=== PATIENT | female | born 1930 | race Caucasian/White ===

== ENCOUNTER 2017-08-01 14:30 | Inpatient (IN) | payer MEDICARE, BC ==
[2017-08-01] MEDS ORDERED: methylPREDNISolone SOD SUCCI 125 MG/2 ML VIAL IV STA (14:51)
[2017-08-01] MEDS ORDERED: IPRATROPIUM-ALBUTEROL 3 ML NEB INHALATION STA (14:51)
--- NOTE | 2017-08-01 14:54 | ED ---
SOB HPI - General Chief Complaint: Shortness of Breath Stated Complaint: SOB Time Seen by Provider: 08/01/17 14:51 Source: patient, RN notes reviewed Mode of arrival: ambulatory Limitations: no limitations - History of Present Illness Initial Comments: This is a 87-year-old female history of COPD who does still smoke occasionally who states she had the onset yesterday shortness of breath exertional dyspnea and a cough with yellow phlegm. She states it got worse today. No relief with her home medication. He denies any overt chest pain she denies any fevers chills or sweats. No other complaints at this time. MD Complaint: shortness of breath, cough - Related Data Home Medications Medication Instructions Recorded Confirmed Isosorbide Mononitrate ER [Imdur] 30 mg PO DAILY 10/29/14 08/01/17 Metoprolol Tartrate 25 mg PO BID 10/29/14 08/01/17 Ranitidine HCl 150 mg PO BID 10/29/14 08/01/17 Simvastatin [Zocor] 40 mg PO DAILY 10/29/14 08/01/17 amLODIPine BESYLATE [Norvasc] 2.5 mg PO DAILY 10/29/14 08/01/17 Budesonide-Formot 160-4.5 Mcg 2 puff INHALATION RT-BID PRN 08/01/17 08/01/17 [Symbicort 160-4.5 Mcg Inhaler] Ibuprofen [Motrin] 600 mg PO BID PRN 08/01/17 08/01/17 Allergies Allergy/AdvReac Type Severity Reaction Status Date / Time ciprofloxacin [From Cipro] Allergy Unknown Verified 08/01/17 16:44 Review of Systems ROS Statement: Those systems with pertinent positive or pertinent negative responses have been documented in the HPI. ROS Other: All systems not noted in ROS Statement are negative. Past Medical History Past Medical History: Hyperlipidemia, Hypertension History of Any Multi-Drug Resistant Organisms: None Reported Past Surgical History: Appendectomy, Cholecystectomy, Tubal Ligation Past Anesthesia/Blood Transfusion Reactions: No Reported Reaction Past Psychological History: No Psychological Hx Reported Smoking Status: Current some day smoker Past Alcohol Use History: None Reported Past Drug Use History: None Reported - Past Family History Mother Family Medical History: Asthma, Congestive Heart Failure (CHF) Father Family Medical History: Diabetes Mellitus General Exam - General Exam Comments Initial Comments: This is a well-developed well-nourished awake alert oriented 3 female Limitations: no limitations General appearance: alert, anxious Head exam: Present: atraumatic, normocephalic, normal inspection Eye exam: Present: normal appearance, PERRL, EOMI. Absent: scleral icterus, conjunctival injection, periorbital swelling ENT exam: Present: mucous membranes dry Neck exam: Present: normal inspection. Absent: tenderness, meningismus, lymphadenopathy Respiratory exam: Present: accessory muscle use, decreased breath sounds. Absent: respiratory distress, wheezes, rales, rhonchi, stridor Cardiovascular Exam: Present: regular rate, normal rhythm, normal heart sounds. Absent: systolic murmur, diastolic murmur, rubs, gallop, clicks GI/Abdominal exam: Present: soft, normal bowel sounds. Absent: distended, tenderness, guarding, rebound, rigid Extremities exam: Present: normal inspection, full ROM, normal capillary refill. Absent: tenderness, pedal edema, joint swelling, calf tenderness Back exam: Present: normal inspection Neurological exam: Present: alert, oriented X3, CN II-XII intact Psychiatric exam: Present: normal affect, normal mood Skin exam: Present: warm, dry, intact, normal color. Absent: rash Course Vital Signs 08/01/17 08/01/17 08/01/17 14:42 16:24 16:43 Temperature 98.9 F Pulse Rate 80 80 80 Respiratory 18 Rate Blood Pressure 141/63 O2 Sat by Pulse 99 Oximetry - Reevaluation(s) Reevaluation #1: 08/01/17 17:01 Reevaluation patient reveals minimally increased aeration however there are no crackles audible in the right lower lobe. Medical Decision Making - Medical Decision Making I did a long discussion with patient and her son regarding the findings. Patient does demonstrate evidence of COPD exacerbation with tracheobronchitis. She will be admitted with consultation by Dr. Collins. - Lab Data Result diagrams: 08/01/17 15:10 08/01/17 15:10 Lab Results 08/01/17 08/01/17 08/01/17 Range/Units 15:10 15:10 15:10 WBC 10.8 H (3.8-10.6) k/uL RBC 4.04 (3.80-5.40) m/uL Hgb 13.1 (11.4-16.0) gm/dL Hct 39.2 (34.0-46.0) % MCV 97.1 (80.0-100.0) fL MCH 32.5 (25.0-35.0) pg MCHC 33.4 (31.0-37.0) g/dL RDW 13.0 (11.5-15.5) % Plt Count 163 (150-450) k/uL Neutrophils % 79 % Lymphocytes % 12 % Monocytes % 7 % Eosinophils % 1 % Basophils % 0 % Neutrophils # 8.5 H (1.3-7.7) k/uL Lymphocytes # 1.2 (1.0-4.8) k/uL Monocytes # 0.8 (0-1.0) k/uL Eosinophils # 0.1 (0-0.7) k/uL Basophils # 0.0 (0-0.2) k/uL PT (9.0-12.0) sec INR (<1.2) APTT (22.0-30.0) sec Sodium 142 (137-145) mmol/L Potassium 3.2 L (3.5-5.1) mmol/L Chloride 103 (98-107) mmol/L Carbon Dioxide 29 (22-30) mmol/L Anion Gap 10 mmol/L BUN 21 H (7-17) mg/dL Creatinine 0.79 (0.52-1.04) mg/dL Est GFR (MDRD) Af Amer >60 (>60 ml/min/1.73 sqM) Est GFR (MDRD) Non-Af >60 (>60 ml/min/1.73 sqM) Glucose 127 H (74-99) mg/dL Calcium 9.3 (8.4-10.2) mg/dL Magnesium 1.6 (1.6-2.3) mg/dL Total Bilirubin 0.7 (0.2-1.3) mg/dL AST 25 (14-36) U/L ALT 24 (9-52) U/L Alkaline Phosphatase 79 (38-126) U/L Total Creatine Kinase 41 (30-135) U/L CK-MB (CK-2) 2.1 (0.0-2.4) ng/mL CK-MB (CK-2) Rel Index 5.1 Troponin I <0.012 (0.000-0.034) ng/mL NT-Pro-B Natriuret Pep pg/mL Total Protein 6.7 (6.3-8.2) g/dL Albumin 3.8 (3.5-5.0) g/dL 08/01/17 08/01/17 Range/Units 15:10 15:10 WBC (3.8-10.6) k/uL RBC (3.80-5.40) m/uL Hgb (11.4-16.0) gm/dL Hct (34.0-46.0) % MCV (80.0-100.0) fL MCH (25.0-35.0) pg MCHC (31.0-37.0) g/dL RDW (11.5-15.5) % Plt Count (150-450) k/uL Neutrophils % % Lymphocytes % % Monocytes % % Eosinophils % % Basophils % % Neutrophils # (1.3-7.7) k/uL Lymphocytes # (1.0-4.8) k/uL Monocytes # (0-1.0) k/uL Eosinophils # (0-0.7) k/uL Basophils # (0-0.2) k/uL PT 11.3 (9.0-12.0) sec INR 1.1 (<1.2) APTT 24.9 (22.0-30.0) sec Sodium (137-145) mmol/L Potassium (3.5-5.1) mmol/L Chloride (98-107) mmol/L Carbon Dioxide (22-30) mmol/L Anion Gap mmol/L BUN (7-17) mg/dL Creatinine (0.52-1.04) mg/dL Est GFR (MDRD) Af Amer (>60 ml/min/1.73 sqM) Est GFR (MDRD) Non-Af (>60 ml/min/1.73 sqM) Glucose (74-99) mg/dL Calcium (8.4-10.2) mg/dL Magnesium (1.6-2.3) mg/dL Total Bilirubin (0.2-1.3) mg/dL AST (14-36) U/L ALT (9-52) U/L Alkaline Phosphatase (38-126) U/L Total Creatine Kinase (30-135) U/L CK-MB (CK-2) (0.0-2.4) ng/mL CK-MB (CK-2) Rel Index Troponin I (0.000-0.034) ng/mL NT-Pro-B Natriuret Pep 2710 pg/mL Total Protein (6.3-8.2) g/dL Albumin (3.5-5.0) g/dL - EKG Data -: EKG Interpreted by Me EKG shows normal: sinus rhythm (Sinus rhythm rate is 78. Interval 150 QRS duration 90 QT since QTC of 398/453 pattern with anterior fascicular block nonspecific ST configuration. This is compared to an EKG dated 09/12/16 showing no change in the morphology.) - Radiology Data Radiology results: report reviewed (I did review the imaging and reports is evidence of COPD but no definite infiltrates.), image reviewed Critical Care Time Critical Care Time: Yes Critical Care Time: 31 minutes of critical care time which includes initial presentation with history physical labs x-rays reevaluation patient responsive therapy. Discussed with patient and her family regarding the findings review of old charting discussed with the patient family discussion with the admitting physician and admission orders and documentation of the above Disposition Clinical Impression: Acute exacerbation of chronic obstructive airways disease, Adult respiratory distress syndrome, Tracheobronchitis Disposition: ADMITTED IP TO THIS [facility] Condition: Stable Referrals: Luz Marina Collins MD [STAFF PHYSICIAN] - 1-2 days
[2017-08-01 15:52] LABS: Basophils % (A) 0 %; CH 31.5; CHCM 32.6; Eosinophils # (A) 0.1 k/uL (0-0.7); Eosinophils % (A) 1 %; HCT 39.2 % (34.0-46.0); HDW 2.51; HGB 13.1 gm/dL (11.4-16.0); Luc % (Auto) 2; Lymphocytes # (A) 1.2 k/uL (1.0-4.8); Lymphocytes % (A) 12 %; MCH 32.5 pg (25.0-35.0); MCHC 33.4 g/dL (31.0-37.0); MCV 97.1 fL (80.0-100.0); Mean Platelet Volume 7.8; Monocytes # (A) 0.8 k/uL (0-1.0); Monocytes % (A) 7 %; Neutrophils # (A) 8.5 k/uL (1.3-7.7); Neutrophils % (A) 79 %; RBC 4.04 m/uL (3.80-5.40); WBC 10.8 k/uL (3.8-10.6); WBC (Perox) 10.99
--- NOTE | 2017-08-01 15:57 | XR ---
EXAMINATION TYPE: XR chest 2V DATE OF EXAM: 08/01/2017 COMPARISON: September 12, 2016. HISTORY: Shortness of breath TECHNIQUE: Frontal and lateral views of the chest are obtained. FINDINGS: Hyperinflation is noted with flattening of the diaphragms. The cardiac silhouette is withi n normal limits. There is diffuse linear opacities which are unchanged. There is no pneumothorax or p leural effusion. Dense calcifications are identified in the aortic arch. Pectus excavatum deformity i s again noted. Findings consistent with COPD and interstitial lung disease are again noted. IMPRESSION: No change in appearance the chest, no acute intrathoracic abnormality identified.
[2017-08-01 15:58] LABS: ALT 24 U/L (9-52); AST 25 U/L (14-36); Alkaline Phosphatase 79 U/L (38-126); Anion Gap 10 mmol/L; Blood Urea Nitrogen 21 mg/dL (7-17); Calcium 9.3 mg/dL (8.4-10.2); Carbon Dioxide 29 mmol/L (22-30); Chloride 103 mmol/L (98-107); Glucose 127 mg/dL (74-99); Magnesium 1.6 mg/dL (1.6-2.3); Non-African American GFR(MDRD) >60 (>60 ml/min/1.73 sqM); Potassium 3.2 mmol/L (3.5-5.1); Sodium 142 mmol/L (137-145); Total Bilirubin 0.7 mg/dL (0.2-1.3); Total Protein 6.7 g/dL (6.3-8.2)
[2017-08-01 16:00] LABS: Creatine Kinase 41 U/L (30-135); INR 1.1 (<1.2); Partial Thromboplastin Time 24.9 sec (22.0-30.0); Prothrombin Time 11.3 sec (9.0-12.0)
[2017-08-01 16:13] LABS: Creatine Kinase MB 2.1 ng/mL (0.0-2.4); Troponin I <0.012 ng/mL (0.000-0.034)
[2017-08-01] MEDS ORDERED: IBUPROFEN 600 MG TAB PO PRN (17:06)
[2017-08-01] MEDS ORDERED: Potassium Replacement Protocol 1 EACH MISC MISCELLANE PRN (18:34)
[2017-08-01] MEDS: SODIUM CHLORIDE 0.9% 1,000 ML IV SCH (18:37)
[2017-08-01] MEDS: IPRATROPIUM-ALBUTEROL 3 ML NEB INHALATION SCH (19:53)
[2017-08-01] MEDS: POTASSIUM CHLORIDE 10 MEQ in WATER FOR INJECTION 1 100ML.BAG IVPB SCH ×2 (20:01→21:14)
[2017-08-01] MEDS: METOPROLOL TARTRATE 25 MG TAB PO SCH (20:02)
[2017-08-01] MEDS: AMOXIC-POT CLAV 875-125MG 1 EACH TAB PO SCH (20:02)
[2017-08-01 20:58] LABS: Glucose,Whole Blood 248 mg/dL (75-99)
[2017-08-01] MEDS ORDERED: FAMOTIDINE 20 MG TAB PO SCH (21:00)
[2017-08-01] MEDS: INSULIN LISPRO (humaLOG) 300 UNIT/3 ML VIAL SQ SCH (22:27)
[2017-08-01] MEDS: methylPREDNISolone SOD SUCCI 125 MG/2 ML VIAL IV SCH (23:32)
[2017-08-02] MEDS: IPRATROPIUM-ALBUTEROL 3 ML NEB INHALATION SCH ×6 (00:09→20:43)
[2017-08-02] MEDS: POTASSIUM CHLORIDE 10 MEQ, LIDOCAINE 2% INJ 10 MG in SODIUM CHLORIDE 0.9% 100 ML IVPB SCH ×2 (01:42→02:52)
[2017-08-02] MEDS: methylPREDNISolone SOD SUCCI 125 MG/2 ML VIAL IV SCH ×2 (06:29→11:04)
[2017-08-02] MEDS ORDERED: POTASSIUM CHLORIDE ER 20 MEQ TAB.ER PO STA (06:39)
[2017-08-02 07:11] LABS: Glucose,Whole Blood 202 mg/dL (75-99)
[2017-08-02] MEDS: INSULIN LISPRO (humaLOG) 300 UNIT/3 ML VIAL SQ SCH ×5 (07:45→20:47)
[2017-08-02] MEDS: ATORVASTATIN 20 MG TAB PO SCH (07:47)
[2017-08-02] MEDS: amLODIPine 2.5 MG TAB PO SCH (07:47)
[2017-08-02] MEDS: AMOXIC-POT CLAV 875-125MG 1 EACH TAB PO SCH ×2 (07:47→20:41)
[2017-08-02] MEDS: METOPROLOL TARTRATE 25 MG TAB PO SCH ×2 (07:48→20:41)
[2017-08-02] MEDS: FAMOTIDINE 20 MG TAB PO SCH (07:48)
[2017-08-02] MEDS: ISOSORBIDE MONONITRATE ER 30 MG TAB.ER.24H PO SCH (07:48)
[2017-08-02] MEDS: ENOXAPARIN 40 MG/0.4 ML SYRINGE SQ SCH (11:04)
[2017-08-02 12:26] LABS: Glucose,Whole Blood 219 mg/dL (75-99)
--- NOTE | 2017-08-02 15:42 | P.CNPUL ---
History of Present Illness Consult date: 08/02/17 Reason for consult: COPD History of present illness: 86-year-old female patient, known having advanced COPD with chronic hypoxic history failure, presented to hospital because of worsening shortness of breath , chest tightness, wheezing and coughing. The patient is still smoking a few cigarettes a daily basis. She was unable to keep up with her maintenance inhaler because of the cost and insurance coverage which has been mainly relying on oxygen and albuterol neb last 2 minutes on the clock. She also has a Ventolin rescue inhaler. Recently she's been overutilizing to have rescue inhaler knowing that she was getting progressively more short of breath. No chest pain. No cough or sputum production. No hemoptysis. No pleurisy. No swelling lower extremities pain no nausea or vomiting. No aspiration. No shallow. Her last COPD exacerbation and hospitalization was in August 2016. She is quite cachectic and malnourished. Her chest x-ray shows hyperinflation. There is small effusion the lung bases bilaterally. No clear asbestos disease or pneumonias seen. No change in mental status. She is already feeling better compared to yesterday. Review of Systems Constitutional: Reports fatigue, Reports weakness, Reports weight loss Eyes: bilateral blurred vision, bilateral bulging eye, bilateral decreased vision Ears: deny: decreased hearing, ear discharge, earache Ears, nose, mouth and throat: Denies headache, Denies sore throat Cardiovascular: Reports decreased exercise tolerance, Reports dyspnea on exertion, Reports shortness of breath Respiratory: Reports cough, Reports dyspnea, Reports wheezing Gastrointestinal: Denies abdominal pain, Denies diarrhea, Denies nausea, Denies vomiting Genitourinary: Denies dysuria, Denies hematuria Musculoskeletal: absent: ankle pain, ankle stiffness, ankle swelling Integumentary: Denies pruritus, Denies rash Neurological: Reports gait dysfunction, Reports weakness Psychiatric: Denies anxiety, Denies depression Endocrine: Denies fatigue, Denies weight change Past Medical History Past Medical History: COPD, Hyperlipidemia, Hypertension History of Any Multi-Drug Resistant Organisms: None Reported Past Surgical History: Appendectomy, Cholecystectomy, Tubal Ligation Past Anesthesia/Blood Transfusion Reactions: No Reported Reaction Past Psychological History: No Psychological Hx Reported Smoking Status: Current some day smoker Past Alcohol Use History: None Reported Past Drug Use History: None Reported - Past Family History Mother Family Medical History: Asthma, Congestive Heart Failure (CHF) Father Family Medical History: Diabetes Mellitus Medications and Allergies Home Medications Medication Instructions Recorded Confirmed Type Isosorbide Mononitrate ER [Imdur] 30 mg PO DAILY 10/29/14 08/01/17 History Metoprolol Tartrate 25 mg PO BID 10/29/14 08/01/17 History Ranitidine HCl 150 mg PO BID 10/29/14 08/01/17 History Simvastatin [Zocor] 40 mg PO DAILY 10/29/14 08/01/17 History amLODIPine BESYLATE [Norvasc] 2.5 mg PO DAILY 10/29/14 08/01/17 History Budesonide-Formot 160-4.5 Mcg 2 puff INHALATION RT-BID PRN 08/01/17 08/01/17 History [Symbicort 160-4.5 Mcg Inhaler] Ibuprofen [Motrin] 600 mg PO BID PRN 08/01/17 08/01/17 History Allergies Allergy/AdvReac Type Severity Reaction Status Date / Time ciprofloxacin [From Cipro] Allergy Unknown Verified 08/01/17 16:44 Physical Exam Vitals: Vital Signs Temp Pulse Pulse Resp BP BP Pulse Ox 08/02/17 15:00 97.6 F 81 17 110/65 96 08/02/17 11:34 88 08/02/17 11:20 88 08/02/17 08:05 88 08/02/17 07:49 98 08/02/17 07:00 97.4 F L 87 17 107/57 96 08/02/17 03:38 76 08/02/17 03:30 76 08/02/17 00:22 80 08/02/17 00:09 76 08/01/17 23:00 99.0 F 73 14 127/60 96 08/01/17 20:04 82 08/01/17 19:53 80 98 08/01/17 17:11 92 17 122/59 97 08/01/17 16:43 80 08/01/17 16:24 80 Intake and Output 08/02/17 08/02/17 08/02/17 06:59 14:59 22:59 Other: # Voids 2 2 # Bowel Movements 0 This patient is frail thin elderly nonacute distress. Not using excessive muscle breathing. She looks significantly cachectic and malnourished and significant loss in total body protein mass.Head exam was generally normal. There was no scleral icterus or corneal arcus. Mucous membranes were moist.Neck was supple and without jugular venous distension, thyromegaly, or carotid bruits. Carotids were easily palpable bilaterally. There was no adenopathy. Lung sounds are diminished bilaterally. The patient has very limited atelectatic lung bases. No significant wheezes unless the patient performs forced expiratory maneuvers.Cardiac exam revealed the PMI to be normally situated and sized. The rhythm was regular and no extrasystoles were noted during several minutes of auscultation. The first and second heart sounds were normal and physiologic splitting of the second heart sound was noted. There were no murmurs, rubs, clicks, or gallops.Abdominal exam revealed normal bowel sounds. The abdomen was soft, non-tender, and without masses, organomegaly, or appreciable enlargement of the abdominal aorta. Organs are not enlarged.Examination of the extremities revealed easily palpable radial, femoral and pedal pulses. There was no cyanosis, clubbing or edema. The patient has significant muscle atrophy and loss in bulk/protein bulk in lower extremities bilaterally. Neurologically the patient is awake and alert and there is no focal neurological deficits. Currently exam was within normal limits and there is no fractures or any limitation in range of motion. Skin is negative for any rashes or any ulceration. Psychiatric exam is within normal limits. No agitation. No change in mental status. No confusion. Results - Laboratory Findings CBC and BMP: 08/01/17 15:10 08/02/17 04:48 PT/INR, D-dimer PT 11.3 sec (9.0-12.0) 08/01/17 15:10 INR 1.1 (<1.2) 08/01/17 15:10 Abnormal lab findings: Abnormal Labs 08/01/17 08/01/17 08/01/17 15:10 15:10 20:48 WBC 10.8 H Neutrophils # 8.5 H Potassium 3.2 L BUN 21 H Glucose 127 H POC Glucose (mg/dL) 248 H 08/01/17 08/02/17 08/02/17 23:43 07:05 12:24 WBC Neutrophils # Potassium 3.4 L BUN Glucose POC Glucose (mg/dL) 202 H 219 H - Diagnostic Findings Chest x-ray: image reviewed Assessment and Plan Plan: Assessment 1 acute COPD exacerbation/bronchitis 2 worsening shortness of breath secondary to above 3 chronic hypoxic respiratory failure secondary to advanced COPD 4 significant protein calorie malnourishment and muscle atrophy in both upper and lower extremities 5 hypertension 6 hyperlipidemia 7 smoker Plan Continue DuoNeb neb last treatments around the clock. Completed the course of Augmentin 875 mg 1 tablet by mouth twice a day for hepatic antibiotic coverage regarding the possibility of an underlying bronchitis. The chest systemic steroids with 40 mg of IV Solu-Medrol every 8 hours. Lovenox for DVT prophylaxis. Outpatient medication we will resume. Smoking cessation counseling was done. We'll continue to follow.
[2017-08-02] MEDS: methylPREDNISolone SOD SUCCI 40 MG/ML 1 ML VIAL IV SCH ×2 (16:50→23:18)
[2017-08-02] MEDS: SODIUM CHLORIDE 0.9% 1,000 ML IV SCH (16:50)
[2017-08-02 17:03] LABS: Glucose,Whole Blood 191 mg/dL (75-99)
--- NOTE | 2017-08-02 17:35 | P.HPIM ---
History of Present Illness H&P Date: 08/02/17 Chief Complaint: Short of breath History of presenting complaint: This is a very pleasant 87-year-old patient of Dr. Spivey. 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 Montiel. Chronic stable medical conditions include hyperlipidemia, hypertension, osteoarthritis, urinary stress incontinence. Patient continues to smoke a few cigarettes day. Has 3 L of oxygen at home Patient presents with worsening short of breath, cough with yellow-green sputum , no obvious fever. Appetite is down weak and tired. No obvious pneumonia reported on the checks x-ray the ER. GEN.: Tired EYES: None HEENT: None NECK: None RESPIRATORY: As above CARDIOVASCULAR: None GASTROINTESTINAL: None GENITOURINARY: Stress incontinence MUSCULOSKELETAL: Some pain in multiple joints LYMPHATICS: None HEMATOLOGICAL: None PSYCHIATRY: None NEUROLOGICAL: None Past medical history: COPD, hypertension, hyperlipidemia, osteoarthritis, urinary stress incontinence , chronic hypoxic respiratory failure 3 L oxygen at home Past surgical history: Appendectomy, cholecystectomy, tubal ligation Home medications: Reviewed in electronic health records ALLERGIES: Ciprofloxacin Family history: Asthma and congestive heart failure Social history: Lives alone. Has smoked for close to 17 years average about a pack a day now down to 3-5 cigarettes a day. Alcohol none VITAL SIGNS: 98.9, 18, 18, 141/63, 99% on 3 L on presentation GENERAL: BMI 14.5, 10 built, sitting up, short of breath. EYES: Pupils equal. Conjunctiva normal. HEENT: External appearance of nose and ears normal, oral cavity grossly normal. NECK: JVD not raised; masses not palpable. HEART: First and second heart sounds are normal; no edema. LUNGS: Respiratory rate increased, unable to speak in full sentences, some accessory muscles or working; diminished breath sounds, some audible crackles on patient coughing. ABDOMEN: Soft, nontender, liver spleen not palpable, no masses palpable. LYMPHATICS: No lymph nodes palpable in the axilla and neck. PSYCH: Alert and oriented x3; mood and affect normal. NEUROLOGICAL: Cranial nerves grossly intact; no facial asymmetry, power and sensation grossly intact Musculoskeletal: Diffuse wasting of muscles. Evidence of osteoarthritis in multiple joints including the hands and knees Investigations: White count 10.8, hemoglobin 13.1, platelets 163 potassium 3.2 ProBNP 2710 Chest [id number]-hyper inflated, flattened diaphragm no obvious infiltrate Assessment: -Acute COPD exacerbation in a smoker secondary to acute bronchitis -Chronic nicotine dependence patient cigarette smoker -Possibly severe protein calorie malnutrition from chronically decreased oral intake -Hyperlipidemia -Essential hypertension -Primary osteoarthritis in multiple joints bilateral -Chronic urinary stress incontinence -Chronic hypoxic respiratory failure on 3 L of oxygen at home Past Medical History Past Medical History: COPD, Hyperlipidemia, Hypertension History of Any Multi-Drug Resistant Organisms: None Reported Past Surgical History: Appendectomy, Cholecystectomy, Tubal Ligation Past Anesthesia/Blood Transfusion Reactions: No Reported Reaction Past Psychological History: No Psychological Hx Reported Smoking Status: Current some day smoker Past Alcohol Use History: None Reported Past Drug Use History: None Reported - Past Family History Mother Family Medical History: Asthma, Congestive Heart Failure (CHF) Father Family Medical History: Diabetes Mellitus Medications and Allergies Home Medications Medication Instructions Recorded Confirmed Type Isosorbide Mononitrate ER [Imdur] 30 mg PO DAILY 10/29/14 08/01/17 History Metoprolol Tartrate 25 mg PO BID 10/29/14 08/01/17 History Ranitidine HCl 150 mg PO BID 10/29/14 08/01/17 History Simvastatin [Zocor] 40 mg PO DAILY 10/29/14 08/01/17 History amLODIPine BESYLATE [Norvasc] 2.5 mg PO DAILY 10/29/14 08/01/17 History Budesonide-Formot 160-4.5 Mcg 2 puff INHALATION RT-BID PRN 08/01/17 08/01/17 History [Symbicort 160-4.5 Mcg Inhaler] Ibuprofen [Motrin] 600 mg PO BID PRN 08/01/17 08/01/17 History Allergies Allergy/AdvReac Type Severity Reaction Status Date / Time ciprofloxacin [From Cipro] Allergy Unknown Verified 08/01/17 16:44 Results CBC & Chem 7: 08/01/17 15:10 08/02/17 04:48
[2017-08-02] MEDS: guaiFENesin 600 MG TABLET.ER PO SCH (20:41)
[2017-08-02 20:51] LABS: Glucose,Whole Blood 214 mg/dL (75-99)
[2017-08-02] MEDS ORDERED: INSULIN LISPRO (humaLOG) 300 UNIT/3 ML VIAL SQ SCH (21:26)
[2017-08-03] MEDS: IPRATROPIUM-ALBUTEROL 3 ML NEB INHALATION SCH ×7 (00:18→20:12)
[2017-08-03] MEDS: INSULIN LISPRO (humaLOG) 300 UNIT/3 ML VIAL SQ SCH ×4 (07:52→21:16)
[2017-08-03] MEDS: methylPREDNISolone SOD SUCCI 40 MG/ML 1 ML VIAL IV SCH ×2 (07:53→17:26)
[2017-08-03] MEDS: amLODIPine 2.5 MG TAB PO SCH (07:54)
[2017-08-03] MEDS: FAMOTIDINE 20 MG TAB PO SCH (07:54)
[2017-08-03] MEDS: ATORVASTATIN 20 MG TAB PO SCH (07:54)
[2017-08-03] MEDS: ENOXAPARIN 40 MG/0.4 ML SYRINGE SQ SCH (07:54)
[2017-08-03] MEDS: AMOXIC-POT CLAV 875-125MG 1 EACH TAB PO SCH ×2 (07:54→21:06)
[2017-08-03] MEDS: guaiFENesin 600 MG TABLET.ER PO SCH ×2 (07:54→21:07)
[2017-08-03] MEDS: ISOSORBIDE MONONITRATE ER 30 MG TAB.ER.24H PO SCH (07:55)
[2017-08-03] MEDS: METOPROLOL TARTRATE 25 MG TAB PO SCH ×2 (07:55→21:07)
[2017-08-03 07:57] LABS: Glucose,Whole Blood 188 mg/dL (75-99)
[2017-08-03 12:49] LABS: Glucose,Whole Blood 122 mg/dL (75-99)
--- NOTE | 2017-08-03 16:46 | P.PN ---
<Frances Lizarraga M - Last Filed: 08/03/17 16:37> Subjective Principal diagnosis: 86 showed female patients with advanced COPD and chronic hypoxic failure history , being seen in follow-up today on 08/03/2017. She she is resting in bed comfortably with a sitter at the bedside. She is alert awake and responding appropriately. In no significant amount of distress. Per nursing staff last night patient was confused for which a industrial safety and health specialist was placed at the bedside. She denies cough, shortness of breath or wheezing. Afebrile, currently on 3 L oxygen per nasal cannula a oxygen saturations in the 93-95% range. She continues on IV steroids, Augmentin, and DuoNeb nebulizer treatments. Remains hemodynamically stable. Blood cultures are pending. Objective - Vital Signs Vital signs: Vital Signs Temp 97.1 F L 08/03/17 15:00 Pulse 88 08/03/17 15:49 Resp 20 08/03/17 15:00 BP 114/59 08/03/17 15:00 Pulse Ox 95 08/03/17 15:00 Intake & Output 08/02/17 08/03/17 08/03/17 18:59 06:59 18:59 Intake Total 240 Balance 240 Intake: Oral 240 Other: # Voids 2 1 2 # Bowel Movements 0 - Constitutional General appearance: Present: thin - EENT Eyes: Present: PERRLA, poor dentition ENT: Present: NA/AT Ears: bilateral: normal - Neck Neck: Present: normal ROM Thyroid: bilateral: normal size - Respiratory Respiratory: bilateral: diminished - Cardiovascular Rhythm: regular Heart sounds: normal: S1, S2 - Peripheral pulses dorsalis pedis Peripheral Pulses: bilateral: Normal radial pulse Peripheral Pulses: bilateral: Normal - Gastrointestinal General gastrointestinal: Present: normal bowel sounds - Neurologic Neurologic: Present: CNII-XII intact - Musculoskeletal Musculoskeletal: Present: generalized weakness, strength equal bilaterally - Psychiatric Psychiatric Comment(s): Episode of confusion last night Psychiatric: Present: A&O x's 3 - Labs CBC & Chem 7: 08/01/17 15:10 08/02/17 04:48 Labs: Abnormal Lab Results - Last 24 Hours (Table) 08/02/17 08/02/17 08/03/17 Range/Units 17:01 20:45 07:16 POC Glucose (mg/dL) 191 H 214 H 188 H (75-99) mg/dL 08/03/17 Range/Units 12:15 POC Glucose (mg/dL) 122 H (75-99) mg/dL Microbiology - Last 24 Hours (Table) 08/01/17 15:10 Blood Culture - Preliminary Blood No Growth after 24 hours - Imaging and Cardiology Chest x-ray: report reviewed Assessment and Plan Plan: Assessment 1 acute COPD exacerbation/bronchitis 2 worsening shortness of breath secondary to above 3 chronic hypoxic respiratory failure secondary to advanced COPD 4 significant protein calorie malnourishment and muscle atrophy in both upper and lower extremities 5 hypertension 6 hyperlipidemia 7 smoker Plan Continue DuoNeb neb last treatments around the clock. Continue Augmentin 875 mg 1 tablet by mouth twice a day for hepatic antibiotic coverage regarding the possibility of an underlying bronchitis. The chest systemic steroids with 40 mg of IV Solu-Medrol every 8 hours. Lovenox for DVT prophylaxis. Outpatient medication we will resume. Smoking cessation counseling was done. We'll continue to follow. I performed a history & physical examination of the patient and discussed their management with my nurse practitioner, Frances Lizarraga. I reviewed the nurse practitioner's note and agree with the documented findings and plan of care. <Vilma Pandey - Last Filed: 08/03/17 17:10> Objective - Vital Signs Vital signs: Vital Signs Temp 97.1 F L 08/03/17 15:00 Pulse 88 08/03/17 15:49 Resp 20 08/03/17 15:00 BP 114/59 08/03/17 15:00 Pulse Ox 95 08/03/17 15:00 Intake & Output 08/02/17 08/03/17 08/03/17 18:59 06:59 18:59 Intake Total 240 Balance 240 Intake: Oral 240 Other: # Voids 2 1 2 # Bowel Movements 0 - Labs CBC & Chem 7: 08/01/17 15:10 08/02/17 04:48 Labs: Abnormal Lab Results - Last 24 Hours (Table) 08/02/17 08/03/17 08/03/17 Range/Units 20:45 07:16 12:15 POC Glucose (mg/dL) 214 H 188 H 122 H (75-99) mg/dL Microbiology - Last 24 Hours (Table) 08/01/17 15:10 Blood Culture - Preliminary Blood No Growth after 24 hours Assessment and Plan Plan: I generated this joint evaluation with the nurse practitioner. I saw the patient. I interviewed her. I examined her. She has acute COPD exacerbation she is gradually getting better. I taper the steroids. We'll continue to follow and will hopefully changes to a prednisone burst taper within next 24 hours. Otherwise the rest of the plan as indicated above
--- NOTE | 2017-08-03 17:24 | P.PN ---
<Lauren Hampton - Last Filed: 08/03/17 17:24> Progress Note - Text DATE OF SERVICE: 08/03/2017 PRESENTING COMPLAINT: Shortness of breath HISTORY OF PRESENT ILLNESS: 87-year-old female with a current history of smoking in 3 L of oxygen use at home presented with worsening shortness of breath cough with yellow-green sputum no obvious fever. Appetite low complained of weakness and feeling tired. Diagnostics negative for pneumonia. INTERVAL HISTORY: 08/03/2017: Patient lying in bed appears pale but comfortable. Breathing easily, no wheezing noted, overnight patient had quite a bit of confusion was undirectable and required a chief safety officer at the bedside. Patient is more alert this morning following commands and appropriately answering questions. Anxious to go home, would benefit from an additional day of antibiotics. REVIEW OF SYSTEMS: Done for constitutional ,cardiovascular, GI, pulmonary with relevant findings as above. CURRENT MEDICATIONS DuoNeb, on [place] 875/125 one tablet by mouth twice a day, Lipitor 20 mg by mouth daily, Mucinex, Solu-Medrol 40 mg IV every 8 hours, Lopressor 25 mg by mouth twice a day PHYSICAL EXAM VITAL SIGNS: Temp temperature 97.3, pulse 79, respiratory rate 16, blood pressure 118/85, oxygen saturation 96% on 3 L. GENERAL APPEARANCE: Thin build Lying in bed, appears comfortable EYES: Pupils equal. Conjunctiva normal. NECK: JVD not raised. Mass not palpable. RESPIRATORY: Respiratory effort increased Some accessory muscles use, breath sounds diminished bilaterally crackles with coughing. CARDIOVASCULAR: First and second sounds normal. No edema. ABDOMEN: Soft. Liver and spleen not palpable. No tenderness. No mass palpable. PSYCHIATRY: Alert and oriented x3. Mood and affect normal. 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 Plan of care discussed with the patient at the bedside questions were answered. We will follow closely. MACHINE OPERATOR ASSISTANT statement: Patient was seen and examined by nurse practitioner Lauren Hampton and all elements of the case discussed with attending Dr. Urias <Khadar Urias - Last Filed: 08/03/17 20:52> Progress Note - Text Attending note. Date of service-08/03/2017 This patient was seen and examined by me . Discussed the patient with my nurse practitioner Ms. Hampton. Admitted with COPD exacerbation. Breathing is slightly better. Coughing up some phlegm. Still feels feeling weak and tired. Appetite only slowly improved Acute confusion overnight On examination: Lungs-decreased breath sounds prolonged expiration and some wheezing, psych AO 3 Investigations: Accu-Cheks noted Assessment and plan: Acute severe COPD exacerbation in a smoker secondary to acute bronchitis. Acute delirium overnight, resolved Continue current medication treatment plan. Discussed with the patient. Did cut back on those Solu-Medrol
[2017-08-03] MEDS: SODIUM CHLORIDE 0.9% 1,000 ML IV SCH (17:27)
[2017-08-03 17:49] LABS: Glucose,Whole Blood 190 mg/dL (75-99)
[2017-08-03] MEDS ORDERED: IPRATROPIUM-ALBUTEROL 3 ML NEB INHALATION PRN (19:14)
[2017-08-03 20:35] LABS: Glucose,Whole Blood 174 mg/dL (75-99)
[2017-08-04] MEDS: methylPREDNISolone SOD SUCCI 40 MG/ML 1 ML VIAL IV SCH ×2 (00:26→07:59)
[2017-08-04 07:08] VITALS: BP 105/63; RESP 18; TEMP 97.7
[2017-08-04 07:19] LABS: Glucose,Whole Blood 161 mg/dL (75-99)
[2017-08-04] MEDS: FAMOTIDINE 20 MG TAB PO SCH (07:53)
[2017-08-04] MEDS: ATORVASTATIN 20 MG TAB PO SCH (07:53)
[2017-08-04] MEDS: ISOSORBIDE MONONITRATE ER 30 MG TAB.ER.24H PO SCH (07:54)
[2017-08-04] MEDS: amLODIPine 2.5 MG TAB PO SCH (07:54)
[2017-08-04] MEDS: METOPROLOL TARTRATE 25 MG TAB PO SCH (07:54)
[2017-08-04] MEDS: AMOXIC-POT CLAV 875-125MG 1 EACH TAB PO SCH (07:56)
[2017-08-04] MEDS: guaiFENesin 600 MG TABLET.ER PO SCH (07:58)
[2017-08-04] MEDS: ENOXAPARIN 40 MG/0.4 ML SYRINGE SQ SCH (07:59)
[2017-08-04] MEDS: IPRATROPIUM-ALBUTEROL 3 ML NEB INHALATION SCH ×2 (08:44→11:46)
[2017-08-04] MEDS: INSULIN LISPRO (humaLOG) 300 UNIT/3 ML VIAL SQ SCH ×2 (08:59→12:39)
[2017-08-04 09:01] LABS: Glucose,Whole Blood 261 mg/dL (75-99)
[2017-08-04 11:58] VITALS: PULSE 88
[2017-08-04 12:05] LABS: Glucose,Whole Blood 110 mg/dL (75-99)
--- NOTE | 2017-08-05 08:36 | DS ---
DISCHARGE SUMMARY DATE OF ADMISSION: 08/01/2017. DATE OF DISCHARGE: 08/05/2017 FINAL DIAGNOSIS: 1. Acute chronic obstructive pulmonary disease exacerbation in a smoker secondary to acute bronchitis. 2. Acute delirium multifactorial, resolved. 3. Chronic nicotine dependence. Patient is a cigarette smoker. 4. Severe protein calorie malnutrition from chronic decreased oral intake. 5. Hyperlipidemia. 6. Essential hypertension. 7. Primary osteoarthritis of multiple joints, bilateral. 8. Chronic urinary stress incontinence. 9. Chronic hypoxic respiratory failure on 3 L oxygen at home. CONSULTATION: Dr. Pandey from Pulmonary. HOSPITAL COURSE: This patient continued to smoke. Very pleasant patient with COPD exacerbation and bronchitis. Responded well to steroids, nebulized bronchodilators. The patient is counseled against smoking. Patient is able to get around the house. PHYSICAL EXAM: LUNGS: decreased breath sounds. CARDIOVASCULAR: First and seconds sounds are normal. PSYCH: Alert and oriented x3. DISCHARGE MEDICATIONS: 1. Imdur ER 30 mg p.o. daily. 2. Metoprolol 25 mg p.o. b.i.d. 3. Zantac 150 mg p.o. b.i.d. 4. Zocor 40 mg p.o. daily. 5. Norvasc 2.5 p.o. daily. 6. Symbicort 160/4.5 two puffs b.i.d. p.r.n. 7. Motrin 600 mg p.o. b.i.d. p.r.n. 8. Augmentin 875 one tablet p.o. b.i.d. 6 tablets. 9. DuoNeb q.i.d. 10.Mucinex 200 mg p.o. q.12. 11.Prednisone taper. Follow up with Dr. Collins on 08/05/2017; Dr. Spivey in 3 days. Home oxygen to continue. Discharge planning more than 35 minutes. MMODL / IJN: [id number] /
== END 2017-08-04 12:39 | disposition home or self-care (01) | DRG 190 ==
LOC: EC 14:30 → 4MS4W 17:06
PROVIDERS: ADMIT Hospitalist; ATTEND Hospitalist
DX: J44.0 Chronic obstructive pulmonary disease with (acute) lower respiratory infection (principal); E43 Unspecified severe protein-calorie malnutrition; J96.11 Chronic respiratory failure with hypoxia; F05 Delirium due to known physiological condition; Z99.81 Dependence on supplemental oxygen; I44.4 Left anterior fascicular block; R64 Cachexia; Z68.1 Body mass index [BMI] 19.9 or less, adult; J44.1 Chronic obstructive pulmonary disease with (acute) exacerbation; I10 Essential (primary) hypertension; J20.9 Acute bronchitis, unspecified; T48.6X6A Underdosing of antiasthmatics, initial encounter; M62.50 Muscle wasting and atrophy, not elsewhere classified, unspecified site; M17.0 Bilateral primary osteoarthritis of knee; E78.5 Hyperlipidemia, unspecified; M19.041 Primary osteoarthritis, right hand; M19.042 Primary osteoarthritis, left hand; R53.1 Weakness; N39.3 Stress incontinence (female) (male); F17.210 Nicotine dependence, cigarettes, uncomplicated; Z79.899 Other long term (current) drug therapy; Z79.51 Long term (current) use of inhaled steroids; Z83.3 Family history of diabetes mellitus; Z82.5 Family history of asthma and other chronic lower respiratory diseases; Z82.49 Family history of ischemic heart disease and other diseases of the circulatory system; Z88.1 Allergy status to other antibiotic agents; Z79.1 Long term (current) use of non-steroidal anti-inflammatories (NSAID); Z71.6 Tobacco abuse counseling; Z90.49 Acquired absence of other specified parts of digestive tract; Z98.51 Tubal ligation status; Z91.14 Patient's other noncompliance with medication regimen
CPT/HCPCS: 36415; 71020; 80053; 82550; 82553; 83735; 83880; 84132; 84484; 85025; 85610; 85730; 87040; 93005; 94640; 94760; 96374; 99291

== ENCOUNTER 2017-08-14 20:33 | Inpatient (IN) | payer MEDICARE, BC ==
[2017-08-14] MEDS ORDERED: methylPREDNISolone SOD SUCCI 125 MG/2 ML VIAL IV STA (20:41)
[2017-08-14] MEDS ORDERED: SODIUM CHLORIDE 0.9% 1,000 ML IV STA (20:41)
[2017-08-14] MEDS ORDERED: IPRATROPIUM-ALBUTEROL 3 ML NEB INHALATION STA (20:41)
[2017-08-14] MEDS ORDERED: MAGNESIUM SULFATE-D5W PMX 1 GM in DEXTROSE/WATER 1 100ML.BAG IVPB STA (20:41)
[2017-08-14] MEDS ORDERED: SODIUM CHLORIDE 0.9% 500 ML IV STA (20:41)
--- NOTE | 2017-08-14 20:49 | ED ---
SOB HPI - General Stated Complaint: ALYCIA Time Seen by Provider: 08/14/17 20:36 Source: patient, family, RN notes reviewed, old records reviewed - History of Present Illness Initial Comments: This is a 87-year-old female with a history of COPD who does still smoke cigarettes who states she had the onset earlier today of shortness of breath with a near syncopal episode or shakes she did go down the floor he has some chest tightness which currently is about 1/10 severity. She had no fevers chills sweats no cough or other symptoms to report. She was brought in by family members. MD Complaint: shortness of breath, chest pain - Related Data Home Medications Medication Instructions Recorded Confirmed Isosorbide Mononitrate ER [Imdur] 30 mg PO DAILY 10/29/14 08/01/17 Metoprolol Tartrate 25 mg PO BID 10/29/14 08/01/17 Ranitidine HCl 150 mg PO BID 10/29/14 08/01/17 Simvastatin [Zocor] 40 mg PO DAILY 10/29/14 08/01/17 amLODIPine BESYLATE [Norvasc] 2.5 mg PO DAILY 10/29/14 08/01/17 Budesonide-Formot 160-4.5 Mcg 2 puff INHALATION RT-BID PRN 08/01/17 08/01/17 [Symbicort 160-4.5 Mcg Inhaler] Ibuprofen [Motrin] 600 mg PO BID PRN 08/01/17 08/01/17 Previous Rx's Medication Instructions Recorded Amoxic-Pot Clav 875-125Mg 1 each PO BID #6 tab 08/04/17 [Augmentin 875-125] Ipratropium-Albuterol Nebulize 3 ml INHALATION RT-QID #120 neb 08/04/17 [Duoneb 0.5 mg-3 mg/3 ml Soln] guaiFENesin [Mucinex] 1,200 mg PO Q12HR #60 tab 08/04/17 predniSONE 10 mg PO DAILY #30 tab 08/04/17 Allergies Allergy/AdvReac Type Severity Reaction Status Date / Time ciprofloxacin [From Cipro] Allergy Unknown Verified 08/14/17 20:46 Review of Systems ROS Statement: Those systems with pertinent positive or pertinent negative responses have been documented in the HPI. ROS Other: All systems not noted in ROS Statement are negative. Past Medical History Past Medical History: COPD, Hyperlipidemia, Hypertension History of Any Multi-Drug Resistant Organisms: None Reported Past Surgical History: Appendectomy, Cholecystectomy, Tubal Ligation Past Anesthesia/Blood Transfusion Reactions: No Reported Reaction Past Psychological History: No Psychological Hx Reported Smoking Status: Current some day smoker Past Alcohol Use History: None Reported Past Drug Use History: None Reported - Past Family History Mother Family Medical History: Asthma, Congestive Heart Failure (CHF) Father Family Medical History: Diabetes Mellitus General Exam - General Exam Comments Initial Comments: This is a well-developed asthenic appearing female General appearance: alert, in no apparent distress Head exam: Present: atraumatic, normocephalic, normal inspection Eye exam: Present: normal appearance, PERRL, EOMI. Absent: scleral icterus, conjunctival injection, periorbital swelling ENT exam: Present: mucous membranes dry Neck exam: Present: normal inspection. Absent: tenderness, meningismus, lymphadenopathy Respiratory exam: Present: decreased breath sounds, other (Patient does demonstrate slight kyphosis). Absent: respiratory distress, wheezes, rales, rhonchi, stridor Cardiovascular Exam: Present: normal rhythm, tachycardia, normal heart sounds. Absent: systolic murmur, diastolic murmur, rubs, gallop, clicks GI/Abdominal exam: Present: soft, normal bowel sounds. Absent: distended, tenderness, guarding, rebound, rigid Extremities exam: Present: normal inspection, full ROM, normal capillary refill. Absent: tenderness, pedal edema, joint swelling, calf tenderness Back exam: Present: normal inspection Neurological exam: Present: alert, oriented X3, CN II-XII intact Psychiatric exam: Present: normal affect, normal mood Skin exam: Present: warm, dry, intact, normal color. Absent: rash Course Vital Signs 08/14/17 08/14/17 08/14/17 20:43 20:57 21:06 Temperature 98.1 F Pulse Rate 106 H 110 H 114 H Respiratory 20 16 16 Rate Blood Pressure 162/76 O2 Sat by Pulse 97 Oximetry 08/14/17 08/14/17 21:13 21:38 Temperature Pulse Rate 101 H Respiratory 20 20 Rate Blood Pressure 144/63 O2 Sat by Pulse 96 Oximetry - Reevaluation(s) Reevaluation #1: 08/14/17 21:55 Patient is feeling somewhat better. She still coughing. Medical Decision Making - Medical Decision Making Patient states she is feeling somewhat better I did discuss the findings with her she will be admitted I did discuss the case with Dr. Duong's service. - Lab Data Result diagrams: 08/14/17 20:51 08/14/17 20:51 Lab Results 08/14/17 08/14/17 08/14/17 Range/Units 20:51 20:51 20:51 WBC 21.2 H (3.8-10.6) k/uL RBC 4.68 (3.80-5.40) m/uL Hgb 14.8 (11.4-16.0) gm/dL Hct 47.5 H (34.0-46.0) % MCV 101.5 H (80.0-100.0) fL MCH 31.6 (25.0-35.0) pg MCHC 31.1 (31.0-37.0) g/dL RDW 13.4 (11.5-15.5) % Plt Count 193 (150-450) k/uL Neutrophils % 92 % Lymphocytes % 3 % Monocytes % 4 % Eosinophils % 0 % Basophils % 0 % Neutrophils # 19.5 H (1.3-7.7) k/uL Lymphocytes # 0.6 L (1.0-4.8) k/uL Monocytes # 0.9 (0-1.0) k/uL Eosinophils # 0.0 (0-0.7) k/uL Basophils # 0.0 (0-0.2) k/uL Macrocytosis Slight PT (9.0-12.0) sec INR (<1.2) APTT (22.0-30.0) sec Sodium 139 (137-145) mmol/L Potassium 3.1 L (3.5-5.1) mmol/L Chloride 101 (98-107) mmol/L Carbon Dioxide 25 (22-30) mmol/L Anion Gap 13 mmol/L BUN 24 H (7-17) mg/dL Creatinine 0.90 (0.52-1.04) mg/dL Est GFR (MDRD) Af Amer >60 (>60 ml/min/1.73 sqM) Est GFR (MDRD) Non-Af 59 (>60 ml/min/1.73 sqM) Glucose 220 H (74-99) mg/dL Calcium 9.5 (8.4-10.2) mg/dL Magnesium 1.5 L (1.6-2.3) mg/dL Total Bilirubin 1.1 (0.2-1.3) mg/dL AST 25 (14-36) U/L ALT 37 (9-52) U/L Alkaline Phosphatase 78 (38-126) U/L Total Creatine Kinase 37 (30-135) U/L CK-MB (CK-2) 3.3 H* (0.0-2.4) ng/mL CK-MB (CK-2) Rel Index 8.9 Troponin I 0.033 (0.000-0.034) ng/mL NT-Pro-B Natriuret Pep pg/mL Total Protein 6.5 (6.3-8.2) g/dL Albumin 3.8 (3.5-5.0) g/dL 08/14/17 08/14/17 Range/Units 20:51 20:51 WBC (3.8-10.6) k/uL RBC (3.80-5.40) m/uL Hgb (11.4-16.0) gm/dL Hct (34.0-46.0) % MCV (80.0-100.0) fL MCH (25.0-35.0) pg MCHC (31.0-37.0) g/dL RDW (11.5-15.5) % Plt Count (150-450) k/uL Neutrophils % % Lymphocytes % % Monocytes % % Eosinophils % % Basophils % % Neutrophils # (1.3-7.7) k/uL Lymphocytes # (1.0-4.8) k/uL Monocytes # (0-1.0) k/uL Eosinophils # (0-0.7) k/uL Basophils # (0-0.2) k/uL Macrocytosis PT 12.1 H (9.0-12.0) sec INR 1.2 H (<1.2) APTT 22.9 (22.0-30.0) sec Sodium (137-145) mmol/L Potassium (3.5-5.1) mmol/L Chloride (98-107) mmol/L Carbon Dioxide (22-30) mmol/L Anion Gap mmol/L BUN (7-17) mg/dL Creatinine (0.52-1.04) mg/dL Est GFR (MDRD) Af Amer (>60 ml/min/1.73 sqM) Est GFR (MDRD) Non-Af (>60 ml/min/1.73 sqM) Glucose (74-99) mg/dL Calcium (8.4-10.2) mg/dL Magnesium (1.6-2.3) mg/dL Total Bilirubin (0.2-1.3) mg/dL AST (14-36) U/L ALT (9-52) U/L Alkaline Phosphatase (38-126) U/L Total Creatine Kinase (30-135) U/L CK-MB (CK-2) (0.0-2.4) ng/mL CK-MB (CK-2) Rel Index Troponin I (0.000-0.034) ng/mL NT-Pro-B Natriuret Pep 4870 pg/mL Total Protein (6.3-8.2) g/dL Albumin (3.5-5.0) g/dL - EKG Data -: EKG Interpreted by Or EKG shows normal: sinus rhythm (EKG shows a sinus tachycardia with a rate of 117 FL interval 1:30 QRS duration 86 QT since QTC of 322/449 evidence of premature atrial contraction left anterior fascicular block nonspecific ST configuration this is compared with EKG dated 08/01/17 which does show I) - Radiology Data Radiology results: report reviewed (I did review the imaging and reports there is evidence of COPD no definite infiltrates.), image reviewed Critical Care Time Critical Care Time: Yes Critical Care Time: 32 minutes of critical care time which includes initial history physical labs x- rays reevaluation patient response to therapy discussed with patient regarding findings discussed with the patient's son initially. Documentation of the above and admission orders review of old charting that was available. Disposition Clinical Impression: Acute exacerbation of chronic obstructive airways disease, Adult respiratory distress syndrome, Near syncope, Hypomagnesemia syndrome, Elevated brain natriuretic peptide (BNP) level, Leukocytosis, Tachycardia Disposition: ADMITTED IP TO THIS [facility] Condition: Stable Referrals: Estuardo Spivey DO [Primary Care Provider] - 1-2 days
[2017-08-14 21:11] LABS: Basophils % (A) 0 %; CH 31.8; CHCM 31.5; Eosinophils % (A) 0 %; HCT 47.5 % (34.0-46.0); HDW 2.31; HGB 14.8 gm/dL (11.4-16.0); Luc # (Auto) 0.13; Luc % (Auto) 1; Lymphocytes # (A) 0.6 k/uL (1.0-4.8); Lymphocytes % (A) 3 %; MCH 31.6 pg (25.0-35.0); MCHC 31.1 g/dL (31.0-37.0); MCV 101.5 fL (80.0-100.0); Macrocytosis Slight; Mean Platelet Volume 7.3; Monocytes # (A) 0.9 k/uL (0-1.0); Monocytes % (A) 4 %; Neutrophils # (A) 19.5 k/uL (1.3-7.7); Neutrophils % (A) 92 %; RBC 4.68 m/uL (3.80-5.40); RDW 13.4 % (11.5-15.5); WBC 21.2 k/uL (3.8-10.6); WBC (Perox) 21.99
[2017-08-14 21:16] LABS: ALT 37 U/L (9-52); AST 25 U/L (14-36); Alkaline Phosphatase 78 U/L (38-126); Anion Gap 13 mmol/L; Blood Urea Nitrogen 24 mg/dL (7-17); Calcium 9.5 mg/dL (8.4-10.2); Carbon Dioxide 25 mmol/L (22-30); Chloride 101 mmol/L (98-107); Glucose 220 mg/dL (74-99); INR 1.2 (<1.2); Magnesium 1.5 mg/dL (1.6-2.3); Non-African American GFR(MDRD) 59 (>60 ml/min/1.73 sqM); Partial Thromboplastin Time 22.9 sec (22.0-30.0); Potassium 3.1 mmol/L (3.5-5.1); Prothrombin Time 12.1 sec (9.0-12.0); Sodium 139 mmol/L (137-145); Total Bilirubin 1.1 mg/dL (0.2-1.3); Total Protein 6.5 g/dL (6.3-8.2)
--- NOTE | 2017-08-14 21:25 | XR ---
EXAMINATION TYPE: XR chest 2V DATE OF EXAM: 08/14/2017 COMPARISON: 08/01/2017 INDICATION: Difficulty breathing short of breath TECHNIQUE: Frontal and lateral views of the chest are obtained. FINDINGS: The heart size is normal. The pulmonary vasculature is normal. The lungs are clear. There is hyperinflation flattening the diaphragms compatible COPD. Some chronic lung markings may be present. No pneumothorax is evident. No displaced rib fractures are identified on the chest study. Pectus excavatum is stable IMPRESSION: 1. No acute pulmonary process. 2. COPD
[2017-08-14 21:38] LABS: Troponin I 0.033 ng/mL (0.000-0.034)
[2017-08-14 21:48] LABS: Creatine Kinase MB 3.3 ng/mL (0.0-2.4)
[2017-08-14] MEDS ORDERED: FUROSEMIDE 10 MG/ML 4 ML VIAL IV STA (22:05)
[2017-08-14] MEDS ORDERED: IBUPROFEN 600 MG TAB PO PRN (22:06)
[2017-08-14] MEDS ORDERED: IPRATROPIUM-ALBUTEROL 3 ML NEB INHALATION PRN (22:26)
[2017-08-14] MEDS: SODIUM CHLORIDE 0.9% 1,000 ML IV SCH (22:27)
[2017-08-14] MEDS ORDERED: POTASSIUM CHLORIDE 20 MEQ, LIDOCAINE 2% INJ 20 MG in SODIUM CHLORIDE 0.9% 100 ML IVPB SCH (23:00)
[2017-08-14] MEDS ORDERED: Potassium Replacement Protocol 1 EACH MISC MISCELLANE PRN (23:22)
[2017-08-14] MEDS ORDERED: Magnesium Replacement Protocol 1 EACH MISC MISCELLANE PRN (23:22)
[2017-08-15] MEDS ORDERED: IPRATROPIUM-ALBUTEROL 3 ML NEB INHALATION SCH
[2017-08-15 00:25] LABS: Appearance,Urine Clear (Clear); Bilirubin,Urine Negative (Negative); Glucose,Urine (UA) Negative (Negative); Ketones,Urine Negative (Negative); Leukocyte Esterase,Urine Negative (Negative); Nitrite,Urine Negative (Negative); Protein,Urine Negative (Negative); Specific Gravity,Urine 1.006 (1.001-1.035); UA Billing (MACRO vs. MICRO) CHEM; Urobilinogen,Urine <2.0 mg/dL (<2.0)
[2017-08-15] MEDS: POTASSIUM CHLORIDE ER 20 MEQ TAB.ER PO SCH ×4 (00:26→18:10)
[2017-08-15 02:52] LABS: Basophils % (A) 0 %; CH 31.7; CHCM 31.5; Eosinophils % (A) 0 %; HCT 42.8 % (34.0-46.0); HDW 2.29; HGB 13.6 gm/dL (11.4-16.0); Luc # (Auto) 0.02; Luc % (Auto) 0; Lymphocytes # (A) 0.3 k/uL (1.0-4.8); Lymphocytes % (A) 1 %; MCH 32.2 pg (25.0-35.0); MCHC 31.8 g/dL (31.0-37.0); MCV 101.2 fL (80.0-100.0); Macrocytosis Slight; Mean Platelet Volume 7.7; Monocytes # (A) 0.4 k/uL (0-1.0); Monocytes % (A) 2 %; Neutrophils # (A) 19.8 k/uL (1.3-7.7); Neutrophils % (A) 97 %; RBC 4.24 m/uL (3.80-5.40); RDW 13.5 % (11.5-15.5); WBC 20.5 k/uL (3.8-10.6); WBC (Perox) 21.93
[2017-08-15 02:56] LABS: Anion Gap 11 mmol/L; Blood Urea Nitrogen 22 mg/dL (7-17); Calcium 8.5 mg/dL (8.4-10.2); Carbon Dioxide 26 mmol/L (22-30); Chloride 101 mmol/L (98-107); Glucose 234 mg/dL (74-99); Magnesium 1.7 mg/dL (1.6-2.3); Non-African American GFR(MDRD) >60 (>60 ml/min/1.73 sqM); Potassium 3.2 mmol/L (3.5-5.1); Sodium 138 mmol/L (137-145)
[2017-08-15 03:43] VITALS: BMI 14.5
[2017-08-15 05:43] LABS: Glucose,Whole Blood 236 mg/dL (75-99)
[2017-08-15] MEDS ORDERED: methylPREDNISolone SOD SUCCI 125 MG/2 ML VIAL IV SCH (06:00)
[2017-08-15] MEDS: INSULIN LISPRO (humaLOG) 300 UNIT/3 ML VIAL SQ SCH ×4 (06:15→20:45)
[2017-08-15] MEDS: SODIUM CHLORIDE 0.9% 1,000 ML IV SCH (08:22)
[2017-08-15] MEDS: IPRATROPIUM-ALBUTEROL 3 ML NEB INHALATION SCH ×4 (08:42→21:53)
[2017-08-15] MEDS: ATORVASTATIN 20 MG TAB PO SCH (08:50)
[2017-08-15] MEDS: guaiFENesin 600 MG TABLET.ER PO SCH ×2 (08:50→20:44)
[2017-08-15] MEDS: ISOSORBIDE MONONITRATE ER 30 MG TAB.ER.24H PO SCH (08:50)
[2017-08-15] MEDS: METOPROLOL TARTRATE 25 MG TAB PO SCH ×2 (08:50→21:51)
[2017-08-15] MEDS: NICOTINE 7MG/24HR PATCH TRANSDERM SCH (08:51)
[2017-08-15] MEDS ORDERED: FAMOTIDINE 20 MG TAB PO SCH (09:00)
[2017-08-15] MEDS ORDERED: amLODIPine 2.5 MG TAB PO SCH (09:00)
--- NOTE | 2017-08-15 11:19 | P.HPIM ---
History of Present Illness Patient is a pleasant 87-year-old female came in with complaints of shortness of breath cough with a low to greenish sputum production denied any fever, chills, nausea, vomiting patient uses 2 L of onset at home patient still smokes occasionally on and off and trying to quit smoking. Upon examination patient does have minimal tenderness in the right upper quadrant area and epigastric area doesn't have a gallbladder anymore. Chest x-ray is consistent with COPD without any acute process patient will be started on doxycycline steroids will be switched to oral area inhalational treatment possibly of discharge tomorrow. Review of Systems REVIEW OF SYSTEMS: CONSTITUTIONAL: No fever, no malaise, no fatigue. HEENT: No recent visual problems or hearing problems. Denied any sore throat. CARDIOVASCULAR: No chest pain, orthopnea, PND, no palpitations, no syncope. PULMONARY:, no hemoptysis. GASTROINTESTINAL: No diarrhea, no nausea, no vomiting, no abdominal pain. Normoactive bowel sounds. NEUROLOGICAL: No headaches, no weakness, no numbness. HEMATOLOGICAL: Denies any bleeding or petechiae. GENITOURINARY: Denies any burning micturition, frequency, or urgency. MUSCULOSKELETAL/RHEUMATOLOGICAL: Denies any joint pain, swelling, or any muscle pain. ENDOCRINE: Denies any polyuria or polydipsia. The rest of the 14-point review of systems is negative. Past Medical History Past Medical History: COPD, Hyperlipidemia, Hypertension History of Any Multi-Drug Resistant Organisms: None Reported Past Surgical History: Appendectomy, Cholecystectomy, Tubal Ligation Past Anesthesia/Blood Transfusion Reactions: No Reported Reaction Past Psychological History: No Psychological Hx Reported Smoking Status: Current some day smoker Past Alcohol Use History: None Reported Past Drug Use History: None Reported - Past Family History Mother Family Medical History: Asthma, Congestive Heart Failure (CHF) Father Family Medical History: Diabetes Mellitus Medications and Allergies Home Medications Medication Instructions Recorded Confirmed Type Isosorbide Mononitrate ER [Imdur] 30 mg PO DAILY 10/29/14 08/15/17 History Metoprolol Tartrate 25 mg PO BID 10/29/14 08/15/17 History Ranitidine HCl 150 mg PO BID 10/29/14 08/15/17 History Simvastatin [Zocor] 40 mg PO DAILY 10/29/14 08/15/17 History amLODIPine BESYLATE [Norvasc] 2.5 mg PO DAILY 10/29/14 08/15/17 History Budesonide-Formot 160-4.5 Mcg 2 puff INHALATION RT-BID PRN 08/01/17 08/15/17 History [Symbicort 160-4.5 Mcg Inhaler] Ipratropium-Albuterol Nebulize 3 ml INHALATION RT-QID #120 neb 08/04/17 Rx [Duoneb 0.5 mg-3 mg/3 ml Soln] Allergies Allergy/AdvReac Type Severity Reaction Status Date / Time ciprofloxacin [From Cipro] Allergy Unknown Verified 08/14/17 20:46 Physical Exam Vitals: Vital Signs Temp Pulse Pulse Resp BP BP Pulse Ox 08/15/17 08:53 100 08/15/17 08:45 100 08/15/17 04:00 96.4 F L 94 18 117/74 96 08/15/17 03:29 97.5 F L 100 18 124/59 95 08/15/17 00:00 100 08/14/17 22:22 98.2 F 115 H 18 107/57 96 08/14/17 21:38 101 H 20 144/63 96 08/14/17 21:13 20 08/14/17 21:06 114 H 16 08/14/17 20:57 110 H 16 08/14/17 20:43 98.1 F 106 H 20 162/76 97 Intake and Output 08/14/17 08/15/17 08/15/17 22:59 06:59 14:59 Intake Total 200 Output Total 250 Balance -50 Intake: IV 200 Sodium Chloride 0.9% 1, 200 000 ml @ 100 mls/hr IV . Q10H STA Rx#:[id number] Output: Urine 250 Other: Voiding Method Bedside Commode # Voids 1 1 Weight 40.823 kg 40 kg PHYSICAL EXAMINATION: GENERAL: The patient is alert and oriented x3, not in any acute distress. Thin built female HEENT: Pupils are round and equally reacting to light. EOMI. No scleral icterus. No conjunctival pallor. Normocephalic, atraumatic. No pharyngeal erythema. No thyromegaly. CARDIOVASCULAR: S1 and S2 present. No murmurs, rubs, or gallops. PULMONARY: Decreased air entry into bilateral lung giron and minimal expiratory wheezing was appreciated. ABDOMEN: Soft, minimal epigastric abdominal tenderness, nondistended, normoactive bowel sounds. No palpable organomegaly. MUSCULOSKELETAL: No joint swelling or deformity. EXTREMITIES: No cyanosis, clubbing, or pedal edema. NEUROLOGICAL: Gross neurological examination did not reveal any focal deficits. SKIN: No rashes. Results CBC & Chem 7: 08/15/17 02:12 08/15/17 02:12 Labs: Abnormal Lab Results - Last 24 Hours (Table) 08/14/17 08/14/17 08/14/17 Range/Units 20:51 20:51 20:51 WBC 21.2 H (3.8-10.6) k/uL Hct 47.5 H (34.0-46.0) % MCV 101.5 H (80.0-100.0) fL Neutrophils # 19.5 H (1.3-7.7) k/uL Lymphocytes # 0.6 L (1.0-4.8) k/uL PT (9.0-12.0) sec INR (<1.2) Potassium 3.1 L (3.5-5.1) mmol/L BUN 24 H (7-17) mg/dL Glucose 220 H (74-99) mg/dL POC Glucose (mg/dL) (75-99) mg/dL Plasma Lactic Acid Jayant (0.7-2.0) mmol/L Magnesium 1.5 L (1.6-2.3) mg/dL CK-MB (CK-2) 3.3 H* (0.0-2.4) ng/mL 08/14/17 08/14/17 08/15/17 Range/Units 20:51 20:51 02:12 WBC 20.5 H (3.8-10.6) k/uL Hct (34.0-46.0) % MCV 101.2 H (80.0-100.0) fL Neutrophils # 19.8 H (1.3-7.7) k/uL Lymphocytes # 0.3 L (1.0-4.8) k/uL PT 12.1 H (9.0-12.0) sec INR 1.2 H (<1.2) Potassium (3.5-5.1) mmol/L BUN (7-17) mg/dL Glucose (74-99) mg/dL POC Glucose (mg/dL) (75-99) mg/dL Plasma Lactic Acid Jayant 3.2 H* (0.7-2.0) mmol/L Magnesium (1.6-2.3) mg/dL CK-MB (CK-2) (0.0-2.4) ng/mL 08/15/17 08/15/17 Range/Units 02:12 05:40 WBC (3.8-10.6) k/uL Hct (34.0-46.0) % MCV (80.0-100.0) fL Neutrophils # (1.3-7.7) k/uL Lymphocytes # (1.0-4.8) k/uL PT (9.0-12.0) sec INR (<1.2) Potassium 3.2 L (3.5-5.1) mmol/L BUN 22 H (7-17) mg/dL Glucose 234 H (74-99) mg/dL POC Glucose (mg/dL) 236 H (75-99) mg/dL Plasma Lactic Acid Jayant (0.7-2.0) mmol/L Magnesium (1.6-2.3) mg/dL CK-MB (CK-2) (0.0-2.4) ng/mL Thrombosis Risk Factor Assmnt - Choose All That Apply Each Factor Represents 1 point: Abnormal pulmonary function (COPD) Each Risk Factor Represents 3 Points: Age 75 years or older Thrombosis Risk Factor Assessment Total Risk Factor Score: 4 Thrombosis Risk Factor Assessment Level: Moderate Risk Assessment and Plan Plan: #1 acute acute on chronic hypercapnic respiratory failure: Patient was started on systemic strides inhalational treatments and patient will be on 9 and medics for bronchitis. #2 leukocytosis: Reactive are may be related to systemic strides no pneumonia at this point of time can be related to bronchitis as well. #3 COPD with acute exacerbation #4 mild epigastric abdominal pain probably due to gastritis patient will be started on Protonix. #5 hypokalemia: Potassium will be supplemented #6 the lactic acidosis: Secondary to intravascular volume depletion improved with IV fluids #7 hyperlipidemia #8 hypertension: Patient is bit hypotensive because of which amlodipine will be discontinued patient will continue her metoprolol
[2017-08-15 12:00] LABS: Hemoglobin A1C 7.2 % (4.2-6.1)
[2017-08-15 12:17] LABS: Glucose,Whole Blood 144 mg/dL (75-99)
[2017-08-15] MEDS ORDERED: Potassium Replacement Protocol 1 EACH MISC MISCELLANE PRN (12:47)
[2017-08-15] MEDS: PANTOPRAZOLE 40 MG/10 ML VIAL IVP SCH (13:40)
[2017-08-15] MEDS: DOXYCYCLINE 50 MG CAP PO SCH ×2 (13:41→20:45)
[2017-08-15] MEDS: predniSONE 20 MG TAB PO SCH (13:41)
[2017-08-15 16:55] LABS: Glucose,Whole Blood 220 mg/dL (75-99)
[2017-08-15 20:38] LABS: Glucose,Whole Blood 155 mg/dL (75-99)
[2017-08-16 07:16] LABS: Glucose,Whole Blood 148 mg/dL (75-99)
[2017-08-16 07:17] VITALS: BP 113/60; RESP 18; TEMP 97.3
[2017-08-16] MEDS: ISOSORBIDE MONONITRATE ER 30 MG TAB.ER.24H PO SCH (07:56)
[2017-08-16] MEDS: NICOTINE 7MG/24HR PATCH TRANSDERM SCH (07:56)
[2017-08-16] MEDS: ATORVASTATIN 20 MG TAB PO SCH (07:56)
[2017-08-16] MEDS: PANTOPRAZOLE 40 MG/10 ML VIAL IVP SCH (07:56)
[2017-08-16] MEDS: DOXYCYCLINE 50 MG CAP PO SCH (07:56)
[2017-08-16] MEDS: INSULIN LISPRO (humaLOG) 300 UNIT/3 ML VIAL SQ SCH ×2 (07:57→12:58)
[2017-08-16] MEDS: METOPROLOL TARTRATE 25 MG TAB PO SCH (07:57)
[2017-08-16] MEDS: guaiFENesin 600 MG TABLET.ER PO SCH (07:57)
[2017-08-16] MEDS: predniSONE 20 MG TAB PO SCH (07:58)
[2017-08-16 08:06] LABS: Anion Gap 7 mmol/L; Blood Urea Nitrogen 23 mg/dL (7-17); Calcium 8.8 mg/dL (8.4-10.2); Carbon Dioxide 29 mmol/L (22-30); Chloride 105 mmol/L (98-107); Glucose 133 mg/dL (74-99); Non-African American GFR(MDRD) >60 (>60 ml/min/1.73 sqM); Potassium 4.8 mmol/L (3.5-5.1); Sodium 141 mmol/L (137-145)
[2017-08-16 08:10] LABS: CHCM 30.2; HCT 42.8 % (34.0-46.0); HGB 13.1 gm/dL (11.4-16.0); Hypochromasia Moderate; MCH 31.5 pg (25.0-35.0); MCHC 30.5 g/dL (31.0-37.0); MCV 103.2 fL (80.0-100.0); Macrocytosis Slight; Mean Platelet Volume 7.3; RBC 4.15 m/uL (3.80-5.40); RDW 13.5 % (11.5-15.5); WBC 24.8 k/uL (3.8-10.6)
[2017-08-16] MEDS: IPRATROPIUM-ALBUTEROL 3 ML NEB INHALATION SCH ×2 (08:10→11:19)
[2017-08-16 08:12] VITALS: PULSE 74
[2017-08-16] MEDS ORDERED: IBUPROFEN 200 MG TAB PO PRN (10:10)
[2017-08-16 12:44] LABS: Glucose,Whole Blood 141 mg/dL (75-99)
--- NOTE | 2017-08-16 19:16 | P.DS ---
Providers Date of admission: 08/14/17 22:02 Expected date of discharge: 08/16/17 Attending physician: Khadar Urias Primary care physician: Estuardo [facility] Course: FINAL DIAGNOSES: -Acute on chronic obstructive pulmonary disease exacerbation in a smoker secondary to acute bronchitis. -Leukocytosis, reactive likely due to systemic steroids no pneumonia -Hypokalemia -Chronic nicotine dependence, patient is a cigarette smoker. -Severe protein calorie malnutrition from chronic decreased oral intake. -Hyperlipidemia. -Essential hypertension. -Primary osteoporosis multiple joints, bilateral. -Chronic stress incontinence. -Chronic hypoxic respiratory failure on 3 L of oxygen at home. HOSPTIAL COURSE: 87-year-old female who presented with shortness of breath cough yellow to green sputum and a current smoker, diagnostic imaging is consistent with COPD. Patient admitted for the same home medications reordered, started on doxycycline , steroids and breathing treatments. Breathing improved, cough continues to be productive with white sputum, ambulatory to and from the bathroom with 3 L of oxygen which is patient's baseline, uses home O2. Patient counseled on the assess again importance of smoking cessation verbalized understanding. Appetite improved, tolerating her diet, ambulatory to and from the bathroom on her current level of oxygen. Last BM 08/15/2017 overall condition stabilized and is appropriate for discharge. PHYSICAL EXAM: CARDIOVASCULAR: First and second sounds noted no edema. RESPIRATORY: Respiratory effort normal, lung sounds diminished bilaterally inspiration longer than expiration GI: Abdomen soft nontender, liver and spleen not palpable. PSYCHIATRY: Alert and oriented 3 mood and affect normal. Patient was seen and examined by nurse practitioner Lauren Hampton in all elements of the case discussed with attending Dr. Urias DISPOSITION: Home with home care and current level of home oxygen. Plan - Discharge Summary New Discharge Prescriptions: New Nicotine 7Mg/24Hr Patch [Habitrol] 1 patch TRANSDERM DAILY #14 patch predniSONE 10 mg PO DAILY #30 tab Continue amLODIPine BESYLATE [Norvasc] 2.5 mg PO DAILY Simvastatin [Zocor] 40 mg PO DAILY Ranitidine HCl 150 mg PO BID Metoprolol Tartrate 25 mg PO BID Isosorbide Mononitrate ER [Imdur] 30 mg PO DAILY Budesonide-Formot 160-4.5 Mcg [Symbicort 160-4.5 Mcg Inhaler] 2 puff INHALATION RT-BID PRN PRN Reason: Shortness Of Breath Ipratropium-Albuterol Nebulize [Duoneb 0.5 mg-3 mg/3 ml Soln] 3 ml INHALATION RT-QID #120 neb Discharge Medication List Isosorbide Mononitrate ER [Imdur] 30 mg PO DAILY 10/29/14 [History] Metoprolol Tartrate 25 mg PO BID 10/29/14 [History] Ranitidine HCl 150 mg PO BID 10/29/14 [History] Simvastatin [Zocor] 40 mg PO DAILY 10/29/14 [History] amLODIPine BESYLATE [Norvasc] 2.5 mg PO DAILY 10/29/14 [History] Budesonide-Formot 160-4.5 Mcg [Symbicort 160-4.5 Mcg Inhaler] 2 puff INHALATION RT-BID PRN 08/01/17 [History] Ipratropium-Albuterol Nebulize [Duoneb 0.5 mg-3 mg/3 ml Soln] 3 ml INHALATION RT -QID #120 neb 08/04/17 [Rx] Nicotine 7Mg/24Hr Patch [Habitrol] 1 patch TRANSDERM DAILY #14 patch 08/16/17 [ Rx] predniSONE 10 mg PO DAILY #30 tab 08/16/17 [Rx] Follow up Appointment(s)/Referral(s): Estuardo Spivey DO [Primary Care Provider] - 3 Days (Doctor's office to phone you with appointment. ) [facility], [NON-STAFF] - Patient Instructions/Handouts: Syncope (DC), COPD (Chronic Obstructive Pulmonary Disease) (DC) Activity/Diet/Wound Care/Special Instructions: home o2 to continue Discharge Disposition: HOME WITH HOME HEALTH SERVICES
[2017-08-17] MEDS ORDERED: PANTOPRAZOLE 40 MG TABLET PO SCH (07:30)
--- NOTE | 2017-08-17 08:24 | DS ---
DISCHARGE SUMMARY DATE OF SERVICE: 08/16/17. ATTENDING NOTE: This patient seen and examined by me. I discussed with my nurse practitioner, Ms. Hampton. Patient admitted with COPD exacerbation. Responded well to on nebulized bronchodilators and steroids. Feeling much better. The patient notes no sputum or cough production. Antibiotics have been discontinued. Care was discussed with the patient. Advised to stop smoking completely. EXAMINATION: LUNGS: Diminished breath sounds. CARDIOVASCULAR: First and second are normal. PSYCH: AO x3. The patient feels back to baseline. Discharged home. Care was discussed with the patient. MMSCOTTL / NORMAN: [id number] /
== END 2017-08-16 13:28 | disposition home health service (06) | DRG 190 ==
LOC: EC 20:33 → 6SEL 22:02 → 4MS4W 08-15 18:12
PROVIDERS: ADMIT Hospitalist; ATTEND Hospitalist
DX: J44.0 Chronic obstructive pulmonary disease with (acute) lower respiratory infection (principal); E43 Unspecified severe protein-calorie malnutrition; J96.21 Acute and chronic respiratory failure with hypoxia; E87.2 Acidosis; E86.9 Volume depletion, unspecified; Z99.81 Dependence on supplemental oxygen; J96.22 Acute and chronic respiratory failure with hypercapnia; J44.1 Chronic obstructive pulmonary disease with (acute) exacerbation; E78.5 Hyperlipidemia, unspecified; E83.42 Hypomagnesemia; E87.6 Hypokalemia; F17.210 Nicotine dependence, cigarettes, uncomplicated; I10 Essential (primary) hypertension; J20.9 Acute bronchitis, unspecified; K29.70 Gastritis, unspecified, without bleeding; M81.0 Age-related osteoporosis without current pathological fracture; N39.3 Stress incontinence (female) (male); T38.0X5A Adverse effect of glucocorticoids and synthetic analogues, initial encounter; Z79.51 Long term (current) use of inhaled steroids; Z79.899 Other long term (current) drug therapy; Z82.49 Family history of ischemic heart disease and other diseases of the circulatory system; Z82.5 Family history of asthma and other chronic lower respiratory diseases; Z88.1 Allergy status to other antibiotic agents
CPT/HCPCS: 36415; 71020; 80048; 80053; 81003; 82550; 82553; 83036; 83605; 83735; 83880; 84484; 85025; 85027; 85610; 85730; 87040; 93005; 94640; 94760; 96365; 96367; 96374; 96375; 99291

== ENCOUNTER 2017-08-21 00:18 | Inpatient (IN) | payer MEDICARE, BC ==
[2017-08-21 01:21] LABS: Basophils % (A) 0 %; CH 32.5; CHCM 32.3; Eosinophils # (A) 0.1 k/uL (0-0.7); Eosinophils % (A) 1 %; HCT 42.9 % (34.0-46.0); HDW 2.38; HGB 13.5 gm/dL (11.4-16.0); Luc # (Auto) 0.08; Luc % (Auto) 1; Lymphocytes # (A) 0.8 k/uL (1.0-4.8); Lymphocytes % (A) 9 %; MCH 31.9 pg (25.0-35.0); MCHC 31.5 g/dL (31.0-37.0); MCV 101.1 fL (80.0-100.0); Macrocytosis Slight; Monocytes # (A) 0.3 k/uL (0-1.0); Monocytes % (A) 3 %; Neutrophils # (A) 7.4 k/uL (1.3-7.7); Neutrophils % (A) 85 %; RBC 4.25 m/uL (3.80-5.40); RDW 14.2 % (11.5-15.5); WBC 8.7 k/uL (3.8-10.6); WBC (Perox) 8.99
[2017-08-21 01:26] LABS: VBG PH 7.28 (7.31-7.41)
[2017-08-21 01:31] LABS: ALT 32 U/L (9-52); AST 22 U/L (14-36); Alkaline Phosphatase 70 U/L (38-126); Anion Gap 8 mmol/L; Blood Urea Nitrogen 20 mg/dL (7-17); Calcium 9.2 mg/dL (8.4-10.2); Carbon Dioxide 32 mmol/L (22-30); Chloride 101 mmol/L (98-107); Glucose 175 mg/dL (74-99); Non-African American GFR(MDRD) >60 (>60 ml/min/1.73 sqM); Potassium 3.8 mmol/L (3.5-5.1); Sodium 141 mmol/L (137-145); Total Bilirubin 0.5 mg/dL (0.2-1.3)
[2017-08-21 01:34] LABS: INR 1.1 (<1.2); Partial Thromboplastin Time 22.2 sec (22.0-30.0); Prothrombin Time 11.4 sec (9.0-12.0)
--- NOTE | 2017-08-21 01:53 | XR ---
EXAM: XR Chest, 2 Views CLINICAL HISTORY: Reason: difficulty breathing TECHNIQUE: Frontal and lateral views of the chest. COMPARISON: 08/14/17. FINDINGS: Once again, there is severe pulmonary hyperexpansion/emphysema. Stable presumed scarring in the right upper lobe. No consolidation. No overt edema. Heavily calcified thoracic aorta. No pneumothorax or pleural effusion. Stable sternal deformity. IMPRESSION: Stable examination redemonstrating severe emphysema. No acute infiltrate.
[2017-08-21] MEDS ORDERED: RX INFO: IV CONTRAST WAS GIVEN 1 EACH MISC MISCELLANE PRN (02:15)
--- NOTE | 2017-08-21 03:22 | CT ---
EXAM: CT Angiography Chest With Intravenous Contrast CLINICAL HISTORY: Pain TECHNIQUE: Axial computed tomographic angiography images of the chest with intravenous contrast using pulmonary embolism protocol. CTDI is 3.0, 38. 20, 2.40 mGy and DLP is 98.30 mGy-cm. This CT exam was performed using one or more of the following dose reduction techniques: automated exposure control, adjustment of the mA and/or kV according to patient size, and/or use of iterative reconstruction technique. MIP reconstructed images were created and reviewed. COMPARISON: No relevant prior studies available. FINDINGS: Pulmonary arteries: No evidence of pulmonary embolus. Aorta: Calcific atherosclerotic disease of the thoracic aorta. No aneurysm or dissection. Lungs: Patchy ground glass opacities seen within the right upper lobe with mild bronchial wall thickening seen within the right middle lobe and bilateral lower lobes. Findings likely an inflammatory or infectious process. Breathing motion artifact. Centrilobular emphysema. Biapical pleural protocol scarring. Few Scattered pulmonary nodules, the largest in the right lower lobe measuring 6 mm (4-98). In the absence of prior imaging demonstrating stability, follow-up according to Fleischner Society criteria is advised. Pleural space: Unremarkable. No significant effusion. No pneumothorax. Heart: Coronary artery calcifications. Moderate enlargement of the right atrium. No significant pericardial effusion. Bones/joints: Remote fracture of the midsternum. Remote healed anterior rib fractures. No acute osseous abnormality. No dislocation. Soft tissues: Unremarkable. Lymph nodes: Unremarkable. No enlarged lymph nodes. IMPRESSION: 1. No evidence of pulmonary embolus. 2. Patchy ground glass opacities seen within the right upper lobe with mild bronchial wall thickening seen within the right middle lobe and bilateral lower lobes. Findings likely an inflammatory or infectious process. No focal consolidation.
[2017-08-21] MEDS ORDERED: DOXYCYCLINE 50 MG CAP PO STA (03:26)
[2017-08-21] MEDS ORDERED: predniSONE 20 MG TAB PO STA (03:27)
[2017-08-21] MEDS ORDERED: ALBUTEROL NEBULIZED 2.5 MG/3 ML INHALATION PRN (03:31)
[2017-08-21] MEDS ORDERED: SYMBICORT 160-4.5 MCG INHALER INHALATION PRN (03:37)
--- NOTE | 2017-08-21 03:38 | ED ---
SOB HPI - General Chief Complaint: Shortness of Breath Stated Complaint: ALYCIA Time Seen by Provider: 08/21/17 00:25 Source: patient Mode of arrival: wheelchair Limitations: no limitations - History of Present Illness Initial Comments: This patient is an 87-year-old woman with history of COPD who presents because her respiratory status seemed to be worse tonight. The patient states that when she was trying to go to bed she noted that she was feeling very short of breath. She tried using her inhaled medication at home and when it didn't improve she called her son. He came and saw her and the respiratory status had not improved so they came to the hospital. The patient does have history of COPD and is on oxygen at home at 2 L. Patient states that she has had a little bit of chest pain mainly when she coughs in the right side of her chest. She denies any pain when she is not coughing. Patient has not noted fevers or chills. She states that her cough seems at its baseline, there is no sputum production. Patient denies change in bowel movements or urination. She does complain of a trace of swelling at the ankles bilaterally. Denies calf pain. MD Complaint: shortness of breath, cough -: hour(s) Severity: moderate Quality: aching Consistency: intermittent Improves With: nothing Worsens With: coughing Known History Of: COPD Associated Symptoms: chest pain, cough Treatments Prior to Arrival: oxygen, bronchodilator - Related Data Home Oxygen Therapy: Yes Home Oxygen Amount: 2 Liters Home Medications Medication Instructions Recorded Confirmed Isosorbide Mononitrate ER [Imdur] 30 mg PO DAILY 10/29/14 08/21/17 Metoprolol Tartrate 25 mg PO BID 10/29/14 08/21/17 Ranitidine HCl 150 mg PO BID 10/29/14 08/21/17 Simvastatin [Zocor] 40 mg PO DAILY 10/29/14 08/21/17 amLODIPine BESYLATE [Norvasc] 2.5 mg PO DAILY 10/29/14 08/21/17 Budesonide-Formot 160-4.5 Mcg 2 puff INHALATION RT-BID PRN 08/01/17 08/21/17 [Symbicort 160-4.5 Mcg Inhaler] Previous Rx's Medication Instructions Recorded Ipratropium-Albuterol Nebulize 3 ml INHALATION RT-QID #120 neb 08/04/17 [Duoneb 0.5 mg-3 mg/3 ml Soln] Allergies Allergy/AdvReac Type Severity Reaction Status Date / Time ciprofloxacin [From Cipro] Allergy Unknown Verified 08/21/17 00:23 Review of Systems ROS Statement: Those systems with pertinent positive or pertinent negative responses have been documented in the HPI. ROS Other: All systems not noted in ROS Statement are negative. Constitutional: Denies: fever, chills Respiratory: Reports: as per HPI, cough, dyspnea, wheezes. Denies: hemoptysis Cardiovascular: Reports: as per HPI, chest pain Gastrointestinal: Denies: abdominal pain, vomiting, diarrhea, melena, hematochezia Genitourinary: Denies: dysuria Musculoskeletal: Denies: back pain Skin: Denies: rash Neurological: Denies: headache, weakness, numbness Past Medical History Past Medical History: COPD, Hyperlipidemia, Hypertension History of Any Multi-Drug Resistant Organisms: None Reported Past Surgical History: Appendectomy, Cholecystectomy, Tubal Ligation Past Anesthesia/Blood Transfusion Reactions: No Reported Reaction Past Psychological History: No Psychological Hx Reported Smoking Status: Current some day smoker Past Alcohol Use History: None Reported Past Drug Use History: None Reported - Past Family History Mother Family Medical History: Asthma, Congestive Heart Failure (CHF) Father Family Medical History: Diabetes Mellitus General Exam Limitations: no limitations General appearance: alert, in no apparent distress, cachectic Head exam: Present: atraumatic, normocephalic Eye exam: Present: normal appearance. Absent: scleral icterus, conjunctival injection ENT exam: Present: normal oropharynx Neck exam: Present: normal inspection Respiratory exam: Present: wheezes, rales (I lateral bases). Absent: respiratory distress, rhonchi, stridor, chest wall tenderness, accessory muscle use, decreased breath sounds, prolonged expiratory Cardiovascular Exam: Present: regular rate, normal rhythm, systolic murmur ( Grade 1/6 systolic murmur). Absent: diastolic murmur, rubs, gallop GI/Abdominal exam: Present: soft. Absent: distended, tenderness, guarding Extremities exam: Present: normal inspection, normal capillary refill, pedal edema (Trace ankle edema bilaterally). Absent: calf tenderness Neurological exam: Present: alert Skin exam: Present: warm, dry, intact, normal color. Absent: rash, cyanosis, diaphoretic, erythema, petechiae, pallor, mottled Course Vital Signs 08/21/17 08/21/17 08/21/17 00:21 01:27 01:31 Temperature 98.2 F 97.5 F L Pulse Rate 86 95 80 Respiratory 20 25 H 16 Rate Blood Pressure 126/66 177/77 153/68 O2 Sat by Pulse 95 94 L 98 Oximetry 08/21/17 08/21/17 03:05 03:47 Temperature Pulse Rate 81 94 Respiratory 24 24 Rate Blood Pressure 131/91 108/73 O2 Sat by Pulse 98 97 Oximetry Medical Decision Making - Lab Data Result diagrams: 08/21/17 00:41 08/21/17 00:41 Lab Results 08/21/17 08/21/17 08/21/17 Range/Units 00:41 00:41 00:41 WBC 8.7 (3.8-10.6) k/uL RBC 4.25 (3.80-5.40) m/uL Hgb 13.5 (11.4-16.0) gm/dL Hct 42.9 (34.0-46.0) % MCV 101.1 H (80.0-100.0) fL MCH 31.9 (25.0-35.0) pg MCHC 31.5 (31.0-37.0) g/dL RDW 14.2 (11.5-15.5) % Plt Count 128 L (150-450) k/uL Neutrophils % 85 % Lymphocytes % 9 % Monocytes % 3 % Eosinophils % 1 % Basophils % 0 % Neutrophils # 7.4 (1.3-7.7) k/uL Lymphocytes # 0.8 L (1.0-4.8) k/uL Monocytes # 0.3 (0-1.0) k/uL Eosinophils # 0.1 (0-0.7) k/uL Basophils # 0.0 (0-0.2) k/uL Macrocytosis Slight PT (9.0-12.0) sec INR (<1.2) APTT (22.0-30.0) sec D-Dimer (<0.60) mg/L FEU VBG pH 7.28 L (7.31-7.41) VBG pCO2 72 H* (37-51) mmHg VBG HCO3 33 H (24-28) mmol/L Sodium 141 (137-145) mmol/L Potassium 3.8 (3.5-5.1) mmol/L Chloride 101 (98-107) mmol/L Carbon Dioxide 32 H (22-30) mmol/L Anion Gap 8 mmol/L BUN 20 H (7-17) mg/dL Creatinine 0.70 (0.52-1.04) mg/dL Est GFR (MDRD) Af Amer >60 (>60 ml/min/1.73 sqM) Est GFR (MDRD) Non-Af >60 (>60 ml/min/1.73 sqM) Glucose 175 H (74-99) mg/dL Calcium 9.2 (8.4-10.2) mg/dL Total Bilirubin 0.5 (0.2-1.3) mg/dL AST 22 (14-36) U/L ALT 32 (9-52) U/L Alkaline Phosphatase 70 (38-126) U/L Troponin I (0.000-0.034) ng/mL NT-Pro-B Natriuret Pep pg/mL Total Protein 6.0 L (6.3-8.2) g/dL Albumin 3.4 L (3.5-5.0) g/dL 08/21/17 08/21/17 08/21/17 Range/Units 00:41 00:41 00:41 WBC (3.8-10.6) k/uL RBC (3.80-5.40) m/uL Hgb (11.4-16.0) gm/dL Hct (34.0-46.0) % MCV (80.0-100.0) fL MCH (25.0-35.0) pg MCHC (31.0-37.0) g/dL RDW (11.5-15.5) % Plt Count (150-450) k/uL Neutrophils % % Lymphocytes % % Monocytes % % Eosinophils % % Basophils % % Neutrophils # (1.3-7.7) k/uL Lymphocytes # (1.0-4.8) k/uL Monocytes # (0-1.0) k/uL Eosinophils # (0-0.7) k/uL Basophils # (0-0.2) k/uL Macrocytosis PT 11.4 (9.0-12.0) sec INR 1.1 (<1.2) APTT 22.2 (22.0-30.0) sec D-Dimer 3.06 H (<0.60) mg/L FEU VBG pH (7.31-7.41) VBG pCO2 (37-51) mmHg VBG HCO3 (24-28) mmol/L Sodium (137-145) mmol/L Potassium (3.5-5.1) mmol/L Chloride (98-107) mmol/L Carbon Dioxide (22-30) mmol/L Anion Gap mmol/L BUN (7-17) mg/dL Creatinine (0.52-1.04) mg/dL Est GFR (MDRD) Af Amer (>60 ml/min/1.73 sqM) Est GFR (MDRD) Non-Af (>60 ml/min/1.73 sqM) Glucose (74-99) mg/dL Calcium (8.4-10.2) mg/dL Total Bilirubin (0.2-1.3) mg/dL AST (14-36) U/L ALT (9-52) U/L Alkaline Phosphatase (38-126) U/L Troponin I 0.028 (0.000-0.034) ng/mL NT-Pro-B Natriuret Pep 2800 pg/mL Total Protein (6.3-8.2) g/dL Albumin (3.5-5.0) g/dL - EKG Data -: EKG Interpreted by Co EKG shows normal: sinus rhythm (Rate approximately 85 bpm), intervals (Normal), QRS complexes (Left anterior fascicular block.) Interpretation: other (Old septal infarct.. Left atrial enlargement.) Disposition Clinical Impression: Acute exacerbation of chronic obstructive airways disease, Acute respiratory acidosis Disposition: [facility] Condition: Poor
[2017-08-21] MEDS ORDERED: DOXYCYCLINE 50 MG CAP PO SCH (03:45)
[2017-08-21] MEDS: IPRATROPIUM-ALBUTEROL 3 ML NEB INHALATION SCH ×4 (08:25→20:05)
[2017-08-21] MEDS: BUDESONIDE 0.5 MG/2 ML NEBU INHALATION SCH ×2 (08:25→20:05)
[2017-08-21] MEDS: ATORVASTATIN 20 MG TAB PO SCH (08:46)
[2017-08-21] MEDS: HEPARIN SODIUM,PORCINE 5,000 UNIT/ML 1 ML VIAL SQ SCH ×2 (08:46→20:03)
[2017-08-21] MEDS: METOPROLOL TARTRATE 25 MG TAB PO SCH ×2 (08:46→20:03)
[2017-08-21] MEDS: amLODIPine 2.5 MG TAB PO SCH (08:46)
[2017-08-21] MEDS: ISOSORBIDE MONONITRATE ER 30 MG TAB.ER.24H PO SCH (08:46)
[2017-08-21] MEDS: FAMOTIDINE 20 MG TAB PO SCH ×2 (08:47→20:52)
--- NOTE | 2017-08-21 09:54 | US ---
EXAMINATION TYPE: US venous doppler duplex LE BI DATE OF EXAM: 08/21/2017 9:24 AM COMPARISON: NONE CLINICAL HISTORY: R/O DVT. Pain SIDE PERFORMED: Bilateral TECHNIQUE: The lower extremity deep venous system is examined utilizing real time linear array sonog priscila with graded compression, doppler sonography and color-flow sonography. VESSELS IMAGED: External Iliac Vein (EIV) Common Femoral Vein Deep Femoral Vein Greater Saphenous Vein * Femoral Vein Popliteal Vein Small Saphenous Vein * Proximal Calf Veins (* superficial vessels) Right Leg: Negative for DVT Left Leg: Negative for DVT No popliteal fossa lesion is seen. IMPRESSION: THIS EXAMINATION IS NEGATIVE FOR DVT IN BOTH LEGS.
--- NOTE | 2017-08-21 11:24 | P.CNPUL ---
History of Present Illness Consult date: 08/21/17 Reason for consult: dyspnea, COPD Chief complaint: Shortness of breath History of present illness: Consult dated 08/21/2017 This is an 87-year-old female with a known history of COPD. She sees my partner in the office and sees a family doctor here in town. She apparently presented to the emergency department with increasing shortness of breath. A chest x-ray showed just changes of COPD. She was CT angiogram that was negative for PE. She had venous Dopplers of both lower extremities both of which were negative. The patient admits of primarily shortness of breath. No cough. No phlegm. No chest pain. No fever or chills. No nausea vomiting or diarrhea. In my opinion, she's pretty much at her baseline. She herself wonders whether or not she could be discharged home. I think that probably is a good idea. Review of Systems A 12 point review of system is positive for a couple days worth of increasing shortness of breath prior to admission. No other complaints for that matter. Past Medical History Past Medical History: COPD, Hyperlipidemia, Hypertension History of Any Multi-Drug Resistant Organisms: None Reported Past Surgical History: Appendectomy, Cholecystectomy, Tubal Ligation Past Anesthesia/Blood Transfusion Reactions: No Reported Reaction Past Psychological History: No Psychological Hx Reported Smoking Status: Current every day smoker Past Alcohol Use History: None Reported Past Drug Use History: None Reported - Past Family History Mother Family Medical History: Asthma, Congestive Heart Failure (CHF) Father Family Medical History: Diabetes Mellitus Medications and Allergies Home Medications Medication Instructions Recorded Confirmed Type Isosorbide Mononitrate ER [Imdur] 30 mg PO DAILY 10/29/14 08/21/17 History Metoprolol Tartrate 25 mg PO BID 10/29/14 08/21/17 History Ranitidine HCl 150 mg PO BID 10/29/14 08/21/17 History Simvastatin [Zocor] 40 mg PO DAILY 10/29/14 08/21/17 History amLODIPine BESYLATE [Norvasc] 2.5 mg PO DAILY 10/29/14 08/21/17 History Budesonide-Formot 160-4.5 Mcg 2 puff INHALATION RT-BID 08/01/17 08/21/17 History [Symbicort 160-4.5 Mcg Inhaler] Ipratropium-Albuterol Nebulize 3 ml INHALATION RT-QID #120 neb 08/04/17 Rx [Duoneb 0.5 mg-3 mg/3 ml Soln] predniSONE See Taper PO DAILY 08/21/17 08/21/17 History Allergies Allergy/AdvReac Type Severity Reaction Status Date / Time ciprofloxacin [From Cipro] Allergy Unknown Verified 08/21/17 11:02 Childhood Physical Exam Osteopathic Statement: *. No significant issues noted on an osteopathic structural exam other than those noted in the History and Physical/Consult. Vitals: Vital Signs Temp Pulse Pulse Resp BP BP Pulse Ox 08/21/17 08:42 82 08/21/17 08:26 84 08/21/17 07:35 83 113/56 08/21/17 07:00 98 F 95 18 99/64 92 L 08/21/17 04:35 98.8 F 90 16 143/65 97 08/21/17 03:47 94 24 108/73 97 08/21/17 03:05 81 24 131/91 98 08/21/17 01:31 97.5 F L 80 16 153/68 98 08/21/17 01:27 95 25 H 177/77 94 L 08/21/17 00:21 98.2 F 86 20 126/66 95 Intake and Output 08/20/17 08/21/17 08/21/17 22:59 06:59 14:59 Other: # Voids 1 Weight 58.967 kg No acute distress, oriented 3. Nasal O2 in place. HEENT examination reveals to be normal. Mucous membranes are moist. No oral lesions. Neck supple. Full range of motion. No adenopathy or thyroid or megaly. Neck veins are flat. There is hypertrophy of the sternocleidomastoid muscles. Cardiovascular examination reveals regular rhythm rate. S1-S2 normal. No S3- S4 or murmur. Pulmonary examination reveals severely diminished breath sounds. A few scattered mild wheezes. No rhonchi or crackles. Breath sounds equal bilaterally but severely diminished throughout. Abdomen soft bowel sounds are heard. No masses or tenderness. Extremities are intact. Mild edema. No cyanosis or clubbing. Skin is without rash. Neurologic examination is nonfocal. Results - Laboratory Findings CBC and BMP: 08/21/17 00:41 08/21/17 00:41 PT/INR, D-dimer PT 11.4 sec (9.0-12.0) 08/21/17 00:41 INR 1.1 (<1.2) 08/21/17 00:41 D-Dimer 3.06 mg/L FEU (<0.60) H 08/21/17 00:41 Abnormal lab findings: Abnormal Labs 08/21/17 08/21/17 10 00:41 00:41 00:41 MCV 101.1 H Plt Count 128 L Lymphocytes # 0.8 L D-Dimer VBG pH 7.28 L VBG pCO2 72 H* VBG HCO3 33 H Carbon Dioxide 32 H BUN 20 H Glucose 175 H Total Protein 6.0 L Albumin 3.4 L 08/21/17 00:41 MCV Plt Count Lymphocytes # D-Dimer 3.06 H VBG pH VBG pCO2 VBG HCO3 Carbon Dioxide BUN Glucose Total Protein Albumin - Diagnostic Findings Chest x-ray: image reviewed CT scan - chest: image reviewed (X-rays and CAT scans ultrasounds labs and medications are all reviewed.) Assessment and Plan (1) Hypertension Status: Acute (2) Hyperlipidemia Status: Acute (3) Tracheobronchitis Status: Acute (4) Acute exacerbation of chronic obstructive airways disease Status: Acute Plan: Plan dated 08/21/2017 The patient is pretty much at her baseline. Wonders whether or not she could go home. She could be discharged home on a short course of oral antibiotics her usual medications and a prednisone burst and taper. She should follow with her primary doctor and also see my partner in the office this week. No additional recommendations are made. Her only ALLERGY is ciprofloxacin. An antibiotic will do including a Z-Joaquin Augmentin Ceftin Omnicef Bactrim, etc. Time with Patient: Greater than 30
[2017-08-21] MEDS: NICOTINE 7MG/24HR PATCH TRANSDERM SCH (15:54)
[2017-08-21] MEDS: methylPREDNISolone SOD SUCCI 40 MG/ML 1 ML VIAL IV SCH (15:54)
[2017-08-21] MEDS: BUDESONIDE 1 MG/2 ML NEBU INHALATION SCH ×2 (15:54→20:05)
--- NOTE | 2017-08-21 16:40 | HP ---
HISTORY AND PHYSICAL DATE OF ADMISSION: 08/21/2017 PRESENTING COMPLAINT: Panting. HISTORY OF PRESENTING COMPLAINT: This is a pleasant 87-year-old patient of Dr. Spivey. Chronic stable medical conditions include osteoarthritis, hypertension, hyperlipidemia, on home oxygen 3L. Just discharged from the hospital. The patient continues to smoke anywhere from 5 to 10 cigarettes a day. The patient presented with worsening short of breath, wheezing, slight cough. No sputum. No fever. Decreased appetite. Tired, run down, found to have COPD exacerbation. REVIEW OF SYSTEMS: CONSTITUTIONAL: Tired. HEENT: Decreased hearing. RESPIRATORY: As above. CARDIOVASCULAR: None. GASTROINTESTINAL: None. GENITOURINARY: None. MUSCULOSKELETAL: Pain in different joints. DERMATOLOGICAL: None. HEMATOLOGICAL: None. LYMPHATIC: None. PSYCHIATRY: None. NEUROLOGICAL: None. PAST HISTORY: COPD, hypertension, hyperlipidemia, osteoarthritis, protein-calorie malnutrition, primary osteoarthritis, urinary stress incontinence. PAST SURGICAL HISTORY: Appendectomy, cholecystectomy, tubal ligation. SOCIAL HISTORY: Smokes anywhere from 5 to 10 cigarettes a day. Lives by herself. No alcohol. FAMILY HISTORY: Congestive heart failure and asthma. HOME MEDICATIONS: 1. Prednisone taper. 2. Norvasc 2.5 mg a day. 3. Zocor 40 mg a day. 4. Zantac 150 mg b.i.d. 5. Metoprolol 25 p.o. b.i.d. 6. Imdur ER 30 mg daily,. 7. DuoNeb q.i.d. 8. Symbicort 160/4.5, 2 puffs b.i.d. ALLERGIES: TO CIPRO. PHYSICAL EXAMINATION: VITAL SIGNS: Temperature 98, pulse 95, respirations 18, blood pressure 99/64, pulse ox 92% on 3L. GENERAL APPEARANCE: Thin-built, sitting up, slightly short of breath. EYES: Pupils equal. Conjunctivae normal. HEENT: Oral cavity normal. NECK: JVD not raised. Mass not palpable. RESPIRATORY: Effort increased. LUNGS: Diminished breath sounds. Prolonged expiration. CARDIOVASCULAR: First and second sounds normal. No edema. ABDOMEN: Soft, nontender. Liver and spleen not palpable. LYMPHATIC: No lymph nodes palpable in neck or axillae. PSYCHIATRY: Alert and oriented x3. Mood and affect slightly anxious-appearing. INVESTIGATIONS: White count 8.7, hemoglobin 13.5. Potassium 3.8, BUN 20, creatinine 0.70. ProBNP 2800. Chest x-ray showing significant emphysema. Chest CTA: No evidence of pulmonary embolism. ASSESSMENT: 1. Acute severe chronic obstructive pulmonary disease exacerbation in a current cigarette smoker. 2. Chronic nicotine dependence. Patient is a cigarette smoker. 3. Essential hypertension. 4. Hyperlipidemia. 5. Primary osteoarthritis in multiple joints. 6. Chronic hypoxic respiratory failure, underlying chronic obstructive pulmonary disease. 7. Mild to moderate protein-calorie malnutrition from decreased oral intake with decreased albumin, decreased muscle mass. PLAN: Patient started on nebulized bronchodilators. Will give a burst of steroids. Home medications are resumed. Patient advised against smoking, given a nicotine patch. Care was discussed with the patient and son at the bedside. MMSCOTTL / NORMAN: [id number] /
[2017-08-21] MEDS ORDERED: ACETAMINOPHEN TAB 325 MG TAB PO PRN (19:06)
[2017-08-21] MEDS: DOXYCYCLINE 50 MG CAP PO SCH (20:02)
[2017-08-22] MEDS: methylPREDNISolone SOD SUCCI 40 MG/ML 1 ML VIAL IV SCH (03:21)
[2017-08-22 07:43] VITALS: BP 128/64; RESP 14; TEMP 97.7
[2017-08-22] MEDS: BUDESONIDE 1 MG/2 ML NEBU INHALATION SCH (08:17)
[2017-08-22] MEDS: IPRATROPIUM-ALBUTEROL 3 ML NEB INHALATION SCH ×2 (08:17→12:28)
[2017-08-22] MEDS: METOPROLOL TARTRATE 25 MG TAB PO SCH (08:43)
[2017-08-22] MEDS: amLODIPine 2.5 MG TAB PO SCH (08:43)
[2017-08-22] MEDS: DOXYCYCLINE 50 MG CAP PO SCH (08:43)
[2017-08-22] MEDS: HEPARIN SODIUM,PORCINE 5,000 UNIT/ML 1 ML VIAL SQ SCH (08:43)
[2017-08-22] MEDS: NICOTINE 7MG/24HR PATCH TRANSDERM SCH (08:43)
[2017-08-22] MEDS: ISOSORBIDE MONONITRATE ER 30 MG TAB.ER.24H PO SCH (08:43)
[2017-08-22] MEDS: FAMOTIDINE 20 MG TAB PO SCH (08:43)
[2017-08-22] MEDS: BUDESONIDE 0.5 MG/2 ML NEBU INHALATION SCH (08:52)
[2017-08-22] MEDS ORDERED: predniSONE 20 MG TAB PO SCH (09:00)
[2017-08-22] MEDS: ATORVASTATIN 20 MG TAB PO SCH (09:03)
--- NOTE | 2017-08-22 10:44 | P.PN ---
Subjective Progress Note Date: 08/22/17 Principal diagnosis: Shortness of breath, COPD exacerbation Progress note dated 08/22/2017 This is an 87-year-old female with a history of severe COPD. The patient presented to the emergency department with increasing shortness of breath. A chest x-ray showed changes only of emphysema. A CT angiogram was negative for PE but was positive for patchy infiltrates in the right upper lobe and right middle lobe. This could be consistent with a pneumonitis or alveolitis. The Dopplers of the lower extremities were negative. The patient's feeling better. Pretty much back to baseline. Could be discharged home. We'll allow the primary to make a final decision. She denies any cough or wheezing. Shortness of breath is improved. Not producing any phlegm. No fever no chills. No nausea vomiting or diarrhea. Objective - Vital Signs Vital signs: Vital Signs Temp 97.7 F 08/22/17 07:00 Pulse 76 08/22/17 08:31 Resp 14 08/22/17 08:00 BP 128/64 08/22/17 07:00 Pulse Ox 95 08/22/17 07:00 Intake & Output 08/21/17 08/22/17 08/22/17 18:59 06:59 18:59 Other: # Voids 1 2 - Exam No acute distress, oriented 3 HEENT examination is unremarkable. Mucous membranes are moist. No oral lesions. Neck supple. Full range of motion. No adenopathy or thyromegaly. Neck veins are flat. Cardiovascular examination reveals regular rhythm rate. S1-S2 normal. No S3 or S4. No discernible murmur. Lungs reveal relatively clear breath sounds. A few scattered rhonchi. No wheezes or crackles. Breath sounds are equal but diminished throughout.. Abdomen soft bowel sounds are heard. No masses or tenderness. Extremities are intact. No cyanosis clubbing or edema. Skin is without rash or lesion. Neurologic examination is brief but nonfocal. - Labs CBC & Chem 7: 08/21/17 00:41 08/21/17 00:41 Assessment and Plan (1) Hypertension Status: Acute (2) Hyperlipidemia Status: Acute (3) Tracheobronchitis Status: Acute (4) Acute exacerbation of chronic obstructive airways disease Status: Acute (5) Pneumonitis Status: Acute Plan: Plan dated 08/21/2017 The patient is pretty much at her baseline. Wonders whether or not she could go home. She could be discharged home on a short course of oral antibiotics her usual medications and a prednisone burst and taper. She should follow with her primary doctor and also see my partner in the office this week. No additional recommendations are made. Her only ALLERGY is ciprofloxacin. An antibiotic will do including a Z-Joaquin Augmentin Ceftin Omnicef Bactrim, etc. Plan dated 08/22/2017 The patient's doing better. Even yesterday when I saw saw her, she wanted to go home. All lab the primary service to make a decision. She can go home on a short prednisone burst and taper and some pleural oral antibiotic for a short course. She otherwise is doing well. She'll follow-up in our office. No additional recommendations are made. Prognosis is guarded. Time with Patient: Less than 30
[2017-08-22 12:30] VITALS: PULSE 80
--- NOTE | 2017-08-22 15:58 | P.DS ---
Providers Date of admission: 08/22/17 08:59 Expected date of discharge: 08/22/17 Attending physician: Khadar Urias Consults: 08/21/17 03:31 Consult Physician Routine Consulting Provider: Luz Marina Collins Consult Reason/Comments: COPD exacerbation Do you want consulting provider notified?: Yes Primary care physician: [facility] Course: FINAL DIAGNOSES: -acute severe chronic obstructive pulmonary disease exacerbation in a current cigarette smoker. -Chronic nicotine dependence. He is a cigarette smoker. -Essential hypertension. -Hyperlipidemia. -Primary osteoarthritis of multiple joints. Bilateral -Chronic hypoxic respiratory failure, underlying chronic obstructive pulmonate disease. -Mild to moderate protein calorie malnutrition from decreased oral intake with decreased albumin, decreased muscle mass. HOSPTIAL COURSE: 87-year-old female who had recently been discharged from the hospital, utilizes home oxygen at 3 L, continues to smoke anywhere from 5-10 cigarettes a day. Present with worsening shortness of breath wheezing slight cough, no sputum production no fever. Decreased appetite feeling run down, came to the emergency department for further evaluation. Found to have a an exacerbation of COPD. Admitted for the same.home medications reordered, steroids initiated along with nebulized bronchodilators, nicotine patch. Patient was counseled against smoking. Verbalized understanding. Breathing improved no further shortness of breath ambulatory in the room and tolliver ways tolerating her diet, condition stable patient appropriate for discharge. PHYSICAL EXAM: CARDIOVASCULAR: first and second sound noted no edema RESPIRATORY: respiratory effort normal, bilateral breath sounds diminished with prolonged expiration. PSYCHIATRY: Alert and oriented 3, mood and affect is slightly anxious. Patient was seen and examined by nurse practitioner Lauren Hampton in all elements of the case discussed with attending Dr. Urias DISPOSITION:home to the care of her family. Patient Condition at Discharge: Stable Plan - Discharge Summary New Discharge Prescriptions: New Nicotine 7Mg/24Hr Patch [Habitrol] 1 patch TRANSDERM DAILY patch Doxycycline [Vibramycin] 100 mg PO Q12HR #10 cap predniSONE 10 mg PO DAILY #30 tab Continue amLODIPine BESYLATE [Norvasc] 2.5 mg PO DAILY Simvastatin [Zocor] 40 mg PO DAILY Ranitidine HCl 150 mg PO BID Metoprolol Tartrate 25 mg PO BID Isosorbide Mononitrate ER [Imdur] 30 mg PO DAILY Budesonide-Formot 160-4.5 Mcg [Symbicort 160-4.5 Mcg Inhaler] 2 puff INHALATION RT-BID Ipratropium-Albuterol Nebulize [Duoneb 0.5 mg-3 mg/3 ml Soln] 3 ml INHALATION RT-QID #120 neb Discontinued predniSONE See Taper PO DAILY Discharge Medication List Isosorbide Mononitrate ER [Imdur] 30 mg PO DAILY 10/29/14 [History] Metoprolol Tartrate 25 mg PO BID 10/29/14 [History] Ranitidine HCl 150 mg PO BID 10/29/14 [History] Simvastatin [Zocor] 40 mg PO DAILY 10/29/14 [History] amLODIPine BESYLATE [Norvasc] 2.5 mg PO DAILY 10/29/14 [History] Budesonide-Formot 160-4.5 Mcg [Symbicort 160-4.5 Mcg Inhaler] 2 puff INHALATION RT-BID 08/01/17 [History] Ipratropium-Albuterol Nebulize [Duoneb 0.5 mg-3 mg/3 ml Soln] 3 ml INHALATION RT -QID #120 neb 08/04/17 [Rx] Doxycycline [Vibramycin] 100 mg PO Q12HR #10 cap 08/22/17 [Rx] Nicotine 7Mg/24Hr Patch [Habitrol] 1 patch TRANSDERM DAILY patch 08/22/17 [Rx] predniSONE 10 mg PO DAILY #30 tab 08/22/17 [Rx] Follow up Appointment(s)/Referral(s): Luz Marina Collins MD [STAFF PHYSICIAN] - 1 Week (please call for appt, office currently closed.) Estuardo Spivey DO [Primary Care Provider] - 1-2 days (please call for appointment, office currently closed.) Patient Instructions/Handouts: How to Stop Smoking (DC), COPD (Chronic Obstructive Pulmonary Disease) (DC) Activity/Diet/Wound Care/Special Instructions: home oxygen-3 L Regular- diet Activity- as tolerated Discharge Disposition: HOME SELF-CARE
--- NOTE | 2017-08-23 07:18 | DS ---
DISCHARGE SUMMARY DATE OF SERVICE: 08/22/2017 ATTENDING NOTE: This patient was seen and examined by me. I discussed with my nurse practitioner, Ms. Hampton. The patient's breathing is much better. Very keen to go home. ON EXAMINATION: LUNGS: Decreased breath sounds. PSYCH: A and O x3. FINAL DIAGNOSIS: Acute severe chronic obstructive pulmonary disease exacerbation in a smoker. The patient yet again counseled against smoking. Discharge to home. MMODL / IJN: [id number] /
== END 2017-08-22 13:42 | disposition home or self-care (01) | DRG 191 ==
LOC: EC 00:18 → 4MS4W 03:31 → OBSVTOIN 08-22 08:59
PROVIDERS: ADMIT Hospitalist; ATTEND Hospitalist
DX: J44.0 Chronic obstructive pulmonary disease with (acute) lower respiratory infection (principal); J96.11 Chronic respiratory failure with hypoxia; E44.0 Moderate protein-calorie malnutrition; E87.2 Acidosis; J44.1 Chronic obstructive pulmonary disease with (acute) exacerbation; J20.9 Acute bronchitis, unspecified; M19.91 Primary osteoarthritis, unspecified site; E78.5 Hyperlipidemia, unspecified; F17.210 Nicotine dependence, cigarettes, uncomplicated; I10 Essential (primary) hypertension; N39.3 Stress incontinence (female) (male); Z99.81 Dependence on supplemental oxygen; Z79.51 Long term (current) use of inhaled steroids; Z79.899 Other long term (current) drug therapy; Z90.49 Acquired absence of other specified parts of digestive tract; Z88.1 Allergy status to other antibiotic agents
CPT/HCPCS: 36415; 71020; 71275; 80053; 82803; 83880; 84484; 85025; 85379; 85610; 85730; 93005; 93970; 94640; 94760; 99285

== ENCOUNTER 2017-08-25 11:55 | Inpatient (IN) | payer MEDICARE, BC ==
[2017-08-25 12:51] LABS: VBG PH 7.34 (7.31-7.41)
[2017-08-25 12:56] LABS: Basophils % (A) 0 %; CH 31.8; Eosinophils % (A) 0 %; HCT 41.3 % (34.0-46.0); HDW 2.42; HGB 13.2 gm/dL (11.4-16.0); Luc # (Auto) 0.07; Luc % (Auto) 1; Lymphocytes # (A) 0.4 k/uL (1.0-4.8); Lymphocytes % (A) 3 %; MCH 31.9 pg (25.0-35.0); MCV 99.7 fL (80.0-100.0); Mean Platelet Volume 7.8; Monocytes # (A) 0.5 k/uL (0-1.0); Monocytes % (A) 4 %; Neutrophils # (A) 11.4 k/uL (1.3-7.7); Neutrophils % (A) 92 %; RBC 4.15 m/uL (3.80-5.40); RDW 13.5 % (11.5-15.5); WBC 12.4 k/uL (3.8-10.6); WBC (Perox) 12.72
--- NOTE | 2017-08-25 13:11 | ED ---
General Adult HPI - General Chief complaint: Abdominal Pain Stated complaint: Weakness Time Seen by Provider: 08/25/17 12:04 Source: patient, family Mode of arrival: EMS Limitations: physical limitation - History of Present Illness Initial comments: This is an 87-year-old female history of COPD who presents emergency department for generalized weakness and abdominal pain. Per the family they went to her house earlier today and she was having difficulty standing up because she felt so weak. She also was complaining of a lot of pain in her abdomen. He also noted that this morning her breathing seemed to be labored. They helped her up this morning and then went back later on today and noted that she was again week and needed help off of the toilet which she typically does not. They said to bring her in for further evaluation. She is supposed to be moving into a nursing facility in approximately 5 days. They're concerned about her ability to care for herself at home because of her weakness. The patient admits to upper abdominal pain. She also has some nausea. No chest pain. Does not currently feel short of breath on her oxygen. No fevers but does admit to some chills. No diarrhea. No other complaints. - Related Data Home Medications Medication Instructions Recorded Confirmed Isosorbide Mononitrate ER [Imdur] 30 mg PO DAILY 10/29/14 08/25/17 Metoprolol Tartrate 25 mg PO BID 10/29/14 08/25/17 Ranitidine HCl 150 mg PO BID 10/29/14 08/25/17 Simvastatin [Zocor] 40 mg PO DAILY 10/29/14 08/25/17 amLODIPine BESYLATE [Norvasc] 2.5 mg PO DAILY 10/29/14 08/25/17 Budesonide-Formot 160-4.5 Mcg 2 puff INHALATION RT-BID 08/01/17 08/25/17 [Symbicort 160-4.5 Mcg Inhaler] Previous Rx's Medication Instructions Recorded Ipratropium-Albuterol Nebulize 3 ml INHALATION RT-QID #120 neb 08/04/17 [Duoneb 0.5 mg-3 mg/3 ml Soln] Doxycycline [Vibramycin] 100 mg PO Q12HR #10 cap 08/22/17 Nicotine 7Mg/24Hr Patch [Habitrol] 1 patch TRANSDERM DAILY patch 08/22/17 predniSONE 10 mg PO DAILY #30 tab 08/22/17 Allergies Allergy/AdvReac Type Severity Reaction Status Date / Time ciprofloxacin [From Cipro] Allergy Unknown Verified 08/25/17 12:21 Childhood Review of Systems ROS Statement: Those systems with pertinent positive or pertinent negative responses have been documented in the HPI. ROS Other: All systems not noted in ROS Statement are negative. Past Medical History Past Medical History: COPD, Hyperlipidemia, Hypertension History of Any Multi-Drug Resistant Organisms: None Reported Past Surgical History: Appendectomy, Cholecystectomy, Tubal Ligation Past Anesthesia/Blood Transfusion Reactions: No Reported Reaction Past Psychological History: No Psychological Hx Reported Smoking Status: Current every day smoker Past Alcohol Use History: None Reported Past Drug Use History: None Reported - Past Family History Mother Family Medical History: Asthma, Congestive Heart Failure (CHF) Father Family Medical History: Diabetes Mellitus General Exam - General Exam Comments Initial Comments: Constitutional: Awake alert Appears comfortable Head: Normocephalic atraumatic Eyes: no conjunctival injection No scleral icterus EOMI Neck: No JVD Supple Heart: Regular rate rhythm normal S1-S2 no murmurs Lungs: Clear to auscultation bilaterally No wheezing No rales Abdomen: Soft nondistended to palpation in the right upper quadrant and epigastric region without rebound or guarding Extremities: Non edematous DP pulses intact Radial pulses intact Neuro: A&Ox3 No focal neurologic deficits Psych: Appropriate mood and affect Limitations: physical limitation Course Vital Signs 08/25/17 08/25/17 12:09 13:48 Temperature 97.3 F L 99.0 F Pulse Rate 71 65 Respiratory 18 18 Rate Blood Pressure 111/72 93/54 O2 Sat by Pulse 98 98 Oximetry EKG Findings - EKG Comments: EKG Findings:: EKG showing no sinus rhythm with a rate of 71. There are no abnormal ST segment changes or T-wave inversions. QTC is 452. Other intervals are normal. No ectopy. Medical Decision Making - Medical Decision Making This is an 87-year-old female presents emergency department for generalized weakness and persistent cough and shortness of breath with abdominal pain. Computed tomography scan revealed what appears to be a new right lower lobe infiltrate. The patient was recently admitted and thus this could represent healthcare acquired pneumonia. The patient is going to be started on IV antibiotics. She doesn't leukocytosis as well. Lactic is mildly elevated and she was given fluids for this. I spoke with Dr. damian accepts the admission. Family and patient were updated and agree with plan. - Lab Data Result diagrams: 08/25/17 12:30 08/25/17 13:19 Lab Results 08/25/17 08/25/17 08/25/17 Range/Units 12:30 12:30 12:30 WBC 12.4 H (3.8-10.6) k/uL RBC 4.15 (3.80-5.40) m/uL Hgb 13.2 (11.4-16.0) gm/dL Hct 41.3 (34.0-46.0) % MCV 99.7 (80.0-100.0) fL MCH 31.9 (25.0-35.0) pg MCHC 32.0 (31.0-37.0) g/dL RDW 13.5 (11.5-15.5) % Plt Count 103 L (150-450) k/uL Neutrophils % 92 % Lymphocytes % 3 % Monocytes % 4 % Eosinophils % 0 % Basophils % 0 % Neutrophils # 11.4 H (1.3-7.7) k/uL Lymphocytes # 0.4 L (1.0-4.8) k/uL Monocytes # 0.5 (0-1.0) k/uL Eosinophils # 0.0 (0-0.7) k/uL Basophils # 0.0 (0-0.2) k/uL VBG pH 7.34 (7.31-7.41) VBG pCO2 58 H (37-51) mmHg VBG HCO3 30 H (24-28) mmol/L Sodium (137-145) mmol/L Potassium (3.5-5.1) mmol/L Chloride (98-107) mmol/L Carbon Dioxide (22-30) mmol/L Anion Gap mmol/L BUN (7-17) mg/dL Creatinine (0.52-1.04) mg/dL Est GFR (MDRD) Af Amer (>60 ml/min/1.73 sqM) Est GFR (MDRD) Non-Af (>60 ml/min/1.73 sqM) Glucose (74-99) mg/dL Plasma Lactic Acid Jayant 2.4 H* (0.7-2.0) mmol/L Calcium (8.4-10.2) mg/dL Total Bilirubin (0.2-1.3) mg/dL AST (14-36) U/L ALT (9-52) U/L Alkaline Phosphatase (38-126) U/L Troponin I (0.000-0.034) ng/mL Total Protein (6.3-8.2) g/dL Albumin (3.5-5.0) g/dL Lipase (23-300) U/L 08/25/17 08/25/17 Range/Units 12:30 13:19 WBC (3.8-10.6) k/uL RBC (3.80-5.40) m/uL Hgb (11.4-16.0) gm/dL Hct (34.0-46.0) % MCV (80.0-100.0) fL MCH (25.0-35.0) pg MCHC (31.0-37.0) g/dL RDW (11.5-15.5) % Plt Count (150-450) k/uL Neutrophils % % Lymphocytes % % Monocytes % % Eosinophils % % Basophils % % Neutrophils # (1.3-7.7) k/uL Lymphocytes # (1.0-4.8) k/uL Monocytes # (0-1.0) k/uL Eosinophils # (0-0.7) k/uL Basophils # (0-0.2) k/uL VBG pH (7.31-7.41) VBG pCO2 (37-51) mmHg VBG HCO3 (24-28) mmol/L Sodium 134 L (137-145) mmol/L Potassium 3.3 L (3.5-5.1) mmol/L Chloride 98 (98-107) mmol/L Carbon Dioxide 30 (22-30) mmol/L Anion Gap 6 mmol/L BUN 31 H (7-17) mg/dL Creatinine 0.77 (0.52-1.04) mg/dL Est GFR (MDRD) Af Amer >60 (>60 ml/min/1.73 sqM) Est GFR (MDRD) Non-Af >60 (>60 ml/min/1.73 sqM) Glucose 183 H (74-99) mg/dL Plasma Lactic Acid Jayant (0.7-2.0) mmol/L Calcium 8.5 (8.4-10.2) mg/dL Total Bilirubin 0.9 (0.2-1.3) mg/dL AST 31 (14-36) U/L ALT 31 (9-52) U/L Alkaline Phosphatase 56 (38-126) U/L Troponin I 0.052 H* (0.000-0.034) ng/mL Total Protein 5.6 L (6.3-8.2) g/dL Albumin 2.9 L (3.5-5.0) g/dL Lipase 40 (23-300) U/L Disposition Clinical Impression: HCAP (healthcare-associated pneumonia) Disposition: ADMITTED IP TO THIS [facility] Condition: Stable
[2017-08-25] MEDS ORDERED: SODIUM CHLORIDE 0.9% 1,000 ML IV ONE (13:12)
[2017-08-25 13:40] LABS: ALT 31 U/L (9-52); AST 31 U/L (14-36); Alkaline Phosphatase 56 U/L (38-126); Anion Gap 6 mmol/L; Blood Urea Nitrogen 31 mg/dL (7-17); Calcium 8.5 mg/dL (8.4-10.2); Carbon Dioxide 30 mmol/L (22-30); Chloride 98 mmol/L (98-107); Glucose 183 mg/dL (74-99); Non-African American GFR(MDRD) >60 (>60 ml/min/1.73 sqM); Potassium 3.3 mmol/L (3.5-5.1); Sodium 134 mmol/L (137-145); Total Bilirubin 0.9 mg/dL (0.2-1.3); Total Protein 5.6 g/dL (6.3-8.2)
--- NOTE | 2017-08-25 14:05 | CT ---
EXAMINATION TYPE: CT abdomen pelvis wo con DATE OF EXAM: 08/25/2017 HISTORY: Mid abd pain with weakness CT DLP: 269 mGycm. Automated Exposure Control for Dose Reduction was Utilized. TECHNIQUE: CT scan of the abdomen and pelvis is performed without oral or IV contrast. COMPARISON: CT chest abdomen and pelvis September 07, 2011 FINDINGS: Within the limitations of a non-contrast study, the following observations are made. Patie nt has very little intra-abdominal fat making evaluation suboptimal. LUNG BASES: Emphysematous change in lung bases is redemonstrated. There are scattered small nodules s een bilaterally. There is some new ill-defined infiltrate posterior medially in the right lung base. LIVER/GB: No significant abnormality is appreciated. PANCREAS: No significant abnormality is seen. SPLEEN: No significant abnormality is seen. ADRENALS: No significant abnormality is seen. KIDNEYS: Bilateral renal calculi are seen, there are 2 calculi in left kidney identified. Lower pole calculus measures 8 mm on long axis on coronal image 37. There are 3-4 calculi in the right kidney me asuring up to 6 mm in size. Phleboliths along course of right ureter are redemonstrated. BOWEL: There is prominent fecalith in the rectum. There is no suspicious small or large bowel dilatat ion. GENITAL ORGANS: Faint calcifications in anteverted uterus could reflect calcified fibroids. LYMPH NODES: No greater than 1cm abdominal or pelvic lymph nodes are appreciated. OSSEOUS STRUCTURES: No significant abnormality is seen. OTHER: There is moderate to severe atherosclerotic change of aorta. Aorta is mildly aneurysmal measur ing up to 3.1 cm transversely on axial image 29. IMPRESSION: 1. New ill-defined infiltrate posterior medial right lung base correlate for acute infectious process , consider aspiration pneumonia. 2. No bowel obstruction is seen. Moderate rectal fecal stasis noted. Bilateral nephrolithiasis. No hy dronephrosis or obstructing renal calculi.
--- NOTE | 2017-08-25 14:26 | XR ---
EXAMINATION TYPE: XR chest 2V DATE OF EXAM: 08/25/2017 COMPARISON: Prior chest x-ray and chest CT 08/21/2017 HISTORY: Shortness of breath, difficulty breathing, COPD TECHNIQUE: Frontal and lateral views of the chest are obtained. FINDINGS: Ill-defined increased attenuation again noted in the right upper lobe. There is no pleural effusion or pneumothorax seen. The cardiac silhouette size is stable, heart is borderline enlarged. There is a pectus deformity. Prominent lung volumes compatible with patient's history of COPD. The os seous structures are intact. IMPRESSION: Similar findings to previous exams. Emphysema, there may be some minimal pneumonia or pn eumonitis right upper lobe, follow-up recommended. Borderline cardiac size.
[2017-08-25] MEDS ORDERED: VANCOMYCIN IV PER PHARMACY 1 EACH MISC MISCELLANE PRN (14:39)
[2017-08-25] MEDS ORDERED: NALOXONE 0.4 MG/ML 1 ML VIAL IV PRN (14:40)
[2017-08-25] MEDS ORDERED: ACETAMINOPHEN TAB 325 MG TAB PO PRN (14:40)
[2017-08-25] MEDS ORDERED: CEFEPIME 1 GM in SODIUM CHLORIDE 0.9% 50 ML IVPB STA (14:48)
[2017-08-25] MEDS ORDERED: VANCOMYCIN 1,000 MG in SODIUM CHLORIDE 0.9% 250 ML IVPB ONE (15:00)
[2017-08-25] MEDS: SODIUM CHLORIDE 0.9% 1,000 ML IV SCH ×2 (15:47→23:24)
[2017-08-25] MEDS: IPRATROPIUM-ALBUTEROL 3 ML NEB INHALATION SCH ×2 (17:04→19:55)
[2017-08-25] MEDS: SYMBICORT 160-4.5 MCG INHALER INHALATION SCH (19:55)
[2017-08-25] MEDS ORDERED: Potassium Replacement Protocol 1 EACH MISC MISCELLANE PRN (20:01)
[2017-08-25] MEDS: METOPROLOL TARTRATE 25 MG TAB PO SCH (20:10)
[2017-08-25] MEDS: FAMOTIDINE 20 MG TAB PO SCH (20:11)
--- NOTE | 2017-08-25 20:59 | HP ---
HISTORY AND PHYSICAL DATE OF ADMISSION: 08/25/2017 PRESENTING COMPLAINT: Short of breath and cough. HISTORY OF PRESENTING COMPLAINT: This is a patient who has had a few visits to the hospital now. Follows with Dr. Spivey. Chronic stable medical conditions include osteoarthritis, hypertension, hyperlipidemia, chronic hypoxic respiratory failure on 3 L oxygen at home. The patient has continued to smoke up to the last admission. The patient yet again presents with short of breath, cough and wheezing. Some abdominal discomfort. Appetite has been fair. Otherwise having bowel movements. Just tired and run down. Family had been talking about putting the patient in a more supervised setting. Patient admitted for the same. REVIEW OF SYSTEMS: Constitutional: Weak and tired. HEENT: Decreased hearing. Respiratory as above. Cardiovascular: None. Gastrointestinal has some abdominal pain earlier which is completely settled down. Genitourinary none. Musculoskeletal pain in the joints. Dermatological and hematologic, lymphatics: None. Psychiatry some anxiety. Neurological none. PAST MEDICAL HISTORY: COPD, hypertension, hyperlipidemia, osteoarthritis, protein calorie malnutrition and urinary stress incontinence. PAST SURGICAL HISTORY: Appendectomy, cholecystectomy, tubal ligation. SOCIAL HISTORY: The patient has been smoking 5-7 cigarettes a day. Has smoked for several years. Has been living alone. No alcohol. FAMILY HISTORY: Congestive heart failure. HOME MEDICATIONS: 1. Prednisone taper. 2. Norvasc 2.5 mg a day. 3. Zocor 40 mg p.o. daily. 4. Zantac 150 mg p.o. b.i.d. 5. Nicotine patch. 6. Lopressor 25 p.o. b.i.d. 7. Imdur ER 30 mg a day. 8. DuoNeb q.i.d. 9. Doxycycline 100 mg q.12. 10.Symbicort 160/4.5, 2 puffs b.i.d. ALLERGY: CIPRO. PHYSICAL EXAMINATION: Temperature 97, pulse 68, respiratory 18, blood pressure 130/75, pulse ox 98% on 3 L. GENERAL APPEARANCE: Thin build. Increased short of breath. Eyes pupils equal, conjunctivae normal. HEENT: Oral cavity normal. NECK: JVD not raised. Mass not palpable. RESPIRATORY: Effort increased. Lungs decreased breath sounds. Prolonged expiration. CARDIOVASCULAR: First and second sounds normal. No edema. ABDOMEN: Soft, nontender. Liver and spleen not palpable. Lymphatics: No lymph nodes palpable in the neck and axillae. Psychiatry alert and oriented times three. Mood and affect slightly tired appearing. INVESTIGATIONS: White count 12.4, hemoglobin 38.2, potassium 3.3, BUN 31, creatinine 0.77, albumin 2.9. Chest x-ray unchanged from previous x-ray predominantly. CT scan of the abdomen and pelvis shows moderate rectal fecal stasis, bilateral nephrolithiasis, obstruction. ASSESSMENT: 1. Acute severe chronic obstructive pulmonary disease exacerbation in a current smoker. 2. Possible right lobe pneumonia, suspect gram-negative organism. 3. Chronic nicotine dependence. Patient smokes 5-10 cigarettes a day. 4. Essential hypertension. 5. Hyperlipidemia. 6. Primary osteoarthritis of multiple joints bilateral. 7. Chronic hypoxic respiratory failure from underlying chronic obstructive pulmonary disease. 8. Moderate protein calorie malnutrition from decreased oral intake along with decreased albumin and decreased muscle mass. 9. Bilateral nephrolithiasis asymptomatic. PLAN: The patient is started on IV antibiotics. Home medications are resumed. Given nebulized bronchodilators and IV steroids. rodent control worker will be involved. The patient will definitely need assisted living given her age and comorbidities. Overall prognosis is guarded. Copy to Dr. Spivey. MMSCOTTL / IJN: [id number] /
[2017-08-25] MEDS: POTASSIUM CHLORIDE 10 MEQ, LIDOCAINE 2% INJ 10 MG in SODIUM CHLORIDE 0.9% 100 ML IV SCH ×2 (21:11→22:07)
[2017-08-26 06:39] LABS: Basophils % (A) 0 %; CH 31.2; CHCM 31.4; Eosinophils % (A) 1 %; HCT 38.6 % (34.0-46.0); HDW 2.47; HGB 12.3 gm/dL (11.4-16.0); Luc # (Auto) 0.14; Luc % (Auto) 2; Lymphocytes # (A) 1.2 k/uL (1.0-4.8); Lymphocytes % (A) 15 %; MCH 31.8 pg (25.0-35.0); MCHC 31.9 g/dL (31.0-37.0); MCV 99.8 fL (80.0-100.0); Mean Platelet Volume 7.7; Monocytes # (A) 0.3 k/uL (0-1.0); Monocytes % (A) 4 %; Neutrophils # (A) 6.5 k/uL (1.3-7.7); Neutrophils % (A) 79 %; RBC 3.87 m/uL (3.80-5.40); RDW 13.5 % (11.5-15.5); WBC 8.2 k/uL (3.8-10.6); WBC (Perox) 8.62
[2017-08-26 06:41] LABS: Anion Gap 8 mmol/L; Blood Urea Nitrogen 25 mg/dL (7-17); Carbon Dioxide 22 mmol/L (22-30); Chloride 109 mmol/L (98-107); Glucose 108 mg/dL (74-99); Non-African American GFR(MDRD) >60 (>60 ml/min/1.73 sqM); Potassium 3.4 mmol/L (3.5-5.1); Sodium 139 mmol/L (137-145)
[2017-08-26] MEDS ORDERED: Potassium Replacement Protocol 1 EACH MISC MISCELLANE PRN (07:00)
[2017-08-26] MEDS: SYMBICORT 160-4.5 MCG INHALER INHALATION SCH ×2 (07:59→19:27)
[2017-08-26] MEDS: IPRATROPIUM-ALBUTEROL 3 ML NEB INHALATION SCH ×4 (07:59→19:27)
[2017-08-26] MEDS ORDERED: VANCOMYCIN 750 MG in SODIUM CHLORIDE 0.9% 250 ML IVPB SCH (09:00)
[2017-08-26] MEDS: POTASSIUM CHLORIDE ER 20 MEQ TAB.ER PO SCH ×2 (09:12→09:20)
[2017-08-26] MEDS: ENOXAPARIN 40 MG/0.4 ML SYRINGE SQ SCH (09:12)
[2017-08-26] MEDS: ATORVASTATIN 20 MG TAB PO SCH (09:12)
[2017-08-26] MEDS: amLODIPine 2.5 MG TAB PO SCH (09:12)
[2017-08-26] MEDS: ISOSORBIDE MONONITRATE ER 30 MG TAB.ER.24H PO SCH (09:13)
[2017-08-26] MEDS: NICOTINE 7MG/24HR PATCH TRANSDERM SCH (09:13)
[2017-08-26] MEDS: FAMOTIDINE 20 MG TAB PO SCH (09:13)
[2017-08-26] MEDS: METOPROLOL TARTRATE 25 MG TAB PO SCH ×2 (09:13→21:37)
[2017-08-26 11:22] VITALS: BMI 14.6
--- NOTE | 2017-08-26 11:24 | P.CNPUL ---
History of Present Illness Consult date: 08/26/17 Reason for consult: dyspnea History of present illness: 87-year-old female patient with advanced oxygen-dependent COPD who is coming into the emergency department yesterday because of worsening shortness of breath , cough congestion and chest that so wheezing typical of an acute COPD exacerbation. The patient also reported generalized weakness and some vague abdominal pain. She has noted her breathing to be also labored. She is living at home and she was supposed to move to a nursing facility because of her age and various other comorbidities. She has had multiple has position the past for COPD exacerbation. No fever. No chills. No diarrhea. No nausea. No vomiting. No abdominal pain. No pleurisy. No hemoptysis. Asked x-ray is consistent with advanced COPD.The patient is still smoking a few cigarettes a daily basis. She was unable to keep up with her maintenance inhaler because of the cost and insurance coverage which has been mainly relying on oxygen and albuterol neb last on the clock.She is quite cachectic and malnourished. Her chest x-ray shows hyperinflation. There is small effusion the lung bases bilaterally. No clear asbestos disease or pneumonias seen. No change in mental status. Review of Systems Constitutional: Reports fatigue, Reports weakness, Reports weight loss, and the patient is cachectic, And has diminished oral intake. Eyes: bilateral blurred vision, bilateral bulging eye, bilateral decreased vision Ears: deny: decreased hearing, ear discharge, earache Ears, nose, mouth and throat: Denies headache, Denies sore throat Cardiovascular: Reports decreased exercise tolerance, Reports dyspnea on exertion, Reports shortness of breath Respiratory: Reports cough, Reports dyspnea, Reports wheezing Gastrointestinal: Denies abdominal pain, Denies diarrhea, Denies nausea, Denies vomiting Genitourinary: Denies dysuria, Denies hematuria Musculoskeletal: absent: ankle pain, ankle stiffness, ankle swelling Integumentary: Denies pruritus, Denies rash Neurological: Reports gait dysfunction, Reports weakness Psychiatric: Denies anxiety, Denies depression Endocrine: Denies fatigue, Denies weight change Past Medical History Past Medical History: COPD, Hyperlipidemia, Hypertension Additional Past Medical History / Comment(s): COPD, hyperlipidemia, hypertension , cachexia and ongoing weight loss, chronic smoker History of Any Multi-Drug Resistant Organisms: None Reported Past Surgical History: Appendectomy, Cholecystectomy, Tubal Ligation Past Anesthesia/Blood Transfusion Reactions: No Reported Reaction Past Psychological History: No Psychological Hx Reported Smoking Status: Current every day smoker Past Alcohol Use History: None Reported Past Drug Use History: None Reported - Past Family History Mother Family Medical History: Asthma, Congestive Heart Failure (CHF) Father Family Medical History: Diabetes Mellitus Medications and Allergies Home Medications Medication Instructions Recorded Confirmed Type Isosorbide Mononitrate ER [Imdur] 30 mg PO DAILY 10/29/14 08/25/17 History Metoprolol Tartrate 25 mg PO BID 10/29/14 08/25/17 History Ranitidine HCl 150 mg PO BID 10/29/14 08/25/17 History Simvastatin [Zocor] 40 mg PO DAILY 10/29/14 08/25/17 History amLODIPine BESYLATE [Norvasc] 2.5 mg PO DAILY 10/29/14 08/25/17 History Budesonide-Formot 160-4.5 Mcg 2 puff INHALATION RT-BID 08/01/17 08/25/17 History [Symbicort 160-4.5 Mcg Inhaler] Ipratropium-Albuterol Nebulize 3 ml INHALATION RT-QID #120 neb 08/04/17 Rx [Duoneb 0.5 mg-3 mg/3 ml Soln] Doxycycline [Vibramycin] 100 mg PO Q12HR #10 cap 08/22/17 08/25/17 Rx Nicotine 7Mg/24Hr Patch [Habitrol] 1 patch TRANSDERM DAILY patch 08/22/1708/25 Rx predniSONE 10 mg PO DAILY #30 tab 08/22/17 08/25/17 Rx Allergies Allergy/AdvReac Type Severity Reaction Status Date / Time ciprofloxacin [From Cipro] Allergy Unknown Verified 08/25/17 12:21 Childhood Physical Exam Vitals: Vital Signs Temp Pulse Pulse Resp BP BP Pulse Ox 08/26/17 11:12 16 08/26/17 08:18 76 08/26/17 08:01 78 08/26/17 08:00 98.7 F 81 16 113/67 91 L 08/26/17 03:52 97.3 F L 62 18 122/63 93 L 08/26/17 00:00 65 17 106/59 92 L 08/25/17 20:09 75 08/25/17 20:00 97.6 F 82 18 105/76 97 08/25/17 19:59 75 08/25/17 17:21 74 08/25/17 17:07 74 18 08/25/17 16:45 97.0 F L 68 18 130/75 98 08/25/17 14:54 98.0 F 74 18 115/56 97 08/25/17 13:48 99.0 F 65 18 93/54 98 08/25/17 12:09 97.3 F L 71 18 111/72 98 Intake and Output 08/25/17 08/26/17 08/26/17 22:59 06:59 14:59 Intake Total 300 730 60 Balance 300 730 60 Intake: Intake, IV Titration 300 250 Amount Cefepime 1 gm In Sodium 50 Chloride 0.9% 50 ml @ 100 mls/hr IVPB ONCE STA Rx# :[id number] Potassium Chloride 10 meq 200 Lidocaine 2% Inj 10 mg In Sodium Chloride 0.9% 100 ml @ 100 mls/hr IV Q1HR [facility] Rx#:[id number] Vancomycin 1,000 mg In 250 Sodium Chloride 0.9% 250 ml @ 125 mls/hr IVPB ONCE ONE Rx#:[id number] cefTAZidime 1 gm In 50 Sodium Chloride 0.9% 50 ml @ 100 mls/hr IVPB Q12HR [facility] Rx#:[id number] Oral 480 60 Other: Voiding Method Toilet Toilet Toilet # Voids 1 3 # Bowel Movements 1 Weight 40.823 kg 38.5 kg This patient is frail thin elderly nonacute distress. Not using excessive muscle breathing. She looks significantly cachectic and malnourished and significant loss in total body protein mass.Head exam was generally normal. There was no scleral icterus or corneal arcus. Mucous membranes were moist.Neck was supple and without jugular venous distension, thyromegaly, or carotid bruits. Carotids were easily palpable bilaterally. There was no adenopathy. Lung sounds are diminished bilaterally. The patient has very limited atelectatic lung bases. No significant wheezes unless the patient performs forced expiratory maneuvers.Cardiac exam revealed the PMI to be normally situated and sized. The rhythm was regular and no extrasystoles were noted during several minutes of auscultation. The first and second heart sounds were normal and physiologic splitting of the second heart sound was noted. There were no murmurs, rubs, clicks, or gallops.Abdominal exam revealed normal bowel sounds. The abdomen was soft, non-tender, and without masses, organomegaly, or appreciable enlargement of the abdominal aorta. Organs are not enlarged.Examination of the extremities revealed easily palpable radial, femoral and pedal pulses. There was no cyanosis, clubbing or edema. The patient has significant muscle atrophy and loss in bulk/protein bulk in lower extremities bilaterally. Neurologically the patient is awake and alert and there is no focal neurological deficits. Currently exam was within normal limits and there is no fractures or any limitation in range of motion. Skin is negative for any rashes or any ulceration. Psychiatric exam is within normal limits. No agitation. No change in mental status. No confusion. Results - Laboratory Findings CBC and BMP: 08/26/17 05:43 08/26/17 05:43 Abnormal lab findings: Abnormal Labs 08/25/17 08/25/17 08/25/17 12:30 12:30 12:30 WBC 12.4 H Plt Count 103 L Neutrophils # 11.4 H Lymphocytes # 0.4 L VBG pCO2 58 H VBG HCO3 30 H Sodium Potassium Chloride BUN Glucose Plasma Lactic Acid Jayant 2.4 H* Calcium Troponin I Total Protein Albumin 08/25/17 08/25/17 08/26/17 12:30 13:19 05:43 WBC Plt Count 100 L Neutrophils # Lymphocytes # VBG pCO2 VBG HCO3 Sodium 134 L Potassium 3.3 L Chloride BUN 31 H Glucose 183 H Plasma Lactic Acid Jayant Calcium Troponin I 0.052 H* Total Protein 5.6 L Albumin 2.9 L 08/26/17 05:43 WBC Plt Count Neutrophils # Lymphocytes # VBG pCO2 VBG HCO3 Sodium Potassium 3.4 L Chloride 109 H BUN 25 H Glucose 108 H Plasma Lactic Acid Jayant Calcium 8.0 L Troponin I Total Protein Albumin - Diagnostic Findings Chest x-ray: image reviewed Assessment and Plan Plan: Assessment 1 acute COPD exacerbation/bronchitis. A questionable ill-defined infiltrates seen in the posterior right lung base which could be related to an acute early pneumonia. No evidence of any aspiration on at least on clinical grounds. 2 worsening shortness of breath secondary to above 3 chronic hypoxic respiratory failure secondary to advanced COPD 4 significant protein calorie malnourishment and muscle atrophy in both upper and lower extremities 5 hypertension 6 hyperlipidemia 7 smoker 8 vague abdominal pain with a CAT scan of the abdomen that was done on 2016 shows no acute intra-abdominal process. There is moderate rectal fecal stasis and bilateral nephrolithiasis. No hydronephrosis. No obstructive renal stones. Plan Continue bronchodilators and the patient is on DuoNeb neb last treatment around- the-clock. Continue Symbicort. Continue IV Fortaz. Nicotine patch. We'll add IV Solu-Medrol 40 mg every 6 hours. We'll continue to follow and make further recommendations based on her progress.
[2017-08-26] MEDS: methylPREDNISolone SOD SUCCI 40 MG/ML 1 ML VIAL IV SCH ×2 (12:18→16:12)
[2017-08-26 16:50] LABS: Glucose,Whole Blood 325 mg/dL (75-99)
[2017-08-26] MEDS: INSULIN LISPRO (humaLOG) 300 UNIT/3 ML VIAL SQ SCH ×2 (17:00→22:01)
--- NOTE | 2017-08-26 17:04 | PN ---
PROGRESS NOTE DATE OF SERVICE: 08/26/2017 INTERVAL HISTORY: This 87-year-old woman with a past history of multiple medical problems was admitted with COPD exacerbation, acute purulent tracheobronchitis as well as possible suspicion of right lower lobe pneumonia. The patient started on IV antibiotics. Patient being closely monitored. Patient also complains of tiredness and weakness also. PT/ OT is also evaluating the patient. Social work will be consulted to evaluate the home situation. Apparently patient lives by herself. PAST MEDICAL HISTORY: Reviewed. REVIEW OF SYSTEMS: Cardiovascular: No angina or palpitations. Respiration as mentioned. GI: As mentioned earlier. : As mentioned earlier. CENTRAL NERVOUS SYSTEM: No numbness, weakness. CURRENT MEDICATIONS: Reviewed and include: 1. Tylenol 650 q.6h p.r.n. 2. DuoNeb q.i.d. and p.r.n. 3. Lipitor 10 mg. 4. Symbicort b.i.d. 5. Ceftazidime. 6. Lovenox. 7. KCL. 8. Narcan. 9. Habitrol. PHYSICAL EXAM: Patient is alert, oriented x3. Pulse 88, blood pressure 119/62, respirations 16 , temperature is normal. Pulse ox 98% on 2 L. HEENT: Conjunctivae normal. Oral mucosa moist. Neck is no jugular venous distention. No carotid bruit. No lymph node enlargement. Cardiovascular system: S1, S2 muffled. Respirations: Diminished in the bases. A few scattered rhonchi and crackles. ABDOMEN: Soft, nontender. Legs are no edema. No swelling. Central nervous system: No focal deficits. LABORATORY DATA: CBC within normal limits. Sodium 139, potassium 3.4. ASSESSMENT: 1. Chronic obstructive pulmonary disease acute exacerbation with acute purulent tracheobronchitis, right lower lobe pneumonia possibly gram-negative. 2. History of nicotine dependence. 3. Hypertension. 4. Hyperlipidemia. 5. Chronic hypoxic respiratory failure. 6. Degenerative joint disease. 7. Moderate protein calorie malnutrition. Possibly secondary to diminished p.o. intake. 8. Bilateral nephrolithiasis, symptomatic. RECOMMENDATIONS AND DISCUSSION: Recommend to continue current medications. Continue symptomatic treatment. Otherwise at this time, I recommend continue broad-spectrum IV antibiotics, bronchodilators, DVT prophylaxis. The patient is at this time. Otherwise continue to monitor. Guarded prognosis. Further recommendations to follow. See orders for details. Optimize bronchodilator treatment. Dr. Pandey's input appreciated. AI / NORMAN: [id number] / TORI
[2017-08-26] MEDS: SODIUM CHLORIDE 0.9% 1,000 ML IV SCH (19:39)
[2017-08-26 20:06] LABS: Hemoglobin A1C 8.3 % (4.2-6.1)
[2017-08-26 20:36] LABS: Glucose,Whole Blood 320 mg/dL (75-99)
[2017-08-26] MEDS ORDERED: INSULIN LISPRO (humaLOG) 300 UNIT/3 ML VIAL SQ ONE (21:53)
[2017-08-27] MEDS: methylPREDNISolone SOD SUCCI 40 MG/ML 1 ML VIAL IV SCH ×4 (00:01→16:59)
[2017-08-27 02:06] LABS: Glucose,Whole Blood 81 mg/dL (75-99)
[2017-08-27 05:21] LABS: Glucose,Whole Blood 156 mg/dL (75-99)
[2017-08-27] MEDS: INSULIN LISPRO (humaLOG) 300 UNIT/3 ML VIAL SQ SCH ×4 (06:37→20:54)
[2017-08-27 07:15] LABS: Anion Gap 7 mmol/L; Blood Urea Nitrogen 21 mg/dL (7-17); Calcium 8.2 mg/dL (8.4-10.2); Carbon Dioxide 27 mmol/L (22-30); Chloride 104 mmol/L (98-107); Glucose 131 mg/dL (74-99); Non-African American GFR(MDRD) >60 (>60 ml/min/1.73 sqM); Potassium 3.6 mmol/L (3.5-5.1); Sodium 138 mmol/L (137-145)
[2017-08-27] MEDS: NICOTINE 7MG/24HR PATCH TRANSDERM SCH (09:10)
[2017-08-27] MEDS: amLODIPine 2.5 MG TAB PO SCH (09:10)
[2017-08-27] MEDS: ISOSORBIDE MONONITRATE ER 30 MG TAB.ER.24H PO SCH (09:11)
[2017-08-27] MEDS: ATORVASTATIN 20 MG TAB PO SCH (09:11)
[2017-08-27] MEDS: FAMOTIDINE 20 MG TAB PO SCH (09:11)
[2017-08-27] MEDS: ENOXAPARIN 40 MG/0.4 ML SYRINGE SQ SCH (09:11)
[2017-08-27] MEDS: METOPROLOL TARTRATE 25 MG TAB PO SCH ×2 (09:12→20:53)
[2017-08-27] MEDS: IPRATROPIUM-ALBUTEROL 3 ML NEB INHALATION SCH ×4 (10:00→20:42)
[2017-08-27] MEDS: SYMBICORT 160-4.5 MCG INHALER INHALATION SCH ×2 (10:00→20:44)
[2017-08-27 11:46] LABS: Glucose,Whole Blood 252 mg/dL (75-99)
--- NOTE | 2017-08-27 13:06 | P.PN ---
Subjective Progress Note Date: 08/27/17 87-year-old female patient with advanced oxygen-dependent COPD who is coming into the emergency department yesterday because of worsening shortness of breath , cough congestion and chest that so wheezing typical of an acute COPD exacerbation. The patient also reported generalized weakness and some vague abdominal pain. She has noted her breathing to be also labored. She is living at home and she was supposed to move to a nursing facility because of her age and various other comorbidities. She has had multiple has position the past for COPD exacerbation. No fever. No chills. No diarrhea. No nausea. No vomiting. No abdominal pain. No pleurisy. No hemoptysis. Asked x-ray is consistent with advanced COPD.The patient is still smoking a few cigarettes a daily basis. She was unable to keep up with her maintenance inhaler because of the cost and insurance coverage which has been mainly relying on oxygen and albuterol neb last on the clock.She is quite cachectic and malnourished. Her chest x-ray shows hyperinflation. There is small effusion the lung bases bilaterally. No clear asbestos disease or pneumonias seen. No change in mental status. On 08/27/2017 the patient is feeling well. She has no specific complaints. She is eating small portions without any gastrointestinal symptoms of nausea vomiting or diarrhea. Her breathing is nonlabored. She is able to speak full sentences. No chest pain. No cough or sputum production. No other significant events over the past 24 hours pH is recovering in terms of her COPD exacerbation. Objective - Vital Signs Vital signs: Vital Signs Temp 97.6 F 08/27/17 08:00 Pulse 68 08/27/17 12:00 Resp 16 08/27/17 12:00 BP 107/55 08/27/17 12:00 Pulse Ox 97 08/27/17 08:00 Intake & Output 08/26/17 08/27/17 08/27/17 18:59 06:59 18:59 Intake Total 534 540 480 Output Total 300 125 Balance 234 415 480 Weight 38.5 kg 38.7 kg 38.7 kg Intake: IV 60 Flush 10 cefTAZidime 1 gm In 50 Sodium Chloride 0.9% 50 ml @ 100 mls/hr IVPB Q12HR [facility] Rx#:[id number] Oral 534 480 480 Output: Urine 300 125 Other: Voiding Method Toilet Toilet Toilet # Voids 1 1 - Exam This patient is frail thin elderly nonacute distress. Not using excessive muscle breathing. She looks significantly cachectic and malnourished and significant loss in total body protein mass.Head exam was generally normal. There was no scleral icterus or corneal arcus. Mucous membranes were moist.Neck was supple and without jugular venous distension, thyromegaly, or carotid bruits. Carotids were easily palpable bilaterally. There was no adenopathy. Lung sounds are diminished bilaterally. The patient has very limited atelectatic lung bases. No significant wheezes unless the patient performs forced expiratory maneuvers.Cardiac exam revealed the PMI to be normally situated and sized. The rhythm was regular and no extrasystoles were noted during several minutes of auscultation. The first and second heart sounds were normal and physiologic splitting of the second heart sound was noted. There were no murmurs, rubs, clicks, or gallops.Abdominal exam revealed normal bowel sounds. The abdomen was soft, non-tender, and without masses, organomegaly, or appreciable enlargement of the abdominal aorta. Organs are not enlarged.Examination of the extremities revealed easily palpable radial, femoral and pedal pulses. There was no cyanosis, clubbing or edema. The patient has significant muscle atrophy and loss in bulk/protein bulk in lower extremities bilaterally. Neurologically the patient is awake and alert and there is no focal neurological deficits. Currently exam was within normal limits and there is no fractures or any limitation in range of motion. Skin is negative for any rashes or any ulceration. Psychiatric exam is within normal limits. No agitation. No change in mental status. No confusion. - Labs CBC & Chem 7: 08/26/17 05:43 08/27/17 05:31 Labs: Abnormal Lab Results - Last 24 Hours (Table) 08/26/17 08/26/17 08/26/17 Range/Units 05:43 16:48 20:35 BUN (7-17) mg/dL Glucose (74-99) mg/dL POC Glucose (mg/dL) 325 H 320 H (75-99) mg/dL Hemoglobin A1c 8.3 H (4.2-6.1) % Calcium (8.4-10.2) mg/dL 08/27/17 08/27/17 08/27/17 Range/Units 05:20 05:31 11:45 BUN 21 H (7-17) mg/dL Glucose 131 H (74-99) mg/dL POC Glucose (mg/dL) 156 H 252 H (75-99) mg/dL Hemoglobin A1c (4.2-6.1) % Calcium 8.2 L (8.4-10.2) mg/dL Microbiology - Last 24 Hours (Table) 08/26/17 09:49 Urine Culture - Preliminary Urine,Voided Assessment and Plan Plan: Assessment 1 acute COPD exacerbation/bronchitis. A questionable ill-defined infiltrates seen in the posterior right lung base which could be related to an acute early pneumonia. No evidence of any aspiration on at least on clinical grounds. 2 worsening shortness of breath secondary to above 3 chronic hypoxic respiratory failure secondary to advanced COPD 4 significant protein calorie malnourishment and muscle atrophy in both upper and lower extremities 5 hypertension 6 hyperlipidemia 7 smoker 8 vague abdominal pain with a CAT scan of the abdomen that was done on 2016 shows no acute intra-abdominal process. There is moderate rectal fecal stasis and bilateral nephrolithiasis. No hydronephrosis. No obstructive renal stones. Plan The patient is clinically improving. Continue same treatment. Discharge planning is in progress. Possible discharge in the next 24 hours.
--- NOTE | 2017-08-27 16:26 | P.PN ---
Subjective Progress Note Date: 08/27/17 Progress note being dictated for Dr. Prieto. Interval history: This is an 87-year-old female admitted with acute COPD exacerbation, possible right lower lobe pneumonia, chronic hypoxic respiratory failure. Maintained on ceftazidime, nebulized bronchodilators, steroids with breathing improving. Staff reports mild confusion. Denies chest pain, palpitations or increasing shortness of breath. Good diet intake, consuming 75- 100%. No nausea, vomiting, currently denies abdominal discomfort. Objective - Vital Signs Vital signs: Vital Signs Temp 97.6 F 08/27/17 08:00 Pulse 79 08/27/17 08:00 Resp 16 08/27/17 08:00 BP 132/51 08/27/17 08:00 Pulse Ox 97 08/27/17 08:00 Intake & Output 08/26/17 08/27/17 08/27/17 18:59 06:59 18:59 Intake Total 534 540 480 Output Total 300 125 Balance 234 415 480 Weight 38.5 kg 38.7 kg 38.7 kg Intake: IV 60 Flush 10 cefTAZidime 1 gm In 50 Sodium Chloride 0.9% 50 ml @ 100 mls/hr IVPB Q12HR [facility] Rx#:[id number] Oral 534 480 480 Output: Urine 300 125 Other: Voiding Method Toilet Toilet Toilet # Voids 1 1 - Exam PHYSICAL EXAM: VITAL SIGNS: As above GENERAL: Sitting up in bed, no acute distress, cachectic, BMI 14.6 HEENT: Conjunctivae normal. eyes normal. Oral mucosa moist. NECK: No JVD. No thyroid enlargement. No LNs CARDIOVASCULAR: S1, S2 muffled. No murmur RESPIRATION: Breath sounds diminished in the bases. Scattered rhonchi, fine right basilar crackles. No bronchial breathing. ABDOMEN: Soft, nontender . No guarding. no masses palpable.Bowel sounds heard. LEGS: No edema. no swelling. PSYCHIATRY: Alert and oriented -3, mood and affect normal. NERVOUS SYSTEM: Cranial N 2-12 grossly normal. Moves all 4 limbs. Diffuse weakness No focal deficits. No sensory deficit. Skin: no ulcer no rash Joints: No active swelling. No inflammation. Lymphatic system. No LN neck axilla or groin. - Labs CBC & Chem 7: 08/26/17 05:43 08/27/17 05:31 Labs: Abnormal Lab Results - Last 24 Hours (Table) 08/26/17 08/26/17 08/26/17 Range/Units 05:43 16:48 20:35 BUN (7-17) mg/dL Glucose (74-99) mg/dL POC Glucose (mg/dL) 325 H 320 H (75-99) mg/dL Hemoglobin A1c 8.3 H (4.2-6.1) % Calcium (8.4-10.2) mg/dL 08/27/17 08/27/17 08/27/17 Range/Units 05:20 05:31 11:45 BUN 21 H (7-17) mg/dL Glucose 131 H (74-99) mg/dL POC Glucose (mg/dL) 156 H 252 H (75-99) mg/dL Hemoglobin A1c (4.2-6.1) % Calcium 8.2 L (8.4-10.2) mg/dL Microbiology - Last 24 Hours (Table) 08/26/17 09:49 Urine Culture - Preliminary Urine,Voided Assessment and Plan Plan: 1. [ Acute COPD exacerbation with acute purulent tracheobronchitis, right lower lobe pneumonia, possibly gram-negative]. 2. [ Nicotine dependence]. 3. [ Chronic hypoxic respiratory failure]. 4. [ Moderate protein calorie malnutrition, BMI 14.6]. 5. [ Bilateral nephrolithiasis, symptomatic]. Plan: Continue on current medication regime, ceftazidime, nebulized bronchodilators, steroids, monitoring and symptomatic treatment. Aggressive pulmonary toileting. Smoking cessation readdressed. Patient is cleared for transfer off of telemetry unit to [facility].Patient is moving to [facility] on Wednesday. Discharge planning in progress. Follow closely with pulmonary. Further recommendations to follow. The impression and plan of care has been dictated as directed. : I performed a history and examination of this patient, discussed the same with the dictator. I agree with the dictator's note ,documented as a scribe. Any additional findings or plans will be noted.
[2017-08-27 16:36] LABS: Glucose,Whole Blood 134 mg/dL (75-99)
[2017-08-27 20:34] LABS: Glucose,Whole Blood 393 mg/dL (75-99)
[2017-08-27] MEDS ORDERED: INSULIN LISPRO (humaLOG) 300 UNIT/3 ML VIAL SQ ONE (20:43)
[2017-08-28] MEDS: methylPREDNISolone SOD SUCCI 40 MG/ML 1 ML VIAL IV SCH ×3 (00:05→13:31)
[2017-08-28 06:00] LABS: Glucose,Whole Blood 208 mg/dL (75-99)
[2017-08-28] MEDS: INSULIN LISPRO (humaLOG) 300 UNIT/3 ML VIAL SQ SCH ×4 (06:32→21:02)
[2017-08-28 06:47] LABS: Anion Gap 8 mmol/L; Blood Urea Nitrogen 29 mg/dL (7-17); Calcium 8.6 mg/dL (8.4-10.2); Carbon Dioxide 28 mmol/L (22-30); Chloride 100 mmol/L (98-107); Glucose 204 mg/dL (74-99); Non-African American GFR(MDRD) >60 (>60 ml/min/1.73 sqM); Potassium 3.3 mmol/L (3.5-5.1); Sodium 136 mmol/L (137-145)
[2017-08-28] MEDS: ENOXAPARIN 40 MG/0.4 ML SYRINGE SQ SCH (07:54)
[2017-08-28] MEDS: NICOTINE 7MG/24HR PATCH TRANSDERM SCH (07:55)
[2017-08-28] MEDS: METOPROLOL TARTRATE 25 MG TAB PO SCH ×2 (07:55→21:01)
[2017-08-28] MEDS: amLODIPine 2.5 MG TAB PO SCH (07:55)
[2017-08-28] MEDS: ATORVASTATIN 20 MG TAB PO SCH (07:56)
[2017-08-28] MEDS: ISOSORBIDE MONONITRATE ER 30 MG TAB.ER.24H PO SCH (07:56)
[2017-08-28] MEDS: FAMOTIDINE 20 MG TAB PO SCH (07:56)
[2017-08-28] MEDS: SYMBICORT 160-4.5 MCG INHALER INHALATION SCH ×2 (08:13→21:31)
[2017-08-28] MEDS: IPRATROPIUM-ALBUTEROL 3 ML NEB INHALATION SCH ×4 (08:13→21:32)
--- NOTE | 2017-08-28 10:57 | P.PN ---
Subjective Progress Note Date: 08/28/17 87-year-old female patient with advanced oxygen-dependent COPD who is coming into the emergency department yesterday because of worsening shortness of breath , cough congestion and chest that so wheezing typical of an acute COPD exacerbation. The patient also reported generalized weakness and some vague abdominal pain. She has noted her breathing to be also labored. She is living at home and she was supposed to move to a nursing facility because of her age and various other comorbidities. She has had multiple has position the past for COPD exacerbation. No fever. No chills. No diarrhea. No nausea. No vomiting. No abdominal pain. No pleurisy. No hemoptysis. Asked x-ray is consistent with advanced COPD.The patient is still smoking a few cigarettes a daily basis. She was unable to keep up with her maintenance inhaler because of the cost and insurance coverage which has been mainly relying on oxygen and albuterol neb last on the clock.She is quite cachectic and malnourished. Her chest x-ray shows hyperinflation. There is small effusion the lung bases bilaterally. No clear asbestos disease or pneumonias seen. No change in mental status. On 08/27/2017 the patient is feeling well. She has no specific complaints. She is eating small portions without any gastrointestinal symptoms of nausea vomiting or diarrhea. Her breathing is nonlabored. She is able to speak full sentences. No chest pain. No cough or sputum production. No other significant events over the past 24 hours pH is recovering in terms of her COPD exacerbation. On 08/28/2017 the patient has no new complaints. She is still recovering from acute COPD exacerbation. No other significant events overnight. The patient has been gradually improving. No chest pain. No pleurisy. No hemoptysis. No swelling lower extremities. She remains on DuoNeb neb last 2 minutes around-the -clock, Symbicort, IV Solu Medrol 40 mg to 6 hours and a nicotine patch. Objective - Vital Signs Vital signs: Vital Signs Temp 97.0 F L 08/28/17 09:52 Pulse 89 08/28/17 09:52 Resp 16 08/28/17 09:52 BP 116/64 08/28/17 09:52 Pulse Ox 94 L 08/28/17 09:52 Intake & Output 08/27/17 08/28/17 08/28/17 18:59 06:59 18:59 Intake Total 1560 70 180 Output Total 175 Balance 1560 -105 180 Weight 38.7 kg 38.9 kg Intake: IV 70 Flush 20 cefTAZidime 1 gm In 50 Sodium Chloride 0.9% 50 ml @ 100 mls/hr IVPB Q12HR [facility] Rx#:[id number] Oral 1560 180 Output: Urine 175 Other: Voiding Method Toilet Toilet Toilet # Voids 2 2 # Bowel Movements 0 - Exam This patient is frail thin elderly nonacute distress. Not using excessive muscle breathing. She looks significantly cachectic and malnourished and significant loss in total body protein mass.Head exam was generally normal. There was no scleral icterus or corneal arcus. Mucous membranes were moist.Neck was supple and without jugular venous distension, thyromegaly, or carotid bruits. Carotids were easily palpable bilaterally. There was no adenopathy. Lung sounds are diminished bilaterally. The patient has very limited atelectatic lung bases. No significant wheezes unless the patient performs forced expiratory maneuvers.Cardiac exam revealed the PMI to be normally situated and sized. The rhythm was regular and no extrasystoles were noted during several minutes of auscultation. The first and second heart sounds were normal and physiologic splitting of the second heart sound was noted. There were no murmurs, rubs, clicks, or gallops.Abdominal exam revealed normal bowel sounds. The abdomen was soft, non-tender, and without masses, organomegaly, or appreciable enlargement of the abdominal aorta. Organs are not enlarged.Examination of the extremities revealed easily palpable radial, femoral and pedal pulses. There was no cyanosis, clubbing or edema. The patient has significant muscle atrophy and loss in bulk/protein bulk in lower extremities bilaterally. Neurologically the patient is awake and alert and there is no focal neurological deficits. Currently exam was within normal limits and there is no fractures or any limitation in range of motion. Skin is negative for any rashes or any ulceration. Psychiatric exam is within normal limits. No agitation. No change in mental status. No confusion. - Labs CBC & Chem 7: 08/26/17 05:43 08/28/17 05:21 Labs: Abnormal Lab Results - Last 24 Hours (Table) 08/27/17 08/27/17 08/27/17 Range/Units 11:45 16:35 20:31 Sodium (137-145) mmol/L Potassium (3.5-5.1) mmol/L BUN (7-17) mg/dL Glucose (74-99) mg/dL POC Glucose (mg/dL) 252 H 134 H 393 H (75-99) mg/dL 08/28/17 08/28/17 Range/Units 05:21 05:59 Sodium 136 L (137-145) mmol/L Potassium 3.3 L (3.5-5.1) mmol/L BUN 29 H (7-17) mg/dL Glucose 204 H (74-99) mg/dL POC Glucose (mg/dL) 208 H (75-99) mg/dL Microbiology - Last 24 Hours (Table) 08/26/17 09:49 Urine Culture - Final Urine,Voided Assessment and Plan Plan: Assessment 1 acute COPD exacerbation/bronchitis. A questionable ill-defined infiltrates seen in the posterior right lung base which could be related to an acute early pneumonia. No evidence of any aspiration on at least on clinical grounds. 2 worsening shortness of breath secondary to above 3 chronic hypoxic respiratory failure secondary to advanced COPD 4 significant protein calorie malnourishment and muscle atrophy in both upper and lower extremities 5 hypertension 6 hyperlipidemia 7 smoker 8 vague abdominal pain with a CAT scan of the abdomen that was done on 2016 shows no acute intra-abdominal process. There is moderate rectal fecal stasis and bilateral nephrolithiasis. No hydronephrosis. No obstructive renal stones. Plan The patient is clinically improving. Consider discharge the next 24 hours. She will need a prednisone burst taper upon discharge. She will need DuoNeb nebulized treatments in addition to Symbicort and a nicotine patch. Smoking cessation counseling was done. She has home O2.
[2017-08-28 12:25] LABS: Glucose,Whole Blood 476 mg/dL (75-99)
[2017-08-28 12:25] LABS: Glucose,Whole Blood 485 mg/dL (75-99)
[2017-08-28] MEDS: INSULIN GLARGINE 100 UNIT/ML 10 ML VIAL SQ SCH (13:21)
[2017-08-28] MEDS: POTASSIUM CHLORIDE ER 20 MEQ TAB.ER PO SCH ×2 (13:23→13:32)
[2017-08-28 17:05] LABS: Glucose,Whole Blood 371 mg/dL (75-99)
--- NOTE | 2017-08-28 17:09 | PN ---
PROGRESS NOTE DATE OF SERVICE: 08/28/2017 INTERVAL HISTORY: This 87-year-old woman who was admitted with COPD exacerbation as well as right lower lobe pneumonia being closely monitored at this time. The family is planning the patient to be transferred to an adult foster care center on this coming Wednesday. No chest pain. No palpitations. No fever. Dr. Pandey is following the patient closely. EXAM: Alert, oriented x3. Pulse 89. Blood pressure 116/64, respiratory rate 16, temperature 97 degrees, pulse ox 94% room air. HEENT is conjunctivae normal. Neck: No jugular venous distention. Cardiovascular: S1, S2 muffled. Respirations: Breath sounds diminished in the bases. A few scattered rhonchi. Abdomen is soft, nontender. Legs are no edema. No swelling. Central nervous system: No focal deficits. LABORATORY DATA: Glucose 485, sodium 136, potassium 3.3. ASSESSMENT: 1. Chronic obstructive pulmonary disease acute exacerbation with possible right lower lobe pneumonia possibly gram-negative. 2. History of nicotine dependence. 3. Diabetes mellitus type 2. 4. Chronic hypoxic respiratory failure. 5. Moderate protein calorie malnutrition. BMI 14.2. 6. Bilateral nephrolithiasis, symptomatic. RECOMMENDATIONS AND DISCUSSION: Recommend to continue current management, continue current medications and symptomatic treatment. Otherwise at this time, we will monitor the patient closely. Otherwise I would also recommend initiate Lantus and continue to monitor. Prognosis guarded. Further recommendations to follow. MMODL / IJN: [id number] /
[2017-08-28 21:01] LABS: Glucose,Whole Blood 242 mg/dL (75-99)
[2017-08-29 01:38] LABS: Glucose,Whole Blood 44 mg/dL (75-99)
[2017-08-29 01:38] LABS: Glucose,Whole Blood 45 mg/dL (75-99)
[2017-08-29 01:44] LABS: Glucose,Whole Blood 55 mg/dL (75-99)
[2017-08-29 02:14] LABS: Glucose,Whole Blood 169 mg/dL (75-99)
[2017-08-29 06:59] LABS: Glucose,Whole Blood 95 mg/dL (75-99)
[2017-08-29] MEDS: INSULIN LISPRO (humaLOG) 300 UNIT/3 ML VIAL SQ SCH ×4 (09:21→22:21)
[2017-08-29] MEDS: ATORVASTATIN 20 MG TAB PO SCH (09:41)
[2017-08-29] MEDS: ISOSORBIDE MONONITRATE ER 30 MG TAB.ER.24H PO SCH (09:41)
[2017-08-29] MEDS: METOPROLOL TARTRATE 25 MG TAB PO SCH ×2 (09:41→20:31)
[2017-08-29] MEDS: FAMOTIDINE 20 MG TAB PO SCH (09:41)
[2017-08-29] MEDS: amLODIPine 2.5 MG TAB PO SCH (09:41)
[2017-08-29] MEDS: ENOXAPARIN 40 MG/0.4 ML SYRINGE SQ SCH (09:42)
[2017-08-29] MEDS: predniSONE 10 MG TAB PO SCH (09:42)
[2017-08-29] MEDS: NICOTINE 7MG/24HR PATCH TRANSDERM SCH ×2 (09:42→09:43)
[2017-08-29] MEDS: SYMBICORT 160-4.5 MCG INHALER INHALATION SCH ×2 (09:46→21:14)
[2017-08-29] MEDS: IPRATROPIUM-ALBUTEROL 3 ML NEB INHALATION SCH ×4 (09:46→21:14)
[2017-08-29 12:11] LABS: Glucose,Whole Blood 146 mg/dL (75-99)
[2017-08-29] MEDS: INSULIN GLARGINE 100 UNIT/ML 10 ML VIAL SQ SCH (15:37)
--- NOTE | 2017-08-29 16:12 | P.PN ---
Subjective Progress Note Date: 08/29/17 87-year-old female patient with advanced oxygen-dependent COPD who is coming into the emergency department yesterday because of worsening shortness of breath , cough congestion and chest that so wheezing typical of an acute COPD exacerbation. The patient also reported generalized weakness and some vague abdominal pain. She has noted her breathing to be also labored. She is living at home and she was supposed to move to a nursing facility because of her age and various other comorbidities. She has had multiple has position the past for COPD exacerbation. No fever. No chills. No diarrhea. No nausea. No vomiting. No abdominal pain. No pleurisy. No hemoptysis. Asked x-ray is consistent with advanced COPD.The patient is still smoking a few cigarettes a daily basis. She was unable to keep up with her maintenance inhaler because of the cost and insurance coverage which has been mainly relying on oxygen and albuterol neb last on the clock.She is quite cachectic and malnourished. Her chest x-ray shows hyperinflation. There is small effusion the lung bases bilaterally. No clear asbestos disease or pneumonias seen. No change in mental status. On 08/27/2017 the patient is feeling well. She has no specific complaints. She is eating small portions without any gastrointestinal symptoms of nausea vomiting or diarrhea. Her breathing is nonlabored. She is able to speak full sentences. No chest pain. No cough or sputum production. No other significant events over the past 24 hours Kory is recovering in terms of her COPD exacerbation. On 08/28/2017 the patient has no new complaints. She is still recovering from acute COPD exacerbation. No other significant events overnight. The patient has been gradually improving. No chest pain. No pleurisy. No hemoptysis. No swelling lower extremities. She remains on DuoNeb neb last 2 minutes around-the -clock, Symbicort, IV Solu Medrol 40 mg to 6 hours and a nicotine patch. On 08/29/2017 the patient got moved to a fourth floor where she is further recuperating from an acute COPD exacerbation. She is resting comfortably in bed. She has no specific complaints. She is on DuoNeb nebulized treatments around the clock. She is also on prednisone burst taper starting with 30 mg pH is on Symbicort as maintenance. No other significant events over the past 24 hours Kory is tolerating her diet. She is improving and she is being considered for discharge for tomorrow. Objective - Vital Signs Vital signs: Vital Signs Temp 97.6 F 08/29/17 14:23 Pulse 72 08/29/17 13:11 Resp 18 08/29/17 14:23 BP 106/54 08/29/17 14:23 Pulse Ox 97 08/29/17 14:23 Intake & Output 08/28/17 08/29/17 08/29/17 18:59 06:59 18:59 Intake Total 510 50 700 Output Total 3 Balance 510 47 700 Weight 38.9 kg Intake: IV 50 cefTAZidime 1 gm In 50 Sodium Chloride 0.9% 50 ml @ 100 mls/hr IVPB Q12HR [facility] Rx#:[id number] Oral 510 700 Output: Urine 3 Other: Voiding Method Toilet Toilet # Voids 1 3 2 - Exam This patient is frail thin elderly nonacute distress. Not using excessive muscle breathing. She looks significantly cachectic and malnourished and significant loss in total body protein mass.Head exam was generally normal. There was no scleral icterus or corneal arcus. Mucous membranes were moist.Neck was supple and without jugular venous distension, thyromegaly, or carotid bruits. Carotids were easily palpable bilaterally. There was no adenopathy. Lung sounds are diminished bilaterally. The patient has very limited atelectatic lung bases. No significant wheezes unless the patient performs forced expiratory maneuvers.Cardiac exam revealed the PMI to be normally situated and sized. The rhythm was regular and no extrasystoles were noted during several minutes of auscultation. The first and second heart sounds were normal and physiologic splitting of the second heart sound was noted. There were no murmurs, rubs, clicks, or gallops.Abdominal exam revealed normal bowel sounds. The abdomen was soft, non-tender, and without masses, organomegaly, or appreciable enlargement of the abdominal aorta. Organs are not enlarged.Examination of the extremities revealed easily palpable radial, femoral and pedal pulses. There was no cyanosis, clubbing or edema. The patient has significant muscle atrophy and loss in bulk/protein bulk in lower extremities bilaterally. Neurologically the patient is awake and alert and there is no focal neurological deficits. Currently exam was within normal limits and there is no fractures or any limitation in range of motion. Skin is negative for any rashes or any ulceration. Psychiatric exam is within normal limits. No agitation. No change in mental status. No confusion. - Labs CBC & Chem 7: 08/26/17 05:43 08/28/17 05:21 Labs: Abnormal Lab Results - Last 24 Hours (Table) 08/28/17 08/28/17 08/29/17 Range/Units 16:58 20:59 01:33 POC Glucose (mg/dL) 371 H 242 H 44 L (75-99) mg/dL 08/29/17 08/29/17 08/29/17 Range/Units 01:35 01:43 02:13 POC Glucose (mg/dL) 45 L 55 L 169 H (75-99) mg/dL 08/29/17 Range/Units 12:07 POC Glucose (mg/dL) 146 H (75-99) mg/dL Assessment and Plan Plan: Assessment 1 acute COPD exacerbation/bronchitis. A questionable ill-defined infiltrates seen in the posterior right lung base which could be related to an acute early pneumonia. No evidence of any aspiration on at least on clinical grounds. 2 worsening shortness of breath secondary to above 3 chronic hypoxic respiratory failure secondary to advanced COPD 4 significant protein calorie malnourishment and muscle atrophy in both upper and lower extremities 5 hypertension 6 hyperlipidemia 7 smoker 8 vague abdominal pain with a CAT scan of the abdomen that was done on 2016 shows no acute intra-abdominal process. There is moderate rectal fecal stasis and bilateral nephrolithiasis. No hydronephrosis. No obstructive renal stones. Plan The patient is clinically improving. Prednisone burst taper. Bronchodilators. Increase activity as tolerated. No other complaints otherwise. Discharge home by Wednesday.
[2017-08-29 17:00] LABS: Glucose,Whole Blood 318 mg/dL (75-99)
[2017-08-29 17:00] LABS: Glucose,Whole Blood 327 mg/dL (75-99)
--- NOTE | 2017-08-29 17:37 | PN ---
PROGRESS NOTE DATE OF SERVICE: 08/29/17 INTERVAL HISTORY: This 87-year-old woman was admitted with COPD exacerbation also had pneumonia also. Patient had some respiratory difficulty today. This morning Dr. Pandey is following the patient. No chest pain. No palpitations. No fever. EXAM: Alert and oriented times two. Pulse 72. Blood pressure 106/54. Respiration 18, temperature 97.2, pulse ox 97% on 2 L. HEENT: Conjunctivae normal. NECK: No jugular venous distention. CARDIOVASCULAR: S1, S2 muffled. RESPIRATORY: Breath sounds diminished in the bases. A few scattered rhonchi and crackles. Abdomen is soft. Nontender. Legs are edema, no swelling. Central nervous system: No focal deficits. LABS: At this time. Accu-Cheks 95 and 146. ASSESSMENT: 1. Chronic obstructive pulmonary disease acute exacerbation with possible right lower lobe pneumonia possibly gram-negative. 2. History of nicotine dependence. 3. Diabetes type 2. 4. Chronic hypoxic respiratory failure. 5. Moderate protein calorie malnutrition. BMI 14.2. 6. Bilateral nephrolithiasis symptomatic. RECOMMENDATIONS AND DISCUSSION: Recommend to continue current mediations, management. Symptomatic treatment. Continue the bronchodilators and Dr. Urias will follow. PT/OT evaluation. Otherwise continue the rest of the medications. The family is planning [facility] home transfer. P.o. steroids. Further recommendations to follow. MMODL / IJN: [id number] /
[2017-08-29 20:50] LABS: Glucose,Whole Blood 358 mg/dL (75-99)
[2017-08-30 02:16] LABS: Glucose,Whole Blood 38 mg/dL (75-99)
[2017-08-30 02:17] LABS: Glucose,Whole Blood 44 mg/dL (75-99)
[2017-08-30 02:48] LABS: Glucose,Whole Blood 76 mg/dL (75-99)
[2017-08-30 07:45] LABS: Glucose,Whole Blood 102 mg/dL (75-99)
[2017-08-30 08:09] VITALS: BP 118/64; TEMP 97.4
[2017-08-30] MEDS: IPRATROPIUM-ALBUTEROL 3 ML NEB INHALATION SCH ×2 (08:09→11:33)
[2017-08-30] MEDS: SYMBICORT 160-4.5 MCG INHALER INHALATION SCH (08:11)
[2017-08-30] MEDS: INSULIN LISPRO (humaLOG) 300 UNIT/3 ML VIAL SQ SCH ×2 (08:58→13:04)
[2017-08-30] MEDS: FAMOTIDINE 20 MG TAB PO SCH (09:55)
[2017-08-30] MEDS: ISOSORBIDE MONONITRATE ER 30 MG TAB.ER.24H PO SCH (09:55)
[2017-08-30] MEDS: amLODIPine 2.5 MG TAB PO SCH (09:55)
[2017-08-30] MEDS: predniSONE 10 MG TAB PO SCH (09:55)
[2017-08-30] MEDS: INSULIN GLARGINE 100 UNIT/ML 10 ML VIAL SQ SCH (09:55)
[2017-08-30] MEDS: METOPROLOL TARTRATE 25 MG TAB PO SCH (09:55)
[2017-08-30] MEDS: ATORVASTATIN 20 MG TAB PO SCH (09:55)
[2017-08-30] MEDS: ENOXAPARIN 40 MG/0.4 ML SYRINGE SQ SCH (09:56)
[2017-08-30 11:47] VITALS: RESP 18
[2017-08-30 11:49] VITALS: PULSE 72
--- NOTE | 2017-08-30 12:01 | P.PN ---
Subjective Progress Note Date: 08/30/17 Principal diagnosis: 87-year-old female patient with advanced oxygen-dependent COPD who is coming into the emergency department yesterday because of worsening shortness of breath , cough congestion and chest that so wheezing typical of an acute COPD exacerbation. The patient also reported generalized weakness and some vague abdominal pain. She has noted her breathing to be also labored. She is living at home and she was supposed to move to a nursing facility because of her age and various other comorbidities. She has had multiple has position the past for COPD exacerbation. No fever. No chills. No diarrhea. No nausea. No vomiting. No abdominal pain. No pleurisy. No hemoptysis. Asked x-ray is consistent with advanced COPD.The patient is still smoking a few cigarettes a daily basis. She was unable to keep up with her maintenance inhaler because of the cost and insurance coverage which has been mainly relying on oxygen and albuterol neb last on the clock.She is quite cachectic and malnourished. Her chest x-ray shows hyperinflation. There is small effusion the lung bases bilaterally. No clear asbestos disease or pneumonias seen. No change in mental status. On 08/27/2017 the patient is feeling well. She has no specific complaints. She is eating small portions without any gastrointestinal symptoms of nausea vomiting or diarrhea. Her breathing is nonlabored. She is able to speak full sentences. No chest pain. No cough or sputum production. No other significant events over the past 24 hours Kory is recovering in terms of her COPD exacerbation. On 08/28/2017 the patient has no new complaints. She is still recovering from acute COPD exacerbation. No other significant events overnight. The patient has been gradually improving. No chest pain. No pleurisy. No hemoptysis. No swelling lower extremities. She remains on DuoNeb neb last 2 minutes around-the -clock, Symbicort, IV Solu Medrol 40 mg to 6 hours and a nicotine patch. On 08/29/2017 the patient got moved to a fourth floor where she is further recuperating from an acute COPD exacerbation. She is resting comfortably in bed. She has no specific complaints. She is on DuoNeb nebulized treatments around the clock. She is also on prednisone burst taper starting with 30 mg pH is on Symbicort as maintenance. No other significant events over the past 24 hours Kory is tolerating her diet. She is improving and she is being considered for discharge for tomorrow. The patient was seen again today 08/30/2017 in follow-up on the regular medical floor. She is awake and alert in no acute distress. She states she is breathing better today as compared to yesterday. She is feeling back to her baseline. She denies any worsening shortness of breath, cough or congestion. No chills or night sweats. she is maintaining good O2 saturations in the mid 90s on 2 L/m per nasal cannula. She is afebrile. Hemodynamically stable. She is anxious to be discharged to her new apartment with assisted living. Objective - Vital Signs Vital signs: Vital Signs Temp 97.4 F L 08/30/17 07:00 Pulse 72 08/30/17 11:48 Resp 18 08/30/17 11:33 BP 118/64 08/30/17 07:00 Pulse Ox 94 L 08/30/17 07:00 Intake & Output 08/29/17 08/30/17 08/30/17 18:59 06:59 18:59 Intake Total 1400 Balance 1400 Weight 46.5 kg Intake: Oral 1400 Other: Voiding Method Toilet Bedside Commode # Voids 2 2 - Exam This patient is frail thin elderly nonacute distress. Not using excessive muscle breathing. She looks significantly cachectic and malnourished and significant loss in total body protein mass.Head exam was generally normal. There was no scleral icterus or corneal arcus. Mucous membranes were moist.Neck was supple and without jugular venous distension, thyromegaly, or carotid bruits. Carotids were easily palpable bilaterally. There was no adenopathy. Lung sounds are diminished bilaterally. The patient has very limited atelectatic lung bases. No significant wheezes unless the patient performs forced expiratory maneuvers.Cardiac exam revealed the PMI to be normally situated and sized. The rhythm was regular and no extrasystoles were noted during several minutes of auscultation. The first and second heart sounds were normal and physiologic splitting of the second heart sound was noted. There were no murmurs, rubs, clicks, or gallops.Abdominal exam revealed normal bowel sounds. The abdomen was soft, non-tender, and without masses, organomegaly, or appreciable enlargement of the abdominal aorta. Organs are not enlarged.Examination of the extremities revealed easily palpable radial, femoral and pedal pulses. There was no cyanosis, clubbing or edema. The patient has significant muscle atrophy and loss in bulk/protein bulk in lower extremities bilaterally. Neurologically the patient is awake and alert and there is no focal neurological deficits. Currently exam was within normal limits and there is no fractures or any limitation in range of motion. Skin is negative for any rashes or any ulceration. Psychiatric exam is within normal limits. No agitation. No change in mental status. No confusion. - Labs CBC & Chem 7: 08/26/17 05:43 08/28/17 05:21 Labs: Abnormal Lab Results - Last 24 Hours (Table) 08/29/17 08/29/17 08/29/17 Range/Units 12:07 16:52 16:53 POC Glucose (mg/dL) 146 H 327 H 318 H (75-99) mg/dL 08/29/17 08/30/17 08/30/17 Range/Units 20:47 02:14 02:15 POC Glucose (mg/dL) 358 H 38 L 44 L (75-99) mg/dL 08/30/17 Range/Units 07:16 POC Glucose (mg/dL) 102 H (75-99) mg/dL Assessment and Plan Plan: Assessment 1 acute COPD exacerbation/bronchitis. A questionable ill-defined infiltrates seen in the posterior right lung base which could be related to an acute early pneumonia. No evidence of any aspiration at least on clinical grounds. 2 worsening shortness of breath secondary to above 3 chronic hypoxic respiratory failure secondary to advanced COPD 4 significant protein calorie malnourishment and muscle atrophy in both upper and lower extremities 5 hypertension 6 hyperlipidemia 7 smoker 8 vague abdominal pain with a CAT scan of the abdomen that was done on 2016 shows no acute intra-abdominal process. There is moderate rectal fecal stasis and bilateral nephrolithiasis. No hydronephrosis. No obstructive renal stones. Plan The patient was seen and evaluated by Dr. Collins. She is stable from the pulmonary standpoint and could be discharged home. She'll complete her prednisone taper. Complete her course of empiric antibiotics. Continue her pulmonary medications. She is again educated regarding the importance of complete smoking cessation. Continue Habitrol patch. She will follow-up in our office in 1-2 weeks' time. She is however encouraged to call sooner with any recurrence of symptoms or other questions or concerns. I, the cosigning physician, performed a history & physical examination of the patient. Lungs sounds with faint crackles in the right posterior base.. Diminished. I discussed the assessment and plan with my nurse practitioner, Janine Kothari. I reviewed her note and agree with the documented findings and plan of care.
[2017-08-30 12:05] LABS: Glucose,Whole Blood 222 mg/dL (75-99)
--- NOTE | 2017-08-30 14:22 | P.DS ---
Providers Date of admission: 08/25/17 14:40 Expected date of discharge: 08/30/17 Attending physician: Khadar Urias Consults: 08/25/17 20:15 Consult Physician Routine Consulting Provider: Vilma Pandey Consult Reason/Comments: pneumonia Do you want consulting provider notified?: Yes Primary care physician: [facility] Course: FINAL DIAGNOSES: -acute severe COPD exacerbation in a current smoker -right lower lobe pneumonia, possibly gram-negative -chronic nicotine dependence she smokes 5-10 cigarettes a day -Moderate protein calorie malnutrition, BMI 14.6. -Bilateral nephrolithiasis, symptomatic. -essential hypertension. -Hyperlipidemia. -Primary osteoporosis multiple joints. Bilateral. -Chronic hypoxic respiratory failure underlying chronic obstructive pulmonary disease HOSPTIAL COURSE: 87-year-old femalepresented to the emergency department with increasing shortness of breath cough and wheezing. Had some abdominal discomfort, poor appetite, patient admitted for the same. home medications reordered, .pulmonology consulted. Imaging revealed a questionable ill-defined infiltrate in the posterior right lung base could be related to an acute early pneumonia. ordered bronchodilators, Symbicort, nicotine patch and steroids. complaint of abdominal pain computed tomography scan revealed no acute intra-abdominal process, there was moderate rectal fecal stasis and bilateral nephrolithiasis, with no hydronephrosis. Physical therapy consulted and saw the patient for evaluation for placement and gait training and strengthening, patient's physical abilities were deemed appropriate for assisted living and as such she will be placed at [facility]. Breathing improved, icontinued on 3 L of oxygen,tolerated her diet, ambulatory with a walker and assistance. Condition overall stabilized and is appropriate for discharge to assisted living facility. PHYSICAL EXAM: CARDIOVASCULAR: first and second sounds noted no edema RESPIRATORY: respiratory effort normal, maintained on 3 L of oxygen, lung sounds diminished bilaterally PSYCHIATRY: Alert and oriented 3 mood and affect normal Patient was seen and examined by nurse practitioner Lauren Hampton in all elements of the case discussed with attending Dr. Urias DISPOSITION:stable for discharge to [facility]. Patient Condition at Discharge: Stable Plan - Discharge Summary New Discharge Prescriptions: Continue amLODIPine BESYLATE [Norvasc] 2.5 mg PO DAILY Simvastatin [Zocor] 40 mg PO DAILY Ranitidine HCl 150 mg PO BID Metoprolol Tartrate 25 mg PO BID Isosorbide Mononitrate ER [Imdur] 30 mg PO DAILY Budesonide-Formot 160-4.5 Mcg [Symbicort 160-4.5 Mcg Inhaler] 2 puff INHALATION RT-BID Ipratropium-Albuterol Nebulize [Duoneb 0.5 mg-3 mg/3 ml Soln] 3 ml INHALATION RT-QID #120 neb Nicotine 7Mg/24Hr Patch [Habitrol] 1 patch TRANSDERM DAILY patch Doxycycline [Vibramycin] 100 mg PO Q12HR #10 cap predniSONE 10 mg PO DAILY #30 tab Discharge Medication List Isosorbide Mononitrate ER [Imdur] 30 mg PO DAILY 10/29/14 [History] Metoprolol Tartrate 25 mg PO BID 10/29/14 [History] Ranitidine HCl 150 mg PO BID 10/29/14 [History] Simvastatin [Zocor] 40 mg PO DAILY 10/29/14 [History] amLODIPine BESYLATE [Norvasc] 2.5 mg PO DAILY 10/29/14 [History] Budesonide-Formot 160-4.5 Mcg [Symbicort 160-4.5 Mcg Inhaler] 2 puff INHALATION RT-BID 08/01/17 [History] Ipratropium-Albuterol Nebulize [Duoneb 0.5 mg-3 mg/3 ml Soln] 3 ml INHALATION RT -QID #120 neb 08/04/17 [Rx] Doxycycline [Vibramycin] 100 mg PO Q12HR #10 cap 08/22/17 [Rx] Nicotine 7Mg/24Hr Patch [Habitrol] 1 patch TRANSDERM DAILY patch 08/22/17 [Rx] predniSONE 10 mg PO DAILY #30 tab 08/22/17 [Rx] Follow up Appointment(s)/Referral(s): Luz Marina Collins MD [STAFF PHYSICIAN] - 10/01/17 2:15 pm Estuardo Spivey DO [Primary Care Provider] - 09/03/17 1:00 pm Nathaly [facility], [NON-STAFF] - Patient Instructions/Handouts: How to Stop Smoking (DC), COPD (Chronic Obstructive Pulmonary Disease) (DC) Activity/Diet/Wound Care/Special Instructions: Activity: limited until follow-up Discharge Disposition: HOME WITH HOME HEALTH SERVICES
--- NOTE | 2017-08-30 16:26 | DS ---
DISCHARGE SUMMARY ATTENDING NOTE: This patient was seen and examined by me. I discussed the case with my nurse practitioner, Ms. Hampton. Patient was admitted with COPD exacerbation and pneumonia; doing better. Overall prognosis is guarded. Patient is being transferred to assisted living. Eating her meals. PHYSICAL EXAMINATION: LUNGS: Decreased breath sounds. Answering simple questions. FINAL DIAGNOSIS: 1. Acute severe chronic obstructive pulmonary disease exacerbation in a current smoker. 2. Acute right lower lobe pneumonia; suspect Gram-negative organism, present on admission. 3. Chronic nicotine dependence. Cigarette smoker. 4. Chronic hypoxic respiratory failure from underlying chronic obstructive pulmonary disease. 5. Moderate protein-calorie malnutrition from decreased oral intake. 6. Bilateral nephrolithiasis, asymptomatic. 7. Essential hypertension. 8. Hyperlipidemia. 9. Primary osteoarthritis of multiple joints, bilateral. The patient will be discharged to a supervised setting. MMSCOTTL / NORMAN: [id number] /
== END 2017-08-30 13:34 | disposition home health service (06) | DRG 178 ==
LOC: EC 11:55 → 6SEL 14:40 → 4MS4W 08-28 09:28
PROVIDERS: ADMIT Hospitalist; ATTEND Hospitalist
DX: J15.6 Pneumonia due to other Gram-negative bacteria (principal); J44.0 Chronic obstructive pulmonary disease with (acute) lower respiratory infection; J96.11 Chronic respiratory failure with hypoxia; E44.0 Moderate protein-calorie malnutrition; R64 Cachexia; J44.1 Chronic obstructive pulmonary disease with (acute) exacerbation; Z68.1 Body mass index [BMI] 19.9 or less, adult; E11.9 Type 2 diabetes mellitus without complications; F17.210 Nicotine dependence, cigarettes, uncomplicated; N20.0 Calculus of kidney; I10 Essential (primary) hypertension; E78.5 Hyperlipidemia, unspecified; K59.8 Other specified functional intestinal disorders; M19.91 Primary osteoarthritis, unspecified site; M81.0 Age-related osteoporosis without current pathological fracture; N39.3 Stress incontinence (female) (male); Z79.51 Long term (current) use of inhaled steroids; Z79.52 Long term (current) use of systemic steroids; Z79.899 Other long term (current) drug therapy; Z99.81 Dependence on supplemental oxygen; Z90.49 Acquired absence of other specified parts of digestive tract; Z88.1 Allergy status to other antibiotic agents; Z82.5 Family history of asthma and other chronic lower respiratory diseases
CPT/HCPCS: 36415; 71020; 74176; 80048; 80053; 82803; 83036; 83605; 83690; 84484; 85025; 87086; 93005; 94640; 94760; 96361; 96365; 99285

== ENCOUNTER 2017-09-19 10:34 | Inpatient (IN) | payer MEDICARE, BC ==
[2017-09-19] MEDS ORDERED: methylPREDNISolone SOD SUCCI 125 MG/2 ML VIAL IV STA (10:45)
[2017-09-19] MEDS ORDERED: IPRATROPIUM-ALBUTEROL 3 ML NEB INHALATION STA (10:45)
--- NOTE | 2017-09-19 10:47 | ED ---
General Adult HPI - General Chief complaint: Shortness of Breath Stated complaint: SOB Time Seen by Provider: 09/19/17 10:37 Source: patient, EMS, RN notes reviewed Mode of arrival: EMS Limitations: no limitations - History of Present Illness Initial comments: Patient is a pleasant 87-year-old female presenting to the emergency department with difficulty breathing. Patient has chronic dyspnea secondary to COPD. Symptoms are similar but somewhat worse today. No cough. No chest pain. No leg pain or leg swelling. No fevers. - Related Data Home Medications Medication Instructions Recorded Confirmed Isosorbide Mononitrate ER [Imdur] 30 mg PO DAILY 10/29/14 09/19/17 Metoprolol Tartrate 25 mg PO BID 10/29/14 09/19/17 Ranitidine HCl 150 mg PO BID 10/29/14 09/19/17 Simvastatin [Zocor] 40 mg PO HS 10/29/14 09/19/17 amLODIPine BESYLATE [Norvasc] 2.5 mg PO DAILY 10/29/14 09/19/17 Budesonide-Formot 160-4.5 Mcg 2 puff INHALATION RT-BID 08/01/17 09/19/17 [Symbicort 160-4.5 Mcg Inhaler] guaiFENesin [Mucinex] 600 mg PO BID 09/19/17 09/19/17 Previous Rx's Medication Instructions Recorded Ipratropium-Albuterol Nebulize 3 ml INHALATION RT-QID #120 neb 08/04/17 [Duoneb 0.5 mg-3 mg/3 ml Soln] Nicotine 7Mg/24Hr Patch [Habitrol] 1 patch TRANSDERM DAILY patch 08/22/17 Allergies Allergy/AdvReac Type Severity Reaction Status Date / Time ciprofloxacin [From Cipro] Allergy Unknown Verified 09/19/17 12:46 Childhood Review of Systems ROS Statement: Those systems with pertinent positive or pertinent negative responses have been documented in the HPI. ROS Other: All systems not noted in ROS Statement are negative. Constitutional: Denies: fever Eyes: Denies: eye pain ENT: Denies: ear pain Respiratory: Reports: dyspnea. Denies: cough Cardiovascular: Denies: chest pain Endocrine: Reports: fatigue Gastrointestinal: Denies: abdominal pain Genitourinary: Denies: urgency Musculoskeletal: Denies: back pain Skin: Denies: rash Past Medical History Past Medical History: COPD, GERD/Reflux, Hyperlipidemia, Hypertension Additional Past Medical History / Comment(s): COPD, hyperlipidemia, hypertension , cachexia and ongoing weight loss, chronic smoker History of Any Multi-Drug Resistant Organisms: None Reported Past Surgical History: Appendectomy, Cholecystectomy, Tubal Ligation Past Anesthesia/Blood Transfusion Reactions: No Reported Reaction Past Psychological History: No Psychological Hx Reported Smoking Status: Former smoker Past Alcohol Use History: None Reported Past Drug Use History: None Reported - Past Family History Mother Family Medical History: Asthma, Congestive Heart Failure (CHF) Father Family Medical History: Diabetes Mellitus General Exam Limitations: no limitations General appearance: alert, in no apparent distress Head exam: Present: atraumatic Eye exam: Present: normal appearance, PERRL ENT exam: Present: normal oropharynx Neck exam: Present: normal inspection Respiratory exam: Present: decreased breath sounds Cardiovascular Exam: Present: regular rate, normal rhythm GI/Abdominal exam: Present: soft. Absent: tenderness Extremities exam: Present: normal inspection. Absent: pedal edema, calf tenderness Neurological exam: Present: alert Psychiatric exam: Present: normal affect, normal mood Skin exam: Present: normal color Course Vital Signs 09/19/17 09/19/17 09/19/17 10:37 11:13 11:21 Temperature 98.2 F Pulse Rate 78 76 75 Respiratory 20 Rate Blood Pressure 145/70 O2 Sat by Pulse 97 Oximetry 09/19/17 09/19/17 09/19/17 12:40 13:09 14:00 Temperature 98.2 F Pulse Rate 83 88 90 Respiratory 18 20 20 Rate Blood Pressure 105/57 114/62 O2 Sat by Pulse 98 99 97 Oximetry EKG Findings - EKG Comments: EKG Findings:: Sinus rhythm at 75. PVC present. ID 144. QRS 88. QT 398. QTC 444. Left axis. Left anterior fascicular block. Q waves in leads V1 through V4. No acute ST change. Medical Decision Making - Medical Decision Making Patient reevaluated and resting comfortably in bed. Patient originally thought she may try to go home. Patient got up and attempted ambulation and became fatigued and more short of breath. Patient is now agreeable with admission. Case was discussed in detail with Dr. Bearden, who will admit for Dr. lennon, covering for Dr. Spivey. - Lab Data Result diagrams: 09/19/17 10:51 11/05/17 10:51 Lab Results 09/19/17 09/19/17 09/19/17 Range/Units 10:51 10:51 10:51 WBC 6.4 (3.8-10.6) k/uL RBC 4.02 (3.80-5.40) m/uL Hgb 12.4 (11.4-16.0) gm/dL Hct 39.1 (34.0-46.0) % MCV 97.1 (80.0-100.0) fL MCH 30.9 (25.0-35.0) pg MCHC 31.9 (31.0-37.0) g/dL RDW 15.3 (11.5-15.5) % Plt Count 154 D (150-450) k/uL Neutrophils % 66 % Lymphocytes % 26 % Monocytes % 5 % Eosinophils % 1 % Basophils % 1 % Neutrophils # 4.2 (1.3-7.7) k/uL Lymphocytes # 1.6 (1.0-4.8) k/uL Monocytes # 0.3 (0-1.0) k/uL Eosinophils # 0.1 (0-0.7) k/uL Basophils # 0.0 (0-0.2) k/uL PT (9.0-12.0) sec INR (<1.2) APTT (22.0-30.0) sec Sodium 141 (137-145) mmol/L Potassium 3.2 L (3.5-5.1) mmol/L Chloride 107 (98-107) mmol/L Carbon Dioxide 27 (22-30) mmol/L Anion Gap 7 mmol/L BUN 12 (7-17) mg/dL Creatinine 0.70 (0.52-1.04) mg/dL Est GFR (MDRD) Af Amer >60 (>60 ml/min/1.73 sqM) Est GFR (MDRD) Non-Af >60 (>60 ml/min/1.73 sqM) Glucose 120 H (74-99) mg/dL Calcium 8.7 (8.4-10.2) mg/dL Total Bilirubin 0.6 (0.2-1.3) mg/dL AST 24 (14-36) U/L ALT 27 (9-52) U/L Alkaline Phosphatase 64 (38-126) U/L Total Creatine Kinase 22 L (30-135) U/L CK-MB (CK-2) 1.7 (0.0-2.4) ng/mL CK-MB (CK-2) Rel Index 7.7 Troponin I <0.012 (0.000-0.034) ng/mL NT-Pro-B Natriuret Pep pg/mL Total Protein 6.0 L (6.3-8.2) g/dL Albumin 3.3 L (3.5-5.0) g/dL 09/19/17 09/19/17 Range/Units 10:51 10:51 WBC (3.8-10.6) k/uL RBC (3.80-5.40) m/uL Hgb (11.4-16.0) gm/dL Hct (34.0-46.0) % MCV (80.0-100.0) fL MCH (25.0-35.0) pg MCHC (31.0-37.0) g/dL RDW (11.5-15.5) % Plt Count (150-450) k/uL Neutrophils % % Lymphocytes % % Monocytes % % Eosinophils % % Basophils % % Neutrophils # (1.3-7.7) k/uL Lymphocytes # (1.0-4.8) k/uL Monocytes # (0-1.0) k/uL Eosinophils # (0-0.7) k/uL Basophils # (0-0.2) k/uL PT 11.7 (9.0-12.0) sec INR 1.2 H (<1.2) APTT 21.4 L (22.0-30.0) sec Sodium (137-145) mmol/L Potassium (3.5-5.1) mmol/L Chloride (98-107) mmol/L Carbon Dioxide (22-30) mmol/L Anion Gap mmol/L BUN (7-17) mg/dL Creatinine (0.52-1.04) mg/dL Est GFR (MDRD) Af Amer (>60 ml/min/1.73 sqM) Est GFR (MDRD) Non-Af (>60 ml/min/1.73 sqM) Glucose (74-99) mg/dL Calcium (8.4-10.2) mg/dL Total Bilirubin (0.2-1.3) mg/dL AST (14-36) U/L ALT (9-52) U/L Alkaline Phosphatase (38-126) U/L Total Creatine Kinase (30-135) U/L CK-MB (CK-2) (0.0-2.4) ng/mL CK-MB (CK-2) Rel Index Troponin I (0.000-0.034) ng/mL NT-Pro-B Natriuret Pep 2760 pg/mL Total Protein (6.3-8.2) g/dL Albumin (3.5-5.0) g/dL - Radiology Data Radiology results: image reviewed (Chest x-ray shows COPD.) Disposition Clinical Impression: Acute exacerbation of chronic obstructive airways disease Disposition: ADMITTED IP TO THIS HOSP Referrals: Estuardo Spivey DO [Primary Care Provider] - 1-2 days
[2017-09-19 11:00] LABS: Basophils % (A) 1 %; CH 30.7; CHCM 31.8; Eosinophils # (A) 0.1 k/uL (0-0.7); Eosinophils % (A) 1 %; HCT 39.1 % (34.0-46.0); HDW 2.71; HGB 12.4 gm/dL (11.4-16.0); Luc # (Auto) 0.12; Luc % (Auto) 2; Lymphocytes # (A) 1.6 k/uL (1.0-4.8); Lymphocytes % (A) 26 %; MCH 30.9 pg (25.0-35.0); MCHC 31.9 g/dL (31.0-37.0); MCV 97.1 fL (80.0-100.0); Mean Platelet Volume 7.5; Monocytes # (A) 0.3 k/uL (0-1.0); Monocytes % (A) 5 %; Neutrophils # (A) 4.2 k/uL (1.3-7.7); Neutrophils % (A) 66 %; RBC 4.02 m/uL (3.80-5.40); RDW 15.3 % (11.5-15.5); WBC 6.4 k/uL (3.8-10.6)
[2017-09-19 11:10] LABS: ALT 27 U/L (9-52); AST 24 U/L (14-36); Alkaline Phosphatase 64 U/L (38-126); Anion Gap 7 mmol/L; Blood Urea Nitrogen 12 mg/dL (7-17); Calcium 8.7 mg/dL (8.4-10.2); Carbon Dioxide 27 mmol/L (22-30); Chloride 107 mmol/L (98-107); Glucose 120 mg/dL (74-99); Non-African American GFR(MDRD) >60 (>60 ml/min/1.73 sqM); Potassium 3.2 mmol/L (3.5-5.1); Sodium 141 mmol/L (137-145); Total Bilirubin 0.6 mg/dL (0.2-1.3)
[2017-09-19 11:26] LABS: Creatine Kinase 22 U/L (30-135)
[2017-09-19 11:39] LABS: Creatine Kinase MB 1.7 ng/mL (0.0-2.4); Troponin I <0.012 ng/mL (0.000-0.034)
--- NOTE | 2017-09-19 11:47 | XR ---
EXAMINATION TYPE: XR chest 2V DATE OF EXAM: 09/19/2017 HISTORY: difficulty breathing. REFERENCE: Previous study dated 08/25/2017. FINDINGS: The lungs are overinflated. The heart is upper limits of normal in size. I do not see evide nce of pneumonia or edema. IMPRESSION: 1. COPD. 2. BORDERLINE CARDIOMEGALY.
[2017-09-19 11:56] LABS: INR 1.2 (<1.2); Partial Thromboplastin Time 21.4 sec (22.0-30.0); Prothrombin Time 11.7 sec (9.0-12.0)
[2017-09-19] MEDS ORDERED: IPRATROPIUM-ALBUTEROL 3 ML NEB INHALATION PRN (14:18)
[2017-09-19] MEDS: IPRATROPIUM-ALBUTEROL 3 ML NEB INHALATION SCH ×2 (15:31→20:19)
[2017-09-19 16:03] VITALS: BMI 15.6
[2017-09-19 16:34] LABS: Glucose,Whole Blood 239 mg/dL (75-99)
[2017-09-19] MEDS ORDERED: POTASSIUM CHLORIDE ER 20 MEQ TAB.ER PO STA (16:35)
--- NOTE | 2017-09-19 17:47 | P.HPIM ---
History of Present Illness patient is 1-year-old female with known history of COPD does use 2-3 L of onset at home came in with complaints of nausea vomiting epigastric abdominal burning sensation patient was found to be hypoxic was subsequently admitted for COPD exacerbation patient has limited air movement and in bilateral lung giron patient denied any fever chills, little bit of cough patient's shortness of breath is at her baseline she says and patient denied any orthopnea PND patient will be started on oral steroids inhalational treatments patient wanted to stay 1 more night to make. Patient probably can be discharged tomorrow if her saturations are better on 2 L of oxygen. test x-ray did not show any pneumoniadear patient apparently still smokes trying to quit didn't smoke for last couple days Review of Systems REVIEW OF SYSTEMS: CONSTITUTIONAL: No fever, no malaise, no fatigue. HEENT: No recent visual problems or hearing problems. Denied any sore throat. CARDIOVASCULAR: No chest pain, orthopnea, PND, no palpitations, no syncope. PULMONARY: No shortness of breath, , no hemoptysis. GASTROINTESTINAL:as mentioned in HPI NEUROLOGICAL: No headaches, no weakness, no numbness. HEMATOLOGICAL: Denies any bleeding or petechiae. GENITOURINARY: Denies any burning micturition, frequency, or urgency. MUSCULOSKELETAL/RHEUMATOLOGICAL: Denies any joint pain, swelling, or any muscle pain. ENDOCRINE: Denies any polyuria or polydipsia. The rest of the 14-point review of systems is negative. Past Medical History Past Medical History: COPD, GERD/Reflux, Hyperlipidemia, Hypertension Additional Past Medical History / Comment(s): COPD, hyperlipidemia, hypertension , cachexia and ongoing weight loss, chronic smoker History of Any Multi-Drug Resistant Organisms: None Reported Past Surgical History: Appendectomy, Cholecystectomy, Tubal Ligation Past Anesthesia/Blood Transfusion Reactions: No Reported Reaction Past Psychological History: No Psychological Hx Reported Smoking Status: Former smoker Past Alcohol Use History: None Reported Past Drug Use History: None Reported - Past Family History Mother Family Medical History: Asthma, Congestive Heart Failure (CHF) Father Family Medical History: Diabetes Mellitus Medications and Allergies Home Medications Medication Instructions Recorded Confirmed Type Isosorbide Mononitrate ER [Imdur] 30 mg PO DAILY 10/29/14 09/19/17 History Metoprolol Tartrate 25 mg PO BID 10/29/14 09/19/17 History Ranitidine HCl 150 mg PO BID 10/29/14 09/19/17 History Simvastatin [Zocor] 40 mg PO HS 10/29/14 09/19/17 History amLODIPine BESYLATE [Norvasc] 2.5 mg PO DAILY 10/29/14 09/19/17 History Budesonide-Formot 160-4.5 Mcg 2 puff INHALATION RT-BID 08/01/17 09/19/17 History [Symbicort 160-4.5 Mcg Inhaler] Ipratropium-Albuterol Nebulize 3 ml INHALATION RT-QID #120 neb 08/04/17 Rx [Duoneb 0.5 mg-3 mg/3 ml Soln] Nicotine 7Mg/24Hr Patch [Habitrol] 1 patch TRANSDERM DAILY patch 08/22/1709/19 Rx guaiFENesin [Mucinex] 600 mg PO BID 09/19/17 09/19/17 History Allergies Allergy/AdvReac Type Severity Reaction Status Date / Time ciprofloxacin [From Cipro] Allergy Unknown Verified 09/19/17 12:46 Childhood Physical Exam Vitals: Vital Signs Temp Pulse Pulse Resp BP BP Pulse Ox 09/19/17 15:25 97.5 F L 95 18 105/62 96 09/19/17 15:00 98.5 F 90 20 122/60 97 09/19/17 14:00 98.2 F 90 20 114/62 97 09/19/17 13:09 88 20 99 09/19/17 12:40 83 18 105/57 98 09/19/17 11:21 75 09/19/17 11:13 76 09/19/17 10:37 98.2 F 78 20 145/70 97 Intake and Output 09/19/17 09/19/17 09/19/17 06:59 14:59 22:59 Other: Weight 42.638 kg 42.638 kg Patient Weight 09/20/17 06:59 Weight 42.638 kg PHYSICAL EXAMINATION: GENERAL: The patient is alert and oriented x3, not in any acute distress. N built cachectic female HEENT: Pupils are round and equally reacting to light. EOMI. No scleral icterus. No conjunctival pallor. Normocephalic, atraumatic. No pharyngeal erythema. No thyromegaly. CARDIOVASCULAR: S1 and S2 present. No murmurs, rubs, or gallops. PULMONARY: reason into bilateral lung giron no crackles or wheezing was appreciated ABDOMEN: Soft, nontender, nondistended, normoactive bowel sounds. No palpable organomegaly. MUSCULOSKELETAL: No joint swelling or deformity. EXTREMITIES: No cyanosis, clubbing, or pedal edema. NEUROLOGICAL: Gross neurological examination did not reveal any focal deficits. SKIN: No rashes. Results CBC & Chem 7: 09/19/17 10:51 09/19/17 10:51 Labs: Abnormal Lab Results - Last 24 Hours (Table) 09/19/17 09/19/17 09/19/17 Range/Units 10:51 10:51 10:51 INR 1.2 H (<1.2) APTT 21.4 L (22.0-30.0) sec Potassium 3.2 L (3.5-5.1) mmol/L Glucose 120 H (74-99) mg/dL POC Glucose (mg/dL) (75-99) mg/dL Total Creatine Kinase 22 L (30-135) U/L Total Protein 6.0 L (6.3-8.2) g/dL Albumin 3.3 L (3.5-5.0) g/dL 09/19/17 Range/Units 16:32 INR (<1.2) APTT (22.0-30.0) sec Potassium (3.5-5.1) mmol/L Glucose (74-99) mg/dL POC Glucose (mg/dL) 239 H (75-99) mg/dL Total Creatine Kinase (30-135) U/L Total Protein (6.3-8.2) g/dL Albumin (3.5-5.0) g/dL Thrombosis Risk Factor Assmnt - Choose All That Apply Any of the Below Risk Factors Present?: No Other Risk Factors: Yes Each Risk Factor Represents 3 Points: Age 75 years or older Thrombosis Risk Factor Assessment Total Risk Factor Score: 3 Thrombosis Risk Factor Assessment Level: Moderate Risk Assessment and Plan Plan: #1 possible COPD exacerbation: Patient has acute on chronic hypercapnic respiratory failure systemic steroids inhalational treatments will be continued on do not believe patient will need antibiotics for bronchitis. #2 epigastric abdominal burning sensation nausea vomiting: Secondary to gastritis for which patient was started on Protonix patient may benefit from Prilosec for 14 days. #3 hypertension #4 hyperlipidemia #5gastroesophageal reflux disease for above-mentioned chronic medical problems patient will be continued on appropriate home medications
[2017-09-19] MEDS: INSULIN LISPRO (humaLOG) 300 UNIT/3 ML VIAL SQ SCH ×2 (17:53→21:00)
[2017-09-19] MEDS: PANTOPRAZOLE 40 MG/10 ML VIAL IVP SCH (17:54)
[2017-09-19] MEDS ORDERED: methylPREDNISolone SOD SUCCI 125 MG/2 ML VIAL IV SCH (18:00)
[2017-09-19] MEDS: SYMBICORT 160-4.5 MCG INHALER INHALATION SCH (20:19)
[2017-09-19 20:59] LABS: Glucose,Whole Blood 308 mg/dL (75-99)
[2017-09-19 20:59] LABS: Glucose,Whole Blood 312 mg/dL (75-99)
[2017-09-19] MEDS: ATORVASTATIN 20 MG TAB PO SCH (20:59)
[2017-09-19] MEDS: METOPROLOL TARTRATE 25 MG TAB PO SCH (20:59)
[2017-09-19] MEDS: guaiFENesin 600 MG TABLET.ER PO SCH (21:00)
--- NOTE | 2017-09-20 01:57 | CT ---
EXAMINATION TYPE: CT brain wai velazquez DATE OF EXAM: 09/20/2017 COMPARISON: NONE HISTORY: fall CT DLP: 1372.40 mGycm Automated exposure control for dose reduction was used. TECHNIQUE: CT scan of the head and cervical spine are performed without contrast. FINDINGS: There is diffuse cerebral cortical atrophy. There is no mass effect nor midline shift. Th ere is no sign of intracranial hemorrhage. The calvarium is intact. The cervical vertebra have fairly normal spacing and alignment for the patient's age. There is multil evel hypertrophic facet arthropathy. Posterior elements are intact. The skull base appears intact. IMPRESSION: Cerebral atrophy. No acute intracranial abnormality. Mild spondylotic changes. No fracture in the cervical spine.
--- NOTE | 2017-09-20 02:00 | XR ---
EXAMINATION TYPE: XR Hip RT and AP Pelvis DATE OF EXAM: 09/20/2017 COMPARISON: NONE HISTORY: Fall and hip pain TECHNIQUE: A single AP view of the pelvis is obtained. Two views of the right hip are obtained. FINDINGS: The pelvic ring appears intact. Proximal right femur and hip joint appear intact. There is no sign of hip dysplasia. There is mild acetabular spurring. There is vascular calcification. Sacroi liac joints appear intact. CONCLUSION: No acute abnormality of the pelvis and right hip.
[2017-09-20] MEDS ORDERED: IBUPROFEN 400 MG TAB PO STA (06:04)
[2017-09-20 07:05] LABS: Glucose,Whole Blood 170 mg/dL (75-99)
[2017-09-20 08:00] LABS: Anion Gap 4 mmol/L; Blood Urea Nitrogen 21 mg/dL (7-17); Calcium 8.6 mg/dL (8.4-10.2); Carbon Dioxide 28 mmol/L (22-30); Chloride 106 mmol/L (98-107); Glucose 158 mg/dL (74-99); Non-African American GFR(MDRD) >60 (>60 ml/min/1.73 sqM); Potassium 4.2 mmol/L (3.5-5.1); Sodium 138 mmol/L (137-145)
[2017-09-20] MEDS: INSULIN LISPRO (humaLOG) 300 UNIT/3 ML VIAL SQ SCH ×4 (08:10→20:24)
[2017-09-20] MEDS: NICOTINE 7MG/24HR PATCH TRANSDERM SCH (08:11)
[2017-09-20] MEDS: METOPROLOL TARTRATE 25 MG TAB PO SCH ×2 (08:11→22:56)
[2017-09-20] MEDS: ISOSORBIDE MONONITRATE ER 30 MG TAB.ER.24H PO SCH (08:11)
[2017-09-20] MEDS: guaiFENesin 600 MG TABLET.ER PO SCH ×2 (08:11→20:25)
[2017-09-20] MEDS: predniSONE 20 MG TAB PO SCH (08:12)
[2017-09-20] MEDS: PANTOPRAZOLE 40 MG/10 ML VIAL IVP SCH (08:12)
[2017-09-20] MEDS: IPRATROPIUM-ALBUTEROL 3 ML NEB INHALATION SCH ×4 (08:34→20:42)
[2017-09-20] MEDS: SYMBICORT 160-4.5 MCG INHALER INHALATION SCH ×2 (08:34→20:42)
--- NOTE | 2017-09-20 09:09 | P.CNPUL ---
History of Present Illness Consult date: 09/20/17 Requesting physician: Khadar Urias Reason for consult: dyspnea, cough, COPD Chief complaint: Increasing dyspnea, nonproductive cough History of present illness: Mechelle is a 87-year-old female patient does see Dr. Collins in our office for her history of advanced oxygen dependent COPD, presented to the emergency department on 09/19/2017 with complaints of increasing dyspnea, nonproductive cough and weakness for about a week. She denied any chest congestion, wheezing , phlegm production or being around sick contacts. She continues to smoke, although she is down to half a pack a day compared to a pack a day. He has moved into [facility] 2 weeks ago, he caused her children were concerned about [place] living [place] Home O2 at 2-3 L/m per nasal cannula. Denies any pleurisy, hemoptysis, swelling in her legs or significant weight change. Denies chest pain. She is on Symbicort maintenance inhaler, thinks she has a nebulizer machine at home but she has not used it. She is quite cachectic and malnourished. She was recently hospitalized for COPD exacerbation and discharged home on 08/30/2017. Chest x-ray on 09/19/2017 showed overinflation of lungs consistent with COPD and borderline cardiomegaly. Patient had a fall last night ambulating to the door, denies any significant injury other than sacral tenderness from falling on it. CT brain and cervical spine on 09/20/2017 is negative for any intracranial abnormality or fracture in the cervical spine. X-ray of the right hip and pelvis showed no acute abnormality. On examination patient reports improvement in her level of dyspnea , she remains on continuous oxygen at 2 L per nasal cannula with O2 sat at 97%. She has had no febrile episodes since admission. Lung sounds diminished air entry bilaterally, but no wheezes, no rhonchi, no rales. Review of Systems All systems: negative Constitutional: Denies chills, Denies fever Eyes: denies blurred vision, denies pain Ears, nose, mouth and throat: Denies headache, Denies sore throat Cardiovascular: Denies chest pain, Denies shortness of breath Respiratory: Denies cough Gastrointestinal: Denies abdominal pain, Denies diarrhea, Denies nausea, Denies vomiting Genitourinary: Denies dysuria, Denies hematuria Musculoskeletal: Denies myalgias Integumentary: Denies pruritus, Denies rash Neurological: Denies numbness, Denies weakness Psychiatric: Denies anxiety, Denies depression Endocrine: Denies fatigue, Denies weight change Past Medical History Past Medical History: COPD, GERD/Reflux, Hyperlipidemia, Hypertension Additional Past Medical History / Comment(s): COPD, hyperlipidemia, hypertension , cachexia and ongoing weight loss, chronic smoker History of Any Multi-Drug Resistant Organisms: None Reported Past Surgical History: Appendectomy, Cholecystectomy, Tubal Ligation Past Anesthesia/Blood Transfusion Reactions: No Reported Reaction Past Psychological History: No Psychological Hx Reported Smoking Status: Current every day smoker Past Alcohol Use History: None Reported Past Drug Use History: None Reported - Past Family History Mother Family Medical History: Asthma, Congestive Heart Failure (CHF) Father Family Medical History: Diabetes Mellitus Medications and Allergies Home Medications Medication Instructions Recorded Confirmed Type Isosorbide Mononitrate ER [Imdur] 30 mg PO DAILY 10/29/14 09/19/17 History Metoprolol Tartrate 25 mg PO BID 10/29/14 09/19/17 History Ranitidine HCl 150 mg PO BID 10/29/14 09/19/17 History Simvastatin [Zocor] 40 mg PO HS 10/29/14 09/19/17 History amLODIPine BESYLATE [Norvasc] 2.5 mg PO DAILY 10/29/14 09/19/17 History Budesonide-Formot 160-4.5 Mcg 2 puff INHALATION RT-BID 08/01/17 09/19/17 History [Symbicort 160-4.5 Mcg Inhaler] Ipratropium-Albuterol Nebulize 3 ml INHALATION RT-QID #120 neb 08/04/17 Rx [Duoneb 0.5 mg-3 mg/3 ml Soln] Nicotine 7Mg/24Hr Patch [Habitrol] 1 patch TRANSDERM DAILY patch 08/22/1709/19 Rx guaiFENesin [Mucinex] 600 mg PO BID 09/19/17 09/19/17 History Allergies Allergy/AdvReac Type Severity Reaction Status Date / Time ciprofloxacin [From Cipro] Allergy Unknown Verified 09/19/17 12:46 Childhood Physical Exam Vitals: Vital Signs Temp Pulse Pulse Resp BP BP Pulse Ox 09/20/17 08:34 76 09/20/17 02:10 98 F 72 12 131/76 98 09/20/17 00:35 90 18 127/72 97 09/19/17 20:19 88 09/19/17 19:29 12 09/19/17 19:11 97.4 F L 90 12 115/58 97 09/19/17 15:25 97.5 F L 95 18 105/62 96 09/19/17 15:00 98.5 F 90 20 122/60 97 09/19/17 14:00 98.2 F 90 20 114/62 97 09/19/17 13:09 88 20 99 09/19/17 12:40 83 18 105/57 98 09/19/17 11:21 75 09/19/17 11:13 76 09/19/17 10:37 98.2 F 78 20 145/70 97 Intake and Output 09/19/17 09/20/17 09/20/17 22:59 06:59 14:59 Other: # Voids 1 Weight 42.638 kg - Constitutional Frail, cachectic-looking white female General appearance: thin - EENT Eyes: PERRLA Ears: bilateral: normal - Neck Neck: normal ROM Carotids: bilateral: upstroke normal Thyroid: bilateral: normal size - Respiratory Respiratory: bilateral: diminished, prolonged expiration - Cardiovascular Rhythm: regular Heart sounds: normal: S1, S2 ankle Peripheral Edema: bilateral: None foot Peripheral Edema: bilateral: None dorsalis pedis Peripheral Pulses: bilateral: Normal radial pulse Peripheral Pulses: bilateral: Normal - Gastrointestinal General gastrointestinal: no organomegaly, soft, no tenderness - Integumentary Area of blanchable redness without skin break noted on sacral and coccygeal area - Neurologic Neurologic: CNII-XII intact - Musculoskeletal Musculoskeletal: generalized weakness - Psychiatric Psychiatric: A&O x's 3, appropriate affect, intact judgment & insight Results - Laboratory Findings CBC and BMP: 09/19/17 10:51 09/20/17 07:05 PT/INR, D-dimer PT 11.7 sec (9.0-12.0) 09/19/17 10:51 INR 1.2 (<1.2) H 09/19/17 10:51 Abnormal lab findings: Abnormal Labs 09/19/17 09/19/17 09/19/17 10:51 10:51 10:51 INR 1.2 H APTT 21.4 L Potassium 3.2 L BUN Glucose 120 H POC Glucose (mg/dL) Total Creatine Kinase 22 L Total Protein 6.0 L Albumin 3.3 L 09/19/17 09/19/17 09/19/17 16:32 20:54 20:58 INR APTT Potassium BUN Glucose POC Glucose (mg/dL) 239 H 308 H 312 H Total Creatine Kinase Total Protein Albumin 09/20/17 09/20/17 07:01 07:05 INR APTT Potassium BUN 21 H Glucose 158 H POC Glucose (mg/dL) 170 H Total Creatine Kinase Total Protein Albumin - Diagnostic Findings Chest x-ray: report reviewed Assessment and Plan Plan: Assessment: #1. Acute on chronic hypercapnic respiratory failure secondary to COPD exacerbation #2. Chronic and ongoing nicotine dependence, counseled extensively on nicotine cessation, currently on nicotine patch #3. Worsening shortness of breath secondary to the above #4. Chronic hypoxic respiratory failure secondary to advanced COPD #5. Significant protein calorie malnutrition and muscle atrophy in both upper and lower extremities #6. Gait dysfunction due to weakness, sustained a fall on 09/19/2017 ambulating to the door #7. Hypertension #8. Hyperlipidemia Plan: Continue bronchodilators, Symbicort, IV steroids. She is not bringing up much sputum, no signs of significant chest congestion, or wheezing. No febrile episodes, she reports slight improvement in her level of dyspnea. May have had from physical therapy for gait training, once her breathing status improves. Continue nicotine patch. We'll continue to follow and make further recommendations based on her progress. I performed a history & physical examination of the patient and discussed their management with my nurse practitioner, Frances Lizarraga. I reviewed the nurse practitioner's note and agree with the documented findings and plan of care. Lung sounds are extremely diminished air entry bilaterally, no wheezes, no rales , no rhonchi. No significant sputum production. Patient is afebrile. I attest the documentation by the nurse practitioner Time with Patient: Greater than 30
[2017-09-20 11:43] LABS: Glucose,Whole Blood 128 mg/dL (75-99)
[2017-09-20] MEDS: PANTOPRAZOLE 40 MG TABLET PO SCH (13:15)
[2017-09-20 16:55] LABS: Glucose,Whole Blood 285 mg/dL (75-99)
[2017-09-20 20:15] LABS: Glucose,Whole Blood 240 mg/dL (75-99)
[2017-09-20] MEDS: ATORVASTATIN 20 MG TAB PO SCH (20:25)
--- NOTE | 2017-09-20 21:23 | PN ---
PROGRESS NOTE DATE OF SERVICE: 09/20/17. PRESENT COMPLAINT: Short of breath. INTERVAL HISTORY: This is a patient who presented with acute COPD exacerbation. Continues to smoke a few cigarettes a day. Oral intake had gone down. Has been feeling rather weak and tired. Eating a shade better. REVIEW OF SYSTEMS: Done for constitutional, cardiovascular, GI, pulmonary, relevant findings as above. CURRENT MEDICATIONS: Reviewed that includes nebulized bronchodilators. EXAMINATION: Temperature 98.2 pulse 94, respiration 16, blood pressure 131/76, pulse ox 98% on 3 L. GENERAL APPEARANCE: Lying in bed, tired appearing. Eyes: Pupils equal. Conjunctivae pale. Neck JVD not raised. Respiratory effort increased. Lungs decreased breath sounds. Cardiovascular 1st and 2nd sounds normal. No edema. ABDOMEN: Soft, nontender. Liver and spleen not palpable. Psychiatry: Awake, answering simple questions. INVESTIGATIONS: Potassium 4.2, Accu-Cheks are noted. ASSESSMENT: 1. Acute severe chronic obstructive pulmonary disease exacerbation in a current smoker. 2. Chronic nicotine dependence. Patient is still smoking a few cigarettes a day. 3. Moderate protein calorie malnutrition BMI less than 50 from decreased oral intake. 4. Bilateral nephrolithiasis asymptomatic. 5. Essential hypertension. 6. Hyperlipidemia. 7. Primary osteoarthritis of multiple joints bilateral. 8. Acute on chronic hypoxic respiratory failure from underlying chronic obstructive pulmonary disease. 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 PLAN: Continue current medication and treatment plan. Physical therapy to see the patient. I saw the patient. The patient lives in assisted living [facility] and did use a rolling walker with physical therapy. Care was discussed with the patient. MMODL / IJN: [id number] /
[2017-09-21 07:12] LABS: Glucose,Whole Blood 154 mg/dL (75-99)
[2017-09-21] MEDS: SYMBICORT 160-4.5 MCG INHALER INHALATION SCH (07:27)
[2017-09-21] MEDS: IPRATROPIUM-ALBUTEROL 3 ML NEB INHALATION SCH ×4 (07:27→20:33)
[2017-09-21] MEDS: INSULIN LISPRO (humaLOG) 300 UNIT/3 ML VIAL SQ SCH ×4 (07:42→21:41)
[2017-09-21] MEDS: guaiFENesin 600 MG TABLET.ER PO SCH ×2 (07:44→21:41)
[2017-09-21] MEDS: PANTOPRAZOLE 40 MG TABLET PO SCH ×2 (07:44→08:48)
[2017-09-21] MEDS: ISOSORBIDE MONONITRATE ER 30 MG TAB.ER.24H PO SCH (07:44)
[2017-09-21] MEDS: NICOTINE 7MG/24HR PATCH TRANSDERM SCH (07:44)
[2017-09-21] MEDS: METOPROLOL TARTRATE 25 MG TAB PO SCH ×2 (07:44→21:42)
[2017-09-21] MEDS: predniSONE 20 MG TAB PO SCH ×2 (07:45→08:48)
[2017-09-21] MEDS ORDERED: IBUPROFEN 400 MG TAB PO SCH (09:00)
--- NOTE | 2017-09-21 09:05 | P.PN ---
Subjective Progress Note Date: 09/21/17 Principal diagnosis: Acute on chronic hypercapnic respiratory failure secondary to COPD exacerbation. Mechelle is a 87-year-old female patient does see Dr. Collins in our office for her history of advanced oxygen dependent COPD, presented to the emergency department on 09/19/2017 with complaints of increasing dyspnea, nonproductive cough and weakness for about a week. She denied any chest congestion, wheezing , phlegm production or being around sick contacts. She continues to smoke, although she is down to half a pack a day compared to a pack a day. He has moved into [facility] 2 weeks ago, he caused her children were concerned about her living and alone [place]. Home O2 at 2-3 L/m per nasal cannula. Denies any pleurisy, hemoptysis, swelling in her legs or significant weight change. Denies chest pain. She is on Symbicort maintenance inhaler, thinks she has a nebulizer machine at home but she has not used it. She is quite cachectic and malnourished. She was recently hospitalized for COPD exacerbation and discharged home on 08/30/2017. Chest x-ray on 09/19/2017 showed overinflation of lungs consistent with COPD and borderline cardiomegaly. Patient had a fall last night ambulating to the door, denies any significant injury other than sacral tenderness from falling on it. CT brain and cervical spine on 09/20/2017 is negative for any intracranial abnormality or fracture in the cervical spine. X-ray of the right hip and pelvis showed no acute abnormality. On examination patient reports improvement in her level of dyspnea , she remains on continuous oxygen at 2 L per nasal cannula with O2 sat at 97%. She has had no febrile episodes since admission. Lung sounds diminished air entry bilaterally, but no wheezes, no rhonchi, no rales. On 09/20/2017 patient no follow-up on the surgical floor. [place] any worsening dyspnea, chest congestion, wheezing or phlegm production. No febrile episodes since admission. Continues on 3 L per nasal cannula with O2 sat at 98%. Her main complaint today is bilateral hip pain, with radiation to the knees. This is likely related to her fall on 09/19/2017. X-rays of the right hip and pelvis were negative for fractures. From pulmonary standpoint she is doing very well, is stable for discharge home today. Objective - Vital Signs Vital signs: Vital Signs Temp 98.3 F 09/21/17 02:06 Pulse 88 09/21/17 07:40 Resp 16 09/21/17 02:06 BP 115/64 09/21/17 02:06 Pulse Ox 98 09/21/17 02:06 Intake & Output 09/20/17 09/21/17 09/21/17 18:59 06:59 18:59 Intake Total 350 Balance 350 Weight 42.638 kg Intake: Oral 350 Other: Voiding Method Bedside Commode # Voids 1 1 - Exam Constitutional Frail, cachectic-looking white female General appearance: thin - EENT Eyes: PERRLA Ears: bilateral: normal - Neck Neck: normal ROM Carotids: bilateral: upstroke normal Thyroid: bilateral: normal size - Respiratory Respiratory: bilateral: diminished, prolonged expiration - Cardiovascular Rhythm: regular Heart sounds: normal: S1, S2 ankle Peripheral Edema: bilateral: None foot Peripheral Edema: bilateral: None dorsalis pedis Peripheral Pulses: bilateral: Normal radial pulse Peripheral Pulses: bilateral: Normal - Gastrointestinal General gastrointestinal: no organomegaly, soft, no tenderness - Integumentary Area of blanchable redness without skin break noted on sacral and coccygeal area - Neurologic Neurologic: CNII-XII intact - Labs CBC & Chem 7: 09/19/17 10:51 09/20/17 07:05 Labs: Abnormal Lab Results - Last 24 Hours (Table) 09/19/17 09/20/17 09/20/17 Range/Units 10:51 11:28 16:53 POC Glucose (mg/dL) 128 H 285 H (75-99) mg/dL Hemoglobin A1c 9.1 H (4.0-6.0) % 09/20/17 09/21/17 Range/Units 20:10 06:58 POC Glucose (mg/dL) 240 H 154 H (75-99) mg/dL Hemoglobin A1c (4.0-6.0) % Assessment and Plan Plan: Assessment: #1. Acute on chronic hypercapnic respiratory failure secondary to COPD exacerbation #2. Chronic and ongoing nicotine dependence, counseled extensively on nicotine cessation, currently on nicotine patch #3. Worsening shortness of breath secondary to the above #4. Chronic hypoxic respiratory failure secondary to advanced COPD #5. Significant protein calorie malnutrition and muscle atrophy in both upper and lower extremities #6. Gait dysfunction due to weakness, sustained a fall on 09/19/2017 ambulating to the door, x-ray of the right hip and pelvis are negative for fractures. #7. Hypertension #8. Hyperlipidemia Plan: Continue bronchodilators, Symbicort, steroids. She is not bringing up much sputum, no signs of significant chest congestion, or wheezing. No febrile episodes, she reports slight improvement in her level of dyspnea. Stable for discharge home today on prednisone taper, Symbicort and DuoNeb. Follow-up with Dr. Collins in the office in one week. I performed a history & physical examination of the patient and discussed their management with my nurse practitioner, Frances Lizarraga. I reviewed the nurse practitioner's note and agree with the documented findings and plan of care. Lung sounds improved air entry bilaterally, no wheezes, no rales, no rhonchi. No significant sputum production. Patient is afebrile. I attest the documentation by the nurse practitioner Time with Patient: Less than 30
[2017-09-21 12:23] LABS: Glucose,Whole Blood 271 mg/dL (75-99)
[2017-09-21] MEDS: DICLOFENAC SODIUM GEL 100 GM TUBE TOPICAL SCH ×3 (14:00→21:42)
--- NOTE | 2017-09-21 14:49 | PN ---
PROGRESS NOTE DATE OF SERVICE: 09/21/17. PRESENT COMPLAINT: Short of breath. INTERVAL HISTORY: Patient presented with COPD exacerbation, also a smoker, had flare up of arthritis on the hips. The patient has lost quite a bit of fat muscle mass from decreased oral intake. Son is present at the bedside and concerned about delirium because of steroids. REVIEW OF SYSTEMS: Done for constitutional, cardiovascular, GI, pulmonary, musculoskeletal, relevant findings as above. CURRENT MEDICATIONS: Reviewed. PHYSICAL EXAMINATION: Temperature 98.3, pulse 87, respiratory rate 16, blood pressure 115/64, pulse ox 98% on 3 L. GENERAL APPEARANCE: Sitting up in a chair. Tired appearing. Eyes pupils equal. Conjunctivae pale. Neck JVD not raised. Mass not palpable. Respiratory effort increased. Lungs decreased breath sounds. Mild wheezing. Cardiovascular first and second sounds normal. No edema. ABDOMEN: Soft, nontender. Liver and spleen not palpable. Psych: Awake, answering questions. Musculoskeletal: Evidence of osteoarthritis, especially hands and knees. Mild tenderness at the hip. INVESTIGATIONS: Accu-Cheks are noted. ASSESSMENT: 1. Acute severe chronic obstructive pulmonary disease exacerbation in a current smoker. 2. Chronic nicotine dependence. Patient is still smoking a few cigarettes a day. 3. Moderate protein calorie malnutrition. BMI less than 15 from decreased oral intake. 4. Bilateral nephrolithiasis asymptomatic. 5. Essential hypertension. 6. Hyperlipidemia. 7. Primary osteoarthritis multiple joints bilaterally, including acute flare-up of the hips. 8. Acute on chronic hypoxic respiratory failure from underlying chronic obstructive pulmonary disease. 9. 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 10.Acute delirium from steroids with possible steroid induced psychosis. PLAN: I had a long talk with the patient's son. The patient steroids will be discontinued. Will use a heating pad and also use gel. I doubt she will be able to use inhalers probably. Hence we will switch it to Perforomist and Pulmicort in the nebulize form. Overall prognosis is guarded. Son is requesting another day of stay in the hospital. Will see how she does. Total time spent today was about 40 minutes with over 20 minutes of discussion, including discussion with Elma from Pulmonary. MMODL / IJN: [id number] /
[2017-09-21] MEDS: NAPROXEN 250 MG TAB PO SCH (16:20)
[2017-09-21] MEDS: BUDESONIDE 1 MG/2 ML NEBU INHALATION SCH ×2 (17:43→20:33)
[2017-09-21] MEDS: FORMOTEROL FUMARATE 20 MCG/2 ML NEBU INHALATION SCH ×2 (17:43→20:33)
[2017-09-21 20:04] LABS: Glucose,Whole Blood 269 mg/dL (75-99)
[2017-09-21] MEDS: ATORVASTATIN 20 MG TAB PO SCH (21:40)
[2017-09-22] MEDS: ACETAMINOPHEN TAB 325 MG TAB PO PRN ×3 (00:11→19:55)
[2017-09-22 07:04] LABS: Glucose,Whole Blood 163 mg/dL (75-99)
[2017-09-22] MEDS: DICLOFENAC SODIUM GEL 100 GM TUBE TOPICAL SCH ×4 (08:00→21:25)
[2017-09-22] MEDS: NAPROXEN 250 MG TAB PO SCH ×5 (08:01→22:55)
[2017-09-22] MEDS: METOPROLOL TARTRATE 25 MG TAB PO SCH ×2 (08:01→21:26)
[2017-09-22] MEDS: ISOSORBIDE MONONITRATE ER 30 MG TAB.ER.24H PO SCH (08:01)
[2017-09-22] MEDS: guaiFENesin 600 MG TABLET.ER PO SCH ×2 (08:01→21:26)
[2017-09-22] MEDS: INSULIN LISPRO (humaLOG) 300 UNIT/3 ML VIAL SQ SCH ×2 (08:02→22:43)
[2017-09-22] MEDS: PANTOPRAZOLE 40 MG TABLET PO SCH (08:11)
[2017-09-22] MEDS: NICOTINE 7MG/24HR PATCH TRANSDERM SCH (08:11)
--- NOTE | 2017-09-22 08:50 | P.PN ---
Subjective Progress Note Date: 09/22/17 Principal diagnosis: Acute on chronic hypercapnic respiratory failure secondary to COPD exacerbationPaola Min is a 87-year-old female patient does see Dr. Collins in our office for her history of advanced oxygen dependent COPD, presented to the emergency department on 09/19/2017 with complaints of increasing dyspnea, nonproductive cough and weakness for about a week. She denied any chest congestion, wheezing , phlegm production or being around sick contacts. She continues to smoke, although she is down to half a pack a day compared to a pack a day. He has moved into [facility] 2 weeks ago, he caused her children were concerned about [place] living [place] Home O2 at 2-3 L/m per nasal cannula. Denies any pleurisy, hemoptysis, swelling in her legs or significant weight change. Denies chest pain. She is on Symbicort maintenance inhaler, thinks she has a nebulizer machine at home but she has not used it. She is quite cachectic and malnourished. She was recently hospitalized for COPD exacerbation and discharged home on 08/30/2017. Chest x-ray on 09/19/2017 showed overinflation of lungs consistent with COPD and borderline cardiomegaly. Patient had a fall last night ambulating to the door, denies any significant injury other than sacral tenderness from falling on it. CT brain and cervical spine on 09/20/2017 is negative for any intracranial abnormality or fracture in the cervical spine. X-ray of the right hip and pelvis showed no acute abnormality. On examination patient reports improvement in her level of dyspnea , she remains on continuous oxygen at 2 L per nasal cannula with O2 sat at 97%. She has had no febrile episodes since admission. Lung sounds diminished air entry bilaterally, but no wheezes, no rhonchi, no rales. On 09/20/2017 patient no follow-up on the surgical floor. Nuys any worsening dyspnea, chest congestion, wheezing or phlegm production. No febrile episodes since admission. Continues on 3 L per nasal cannula with O2 sat at 98%. Her main complaint today is bilateral hip pain, with radiation to the knees. This is likely related to her fall on 09/19/2017. X-rays of the right hip and pelvis were negative for fractures. From pulmonary standpoint she is doing very well, is stable for discharge home today. On 09/21/2017 is seen in follow-up. Continues to improve from pulmonary standpoint. Lung sounds are clear to auscultation, no rhonchi, no wheezes. She denies any dyspnea, continues on oxygen at 2 L/m, O2 sat at the 95-98%. Room air pulse ox was 87%. Yesterday we had cleared her for discharge, however due to pain in both hips and pelvis that was exacerbated with weightbearing, it was decided to keep the patient another night. Patient is receiving diclofenac topical gel and eating pads to the hips and pelvis area. Yesterday patient's son was expressing concern about patient having multiple rounds of steroids for COPD. When I came down to speak to the patient's son 15-20 minutes after he had requested a meeting, he had already left. Patient has severe COPD, gold stage III, oxygen dependent with multiple exacerbations and hospitalizations. We still recommend prednisone taper over 12 days post discharge. Objective - Vital Signs Vital signs: Vital Signs Temp 97.8 F 09/22/17 08:25 Pulse 73 09/22/17 08:25 Resp 16 09/22/17 01:50 BP 112/70 09/22/17 08:25 Pulse Ox 87 L 09/22/17 08:25 Intake & Output 09/21/17 09/22/17 09/22/17 18:59 06:59 18:59 Intake Total 120 120 Balance 120 120 Weight 42.638 kg Intake: Oral 120 120 Other: Voiding Method Bedside Commode # Voids 3 1 # Bowel Movements 0 - Exam Constitutional Frail, cachectic-looking white female General appearance: thin - EENT Eyes: PERRLA Ears: bilateral: normal - Neck Neck: normal ROM Carotids: bilateral: upstroke normal Thyroid: bilateral: normal size - Respiratory Respiratory: bilateral: diminished, prolonged expiration - Cardiovascular Rhythm: regular Heart sounds: normal: S1, S2 ankle Peripheral Edema: bilateral: None foot Peripheral Edema: bilateral: None dorsalis pedis Peripheral Pulses: bilateral: Normal radial pulse Peripheral Pulses: bilateral: Normal - Gastrointestinal General gastrointestinal: no organomegaly, soft, no tenderness - Integumentary Area of blanchable redness without skin break noted on sacral and coccygeal area - Neurologic Neurologic: CNII-XII intact - Labs CBC & Chem 7: 09/19/17 10:51 09/20/17 07:05 Labs: Abnormal Lab Results - Last 24 Hours (Table) 09/21/17 09/21/17 09/22/17 Range/Units 12:16 20:01 07:01 POC Glucose (mg/dL) 271 H 269 H 163 H (75-99) mg/dL Assessment and Plan Plan: Assessment: #1. Acute on chronic hypercapnic respiratory failure secondary to COPD exacerbation in a patient with severe oxygen-dependent COPD, GOLD stage III, with FEV1 of 42% of the predicted value from the PFT in June 2017. #2. Chronic and ongoing nicotine dependence, counseled extensively on nicotine cessation, currently on nicotine patch #3. Worsening shortness of breath secondary to the above #4. Chronic hypoxic respiratory failure secondary to advanced COPD #5. Significant protein calorie malnutrition and muscle atrophy in both upper and lower extremities #6. Gait dysfunction due to weakness, sustained a fall on 09/19/2017 ambulating to the door, x-ray of the right hip and pelvis are negative for fractures, continued hip and pelvic exacerbated with weightbearing #7. Hypertension #8. Hyperlipidemia Plan: Continue bronchodilators, Symbicort. Patient's steroids have been discontinued per attending in regards to concerns from the family about possible steroid related memory loss. She has not exhibited any signs of delirium, or acute mental status change while on steroids during this admission. From pulmonary standpoint, we still recommend prednisone taper over 12 days. She is not bringing up much sputum, no signs of significant chest congestion, or wheezing. No febrile episodes, she reports slight improvement in her level of dyspnea. Stable for discharge from pulmonary standpoint once cleared by attending. I performed a history & physical examination of the patient and discussed their management with my nurse practitioner, Frances Lizarraga. I reviewed the nurse practitioner's note and agree with the documented findings and plan of care. Lung sounds improved air entry bilaterally, no wheezes, no rales, no rhonchi. No significant sputum production. Patient is afebrile. I attest the documentation by the nurse practitioner Time with Patient: Less than 30
[2017-09-22] MEDS: BUDESONIDE 1 MG/2 ML NEBU INHALATION SCH ×2 (09:09→20:22)
[2017-09-22] MEDS: FORMOTEROL FUMARATE 20 MCG/2 ML NEBU INHALATION SCH ×2 (09:09→20:22)
[2017-09-22] MEDS: IPRATROPIUM-ALBUTEROL 3 ML NEB INHALATION SCH ×4 (09:10→20:22)
[2017-09-22 11:45] LABS: Glucose,Whole Blood 210 mg/dL (75-99)
--- NOTE | 2017-09-22 14:17 | PN ---
PROGRESS NOTE DATE OF SERVICE: 09/22/2017 PRESENTING COMPLAINT: Pelvic pain. INTERVAL HISTORY: This is a patient who presented with COPD exacerbation. Because of possible delirium, steroids are being discontinued. Patient is also having pain in lower back, some of that is chronic and also in the hip area. Yesterday a heating pad was ordered. Diclofenac gel was ordered. Pain is somewhat better, worse when she sometimes moves. Eating some diet. REVIEW OF SYSTEMS: Done for constitutional, cardiovascular, GI, pulmonary, musculoskeletal; relevant findings as above. CURRENT MEDICATIONS: Reviewed that include Voltaren gel, naproxen. PHYSICAL EXAMINATION: Temperature 98.2, pulse 74, respirations 17, blood pressure 85/56, pulse ox 94% on room air. GENERAL APPEARANCE: Sitting up in a chair. Tired-appearing. EYES: Pupils equal, conjunctivae are pale. NECK: JVD not raised. Mass not palpable. RESPIRATORY: Effort normal. LUNGS: Decreased breath sounds. Minimal wheezing. CARDIOVASCULAR: First and second sounds normal. No edema. ABDOMEN: Soft, nontender. Liver and spleen not palpable. PSYCHIATRY: Awake, answering questions. MUSCULOSKELETAL: Some tenderness over the tailbone and in the hip area. INVESTIGATIONS: Accu-Cheks are noted. ASSESSMENT: 1. Acute severe chronic obstructive pulmonary disease exacerbation in a current smoker, improved. 2. Chronic nicotine dependence. Patient still smokes a few cigarettes a day. 3. Moderate protein calorie malnutrition. Body mass index less than 15 from decreased oral intake. 4. Bilateral nephrolithiasis, asymptomatic. 5. Essential hypertension. 6. Hyperlipidemia. 7. Primary osteoarthritis multiple joints bilaterally, including acute flare-up of the hips. 8. Possible hairline fracture of the sacrum is possible though the treatment will be pain management. 9. Acute on chronic hypoxic respiratory failure from underlying chronic obstructive pulmonary disease. 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 PLAN: I had a talk with the patient's son. Will get a lumbosacral x-ray done. Will get Orthopedic opinion though the patient's treatment will be conservative as discussed. Will increase the naproxen to 250 mg 3 times a day. The patient does state her pain is better. Will get assessment for inpatient rehab. Overall prognosis is guarded. Total time spent yet again today was about 40 minutes with over 25 minutes of discussion, including discussion with Dr. Collins, patient's son and the nursing staff. MMODL / IJN: [id number] /
--- NOTE | 2017-09-22 15:13 | XR ---
EXAMINATION TYPE: XR lumbosacral spine min 4V DATE OF EXAM: 09/22/2017 CLINICAL HISTORY: Low back pain following a fall TECHNIQUE: Frontal, lateral, and oblique images of the lumbar spine are obtained. COMPARISON: None FINDINGS: There are 5 lumbar type vertebral bodies identified. There is a rotatory levoconvex scolio sis of the visualized thoracolumbar spine. Diffuse osseous demineralization is present. Multilevel de generative disc disease is seen as facet arthropathy and small anterior osteophytes. Mild neural fora dannielle narrowing at L4-L5 is seen bilaterally. 1.0 cm on the left and 0.3 cm on the right renal calcul i are present. Moderate calcific atheromatous changes of the abdominal aorta are noted. The lumbar sp ine shows satisfactory alignment without evidence of acute fracture or dislocation. Vertebral body he ights and disk space heights are within normal limits. IMPRESSION: 1. No acute fracture or malalignment is seen in the lumbar spine. 2. Mild multilevel degenerative change resulting in mild neural foraminal narrowing bilaterally at L4 -L5. 3. Bilateral renal calculi measuring 1.0 cm on the left and 0.3 cm.
--- NOTE | 2017-09-22 15:29 | CONS ---
CONSULTATION DATE OF CONSULTATION: 09/22/2017. CHIEF COMPLAINT: Bilateral hip pain. HISTORY OF PRESENT ILLNESS: The patient is an 87-year-old female who is a community ambulator who recently presented to the hospital with pulmonary difficulties, complains of bilateral posterior hip pain after falling yesterday in the hospital. She normally uses a cane for ambulation. She denies loss of consciousness with the fall. She notes an aching sensation along the posterior aspect of both hips. PAST MEDICAL HISTORY: Significant for COPD, reflux disease, hypertension, hyperlipidemia. PAST SURGICAL HISTORY: Significant for tubal ligation, cholecystectomy, and appendectomy. FAMILY HISTORY: Noncontributory. SOCIAL HISTORY: Significant for long-term tobacco use. REVIEW OF SYSTEMS: Sixteen point review of systems otherwise reviewed and is noncontributory. PHYSICAL EXAMINATION: On examination, the patient is a well-developed, well-nourished female who is afebrile with stable vital signs. She is alert and oriented x4. She is nontender about the cervical and thoracic spine. She has no point tenderness about the lumbar spine, however, is tender about both the right and left sacroiliac joints. She has painless passive motion of both hips. She is nontender about the pubic rami anteriorly. Her distal neurovascular appears intact otherwise in the lower extremities. Straight leg raise is negative bilaterally. AP of the pelvis in addition to 2 views of both hips showed no definite displaced fracture or dislocation. IMPRESSION: 1. Right and left sacroiliitis, status post fall. 2. Chronic obstructive pulmonary disease. 3. Likely osteoporosis. RECOMMENDATIONS: I talked to the patient regarding her options. At this point we will start formal physical therapy once medically stable. We will have her ambulate with a walker and assistance. She can continue her current analgesic regimen. Thank you for this consultation. MMODL / IJN: [id number] /
[2017-09-22] MEDS ORDERED: INSULIN ASPART 100 UNIT/ML 1 ML 10 ML VIAL SQ SCH (16:06)
[2017-09-22 16:28] LABS: Glucose,Whole Blood 267 mg/dL (75-99)
[2017-09-22] MEDS: INSULIN ASPART 100 UNIT/ML 1 ML 10 ML VIAL SQ SCH (19:22)
[2017-09-22] MEDS: ATORVASTATIN 20 MG TAB PO SCH (21:26)
[2017-09-23] MEDS: FORMOTEROL FUMARATE 20 MCG/2 ML NEBU INHALATION SCH (07:43)
[2017-09-23] MEDS: BUDESONIDE 1 MG/2 ML NEBU INHALATION SCH (07:43)
[2017-09-23] MEDS: IPRATROPIUM-ALBUTEROL 3 ML NEB INHALATION SCH ×3 (07:43→16:05)
[2017-09-23 07:51] LABS: Glucose,Whole Blood 125 mg/dL (75-99)
[2017-09-23] MEDS: INSULIN ASPART 100 UNIT/ML 1 ML 10 ML VIAL SQ SCH ×2 (07:52→13:51)
[2017-09-23] MEDS: DICLOFENAC SODIUM GEL 100 GM TUBE TOPICAL SCH ×2 (09:06→13:51)
[2017-09-23] MEDS: NAPROXEN 250 MG TAB PO SCH ×2 (09:08→16:26)
[2017-09-23] MEDS: PANTOPRAZOLE 40 MG TABLET PO SCH (09:08)
[2017-09-23] MEDS: METOPROLOL TARTRATE 25 MG TAB PO SCH (09:08)
[2017-09-23] MEDS: ISOSORBIDE MONONITRATE ER 30 MG TAB.ER.24H PO SCH (09:08)
[2017-09-23] MEDS: guaiFENesin 600 MG TABLET.ER PO SCH (09:08)
[2017-09-23 12:07] LABS: Glucose,Whole Blood 233 mg/dL (75-99)
--- NOTE | 2017-09-23 12:22 | P.PN ---
Subjective Progress Note Date: 09/23/17 Principal diagnosis: Acute on chronic hypercapnic respiratory failure secondary to COPD exacerbationPaola Min is a 87-year-old female patient does see Dr. Collins in our office for her history of advanced oxygen dependent COPD, presented to the emergency department on 09/19/2017 with complaints of increasing dyspnea, nonproductive cough and weakness for about a week. She denied any chest congestion, wheezing , phlegm production or being around sick contacts. She continues to smoke, although she is down to half a pack a day compared to a pack a day. He has moved into [facility] 2 weeks ago, he caused her children were concerned about her living and alone [place] the [place]. Home O2 at 2-3 L/m per nasal cannula. Denies any pleurisy, hemoptysis, swelling in her legs or significant weight change. Denies chest pain. She is on Symbicort maintenance inhaler, thinks she has a nebulizer machine at home but she has not used it. She is quite cachectic and malnourished. She was recently hospitalized for COPD exacerbation and discharged home on 08/30/2017. Chest x-ray on 09/19/2017 showed overinflation of lungs consistent with COPD and borderline cardiomegaly. Patient had a fall last night ambulating to the door, denies any significant injury other than sacral tenderness from falling on it. CT brain and cervical spine on 09/20/2017 is negative for any intracranial abnormality or fracture in the cervical spine. X-ray of the right hip and pelvis showed no acute abnormality. On examination patient reports improvement in her level of dyspnea , she remains on continuous oxygen at 2 L per nasal cannula with O2 sat at 97%. She has had no febrile episodes since admission. Lung sounds diminished air entry bilaterally, but no wheezes, no rhonchi, no rales. On 09/20/2017 patient no follow-up on the surgical floor. Nuys any worsening dyspnea, chest congestion, wheezing or phlegm production. No febrile episodes since admission. Continues on 3 L per nasal cannula with O2 sat at 98%. Her main complaint today is bilateral hip pain, with radiation to the knees. This is likely related to her fall on 09/19/2017. X-rays of the right hip and pelvis were negative for fractures. From pulmonary standpoint she is doing very well, is stable for discharge home today. On 09/21/2017 is seen in follow-up. Continues to improve from pulmonary standpoint. Lung sounds are clear to auscultation, no rhonchi, no wheezes. She denies any dyspnea, continues on oxygen at 2 L/m, O2 sat at the 95-98%. Room air pulse ox was 87%. Yesterday we had cleared her for discharge, however due to pain in both hips and pelvis that was exacerbated with weightbearing, it was decided to keep the patient another night. Patient is receiving diclofenac topical gel and eating pads to the hips and pelvis area. Yesterday patient's son was expressing concern about patient having multiple rounds of steroids for COPD. When I came down to speak to the patient's son 15-20 minutes after he had requested a meeting, he had already left. Patient has severe COPD, gold stage III, oxygen dependent with multiple exacerbations and hospitalizations. We still recommend prednisone taper over 12 days post discharge. On 09/23/2017 patient seen in follow-up, she states she is at her baseline with her breathing. No significant chest congestion, no wheezing, no rhonchi or rales noted. she is on 2 L per nasal cannula with O2 sat 94%. She has been afebrile. Pain in her bilateral hips and pelvic area has improved, she is able to ambulate short distances. orthopedic consultation note was noted and appreciated. Patient has right and left sacroiliitis post fall and osteoporosis. Discharge planning is ongoing for placement for subacute rehab. Objective - Vital Signs Vital signs: Vital Signs Temp 97.5 F L 09/23/17 08:30 Pulse 72 09/23/17 11:27 Resp 17 09/23/17 08:30 BP 105/53 09/23/17 08:30 Pulse Ox 94 L 09/23/17 08:30 Intake & Output 09/22/17 09/23/17 09/23/17 18:59 06:59 18:59 Intake Total 470 Output Total 1 Balance 469 Intake: Oral 470 Output: Urine 1 Other: Voiding Method Bedside Commode # Voids 2 3 # Bowel Movements 0 - Exam Constitutional Frail, cachectic-looking white female General appearance: thin - EENT Eyes: PERRLA Ears: bilateral: normal - Neck Neck: normal ROM Carotids: bilateral: upstroke normal Thyroid: bilateral: normal size - Respiratory Respiratory: bilateral: diminished, prolonged expiration, no wheezing, no rhonchi no rales. - Cardiovascular Rhythm: regular Heart sounds: normal: S1, S2 ankle Peripheral Edema: bilateral: None foot Peripheral Edema: bilateral: None dorsalis pedis Peripheral Pulses: bilateral: Normal radial pulse Peripheral Pulses: bilateral: Normal - Gastrointestinal General gastrointestinal: no organomegaly, soft, no tenderness - Integumentary Area of blanchable redness without skin break noted on sacral and coccygeal area - Neurologic Neurologic: CNII-XII intact - Labs CBC & Chem 7: 09/19/17 10:51 09/20/17 07:05 Labs: Abnormal Lab Results - Last 24 Hours (Table) 09/22/17 09/23/17 09/23/17 Range/Units 16:25 07:49 12:04 POC Glucose (mg/dL) 267 H 125 H 233 H (75-99) mg/dL Assessment and Plan Plan: Assessment: #1. Acute on chronic hypercapnic respiratory failure secondary to COPD exacerbation in a patient with severe oxygen-dependent COPD, GOLD stage III, with FEV1 of 42% of the predicted value from the PFT in June 2017. #2. Chronic and ongoing nicotine dependence, counseled extensively on nicotine cessation, currently on nicotine patch #3. Worsening shortness of breath secondary to the above #4. Chronic hypoxic respiratory failure secondary to advanced COPD #5. Significant protein calorie malnutrition and muscle atrophy in both upper and lower extremities #6. Gait dysfunction due to weakness, sustained a fall on 09/19/2017 ambulating to the door, x-ray of the right hip and pelvis are negative for fractures, continued hip and pelvic exacerbated with weightbearing #7. Hypertension #8. Hyperlipidemia Plan: Patient continues to improve from pulmonary standpoint.Continue bronchodilators , Symbicort. Patient's steroids have been discontinued per attending in regards to concerns from the family about possible steroid related memory loss. She is not bringing up much sputum, no signs of significant chest congestion, or wheezing. Subacute rehab transfer is pending, stable for discharge from pulmonary standpoint. I performed a history & physical examination of the patient and discussed their management with my nurse practitioner, Frances Lizarraga. I reviewed the nurse practitioner's note and agree with the documented findings and plan of care. Lung sounds improved air entry bilaterally, no wheezes, no rales, no rhonchi. No significant sputum production. Patient is afebrile. I attest the documentation by the nurse practitioner Time with Patient: Less than 30
[2017-09-23] MEDS: NICOTINE 7MG/24HR PATCH TRANSDERM SCH (13:53)
[2017-09-23 15:20] VITALS: BP 92/52; RESP 16; TEMP 99
--- NOTE | 2017-09-23 15:43 | P.DS ---
Providers Date of admission: 09/19/17 14:18 Expected date of discharge: 09/23/17 Attending physician: Khadar Urias Consults: 09/19/17 14:18 Consult Physician Routine Consulting Provider: Luz Marina Collins Consult Reason/Comments: copd Do you want consulting provider notified?: Yes 09/22/17 13:20 Consult Physician Urgent Consulting Provider: Js Zelaya Consult Reason/Comments: pelvic pain worse with weightbearing Do you want consulting provider notified?: Yes Primary care physician: [facility] Course: FINAL DIAGNOSES: -Acute severe chronic obstructive pulmonary disease exacerbation in a current smoker, improved. -Chronic nicotine dependence, patient still smokes a few cigarettes a day. -Moderate protein calorie malnutrition, body mass index less than 15 from decreased oral intake. -Hytrin bilateral nephrolithiasis, asymptomatic. -Essential hypertension. -Hyperlipidemia. -Primary osteoarthritis multiple joints bilaterally include acute flareup of hips. -Possible hairline fracture of the sacrum is possible through the treatment will be pain management. -Acute on chronic hypoxic respiratory failure from underlying chronic obstructive pulmonary disease. -Myopathy probably from nutritional could be steroid induced. 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 HOSPTIAL COURSE: 87-year-old female who presented to the emergency department on 09/19/2017 with complaints of increasing dyspnea, nonproductive cough and weakness for about a week. Admitted for an acute COPD exacerbation. Pulmonology consulted, oxygen therapy, bronchodilators and IV steroids initiated. Patient sustained a fall while walking to the bathroom, developed increasing hip pain, received heating pad and diclofenac gel, x-ray of the hips performed and orthopedics and physical therapy consulted. Imaging revealed no acute fractures orthopedics found tenderness at the sacroiliac joint, continued analgesia and physical therapy once medically stable. Patient's son expressed concerns about patient' s mentation due to chronic steroid use, feels the steroids are in what makes the patient to be a little bit confused. Pulmonology attempt to speak to the patient's son by the time they were able to come down the son had already left. Prednisone was discontinued, pulmonology continues to recommend prednisone taper over 12 days post discharge. Patient is tolerating her diet, able to move about with assistance and a walker, moving her bowels. Physical therapy evaluated patient and feels patient would benefit from admission to subacute rehab. Patient condition is stable, and all consultants have cleared the patient for discharge. Patient has been accepted at [facility] for discharge. PHYSICAL EXAM: CARDIOVASCULAR: First and second sounds noted no edema RESPIRATORY: Respiratory effort normal, requires 2 L oxygen via nasal cannula, lung sounds diminished bilaterally GI: Abdomen soft nontender liver and spleen not palpable no guarding or rigidity. MUSKULOSKELETAL: Bilateral hip joint tenderness with palpation has some difficulty moving about requiring assistance. PSYCHIATRY: Alert and oriented 3 mood and affect normal Patient was seen and examined by nurse practitioner Lauren Hampton in all elements of the case discussed with attending Dr. Urias DISPOSITION: Transfer to [facility] for rehabilitation. Patient Condition at Discharge: Stable Plan - Discharge Summary New Discharge Prescriptions: New predniSONE 40 mg PO DAILY #60 tab Diclofenac Sodium Gel [Voltaren Gel] 4 gm TOPICAL QID #1 tube Naproxen [Naprosyn] 250 mg PO BID #60 tab Naproxen [Naprosyn] 250 mg PO TID #90 tab Continue amLODIPine BESYLATE [Norvasc] 2.5 mg PO DAILY Simvastatin [Zocor] 40 mg PO HS Ranitidine HCl 150 mg PO BID Metoprolol Tartrate 25 mg PO BID Isosorbide Mononitrate ER [Imdur] 30 mg PO DAILY Budesonide-Formot 160-4.5 Mcg [Symbicort 160-4.5 Mcg Inhaler] 2 puff INHALATION RT-BID Ipratropium-Albuterol Nebulize [Duoneb 0.5 mg-3 mg/3 ml Soln] 3 ml INHALATION RT-QID #120 neb Nicotine 7Mg/24Hr Patch [Habitrol] 1 patch TRANSDERM DAILY patch guaiFENesin [Mucinex] 600 mg PO BID Discharge Medication List Isosorbide Mononitrate ER [Imdur] 30 mg PO DAILY 10/29/14 [History] Metoprolol Tartrate 25 mg PO BID 10/29/14 [History] Ranitidine HCl 150 mg PO BID 10/29/14 [History] Simvastatin [Zocor] 40 mg PO HS 10/29/14 [History] amLODIPine BESYLATE [Norvasc] 2.5 mg PO DAILY 10/29/14 [History] Budesonide-Formot 160-4.5 Mcg [Symbicort 160-4.5 Mcg Inhaler] 2 puff INHALATION RT-BID 08/01/17 [History] Ipratropium-Albuterol Nebulize [Duoneb 0.5 mg-3 mg/3 ml Soln] 3 ml INHALATION RT -QID #120 neb 08/04/17 [Rx] Nicotine 7Mg/24Hr Patch [Habitrol] 1 patch TRANSDERM DAILY patch 08/22/17 [Rx] guaiFENesin [Mucinex] 600 mg PO BID 09/19/17 [History] predniSONE 40 mg PO DAILY #60 tab 09/20/17 [Rx] Diclofenac Sodium Gel [Voltaren Gel] 4 gm TOPICAL QID #1 tube 09/22/17 [Rx] Naproxen [Naprosyn] 250 mg PO BID #60 tab 09/22/17 [Rx] Naproxen [Naprosyn] 250 mg PO TID #90 tab 09/23/17 [Rx] Follow up Appointment(s)/Referral(s): Luz Marina Collins MD [STAFF PHYSICIAN] - 1 Week Estuardo Spivey DO [Primary Care Provider] - As Needed Inocente Darby MD [STAFF PHYSICIAN] - 09/23/17 Js Zelaya MD [STAFF PHYSICIAN] - As Needed Activity/Diet/Wound Care/Special Instructions: consistent carbohydrate diet Discharge Disposition: TRANSFER TO SNF/ECF
[2017-09-23 16:10] VITALS: PULSE 76
--- NOTE | 2017-09-24 08:48 | DS ---
DISCHARGE SUMMARY DATE OF SERVICE: 09/23/2017 ATTENDING NOTE: This patient was seen and examined by me. Discussed with my nurse practitioner, Ms. Hampton. Patient admitted with COPD exacerbation, still a smoker. Also had a fall, probably a blunt injury. No fracture was detected. Discussions were held with the family. Overall prognosis guarded and patient's overall gradual decline. Patient's pain was much better controlled by the time of discharge. PHYSICAL EXAMINATION: Decreased breath sounds. CARDIOVASCULAR: First and second sounds are normal. DISPOSITION: Steve. AI / NORMAN: [id number] /
== END 2017-09-23 17:05 | DRG 190 ==
LOC: EC 10:34 → 3SUR 14:18
PROVIDERS: ADMIT Hospitalist; ATTEND Hospitalist
DX: J44.1 Chronic obstructive pulmonary disease with (acute) exacerbation (principal); J96.21 Acute and chronic respiratory failure with hypoxia; E44.0 Moderate protein-calorie malnutrition; R64 Cachexia; J96.22 Acute and chronic respiratory failure with hypercapnia; Z68.1 Body mass index [BMI] 19.9 or less, adult; I10 Essential (primary) hypertension; E78.5 Hyperlipidemia, unspecified; F17.210 Nicotine dependence, cigarettes, uncomplicated; K21.9 Gastro-esophageal reflux disease without esophagitis; K29.70 Gastritis, unspecified, without bleeding; M15.9 Polyosteoarthritis, unspecified; M46.1 Sacroiliitis, not elsewhere classified; M81.0 Age-related osteoporosis without current pathological fracture; N20.0 Calculus of kidney; W18.30XA Fall on same level, unspecified, initial encounter; Z79.51 Long term (current) use of inhaled steroids; Z79.52 Long term (current) use of systemic steroids; Z79.899 Other long term (current) drug therapy; Z82.5 Family history of asthma and other chronic lower respiratory diseases; Z99.81 Dependence on supplemental oxygen; Z82.49 Family history of ischemic heart disease and other diseases of the circulatory system; Z71.6 Tobacco abuse counseling; R26.9 Unspecified abnormalities of gait and mobility; Y92.008 Other place in unspecified non-institutional (private) residence as the place of occurrence of the external cause
CPT/HCPCS: 36415; 70450; 71020; 72110; 72125; 73502; 80048; 80053; 82550; 82553; 83036; 83880; 84484; 85025; 85610; 85730; 93005; 94640; 96374; 99285

== ENCOUNTER 2017-11-24 09:28 | Inpatient (IN) | payer MEDICARE, BC ==
[2017-11-24] MEDS ORDERED: ALBUTEROL NEBULIZED 2.5 MG/3 ML INHALATION STA (09:32)
[2017-11-24] MEDS ORDERED: MAGNESIUM SULFATE-D5W PMX 1 GM in DEXTROSE/WATER 1 100ML.BAG IVPB STA (09:32)
[2017-11-24] MEDS ORDERED: IPRATROPIUM 0.5 MG/2.5 ML NEBU INHALATION STA (09:32)
--- NOTE | 2017-11-24 09:35 | ED ---
Asthma HPI - General Stated Complaint: ALYCIA Time Seen by Provider: 11/24/17 09:31 - History of Present Illness Initial Comments: Patient complains of difficulty in breathing. She has a history of COPD. She wears oxygen at home. She states her difficulty breathing much worse today. She has no fever, cough, chest pain or tenderness. She has no belly or back pain. She has no nausea or vomiting. She was given IV Solu-Medrol by EMS prior to arrival. She is unaware of any sick contacts. She has not traveled anywhere. She has no headache. She has no lightheadedness or dizziness. Her shortness of breath is worse with walking, better if she rests. However she does not feel like resting completely resolves her symptoms. - Related Data Home Medications Medication Instructions Recorded Confirmed Isosorbide Mononitrate ER [Imdur] 30 mg PO DAILY 10/29/14 11/24/17 Metoprolol Tartrate 25 mg PO BID 10/29/14 11/24/17 Ranitidine HCl 150 mg PO BID 10/29/14 11/24/17 amLODIPine BESYLATE [Norvasc] 2.5 mg PO DAILY 10/29/14 11/24/17 guaiFENesin [Mucinex] 600 mg PO BID 09/19/17 11/24/17 Acetaminophen-Codeine 300-30mg 1 tab PO Q8H PRN 11/24/17 11/24/17 [Tylenol #3] Formoterol Fumarate [Perforomist] 20 mcg INHALATION RT-BID 11/24/17 11/24/17 Simvastatin [Zocor] 20 mg PO HS 11/24/17 11/24/17 Previous Rx's Medication Instructions Recorded Ipratropium-Albuterol Nebulize 3 ml INHALATION RT-QID #120 neb 08/04/17 [Duoneb 0.5 mg-3 mg/3 ml Soln] Nicotine 7Mg/24Hr Patch [Habitrol] 1 patch TRANSDERM DAILY patch 08/22/17 Naproxen [Naprosyn] 250 mg PO BID #60 tab 09/22/17 Allergies Allergy/AdvReac Type Severity Reaction Status Date / Time ciprofloxacin [From Cipro] Allergy Unknown Verified 11/24/17 09:56 Childhood Review of Systems ROS Statement: Those systems with pertinent positive or pertinent negative responses have been documented in the HPI. ROS Other: All systems not noted in ROS Statement are negative. Past Medical History Past Medical History: COPD, GERD/Reflux, Hyperlipidemia, Hypertension Additional Past Medical History / Comment(s): COPD, hyperlipidemia, hypertension , cachexia and ongoing weight loss, chronic smoker History of Any Multi-Drug Resistant Organisms: None Reported Past Surgical History: Appendectomy, Cholecystectomy, Tubal Ligation Past Anesthesia/Blood Transfusion Reactions: No Reported Reaction Past Psychological History: No Psychological Hx Reported Smoking Status: Current every day smoker Past Alcohol Use History: None Reported Past Drug Use History: None Reported - Past Family History Mother Family Medical History: Asthma, Congestive Heart Failure (CHF) Father Family Medical History: Diabetes Mellitus General Exam General appearance: alert, in no apparent distress Head exam: Present: atraumatic, normocephalic, normal inspection Eye exam: Present: normal appearance, PERRL, EOMI. Absent: scleral icterus, conjunctival injection, periorbital swelling ENT exam: Present: normal exam, mucous membranes moist Neck exam: Present: normal inspection. Absent: tenderness, meningismus, lymphadenopathy Respiratory exam: Present: respiratory distress, wheezes. Absent: rales, rhonchi, stridor Cardiovascular Exam: Present: regular rate, normal rhythm, normal heart sounds. Absent: systolic murmur, diastolic murmur, rubs, gallop, clicks GI/Abdominal exam: Present: soft, normal bowel sounds. Absent: distended, tenderness, guarding, rebound, rigid Extremities exam: Present: normal inspection, full ROM, normal capillary refill. Absent: tenderness, pedal edema, joint swelling, calf tenderness Back exam: Present: normal inspection Neurological exam: Present: alert, oriented X3, CN II-XII intact Psychiatric exam: Present: normal affect, normal mood Skin exam: Present: warm, dry, intact, normal color. Absent: rash Course Vital Signs 11/24/17 11/24/17 11/24/17 09:30 10:01 10:16 Temperature 98.8 F Pulse Rate 87 81 83 Respiratory 26 H Rate Blood Pressure 174/82 O2 Sat by Pulse 91 L Oximetry Medical Decision Making - Medical Decision Making Patient is not feeling any better on reevaluation. X-ray reveals pneumonia. I have ordered blood cultures and antibiotics. She will be admitted to the hospital. - Lab Data Result diagrams: 11/24/17 09:30 11/24/17 09:30 Lab Results 11/24/17 11/24/17 11/24/17 Range/Units 09:30 09:30 09:30 WBC 10.1 (3.8-10.6) k/uL RBC 4.15 (3.80-5.40) m/uL Hgb 12.6 (11.4-16.0) gm/dL Hct 41.0 (34.0-46.0) % MCV 98.7 (80.0-100.0) fL MCH 30.3 (25.0-35.0) pg MCHC 30.7 L (31.0-37.0) g/dL RDW 14.0 (11.5-15.5) % Plt Count 174 (150-450) k/uL Neutrophils % 46 % Lymphocytes % 38 % Monocytes % 8 % Eosinophils % 3 % Basophils % 1 % Neutrophils # 4.6 (1.3-7.7) k/uL Lymphocytes # 3.9 (1.0-4.8) k/uL Monocytes # 0.8 (0-1.0) k/uL Eosinophils # 0.3 (0-0.7) k/uL Basophils # 0.1 (0-0.2) k/uL Hypochromasia Slight PT (9.0-12.0) sec INR (<1.2) APTT (22.0-30.0) sec Sodium 145 (137-145) mmol/L Potassium 4.7 (3.5-5.1) mmol/L Chloride 107 (98-107) mmol/L Carbon Dioxide 28 (22-30) mmol/L Anion Gap 10 mmol/L BUN 21 H (7-17) mg/dL Creatinine 0.77 (0.52-1.04) mg/dL Est GFR (MDRD) Af Amer >60 (>60 ml/min/1.73 sqM) Est GFR (MDRD) Non-Af >60 (>60 ml/min/1.73 sqM) Glucose 113 H (74-99) mg/dL Calcium 9.5 (8.4-10.2) mg/dL Total Bilirubin 0.7 (0.2-1.3) mg/dL AST 30 (14-36) U/L ALT 23 (9-52) U/L Alkaline Phosphatase 85 (38-126) U/L Troponin I (0.000-0.034) ng/mL NT-Pro-B Natriuret Pep 1570 pg/mL Total Protein 6.6 (6.3-8.2) g/dL Albumin 3.6 (3.5-5.0) g/dL 11/24/17 11/24/17 Range/Units 09:30 09:30 WBC (3.8-10.6) k/uL RBC (3.80-5.40) m/uL Hgb (11.4-16.0) gm/dL Hct (34.0-46.0) % MCV (80.0-100.0) fL MCH (25.0-35.0) pg MCHC (31.0-37.0) g/dL RDW (11.5-15.5) % Plt Count (150-450) k/uL Neutrophils % % Lymphocytes % % Monocytes % % Eosinophils % % Basophils % % Neutrophils # (1.3-7.7) k/uL Lymphocytes # (1.0-4.8) k/uL Monocytes # (0-1.0) k/uL Eosinophils # (0-0.7) k/uL Basophils # (0-0.2) k/uL Hypochromasia PT 10.8 (9.0-12.0) sec INR 1.1 (<1.2) APTT 23.1 (22.0-30.0) sec Sodium (137-145) mmol/L Potassium (3.5-5.1) mmol/L Chloride (98-107) mmol/L Carbon Dioxide (22-30) mmol/L Anion Gap mmol/L BUN (7-17) mg/dL Creatinine (0.52-1.04) mg/dL Est GFR (MDRD) Af Amer (>60 ml/min/1.73 sqM) Est GFR (MDRD) Non-Af (>60 ml/min/1.73 sqM) Glucose (74-99) mg/dL Calcium (8.4-10.2) mg/dL Total Bilirubin (0.2-1.3) mg/dL AST (14-36) U/L ALT (9-52) U/L Alkaline Phosphatase (38-126) U/L Troponin I <0.012 (0.000-0.034) ng/mL NT-Pro-B Natriuret Pep pg/mL Total Protein (6.3-8.2) g/dL Albumin (3.5-5.0) g/dL Disposition Clinical Impression: Pneumonia Disposition: ADMITTED IP TO THIS HOSP Condition: Fair Referrals: Estuardo Spivey DO [Primary Care Provider] - 1-2 days Time of Disposition: 10:58
--- NOTE | 2017-11-24 10:00 | XR ---
EXAMINATION TYPE: XR chest 2V DATE OF EXAM: 11/24/2017 COMPARISON: NONE HISTORY: Shortness of breath TECHNIQUE: Frontal and lateral views of the chest are obtained. FINDINGS: Scattered senescent parenchymal changes noted. Hyperinflation compatible with COPD. Left upper lobe infiltrate noted. No evidence for atelectasis. Heart size is stable. Mediastinal structures are stable and grossly unremarkable. No evidence for hilar prominence. Degenerative changes dorsal spine. IMPRESSION: 1. Left upper lobe infiltrate noted.
[2017-11-24 10:07] LABS: INR 1.1 (<1.2); Partial Thromboplastin Time 23.1 sec (22.0-30.0); Prothrombin Time 10.8 sec (9.0-12.0)
[2017-11-24 10:10] LABS: Basophils # (A) 0.1 k/uL (0-0.2); Basophils % (A) 1 %; Eosinophils # (A) 0.3 k/uL (0-0.7); Eosinophils % (A) 3 %; HGB 12.6 gm/dL (11.4-16.0); Hypochromasia Slight; Lymphocytes # (A) 3.9 k/uL (1.0-4.8); Lymphocytes % (A) 38 %; MCH 30.3 pg (25.0-35.0); MCHC 30.7 g/dL (31.0-37.0); MCV 98.7 fL (80.0-100.0); Mean Platelet Volume 7.8; Monocytes # (A) 0.8 k/uL (0-1.0); Monocytes % (A) 8 %; Neutrophils # (A) 4.6 k/uL (1.3-7.7); Neutrophils % (A) 46 %; Platelet Count 174 k/uL (150-450); RBC 4.15 m/uL (3.80-5.40); WBC 10.1 k/uL (3.8-10.6)
[2017-11-24 10:25] LABS: ALT 23 U/L (9-52); AST 30 U/L (14-36); Albumin 3.6 g/dL (3.5-5.0); Alkaline Phosphatase 85 U/L (38-126); Anion Gap 10 mmol/L; Blood Urea Nitrogen 21 mg/dL (7-17); Calcium 9.5 mg/dL (8.4-10.2); Carbon Dioxide 28 mmol/L (22-30); Chloride 107 mmol/L (98-107); Glucose 113 mg/dL (74-99); Sodium 145 mmol/L (137-145); Total Bilirubin 0.7 mg/dL (0.2-1.3); Total Protein 6.6 g/dL (6.3-8.2)
[2017-11-24 10:27] LABS: Potassium 4.7 mmol/L (3.5-5.1)
[2017-11-24] MEDS ORDERED: AZITHROMYCIN 500 MG TAB PO STA (10:53)
[2017-11-24] MEDS ORDERED: ONDANSETRON 4 MG/2 ML VIAL IVP PRN (10:59)
[2017-11-24] MEDS ORDERED: NALOXONE 0.4 MG/ML 1 ML VIAL IV PRN (10:59)
[2017-11-24] MEDS: cefTRIAXone IN SWFI 1,000 MG/10 ML SYRINGE IVP SCH (11:45)
[2017-11-24] MEDS ORDERED: IPRATROPIUM-ALBUTEROL 3 ML NEB INHALATION SCH ×2 (16:00→20:00)
[2017-11-24] MEDS: BUDESONIDE 1 MG/2 ML NEBU INHALATION SCH ×2 (16:19→18:59)
--- NOTE | 2017-11-24 16:39 | HP ---
HISTORY AND PHYSICAL DATE OF ADMISSION: 11/24/17. PRESENTING COMPLAINT: Short of breath, wheezing. HISTORY OF PRESENTING COMPLAINT: This is a very pleasant 87-year-old patient of Dr. Spivey. Chronic stable medical conditions include osteoarthritis, hypertension, hyperlipidemia, on home oxygen 3 L. The patient has long-standing smoking, smoking up to a few weeks ago. Patient lives at the [facility]. The patient presents with shortness of breath, wheezing, slight cough, minimal sputum production, maybe low-grade fever. Decreased appetite. The patient's oral intake fluctuates. The patient has been admitted for a COPD exacerbation. The patient's sputum, she is not sure about the color. REVIEW OF SYSTEMS: CONSTITUTIONAL: Tired. HEENT: Decreased hearing. RESPIRATORY: As above. CARDIOVASCULAR: None. GASTROINTESTINAL: None. GENITOURINARY: None. MUSCULOSKELETAL: Pain in the joints. DERMATOLOGICAL: None. HEMATOLOGICAL: None. LYMPHATICS: None. PSYCHIATRY: Some anxiety. NEUROLOGICAL: None. PAST MEDICAL HISTORY: COPD, hypertension, hyperlipidemia, osteoarthritis, protein calorie malnutrition, urinary stress incontinence. PAST SURGICAL HISTORY: Appendectomy, cholecystectomy, tubal ligation. SOCIAL HISTORY: The patient smoked for many years, just stopped a few weeks ago. Lives at the [facility]. No alcohol. FAMILY HISTORY: Congestive heart failure. HOME MEDICATIONS: Perforomist 20 mcg inhalation b.i.d., Tylenol 3 one tablet q.8h p.r.n., Mucinex 600 mg b.i.d., nicotine patch, naproxen 250 mg b.i.d., DuoNeb q.i.d., Norvasc 2.5 p.o. daily, Zocor 20 mg q.h.s., Zantac 150 mg p.o. b.i.d., metoprolol 25 p.o. b.i.d., Imdur ER 30 mg p.o. daily. ALLERGIES: CIPRO. PHYSICAL EXAMINATION: Vital signs on presentation: Temperature 98.8, pulse 87, respiration 26, blood pressure 134/82, repeat 128/63, pulse ox 91% on 4 L. GENERAL APPEARANCE: Thin built, BMI 15.3, sitting up, slightly short of breath. EYES: Pupils equal. Conjunctivae normal. HEENT: Oral cavity normal. NECK: JVD not raised. Mass not palpable. RESPIRATORY: Effort increased. LUNGS: Diminished breath sounds, prolonged expiration and wheezing. CARDIOVASCULAR: First and second sounds, no edema. ABDOMEN: Soft, nontender. Liver and spleen not palpable. LYMPHATIC: No lymph node palpable. PSYCHIATRY: Alert and orient x3. Mood and affect normal. NEUROLOGICAL: Pupils equal. Cranial nerves grossly intact. Power and sensation grossly intact. MUSCULOSKELETAL: Evidence of osteoarthritis in multiple joints. INVESTIGATIONS: White count 10.1, hemoglobin 12.6, potassium 4.7, BUN 21, creatinine 0.77. Chest x- ray: Left upper lobe infiltrate. ASSESSMENT: 1. Acute advanced chronic obstructive pulmonary disease exacerbation in an ex-smoker. 2. Left upper lobe pneumonia suspect gram-negative organism, present on admission. 3. Moderate protein calorie malnutrition, decreased oral intake. BMI is 15. 4. Bilateral nephrolithiasis asymptomatic. 5. Essential hypertension. 6. Hyperlipidemia. 7. Primary osteoarthritis multiple joints, bilateral. 8. Chronic hypoxic respiratory failure from underlying chronic obstructive pulmonary disease on oxygen at home. 9. Acute hypoxic respiratory failure present on admission from underlying chronic obstructive pulmonary disease. PLAN: Patient is started on nebulized bronchodilators, IV ceftriaxone. We will also add nebulized steroids. Home medications are resumed. Care was discussed with the patient. Given her age, overall prognosis is guarded. MMODL / IJN: [id number] /
[2017-11-24] MEDS: FORMOTEROL FUMARATE 20 MCG/2 ML NEBU INHALATION SCH (18:59)
[2017-11-24] MEDS ORDERED: FAMOTIDINE 20 MG TAB PO SCH (21:00)
[2017-11-24] MEDS: FAMOTIDINE 20 MG TAB PO SCH (21:34)
[2017-11-24] MEDS: guaiFENesin 600 MG TABLET.ER PO SCH (21:34)
[2017-11-24] MEDS: ATORVASTATIN 10 MG TAB PO SCH (21:34)
[2017-11-24] MEDS: METOPROLOL TARTRATE 25 MG TAB PO SCH (21:34)
[2017-11-24] MEDS ORDERED: IPRATROPIUM-ALBUTEROL 3 ML NEB INHALATION PRN (21:42)
[2017-11-24] MEDS: HYDROcodone/APAP 5-325MG 1 EACH TAB PO PRN (23:28)
[2017-11-24] MEDS: TEMAZEPAM 15 MG CAP PO PRN (23:28)
[2017-11-25] MEDS: cefTRIAXone IN SWFI 1,000 MG/10 ML SYRINGE IVP SCH (08:01)
[2017-11-25] MEDS: ISOSORBIDE MONONITRATE ER 30 MG TAB.ER.24H PO SCH (08:02)
[2017-11-25] MEDS: guaiFENesin 600 MG TABLET.ER PO SCH ×2 (08:02→20:45)
[2017-11-25] MEDS: amLODIPine 2.5 MG TAB PO SCH (08:02)
[2017-11-25] MEDS: METOPROLOL TARTRATE 25 MG TAB PO SCH ×2 (08:02→20:45)
[2017-11-25] MEDS: FAMOTIDINE 20 MG TAB PO SCH ×2 (08:02→20:45)
[2017-11-25] MEDS: BUDESONIDE 1 MG/2 ML NEBU INHALATION SCH ×2 (08:18→19:27)
[2017-11-25] MEDS: IPRATROPIUM-ALBUTEROL 3 ML NEB INHALATION SCH ×4 (08:18→19:27)
[2017-11-25] MEDS: FORMOTEROL FUMARATE 20 MCG/2 ML NEBU INHALATION SCH ×2 (08:18→19:27)
[2017-11-25] MEDS ORDERED: DEXAMETHASONE SOD PHOSPHATE 4 MG/ML 1 ML VIAL IV STA (13:06)
[2017-11-25] MEDS: AZITHROMYCIN 500 MG TAB PO SCH (13:24)
--- NOTE | 2017-11-25 13:26 | P.CNPUL ---
History of Present Illness Consult date: 11/25/17 Reason for consult: COPD, pneumonia Chief complaint: Shortness of breath cough and wheezing History of present illness: This is an 87-year-old female with history of multiple medical problems including COPD, chronic hypoxic respiratory failure, has been heavy smoker, patient was last seen on her last admission 09/20/2017, and at that time we have treated the patient for symptoms of acute exacerbation of COPD. Patient was eventually discharged home, and she has been doing well until recently. For the last few days the patient has been complaining of productive cough with whitish phlegm, wheezing, shortness of breath, and low-grade fever. Upon presentation to the ER, she was found to have a left upper lobe infiltrate. Admitted and this consult was initiated. I have been seeing this patient in my office for many years for her underlying COPD and chronic hypoxic respiratory failure. Patient is O2 dependent, but not prednisone dependent. 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 Patient denies any symptoms of ALLERGIC rhinitis, denies any symptoms of GERD or esophagitis. No headache, no blurred vision, no dizziness, no nausea no vomiting no abdominal pain no melena no hematemesis. Review of Systems Constitutional: Denies chills, low-grade fever was noted upon admission. Eyes: denies blurred vision, denies pain Ears, nose, mouth and throat: Denies headache, Denies sore throat Cardiovascular: Denies chest pain, positive shortness of breath cough and wheezing. Respiratory: Denies cough Gastrointestinal: Denies abdominal pain, Denies diarrhea, Denies nausea, Denies vomiting Genitourinary: Denies dysuria, Denies hematuria Musculoskeletal: Denies myalgias Integumentary: Denies pruritus, Denies rash Neurological: Denies numbness, Denies weakness Psychiatric: Denies anxiety, Denies depression Endocrine: Denies fatigue, Denies weight change Past Medical History Past Medical History: COPD, GERD/Reflux, Hyperlipidemia, Hypertension, Osteoarthritis (OA), Pneumonia, Respiratory Disorder Additional Past Medical History / Comment(s): Protein calorie malnutrition, chronic respiratory failure with home O2 at 3L/NC, bronchitis, arthritis multiple joints, UTIs. History of Any Multi-Drug Resistant Organisms: None Reported Past Surgical History: Appendectomy, Cholecystectomy, Tubal Ligation Additional Past Surgical History / Comment(s): EGD/colonoscopy, bilateral cataract removal. Past Anesthesia/Blood Transfusion Reactions: No Reported Reaction Smoking Status: Former smoker - Past Family History Mother Family Medical History: Asthma, Congestive Heart Failure (CHF) Father Family Medical History: Diabetes Mellitus Medications and Allergies Home Medications Medication Instructions Recorded Confirmed Type Isosorbide Mononitrate ER [Imdur] 30 mg PO DAILY 10/29/14 11/24/17 History Metoprolol Tartrate 25 mg PO BID 10/29/14 11/24/17 History Ranitidine HCl 150 mg PO BID 10/29/14 11/24/17 History amLODIPine BESYLATE [Norvasc] 2.5 mg PO DAILY 10/29/14 11/24/17 History Ipratropium-Albuterol Nebulize 3 ml INHALATION RT-QID #120 neb 08/04/17 Rx [Duoneb 0.5 mg-3 mg/3 ml Soln] Nicotine 7Mg/24Hr Patch [Habitrol] 1 patch TRANSDERM DAILY patch 08/22/1711/24 Rx guaiFENesin [Mucinex] 600 mg PO BID 09/19/17 11/24/17 History Naproxen [Naprosyn] 250 mg PO BID #60 tab 09/22/17 11/24/17 Rx Acetaminophen-Codeine 300-30mg 1 tab PO Q8H PRN 11/24/17 11/24/17 History [Tylenol #3] Formoterol Fumarate [Perforomist] 20 mcg INHALATION RT-BID 11/24/17 11/24/17 History Simvastatin [Zocor] 20 mg PO HS 11/24/17 11/24/17 History Allergies Allergy/AdvReac Type Severity Reaction Status Date / Time ciprofloxacin [From Cipro] Allergy Unknown Verified 11/24/17 09:56 Childhood Physical Exam Vitals: Vital Signs Temp Pulse Pulse Resp BP BP Pulse Ox 11/25/17 11:26 78 11/25/17 11:16 76 11/25/17 08:38 84 11/25/17 08:29 80 11/25/17 08:28 80 11/25/17 08:18 80 11/25/17 07:00 97.8 F 76 16 108/56 99 11/25/17 00:18 92 11/25/17 00:08 100 11/24/17 23:00 97.2 F L 100 16 127/66 97 11/24/17 20:26 104 H 134/60 96 11/24/17 19:29 78 11/24/17 19:15 80 11/24/17 18:59 80 11/24/17 15:19 97.6 F 74 18 114/71 97 11/24/17 14:50 97.4 F L 85 20 120/84 96 11/24/17 13:40 23 92 L 11/24/17 13:25 87 22 123/62 95 Intake and Output 11/24/17 11/25/17 11/25/17 22:59 06:59 14:59 Other: Voiding Method Toilet # Voids 2 Frail, cachectic-looking white female General appearance: thin - EENT Eyes: PERRLA Ears: bilateral: normal - Neck Neck: normal ROM Carotids: bilateral: upstroke normal Thyroid: bilateral: normal size - Respiratory Respiratory: bilateral: diminished, prolonged expiration, symmetrical expansion , no chest wall tenderness. - Cardiovascular Rhythm: regular Heart sounds: normal: S1, S2 ankle Peripheral Edema: bilateral: None foot Peripheral Edema: bilateral: None dorsalis pedis Peripheral Pulses: bilateral: Normal radial pulse Peripheral Pulses: bilateral: Normal - Gastrointestinal General gastrointestinal: no organomegaly, soft, no tenderness - Integumentary No erythema, no rashes noted. - Neurologic Neurologic: CNII-XII intact. No gross focal neurologic deficits. - Musculoskeletal Musculoskeletal: generalized weakness - Psychiatric Psychiatric: A&O x's 3, appropriate affect, intact judgment & insight Results - Laboratory Findings CBC and BMP: 11/24/17 09:30 11/24/17 09:30 PT/INR, D-dimer PT 10.8 sec (9.0-12.0) 11/24/17 09:30 INR 1.1 (<1.2) 11/24/17 09:30 Abnormal lab findings: Abnormal Labs 11/24/17 11/24/17 09:30 09:30 MCHC 30.7 L BUN 21 H Glucose 113 H - Diagnostic Findings Chest x-ray: image reviewed (Left upper lobe pneumonia is suspected) Assessment and Plan Assessment: Impression: 1 acute on chronic hypoxic respiratory failure secondary to COPD exacerbation. Also secondary to left upper lobe pneumonia. 2 acute left upper lobe pneumonia, community-acquired, patient is presently on Rocephin and Zithromax. 3 significant protein currently malnutrition 4 history of hypertension, hyperlipidemia, and history of prednisone induced psychosis. Recommendation: Agree with the present course of bronchodilators, agree with antibiotics, Zithromax and Rocephin, will avoid Solu-Medrol, but the patient will be given a test dose of Decadron 1 only and decide whether to use Decadron for her underlying COPD. Continue O2, continue bronchodilators, however if no significant improvement is noted in the next couple of days, will consider bronchoscopy. Discussed her condition with her and with her son at bedside. Time with Patient: Greater than 30
[2017-11-25 15:06] VITALS: BMI 15.3
[2017-11-25] MEDS ORDERED: methylPREDNISolone SOD SUCCI 40 MG/ML 1 ML VIAL IV SCH (16:00)
[2017-11-25] MEDS: HYDROcodone/APAP 5-325MG 1 EACH TAB PO PRN (18:18)
--- NOTE | 2017-11-25 19:04 | P.PN ---
Progress Note - Text Progress Note Date: 11/25/17 DATE OF SERVICE: 11/25/2017 PRESENTING COMPLAINT: Increasing shortness of breath HISTORY OF PRESENT ILLNESS: 87-year-old female who presents with shortness of breath wheezing slight cough and sputum production possible low-grade fever. Decreased appetite. Admitted for COPD exacerbation. INTERVAL HISTORY: 11/25/2017: Patient lying in bed, appears pale but comfortable. Able to lie flat in bed no difficulty breathing. Short of breath with exertion. On home dose of oxygen, continues to receive nebulized bronchodilators and IV steroids. appetite improving eating about 50% of her meals. Up with assistance, last BM or to admission. REVIEW OF SYSTEMS: Done for constitutional ,cardiovascular, GI, pulmonary with relevant findings as above. CURRENT MEDICATIONS [place], DuoNeb, Norvasc, Lipitor, Zithromax, Pulmicort, Rocephin, famotidine, Perforomist, Mucinex, Imdur, Lopressor, Zofran, Restoril. PHYSICAL EXAM VITAL SIGNS: Temperature 97.8, respirations 16, pulse 76, blood pressure 108/56, oxygen saturation 99% on 3 L GENERAL APPEARANCE: Thin build. Lying in bed, not in distress. HEENT: Normocephalic, Pupils equal. Conjunctiva normal. JVD not raised. Mass not palpable.: RESPIRATORY: Respiratory effort mildly increased. Lungs diminished to auscultation. CARDIOVASCULAR: First and second sounds normal. No edema. ABDOMEN: Soft. Liver and spleen not palpable. No tenderness. No mass palpable. PSYCHIATRY: Alert and oriented x3. Mood and affect normal. INVESTIGATIONS: LABS: None new ASSESSMENT: -Acute advanced chronic obstructive pulmonary disease exacerbation and an ex- smoker. -Left upper lobe pneumonia suspect gram-negative organism present on admission. -Moderate protein calorie malnutrition, with decreased oral intake. BMI is 15. -Bilateral nephrolithiasis asymptomatic. -Essential hypotension. -Hyperlipidemia. -Primaryosteoarthritis of multiple joints bilateral. -Chronic hypoxic respiratory failure from underlying chronic obstructive pulmonary disease on home oxygen. -Acute hypoxic respiratory failure present on admission from underlying chronic obstructive pulmonary disease. PLAN: Continue the course of current treatment of bronchodilators antibiotics [facility] discontinued Solu-Medrol with a trial of Decadron to determine if this is effective for her COPD.If she has not shown significant improvement in the next couple of days we'll consider bronchoscopy. Plan of care discussed at the bedside we will follow closely. [employer]PER[employer]OR statement: Patient was seen and examined by nurse practitioner Lauren Hampton and all elements of the case discussed with attending Dr. Urias
[2017-11-25] MEDS: TEMAZEPAM 15 MG CAP PO PRN (20:45)
[2017-11-25] MEDS: ATORVASTATIN 10 MG TAB PO SCH (20:45)
--- NOTE | 2017-11-25 23:34 | PN ---
PROGRESS NOTE DATE OF SERVICE: 11/25/2017 ATTENDING NOTE: This patient was seen and examined by me. I discussed the case with the nurse practitioner Ms. Hampton. Shortness of breath and wheezing are a bit better. Did tolerate some diet. On examination, temperature 97.5, pulse 80, respiration 18, blood pressure 110/63, pulse ox 94%. LUNGS: Decreased breath sounds, prolonged wheezing. CARDIOVASCULAR: First and second sounds normal. ASSESSMENT: 1. Acute severe end-stage chronic obstructive pulmonary disease in an ex-smoker. 2. Left upper lobe pneumonia. 3. Multiple medical problems. Care was discussed with the patient. Patient is doing well on DuoNeb. She is also on ceftriaxone and Zithromax. Follow with Pulmonary. Per Dr. Collins, Solu-Medrol has been avoided. MMODL / IJN: [id number] /
[2017-11-26] MEDS: IPRATROPIUM-ALBUTEROL 3 ML NEB INHALATION SCH ×2 (07:12→10:56)
[2017-11-26] MEDS: BUDESONIDE 1 MG/2 ML NEBU INHALATION SCH (07:12)
[2017-11-26] MEDS: FORMOTEROL FUMARATE 20 MCG/2 ML NEBU INHALATION SCH (07:12)
[2017-11-26 07:45] VITALS: BP 124/61; RESP 18; TEMP 96.5
[2017-11-26] MEDS: AZITHROMYCIN 500 MG TAB PO SCH (07:46)
[2017-11-26] MEDS: amLODIPine 2.5 MG TAB PO SCH (07:46)
[2017-11-26] MEDS: FAMOTIDINE 20 MG TAB PO SCH (07:46)
[2017-11-26] MEDS: cefTRIAXone IN SWFI 1,000 MG/10 ML SYRINGE IVP SCH (07:46)
[2017-11-26] MEDS: guaiFENesin 600 MG TABLET.ER PO SCH (07:46)
[2017-11-26] MEDS: METOPROLOL TARTRATE 25 MG TAB PO SCH (07:47)
[2017-11-26] MEDS: ISOSORBIDE MONONITRATE ER 30 MG TAB.ER.24H PO SCH (07:47)
[2017-11-26 08:31] LABS: Basophils # (A) 0.1 k/uL (0-0.2); Basophils % (A) 1 %; Eosinophils % (A) 0 %; HCT 38.3 % (34.0-46.0); HGB 11.1 gm/dL (11.4-16.0); Hypochromasia Moderate; Lymphocytes # (A) 2.1 k/uL (1.0-4.8); Lymphocytes % (A) 17 %; MCH 29.4 pg (25.0-35.0); MCHC 28.9 g/dL (31.0-37.0); MCV 101.8 fL (80.0-100.0); Macrocytosis Slight; Mean Platelet Volume 7.6; Monocytes # (A) 0.8 k/uL (0-1.0); Monocytes % (A) 6 %; Neutrophils # (A) 9.5 k/uL (1.3-7.7); Neutrophils % (A) 76 %; Platelet Count 215 k/uL (150-450); RBC 3.77 m/uL (3.80-5.40); RDW 14.2 % (11.5-15.5); WBC 12.6 k/uL (3.8-10.6)
[2017-11-26 08:54] LABS: Anion Gap 10 mmol/L; Blood Urea Nitrogen 26 mg/dL (7-17); Calcium 9.8 mg/dL (8.4-10.2); Carbon Dioxide 28 mmol/L (22-30); Chloride 104 mmol/L (98-107); Glucose 170 mg/dL (74-99); Potassium 4.3 mmol/L (3.5-5.1); Sodium 142 mmol/L (137-145)
--- NOTE | 2017-11-26 09:07 | XR ---
EXAMINATION TYPE: XR chest 1V portable DATE OF EXAM: 11/26/2017 COMPARISON: 11/24/2017 HISTORY: Pneumonia TECHNIQUE: Single frontal view of the chest is obtained. FINDINGS: There is improved aeration of the left upper lobe with residual mild reticular opacity and few air bronchograms. Mild right hemidiaphragm elevation is similar to the prior. Left hemidiaphragm flattening, coarse interstitial markings, and pulmonary hyperinflation related to underlying COPD. C ardiomediastinal silhouette is unchanged from the prior. There is diffuse mild osseous demineralizati on. IMPRESSION: Near complete resolution of the previously seen left upper lobe reticular opacity superi mposed upon background emphysematous changes.
[2017-11-26 11:08] VITALS: PULSE 77
--- NOTE | 2017-11-26 14:38 | CDI ---
Last Revision, October 2017 Documentation Clarification Form Date: 11/26/2017 2:14:00 PM From: Donna Anthony RN, CCDS Admit Date: 11/24/2017 10:59:00 AM Patient Name: Mechelle Gu I Visit Number: [id number] Discharge Date: ATTENTION: The Clinical Documentation Specialists (CDI) and [facility] Coding Staff appreciate your assistance in clarifying documentation. Please respond to the clarification below the line at the bottom and electronically sign. The CDI & [facility] Coding staff will review the response and follow-up if needed. Please note: Queries are made part of the Legal Health Record. If you have any questions, please contact the author of this message via ITS. Dr. Khadar Urias Conflicting documentation has been found in the medical record. On 11/24/17 H/P has left upper lobe pneumonia suspect gram-negative organism poa 11/25/17 Pulmonary (Dr. Collins) Acute left upper lobe pneumonia, community- acquired 11/25/17 Attn: left lobe pneumonia History/Risk Factors: COPD, Chronic hypoxic respiratory failure is O2 dependent , Hypertension, Former smoker, Home O2 3/L Clinical Indicators: Present with complaints of shortness of breath productive cough and wheezing. Chest x-ray: left upper lobe pneumonia suspected Vital signs: 123/62 87 22 95 % Treatment: Rocephin IV Nebulized bronchodilators Zithromax PO Pulmicort Inhalation Solu-Medrol IV (DC) In your opinion what is the most clinically appropriate diagnosis for this patient? Left upper lobe pneumonia suspect gram-negative organism Left upper lobe pneumonia community-acquired Other explanation of clinical findings Unable to determine (no explanation for clinical findings) Please continue to document in your progress notes and discharge summary in order to capture severity of illness and risk of mortality. Include clinical findings that support your diagnosis. _please see my dc summary. MTDD
--- NOTE | 2017-11-26 15:30 | P.PN ---
Subjective Progress Note Date: 11/26/17 Principal diagnosis: Acute on chronic hypoxic rest or a failure secondary to COPD exacerbation and left upper lobe pneumonia This is an 87-year-old female with history of multiple medical problems including COPD, chronic hypoxic respiratory failure, has been heavy smoker, patient was last seen on her last admission 09/20/2017, and at that time we have treated the patient for symptoms of acute exacerbation of COPD. Patient was eventually discharged home, and she has been doing well until recently. For the last few days the patient has been complaining of productive cough with whitish phlegm, wheezing, shortness of breath, and low-grade fever. Upon presentation to the ER, she was found to have a left upper lobe infiltrate. Admitted and this consult was initiated. I have been seeing this patient in my office for many years for her underlying COPD and chronic hypoxic respiratory failure. Patient is O2 dependent, but not prednisone dependent. 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 Patient denies any symptoms of ALLERGIC rhinitis, denies any symptoms of GERD or esophagitis. No headache, no blurred vision, no dizziness, no nausea no vomiting no abdominal pain no melena no hematemesis. On November 26 2017 patient is seen in follow-up on medical surgical floor, doing very well, denies any worsening dyspnea, afebrile, vital signs are stable , remains on 2 L per nasal cannula with O2 sat at 96-97%. Her chest x-ray from today was reviewed and shows near complete resolution of the previously seen left upper lobe reticular opacity. Lung sounds are clear, no rhonchi no wheezes were appreciated. Patient has been up ambulating to the bathroom tolerating it well. From pulmonary standpoint patient is stable to be discharged home today with follow-up in the office in one week Objective - Vital Signs Vital signs: Vital Signs Temp 96.5 F L 11/26/17 07:00 Pulse 77 11/26/17 11:06 Resp 18 11/26/17 07:00 BP 124/61 11/26/17 07:00 Pulse Ox 97 11/26/17 07:00 Intake & Output 11/25/17 11/26/17 11/26/17 18:59 06:59 18:59 Weight 40.37 kg Other: Voiding Method Bedside Commode # Voids 4 3 2 - Exam Frail, cachectic-looking white female General appearance: thin - EENT Eyes: PERRLA Ears: bilateral: normal - Neck Neck: normal ROM Carotids: bilateral: upstroke normal Thyroid: bilateral: normal size - Respiratory Respiratory: bilateral: diminished, prolonged expiration, symmetrical expansion , no chest wall tenderness. - Cardiovascular Rhythm: regular Heart sounds: normal: S1, S2 ankle Peripheral Edema: bilateral: None foot Peripheral Edema: bilateral: None dorsalis pedis Peripheral Pulses: bilateral: Normal radial pulse Peripheral Pulses: bilateral: Normal - Gastrointestinal General gastrointestinal: no organomegaly, soft, no tenderness - Integumentary No erythema, no rashes noted. - Neurologic Neurologic: CNII-XII intact. No gross focal neurologic deficits. - Musculoskeletal Musculoskeletal: generalized weakness - Psychiatric Psychiatric: A&O x's 3, appropriate affect, intact judgment & insight - Labs CBC & Chem 7: 11/26/17 08:11 11/26/17 08:11 Labs: Abnormal Lab Results - Last 24 Hours (Table) 11/26/17 11/26/17 Range/Units 08:11 08:11 WBC 12.6 H (3.8-10.6) k/uL RBC 3.77 L (3.80-5.40) m/uL Hgb 11.1 L (11.4-16.0) gm/dL MCV 101.8 H (80.0-100.0) fL MCHC 28.9 L (31.0-37.0) g/dL Neutrophils # 9.5 H (1.3-7.7) k/uL BUN 26 H (7-17) mg/dL Glucose 170 H (74-99) mg/dL Microbiology - Last 24 Hours (Table) 11/24/17 09:30 Blood Culture - Preliminary Blood No Growth after 48 hours Assessment and Plan Plan: Impression: 1 acute on chronic hypoxic respiratory failure secondary to COPD exacerbation. Also secondary to left upper lobe pneumonia. 2 acute left upper lobe pneumonia, community-acquired, patient is presently on Rocephin and Zithromax, today's chest x-ray on 11/26/2017 shows near complete resolution of the left upper lobe reticular opacity 3 significant protein currently malnutrition 4 history of hypertension, hyperlipidemia, and history of prednisone induced psychosis. Recommendation: Today's chest x-ray shows a dramatic improvement in the appearance of the left upper lobe reticular opacity, patient remains stable from pulmonary standpoint, reports improvement in terms of her dyspnea. She can be discharged home today on outpatient course of Zithromax and Ceftin, prednisone taper, her maintenance inhalers and nebulizer treatments, she will need follow-up with Dr. Montiel in the office in one week. I performed a history & physical examination of the patient and discussed their management with my nurse practitioner, Frances Lizarraga. I reviewed the nurse practitioner's note and agree with the documented findings and plan of care. Lung sounds are clear to auscultation. The findings and the impression was discussed with the patient. I attest to the documentation by the nurse practitioner. Time with Patient: Less than 30
--- NOTE | 2017-11-26 18:11 | DS ---
DISCHARGE SUMMARY DATE OF ADMISSION: 11/24/2017. DATE OF DISCHARGE: 11/26/2017 FINAL DIAGNOSES: 1. Left upper lobe pneumonia. Suspect Gram-negative organism, present on admission. 2. Acute advanced chronic obstructive pulmonary disease exacerbation in an ex-smoker, present on admission. 3. Moderate protein-calorie malnutrition from decreased oral intake. BMI 15. 4. Bilateral nephrolithiasis, asymptomatic. 5. Essential hypertension. 6. Hyperlipidemia. 7. Primary osteoarthritis in multiple joints, bilateral. 8. Acute hypoxic respiratory failure, present on admission, from underlying chronic obstructive pulmonary disease. 9. Chronic hypoxic respiratory failure from underlying chronic obstructive pulmonary disease. CONSULTATION: Dr. Collins. HOSPITAL COURSE: This patient is a long-standing smoker; before presented with pneumonia, COPD exacerbation. Doing better by the time of discharge. Care was discussed with the patient's son at the bedside. Also discussed with Dr. Collins. PHYSICAL EXAMINATION: LUNGS: Decreased breath sounds. PSYCH: Able to answer questions. CARDIOVASCULAR: First and second sounds normal. DISCHARGE MEDICATIONS: 1. Imdur ER 30 mg daily. 2. Toprol 25 mg b.i.d. 3. Zantac 150 mg b.i.d. 4. Norvasc 2.5 p.o. daily. 5. DuoNeb q.i.d. 6. Nicotine patch. 7. Mucinex 600 mg b.i.d. 8. Naproxen 250 mg b.i.d. 9. Tylenol 3 one tablet q.8 p.r.n. 10.Perforomist 20 mcg b.i.d. 11.Zocor 20 mg at bedtime. 12.Pulmicort 1 mg b.i.d. 13.Ceftin 500 mg p.o. b.i.d.; 10 tablets. Follow up with Dr. Spivey in 3 days, Dr. Collins in 1 week. MMODL / IJN: [id number] /
[2017-11-27] MEDS ORDERED: FAMOTIDINE 20 MG TAB PO SCH (09:00)
== END 2017-11-26 15:51 | disposition home health service (06) | DRG 177 ==
LOC: EC 09:28 → 4MS4W 10:59
PROVIDERS: ADMIT Hospitalist; ATTEND Hospitalist
DX: J15.6 Pneumonia due to other Gram-negative bacteria (principal); J96.21 Acute and chronic respiratory failure with hypoxia; E44.0 Moderate protein-calorie malnutrition; J44.1 Chronic obstructive pulmonary disease with (acute) exacerbation; Z68.1 Body mass index [BMI] 19.9 or less, adult; J44.0 Chronic obstructive pulmonary disease with (acute) lower respiratory infection; Z99.81 Dependence on supplemental oxygen; F17.200 Nicotine dependence, unspecified, uncomplicated; N20.0 Calculus of kidney; I10 Essential (primary) hypertension; E78.5 Hyperlipidemia, unspecified; K21.9 Gastro-esophageal reflux disease without esophagitis; M15.9 Polyosteoarthritis, unspecified; Z79.899 Other long term (current) drug therapy; Z82.49 Family history of ischemic heart disease and other diseases of the circulatory system; Z90.49 Acquired absence of other specified parts of digestive tract; Z90.89 Acquired absence of other organs; Z98.51 Tubal ligation status; Z83.3 Family history of diabetes mellitus; Z88.1 Allergy status to other antibiotic agents; Z88.8 Allergy status to other drugs, medicaments and biological substances; Z82.5 Family history of asthma and other chronic lower respiratory diseases
CPT/HCPCS: 36415; 71045; 71046; 80048; 80053; 83880; 84484; 85025; 85610; 85730; 87040; 94640; 96365; 96375; 99285

== ENCOUNTER 2017-12-02 08:39 | Inpatient (IN) | payer MEDICARE, BC ==
[2017-12-02] MEDS ORDERED: ALBUTEROL NEBULIZED 2.5 MG/3 ML INHALATION STA (08:45)
[2017-12-02] MEDS ORDERED: methylPREDNISolone SOD SUCCI 125 MG/2 ML VIAL IV STA (08:45)
[2017-12-02] MEDS ORDERED: SODIUM CHLORIDE 0.9% 1,000 ML IV STA (08:45)
[2017-12-02] MEDS ORDERED: SODIUM CHLORIDE 0.9% 500 ML IV STA (08:45)
[2017-12-02] MEDS ORDERED: IPRATROPIUM 0.5 MG/2.5 ML NEBU INHALATION STA (08:45)
[2017-12-02 09:09] LABS: Basophils # (A) 0.1 k/uL (0-0.2); Basophils % (A) 1 %; Eosinophils # (A) 0.4 k/uL (0-0.7); Eosinophils % (A) 3 %; HCT 38.5 % (34.0-46.0); HGB 12.1 gm/dL (11.4-16.0); Hypochromasia Slight; Lymphocytes # (A) 1.9 k/uL (1.0-4.8); Lymphocytes % (A) 17 %; MCH 30.5 pg (25.0-35.0); MCHC 31.4 g/dL (31.0-37.0); MCV 96.9 fL (80.0-100.0); Mean Platelet Volume 7.6; Monocytes % (A) 9 %; Neutrophils # (A) 7.3 k/uL (1.3-7.7); Neutrophils % (A) 67 %; Platelet Count 196 k/uL (150-450); RBC 3.97 m/uL (3.80-5.40); RDW 13.7 % (11.5-15.5); WBC 10.8 k/uL (3.8-10.6)
[2017-12-02 09:22] LABS: INR 1.1 (<1.2); Partial Thromboplastin Time 23.2 sec (22.0-30.0)
[2017-12-02 09:24] LABS: ALT 33 U/L (9-52); AST 32 U/L (14-36); Albumin 3.4 g/dL (3.5-5.0); Alkaline Phosphatase 100 U/L (38-126); Anion Gap 8 mmol/L; Blood Urea Nitrogen 14 mg/dL (7-17); Calcium 9.6 mg/dL (8.4-10.2); Carbon Dioxide 32 mmol/L (22-30); Chloride 102 mmol/L (98-107); Glucose 112 mg/dL (74-99); Magnesium 1.5 mg/dL (1.6-2.3); Potassium 4.1 mmol/L (3.5-5.1); Sodium 142 mmol/L (137-145); Total Bilirubin 0.4 mg/dL (0.2-1.3); Total Protein 6.2 g/dL (6.3-8.2)
--- NOTE | 2017-12-02 09:31 | ED ---
General Adult HPI - General Chief complaint: Shortness of Breath Stated complaint: Difficulty Breathing Time Seen by Provider: 12/02/17 08:45 Source: patient, EMS, RN notes reviewed, old records reviewed Mode of arrival: EMS Limitations: no limitations - History of Present Illness Initial comments: This is an 87-year-old female to the ER stay patient presents for evaluation regarding shortness of breath, history of COPD history of recent admission for pneumonia. Patient had visiting caregiver to her house today who felt that her breathing is getting progressively worse. Patient denies fever pain. No bowel pain no nausea vomiting diarrhea. Patient also developed minor nosebleed today and was unable to wear her oxygen causing even increased shortness of breath - Related Data Home Medications Medication Instructions Recorded Confirmed Isosorbide Mononitrate ER [Imdur] 30 mg PO DAILY 10/29/14 12/02/17 Metoprolol Tartrate 25 mg PO BID 10/29/14 12/02/17 Ranitidine HCl 150 mg PO BID 10/29/14 12/02/17 amLODIPine BESYLATE [Norvasc] 2.5 mg PO DAILY 10/29/14 12/02/17 guaiFENesin [Mucinex] 600 mg PO BID 09/19/17 12/02/17 Acetaminophen-Codeine 300-30mg 1 tab PO Q8H PRN 11/24/17 12/02/17 [Tylenol w/codeine #3] Formoterol Fumarate [Perforomist] 20 mcg INHALATION RT-BID 11/24/17 12/02/17 Simvastatin [Zocor] 20 mg PO HS 11/24/17 12/02/17 Previous Rx's Medication Instructions Recorded Ipratropium-Albuterol Nebulize 3 ml INHALATION RT-QID #120 neb 08/04/17 [Duoneb 0.5 mg-3 mg/3 ml Soln] Naproxen [Naprosyn] 250 mg PO BID #60 tab 09/22/17 Budesonide [Pulmicort] 1 mg INHALATION RT-BID #60 nebu 11/26/17 Cefuroxime Axetil [Ceftin] 500 mg PO BID #10 tab 11/26/17 Allergies Allergy/AdvReac Type Severity Reaction Status Date / Time ciprofloxacin [From Cipro] Allergy Unknown Verified 12/02/17 09:00 Childhood steroids AdvReac Unknown Uncoded 12/02/17 10:25 Review of Systems ROS Statement: Those systems with pertinent positive or pertinent negative responses have been documented in the HPI. ROS Other: All systems not noted in ROS Statement are negative. Past Medical History Past Medical History: COPD, GERD/Reflux, Hyperlipidemia, Hypertension, Osteoarthritis (OA), Pneumonia, Respiratory Disorder Additional Past Medical History / Comment(s): Protein calorie malnutrition, chronic respiratory failure with home O2 at 3L/NC, bronchitis, arthritis multiple joints, UTIs. History of Any Multi-Drug Resistant Organisms: None Reported Past Surgical History: Appendectomy, Cholecystectomy, Tubal Ligation Additional Past Surgical History / Comment(s): EGD/colonoscopy, bilateral cataract removal. Past Anesthesia/Blood Transfusion Reactions: No Reported Reaction Past Psychological History: No Psychological Hx Reported Smoking Status: Former smoker - Past Family History Mother Family Medical History: Asthma, Congestive Heart Failure (CHF) Father Family Medical History: Diabetes Mellitus General Exam Limitations: no limitations General appearance: alert, in distress, cachectic Head exam: Present: atraumatic, normocephalic, normal inspection Eye exam: Present: normal appearance, PERRL, EOMI. Absent: scleral icterus, conjunctival injection, periorbital swelling ENT exam: Present: normal exam, mucous membranes moist Neck exam: Present: normal inspection. Absent: tenderness, meningismus, lymphadenopathy Respiratory exam: Present: respiratory distress, wheezes, accessory muscle use, decreased breath sounds, prolonged expiratory. Absent: rales, rhonchi, stridor Cardiovascular Exam: Present: normal rhythm, tachycardia, normal heart sounds. Absent: systolic murmur, diastolic murmur, rubs, gallop, clicks GI/Abdominal exam: Present: soft, normal bowel sounds. Absent: distended, tenderness, guarding, rebound, rigid Extremities exam: Present: normal inspection, full ROM, normal capillary refill. Absent: tenderness, pedal edema, joint swelling, calf tenderness Back exam: Present: normal inspection Neurological exam: Present: alert, oriented X3, CN II-XII intact Psychiatric exam: Present: normal affect, normal mood Skin exam: Present: warm, dry, intact, normal color. Absent: rash Course Vital Signs 12/02/17 12/02/17 12/02/17 08:41 09:12 09:28 Temperature 100.0 F H Pulse Rate 106 H 92 101 H Respiratory 24 22 Rate Blood Pressure 142/70 O2 Sat by Pulse 85 L 92 L Oximetry 12/02/17 09:33 Temperature Pulse Rate 95 Respiratory Rate Blood Pressure O2 Sat by Pulse Oximetry Medical Decision Making - Lab Data Result diagrams: 12/02/17 08:55 12/02/17 08:55 Lab Results 12/02/17 12/02/17 12/02/17 Range/Units 08:55 08:55 08:55 WBC 10.8 H (3.8-10.6) k/uL RBC 3.97 (3.80-5.40) m/uL Hgb 12.1 (11.4-16.0) gm/dL Hct 38.5 (34.0-46.0) % MCV 96.9 (80.0-100.0) fL MCH 30.5 (25.0-35.0) pg MCHC 31.4 (31.0-37.0) g/dL RDW 13.7 (11.5-15.5) % Plt Count 196 (150-450) k/uL Neutrophils % 67 % Lymphocytes % 17 % Monocytes % 9 % Eosinophils % 3 % Basophils % 1 % Neutrophils # 7.3 (1.3-7.7) k/uL Lymphocytes # 1.9 (1.0-4.8) k/uL Monocytes # 1.0 (0-1.0) k/uL Eosinophils # 0.4 (0-0.7) k/uL Basophils # 0.1 (0-0.2) k/uL Hypochromasia Slight PT (9.0-12.0) sec INR (<1.2) APTT (22.0-30.0) sec Sodium 142 (137-145) mmol/L Potassium 4.1 (3.5-5.1) mmol/L Chloride 102 (98-107) mmol/L Carbon Dioxide 32 H (22-30) mmol/L Anion Gap 8 mmol/L BUN 14 (7-17) mg/dL Creatinine 0.67 (0.52-1.04) mg/dL Est GFR (MDRD) Af Amer >60 (>60 ml/min/1.73 sqM) Est GFR (MDRD) Non-Af >60 (>60 ml/min/1.73 sqM) Glucose 112 H (74-99) mg/dL Plasma Lactic Acid Jayant (0.7-2.0) mmol/L Calcium 9.6 (8.4-10.2) mg/dL Magnesium 1.5 L (1.6-2.3) mg/dL Total Bilirubin 0.4 (0.2-1.3) mg/dL AST 32 (14-36) U/L ALT 33 (9-52) U/L Alkaline Phosphatase 100 (38-126) U/L Total Creatine Kinase 35 (30-135) U/L CK-MB (CK-2) 1.7 (0.0-2.4) ng/mL CK-MB (CK-2) Rel Index 4.9 Troponin I <0.012 (0.000-0.034) ng/mL NT-Pro-B Natriuret Pep pg/mL Total Protein 6.2 L (6.3-8.2) g/dL Albumin 3.4 L (3.5-5.0) g/dL Urine Color Urine Appearance (Clear) Urine pH (5.0-8.0) Ur Specific [place] (1.001-1.035) Urine Protein (Negative) Urine Glucose (UA) (Negative) Urine Ketones (Negative) Urine Blood (Negative) Urine Nitrite (Negative) Urine Bilirubin (Negative) Urine Urobilinogen (<2.0) mg/dL Ur Leukocyte Esterase (Negative) 12/02/17 12/02/17 12/02/17 Range/Units 08:55 08:55 08:55 WBC (3.8-10.6) k/uL RBC (3.80-5.40) m/uL Hgb (11.4-16.0) gm/dL Hct (34.0-46.0) % MCV (80.0-100.0) fL MCH (25.0-35.0) pg MCHC (31.0-37.0) g/dL RDW (11.5-15.5) % Plt Count (150-450) k/uL Neutrophils % % Lymphocytes % % Monocytes % % Eosinophils % % Basophils % % Neutrophils # (1.3-7.7) k/uL Lymphocytes # (1.0-4.8) k/uL Monocytes # (0-1.0) k/uL Eosinophils # (0-0.7) k/uL Basophils # (0-0.2) k/uL Hypochromasia PT 11.0 (9.0-12.0) sec INR 1.1 (<1.2) APTT 23.2 (22.0-30.0) sec Sodium (137-145) mmol/L Potassium (3.5-5.1) mmol/L Chloride (98-107) mmol/L Carbon Dioxide (22-30) mmol/L Anion Gap mmol/L BUN (7-17) mg/dL Creatinine (0.52-1.04) mg/dL Est GFR (MDRD) Af Amer (>60 ml/min/1.73 sqM) Est GFR (MDRD) Non-Af (>60 ml/min/1.73 sqM) Glucose (74-99) mg/dL Plasma Lactic Acid Jayant 1.0 (0.7-2.0) mmol/L Calcium (8.4-10.2) mg/dL Magnesium (1.6-2.3) mg/dL Total Bilirubin (0.2-1.3) mg/dL AST (14-36) U/L ALT (9-52) U/L Alkaline Phosphatase (38-126) U/L Total Creatine Kinase (30-135) U/L CK-MB (CK-2) (0.0-2.4) ng/mL CK-MB (CK-2) Rel Index Troponin I (0.000-0.034) ng/mL NT-Pro-B Natriuret Pep 1500 pg/mL Total Protein (6.3-8.2) g/dL Albumin (3.5-5.0) g/dL Urine Color Urine Appearance (Clear) Urine pH (5.0-8.0) Ur Specific [place] (1.001-1.035) Urine Protein (Negative) Urine Glucose (UA) (Negative) Urine Ketones (Negative) Urine Blood (Negative) Urine Nitrite (Negative) Urine Bilirubin (Negative) Urine Urobilinogen (<2.0) mg/dL Ur Leukocyte Esterase (Negative) 12/02/17 Range/Units 10:30 WBC (3.8-10.6) k/uL RBC (3.80-5.40) m/uL Hgb (11.4-16.0) gm/dL Hct (34.0-46.0) % MCV (80.0-100.0) fL MCH (25.0-35.0) pg MCHC (31.0-37.0) g/dL RDW (11.5-15.5) % Plt Count (150-450) k/uL Neutrophils % % Lymphocytes % % Monocytes % % Eosinophils % % Basophils % % Neutrophils # (1.3-7.7) k/uL Lymphocytes # (1.0-4.8) k/uL Monocytes # (0-1.0) k/uL Eosinophils # (0-0.7) k/uL Basophils # (0-0.2) k/uL Hypochromasia PT (9.0-12.0) sec INR (<1.2) APTT (22.0-30.0) sec Sodium (137-145) mmol/L Potassium (3.5-5.1) mmol/L Chloride (98-107) mmol/L Carbon Dioxide (22-30) mmol/L Anion Gap mmol/L BUN (7-17) mg/dL Creatinine (0.52-1.04) mg/dL Est GFR (MDRD) Af Amer (>60 ml/min/1.73 sqM) Est GFR (MDRD) Non-Af (>60 ml/min/1.73 sqM) Glucose (74-99) mg/dL Plasma Lactic Acid Jayant (0.7-2.0) mmol/L Calcium (8.4-10.2) mg/dL Magnesium (1.6-2.3) mg/dL Total Bilirubin (0.2-1.3) mg/dL AST (14-36) U/L ALT (9-52) U/L Alkaline Phosphatase (38-126) U/L Total Creatine Kinase (30-135) U/L CK-MB (CK-2) (0.0-2.4) ng/mL CK-MB (CK-2) Rel Index Troponin I (0.000-0.034) ng/mL NT-Pro-B Natriuret Pep pg/mL Total Protein (6.3-8.2) g/dL Albumin (3.5-5.0) g/dL Urine Color Yellow Urine Appearance Clear (Clear) Urine pH 7.5 (5.0-8.0) Ur Specific [place] 1.007 (1.001-1.035) Urine Protein Trace H (Negative) Urine Glucose (UA) Negative (Negative) Urine Ketones Negative (Negative) Urine Blood Negative (Negative) Urine Nitrite Negative (Negative) Urine Bilirubin Negative (Negative) Urine Urobilinogen <2.0 (<2.0) mg/dL Ur Leukocyte Esterase Negative (Negative) Critical Care Time Critical Care Time: Yes Total Critical Care Time: 31 Disposition Clinical Impression: Acute bronchitis with bronchospasm, Acute respiratory failure with hypoxia, Acute exacerbation of chronic obstructive airways disease Disposition: ADMITTED IP TO THIS HOSP Condition: Serious Referrals: Estuardo Spivey DO [Primary Care Provider] - 1-2 days
[2017-12-02 09:44] LABS: Creatine Kinase 35 U/L (30-135)
[2017-12-02 09:57] LABS: Creatine Kinase MB 1.7 ng/mL (0.0-2.4); Troponin I <0.012 ng/mL (0.000-0.034)
[2017-12-02 10:46] LABS: Appearance,Urine Clear (Clear); Bilirubin,Urine Negative (Negative); Blood,Urine Negative (Negative); Color,Urine Yellow; Glucose,Urine (UA) Negative (Negative); Ketones,Urine Negative (Negative); Leukocyte Esterase,Urine Negative (Negative); Nitrite,Urine Negative (Negative); PH, Urine 7.5 (5.0-8.0); Protein,Urine Trace (Negative); Specific Gravity,Urine 1.007 (1.001-1.035); Urobilinogen,Urine <2.0 mg/dL (<2.0)
--- NOTE | 2017-12-02 11:05 | XR ---
EXAMINATION TYPE: XR chest 1V portable DATE OF EXAM: 12/02/2017 Comparison: 11/26/2017 Clinical History: 87 year-old female shortness of breath, pain Findings: Heart borderline enlarged. Atherosclerotic arch calcifications. Biapical pleural-parenchymal scarring . Hyperinflation. Interstitial prominence unchanged. Increasing interstitial infiltrates at the infer ior lingula. No pleural effusion. Impression: COPD with new lingular infiltrate. Developing pneumonia not excluded.
[2017-12-02] MEDS: SODIUM CHLORIDE 0.9% 1,000 ML IV SCH (11:55)
[2017-12-02] MEDS: IPRATROPIUM-ALBUTEROL 3 ML NEB INHALATION SCH ×3 (12:36→19:49)
[2017-12-02 14:43] VITALS: BMI 16.2
[2017-12-02] MEDS ORDERED: Acetaminophen-Codeine 300-30mg TAB PO PRN (15:29)
[2017-12-02] MEDS ORDERED: BUDESONIDE 1 MG/2 ML NEBU INHALATION SCH (15:45)
[2017-12-02] MEDS ORDERED: IPRATROPIUM-ALBUTEROL 3 ML NEB INHALATION SCH (16:00)
[2017-12-02] MEDS: ISOSORBIDE MONONITRATE ER 30 MG TAB.ER.24H PO SCH (16:14)
[2017-12-02] MEDS: amLODIPine 2.5 MG TAB PO SCH (16:14)
[2017-12-02] MEDS: methylPREDNISolone SOD SUCCI 40 MG/ML 1 ML VIAL IV SCH ×2 (16:20→23:40)
--- NOTE | 2017-12-02 17:09 | HP ---
HISTORY AND PHYSICAL DATE OF ADMISSION: 12/02/17 PRESENTING COMPLAINT: Short of breath. HISTORY OF PRESENTING COMPLAINT: This 87-year-old patient of Dr. Spivey whose chronic stable medical conditions include hypertension, hyperlipidemia, osteoarthritis, on home oxygen 3 L. The patient is a resident of [facility], follows with Dr. Collins. The patient has had multiple admissions for COPD. The patient is not the best of historians. Came in because she could not breathe. Minimal cough. Denies any sputum. Was in recently for pneumonia, some wheezing, decreased appetite, tired, run down. REVIEW OF SYSTEMS: Constitutional: Tired. HEENT: Decreased hearing. Respiratory as above. Cardiovascular none. Gastrointestinal denies. Musculoskeletal: Pain in different joints. Dermatological and hematologic, lymphatic none. Psychiatry: Anxiety, forgetful. Neurological forgetful. PAST MEDICAL HISTORY: Of COPD, hypertension, hyperlipidemia, osteoarthritis, protein calorie malnutrition, urinary stress incontinence, chronic hypoxic respiratory failure. PAST SURGICAL HISTORY: Appendectomy, cholecystectomy and tubal ligation. SOCIAL HISTORY: The patient stopped smoking a few weeks ago. Lives at the [facility]. No alcohol. FAMILY HISTORY: Congestive heart failure. HOME MEDICATIONS: 1. Mucinex 600 mg p.o. b.i.d. 2. Norvasc 2.5 p.o. daily. 3. Zocor 20 mg q.h.s. p.r.n. 4. Zantac 150 mg p.o. b.i.d. 5. Naproxen 250 p.o. b.i.d. 6. Metoprolol 25 p.o. b.i.d. 7. Imdur ER 30 mg p.o. daily. 8. DuoNeb q.i.d. 9. Perforomist 20 mcg b.i.d. 10.Ceftin 500 mg b.i.d. 11.Pulmicort 1 mg b.i.d. 12.Tylenol 3 one tablet p.o. q.8h p.r.n. ALLERGIES: CIPRO AND STEROIDS. PHYSICAL EXAMINATION: Vital signs on presentation: Temperature 100, pulse 106, respiration 20, blood pressure 140/70, pulse ox 85% on room air. GENERAL APPEARANCE: Thin built, BMI 16.3, sitting up, tired appearing. EYES: Pupils equal. Conjunctivae are normal. HEENT: Oral cavity normal. Neck JVD not raised. Mass not palpable. RESPIRATORY: Effort increased. LUNGS: Diminished breath sounds, prolonged expiration. Cardiovascular: 1st and 2nd sounds no edema. ABDOMEN: Soft, nontender. Liver and spleen not palpable. Lymphatics: No lymph nodes palpable in the neck and axilla. Psychiatry: Alert and oriented times three. Mood and affect normal. Neurological: Pupils equal. Cranial nerves grossly intact. Power and sensation grossly intact. INVESTIGATIONS: White count 10.8, hemoglobin 12.1, potassium 4.1, BUN and creatinine is normal. Chest x-ray, questionable infiltrate. ASSESSMENT: 1. Acute chronic obstructive pulmonary disease exacerbation in an ex-smoker. 2. Moderate protein calorie malnutrition, decreased oral intake. 3. Bilateral nephrolithiasis asymptomatic. 4. Essential hypertension. 5. Hyperlipidemia. 6. Primary osteoarthritis multiple joints, bilateral. 7. Chronic hypoxic respiratory failure underlying chronic obstructive pulmonary disease. PLAN: Patient is to continue nebulized bronchodilators, IV steroids. Home medications are resumed. Dr. Collins was consulted. Overall prognosis is guarded. Care was discussed with the patient. MMODL / IJN: [id number] /
--- NOTE | 2017-12-02 17:44 | P.CNPUL ---
History of Present Illness Consult date: 12/02/17 Requesting physician: Khadar Urias Reason for consult: dyspnea Chief complaint: Increased dyspnea History of present illness: Mechelle is a 87-year-old white female patient who sees Dr. Collins in our office for her history of severe oxygen dependent COPD, FEV1 of 40% of predicted on most recent PFT on 06/23/2017, was recently hospitalized for community-acquired left upper lobe pneumonia, improved, and discharged home on 11/26/2017. She was treated with Rocephin and Zithromax, nebulized treatments, she was given 1 dose of IV Decadron in view of her adverse reaction to prednisone with a history of prednisone-induced psychosis. Patient has not been smoking, quit couple months ago. Denied any fever, or chills, denied any cough, denied any phlegm production, denied any chest wall pain, or hemoptysis. No nausea, vomiting or diarrhea. Chest x-ray from 12/02/2017 shows COPD, with increasing interstitial infiltrates at the inferior lingula, more consistent with atelectasis. Patient did have a low-grade fever on presentation with a temp of 100F. Was hypoxic with O2 sat at 85% on her usual 2 L/m oxygen. Slightly tachycardic with a heart rate of 106 BPM and labored respirations. Lab work shows WBC of 10.8, hemoglobin of 12.1, INR of 1.1, carbon dioxide of 32, sodium 142, potassium is 4.1, B1 of 14, creatinine of 0.67. Plasma lactic acid was normal at 1.0, proBNP was elevated at 1500, troponin and cardiac enzymes were negative 1. Urinalysis was with only trace protein. Influenza screen was negative. Patient was started on nebulized treatments, Pulmicort, Perforomist, DuoNeb, IV steroids, she was given a liter bolus in the emergency room, 0.9 at 100 ML per hour, and admitted for further management. Review of Systems All systems: negative Constitutional: Denies chills, Denies fever Eyes: denies blurred vision, denies pain Ears, nose, mouth and throat: Denies headache, Denies sore throat Cardiovascular: Denies chest pain, Denies shortness of breath Respiratory: Denies cough Gastrointestinal: Denies abdominal pain, Denies diarrhea, Denies nausea, Denies vomiting Genitourinary: Denies dysuria, Denies hematuria Musculoskeletal: Denies myalgias Integumentary: Denies pruritus, Denies rash Neurological: Denies numbness, Denies weakness Psychiatric: Denies anxiety, Denies depression Endocrine: Denies fatigue, Denies weight change Past Medical History Past Medical History: COPD, GERD/Reflux, Hyperlipidemia, Hypertension, Osteoarthritis (OA), Pneumonia, Respiratory Disorder Additional Past Medical History / Comment(s): Pt recently admitted on 11/24/17 with L upper lobe pneumonia. Other hx: Protein calorie malnutrition, chronic respiratory failure with home O2 at 3L/NC, bronchitis, arthritis multiple joints, UTIs, bilateral nephrolithiasis. History of Any Multi-Drug Resistant Organisms: None Reported Past Surgical History: Appendectomy, Cholecystectomy, Tubal Ligation Additional Past Surgical History / Comment(s): EGD/colonoscopy, bilateral cataract removal. Past Anesthesia/Blood Transfusion Reactions: No Reported Reaction Past Psychological History: No Psychological Hx Reported Additional Psychological History / Comment(s): Pt resides alone at [facility]. she ambulates with a walker or a cane. She has home O2. She states she has a "lady" who comes every morning to assist her although she doesn't have to do too much. Pt does not drive, her family takes her to [employer] (acquired by [employer]). Smoking Status: Former smoker Past Alcohol Use History: None Reported Additional Past Alcohol Use History / Comment(s): Pt states she quit smokin a long time ago-years ago but does not recall year. She started smoking in 1946. Past Drug Use History: None Reported - Past Family History Mother Family Medical History: Asthma, Congestive Heart Failure (CHF) Father Family Medical History: Diabetes Mellitus Medications and Allergies Home Medications Medication Instructions Recorded Confirmed Type Isosorbide Mononitrate ER [Imdur] 30 mg PO DAILY 10/29/14 12/02/17 History Metoprolol Tartrate 25 mg PO BID 10/29/14 12/02/17 History Ranitidine HCl 150 mg PO BID 10/29/14 12/02/17 History amLODIPine BESYLATE [Norvasc] 2.5 mg PO DAILY 10/29/14 12/02/17 History Ipratropium-Albuterol Nebulize 3 ml INHALATION RT-QID #120 neb 08/04/17 Rx [Duoneb 0.5 mg-3 mg/3 ml Soln] guaiFENesin [Mucinex] 600 mg PO BID 09/19/17 12/02/17 History Naproxen [Naprosyn] 250 mg PO BID #60 tab 09/22/17 12/02/17 Rx Acetaminophen-Codeine 300-30mg 1 tab PO Q8H PRN 11/24/17 12/02/17 History [Tylenol w/codeine #3] Formoterol Fumarate [Perforomist] 20 mcg INHALATION RT-BID 11/24/17 12/02/17 History Simvastatin [Zocor] 20 mg PO HS 11/24/17 12/02/17 History Budesonide [Pulmicort] 1 mg INHALATION RT-BID #60 nebu 11/26/17 12/02/17 Rx Cefuroxime Axetil [Ceftin] 500 mg PO BID #10 tab 11/26/17 12/02/17 Rx Allergies Allergy/AdvReac Type Severity Reaction Status Date / Time ciprofloxacin [From Cipro] Allergy Unknown Verified 12/02/17 09:00 Childhood steroids AdvReac Unknown Uncoded 12/02/17 10:25 Physical Exam Vitals: Vital Signs Temp Pulse Pulse Resp BP BP Pulse Ox 12/02/17 16:06 100 12/02/17 15:52 100 12/02/17 15:44 80 28 H 12/02/17 12:46 102 H 12/02/17 12:39 102 H 12/02/17 12:25 106 H 18 12/02/17 12:14 98.3 F 106 H 18 126/78 92 L 12/02/17 11:18 94 20 125/58 95 12/02/17 10:48 92 138/65 92 L 12/02/17 10:18 102 H 20 119/55 91 L 12/02/17 09:33 95 12/02/17 09:28 101 H 22 92 L 12/02/17 09:12 92 12/02/17 08:41 100.0 F H 106 H 24 142/70 85 L Intake and Output 12/02/17 12/02/17 12/02/17 06:59 14:59 22:59 Intake Total 860 Balance 860 Intake: Intake, IV Titration 200 Amount Sodium Chloride 0.9% 1, 200 000 ml @ 100 mls/hr IV . Q10H [facility] Rx#:[id number] Oral 660 Other: Weight 44.452 kg Patient Weight 12/03/17 06:59 Weight 44.452 kg GENERAL EXAM: Alert, active, comfortable in no apparent distress. HEAD: Normocephalic/atraumatic. EYES: Normal reaction of pupils, equal size. Conjunctiva pink, sclera white. NOSE: Clear with pink turbinates. THROAT: No erythema or exudates. NECK: No masses, no JVD, no thyroid enlargement, no adenopathy. CHEST: No chest wall deformity. Symmetrical expansion. LUNGS: Equal air entry with crackles in the left lower lobe CVS: Regular rate and rhythm, normal S1 and S2, no gallops, no murmurs, no rubs ABDOMEN: Soft, nontender. No hepatosplenomegaly, normal bowel sounds, no guarding or rigidity. EXTREMITIES: No clubbing, no edema, no cyanosis, 2+ pulses and upper and lower extremities. MUSCULOSKELETAL: Muscle strength and tone normal. SPINE: No scoliosis or deformity SKIN: No rashes CENTRAL NERVOUS SYSTEM: Alert and oriented -3. No focal deficits, tone is normal in all 4 extremities. PSYCHIATRIC: Alert and oriented -3. Appropriate affect. Intact judgment and insight. Results - Laboratory Findings CBC and BMP: 12/02/17 08:55 12/02/17 08:55 PT/INR, D-dimer PT 11.0 sec (9.0-12.0) 12/02/17 08:55 INR 1.1 (<1.2) 12/02/17 08:55 Abnormal lab findings: Abnormal Labs 12/02/17 12/02/17 12/02/17 08:55 08:55 10:30 WBC 10.8 H Carbon Dioxide 32 H Glucose 112 H Magnesium 1.5 L Total Protein 6.2 L Albumin 3.4 L Urine Protein Trace H - Diagnostic Findings Chest x-ray: report reviewed Assessment and Plan Plan: Assessment: #1. Acute on chronic hypoxic respiratory failure, secondary to COPD exacerbation, chest x-ray from 12/02/2017 shows COPD, left lower lobe atelectasis #2. Recent admission for left upper lobe pneumonia, discharged home on 2017, treated with Rocephin and Zithromax, improved, finish outpatient course of oral Ceftin on 12/01/2017 #3. Severe GOLD stage III COPD, oxygen dependent, with FEV1 of 40% on the most recent PFT from July 2017 #4. History of long-standing nicotine dependence, quit 2 months ago #5. Protein calorie malnutrition and muscle atrophy #6. Hypertension, hyperlipidemia #7. Elevated proBNP, of 1500 on admission. We'll obtain 2-D echo Plan: Continue nebulized treatments, Pulmicort, Perforomist, patient had completed her outpatient course of oral Ceftin yesterday on 12/01/2017. No chest congestion, no sputum production. Denies any chills. She was given a liter bolus in the emergency room, her vital signs are stable. Her proBNP is elevated , we will obtain a 2-D echo in the morning. 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 We'll obtain a repeat chest x-ray in the morning, decreased IV fluids down to 20 mL per hour. I performed a history & physical examination of the patient and discussed their management with my nurse practitioner, Frances Lizarraga. I reviewed the nurse practitioner's note and agree with the documented findings and plan of care. Lung sounds are positive for left lower lobe crackles. The findings and the impression was discussed with the patient. I attest to the documentation by the nurse practitioner. Time with Patient: Greater than 30
[2017-12-02] MEDS ORDERED: methylPREDNISolone SOD SUCCI 125 MG/2 ML VIAL IV SCH (18:00)
[2017-12-02] MEDS: BUDESONIDE 1 MG/2 ML NEBU INHALATION SCH (19:49)
[2017-12-02] MEDS: FORMOTEROL FUMARATE 20 MCG/2 ML NEBU INHALATION SCH (19:49)
[2017-12-02] MEDS: FAMOTIDINE 20 MG TAB PO SCH (20:16)
[2017-12-02] MEDS: METOPROLOL TARTRATE 25 MG TAB PO SCH (20:16)
[2017-12-02] MEDS ORDERED: ATORVASTATIN 10 MG TAB PO SCH (21:00)
[2017-12-03] MEDS: FORMOTEROL FUMARATE 20 MCG/2 ML NEBU INHALATION SCH (07:18)
[2017-12-03] MEDS: IPRATROPIUM-ALBUTEROL 3 ML NEB INHALATION SCH ×3 (07:18→15:31)
[2017-12-03] MEDS: BUDESONIDE 1 MG/2 ML NEBU INHALATION SCH (07:18)
[2017-12-03] MEDS: methylPREDNISolone SOD SUCCI 40 MG/ML 1 ML VIAL IV SCH (07:33)
[2017-12-03] MEDS: FAMOTIDINE 20 MG TAB PO SCH (07:34)
[2017-12-03] MEDS: amLODIPine 2.5 MG TAB PO SCH (07:36)
[2017-12-03 07:55] VITALS: BP 127/62; TEMP 97.5
--- NOTE | 2017-12-03 07:58 | XR ---
EXAMINATION TYPE: XR chest 2V DATE OF EXAM: 12/03/2017 COMPARISON: Prior chest x-ray 12/02/2017 HISTORY: Shortness of breath and cough TECHNIQUE: Frontal and lateral views of the chest are obtained. FINDINGS: There is no focal air space opacity, pleural effusion, or pneumothorax seen. The cardiac silhouette size is within normal limits. Prominent lung volumes are compatible with COPD. Aorta is d ense. There is a pectus deformity present. Interstitium is increased as on prior. Question pulmonary arterial enlargement, pulmonary artery hypertension, groundglass opacity within the lungs. The osseou s structures are intact. IMPRESSION: Interstitial lung disease. Correlate to exclude congestive heart failure in a patient wi th pre-existing COPD. There may be underlying alveolitis.
[2017-12-03] MEDS ORDERED: ENOXAPARIN 40 MG/0.4 ML SYRINGE SQ SCH (09:00)
[2017-12-03] MEDS: ISOSORBIDE MONONITRATE ER 30 MG TAB.ER.24H PO SCH (09:12)
[2017-12-03] MEDS: METOPROLOL TARTRATE 25 MG TAB PO SCH (09:12)
[2017-12-03] MEDS ORDERED: MAGNESIUM SULFATE-D5W PMX 1 GM in DEXTROSE/WATER 1 100ML.BAG IVPB ONE (09:30)
--- NOTE | 2017-12-03 10:30 | ECHOF ---
Referral Reason:shortness of breath MEASUREMENTS -------- HEIGHT: 165.1 cm WEIGHT: 44.5 kg BP: 110/56 RVIDd: 2.3 cm (< 3.3) IVSd: 1.2 cm (0.6 - 1.1) LVIDd: 3.8 cm (3.9 - 5.3) LVPWd: 1.0 cm (0.6 - 1.1) IVSs: 1.3 cm LVIDs: 2.8 cm LVPWs: 0.9 cm LA Diam: 2.1 cm (2.7 - 3.8) Ao Diam: 2.8 cm (2.0 - 3.7) AV Cusp: 1.5 cm (1.5 - 2.6) LA Diam: 2.9 cm (2.7 - 3.8) MV EXCURSION: 18.742 mm (> 18.000) MV EF SLOPE: 73 mm/s (70 - 150) EPSS: 0.3 cm MV E Hoang: 0.53 m/s MV DecT: 163 ms MV A Hoang: 0.60 m/s MV E/A Ratio: 0.87 RAP: 15.00 mmHg RVSP: 75.62 mmHg FINDINGS -------- Sinus rhythm. This was a technically good study. The left ventricular size is normal. There is mild concentric left ventricular hypertrophy. Overa ll left ventricular systolic function is low-normal with, an EF between 50 - 55 %. The right ventricle is normal in size. The right atrial size is normal. There is mild aortic valve sclerosis. There is no evidence of aortic regurgitation. The mitral valve leaflets are mildly thickened. Mild mitral regurgitation is present. Moderate to severe tricuspid regurgitation present. There is moderate to severe pulmonary hypertens ion. The right ventricular systolic pressure, as measured by Doppler, is 75.62mmHg. Trace/mild (physiologic) pulmonic regurgitation. The aortic root size is normal. There is no pericardial effusion. CONCLUSIONS -------- 1. The left ventricular size is normal. 2. There is mild concentric left ventricular hypertrophy. 3. Overall left ventricular systolic function is low-normal with, an EF between 50 - 55 %. 4. There is mild aortic valve sclerosis. 5. The mitral valve leaflets are mildly thickened. 6. Mild mitral regurgitation is present. 7. Moderate to severe tricuspid regurgitation present. 8. There is moderate to severe pulmonary hypertension. 9. The right ventricular systolic pressure, as measured by Doppler, is 75.62mmHg. 10. Trace/mild (physiologic) pulmonic regurgitation. 11. The aortic root size is normal. 12. There is no pericardial effusion. [employer] COACH: Andreina Payne RDCS
[2017-12-03 10:36] LABS: Anion Gap 11 mmol/L; Blood Urea Nitrogen 22 mg/dL (7-17); Calcium 9.5 mg/dL (8.4-10.2); Carbon Dioxide 26 mmol/L (22-30); Chloride 102 mmol/L (98-107); Glucose 307 mg/dL (74-99); Magnesium 1.5 mg/dL (1.6-2.3); Potassium 4.2 mmol/L (3.5-5.1); Sodium 139 mmol/L (137-145)
[2017-12-03] MEDS: SODIUM CHLORIDE 0.9% 1,000 ML IV SCH (12:08)
--- NOTE | 2017-12-03 12:58 | P.PN ---
Subjective Progress Note Date: 12/03/17 Principal diagnosis: Acute on chronic hypoxic respiratory failure, secondary to COPD exacerbation. Mechelle is a 87-year-old white female patient who sees Dr. Collins in our office for her history of severe oxygen dependent COPD, FEV1 of 40% of predicted on most recent PFT on 06/23/2017, was recently hospitalized for community-acquired left upper lobe pneumonia, improved, and discharged home on 11/26/2017. She was treated with Rocephin and Zithromax, nebulized treatments, she was given 1 dose of IV Decadron in view of her adverse reaction to prednisone with a history of prednisone-induced psychosis. Patient has not been smoking, quit couple months ago. Denied any fever, or chills, denied any cough, denied any phlegm production, denied any chest wall pain, or hemoptysis. No nausea, vomiting or diarrhea. Chest x-ray from 12/02/2017 shows COPD, with increasing interstitial infiltrates at the inferior lingula, more consistent with atelectasis. Patient did have a low-grade fever on presentation with a temp of 100F. Was hypoxic with O2 sat at 85% on her usual 2 L/m oxygen. Slightly tachycardic with a heart rate of 106 BPM and labored respirations. Lab work shows WBC of 10.8, hemoglobin of 12.1, INR of 1.1, carbon dioxide of 32, sodium 142, potassium is 4.1, B1 of 14, creatinine of 0.67. Plasma lactic acid was normal at 1.0, proBNP was elevated at 1500, troponin and cardiac enzymes were negative 1. Urinalysis was with only trace protein. Influenza screen was negative. Patient was started on nebulized treatments, Pulmicort, Perforomist, DuoNeb, IV steroids, she was given a liter bolus in the emergency room, 0.9 at 100 ML per hour, and admitted for further management. On 12/03/2017 patient is seen in follow-up on medical surgical floor. Denies any worsening dyspnea. Continues on her home dose oxygen at 3 L per nasal cannula with O2 sat between 95-98%. Hemodynamically stable, afebrile. Lung sounds are generally diminished, no rhonchi, no wheezes noted. Chest x-ray from this morning was reviewed, shows interstitial lung disease. 2-D echo was reviewed, EF is between 50-55%. There is moderate to severe pulmonary hypertension with a right ventricular systolic pressure of 75 mmHg. Mild pulmonic regurgitation and mild aortic valve sclerosis, moderate to severe tricuspid regurgitation. Blood and urine culture remained negative. Patient has been ambulating within the room, tolerating it well. Is requesting to go home today. No acute events overnight. From our standpoint she stable for discharge home today. Objective - Vital Signs Vital signs: Vital Signs Temp 97.5 F L 12/03/17 07:00 Pulse 75 12/03/17 11:29 Resp 16 12/03/17 07:00 BP 127/62 12/03/17 07:00 Pulse Ox 98 12/03/17 07:00 Intake & Output 12/02/17 12/03/17 12/03/17 18:59 06:59 18:59 Intake Total 860 220 Balance 860 220 Weight 44.452 kg Intake: Intake, IV Titration 200 220 Amount Sodium Chloride 0.9% 1, 200 220 000 ml @ 20 mls/hr IV . Q24H [facility] Rx#:[id number] Oral 660 Other: Voiding Method Toilet Toilet Toilet # Voids 1 2 - Exam GENERAL EXAM: Alert, active, comfortable in no apparent distress. HEAD: Normocephalic/atraumatic. EYES: Normal reaction of pupils, equal size. Conjunctiva pink, sclera white. NOSE: Clear with pink turbinates. THROAT: No erythema or exudates. NECK: No masses, no JVD, no thyroid enlargement, no adenopathy. CHEST: No chest wall deformity. Symmetrical expansion. LUNGS: Equal air entry with crackles in the left lower lobe CVS: Regular rate and rhythm, normal S1 and S2, no gallops, no murmurs, no rubs ABDOMEN: Soft, nontender. No hepatosplenomegaly, normal bowel sounds, no guarding or rigidity. EXTREMITIES: No clubbing, no edema, no cyanosis, 2+ pulses and upper and lower extremities. MUSCULOSKELETAL: Muscle strength and tone normal. SPINE: No scoliosis or deformity SKIN: No rashes CENTRAL NERVOUS SYSTEM: Alert and oriented -3. No focal deficits, tone is normal in all 4 extremities. PSYCHIATRIC: Alert and oriented -3. Appropriate affect. Intact judgment and insight. - Labs CBC & Chem 7: 12/02/17 08:55 12/03/17 09:50 Labs: Abnormal Lab Results - Last 24 Hours (Table) 12/03/17 Range/Units 09:50 BUN 22 H (7-17) mg/dL Glucose 307 H (74-99) mg/dL Magnesium 1.5 L (1.6-2.3) mg/dL Microbiology - Last 24 Hours (Table) 12/02/17 08:55 Blood Culture - Preliminary Blood No Growth after 24 hours 12/02/17 10:30 Urine Culture - Preliminary Urine,Voided Assessment and Plan Plan: Assessment: #1. Acute on chronic hypoxic respiratory failure, secondary to COPD exacerbation, chest x-ray from 12/02/2017 shows COPD, left lower lobe atelectasis #2. Recent admission for left upper lobe pneumonia, discharged home on 2017, treated with Rocephin and Zithromax, improved, finish outpatient course of oral Ceftin on 12/01/2017 #3. Severe GOLD stage III COPD, oxygen dependent, with FEV1 of 40% on the most recent PFT from July 2017 #4. History of long-standing nicotine dependence, quit 2 months ago #5. Protein calorie malnutrition and muscle atrophy #6. Hypertension, hyperlipidemia #7. Elevated proBNP, of 1500 on admission. 2-D echo from 12/03/2017 shows left ventricular systolic function is low normal with EF between 50-55%, there is evidence of severe pulmonary hypertension, with right ventricular systolic pressure is 75 mmHg and moderate to severe tricuspid regurgitation Plan: Continue nebulized treatments, Pulmicort, Perforomist, patient had completed her outpatient course of oral Ceftin yesterday on 12/01/2017. No chest congestion, no sputum production. Denies any chills. She was given a liter bolus in the emergency room, her vital signs are stable. 2-D echo results have been reviewed, is evidence of significant pulmonary hypertension, secondary to severe advanced COPD. Continue home dose oxygen, patient is stable for discharge home today on her maintenance inhalers and nebulizers. No need for steroids, follow-up with Dr. Montiel in the office in one week. I performed a history & physical examination of the patient and discussed their management with my nurse practitioner, Frances Lizarraga. I reviewed the nurse practitioner's note and agree with the documented findings and plan of care. Lung sounds diminished, no rales, no rhonchi no wheezes. The findings and the impression was discussed with the patient. I attest to the documentation by the nurse practitioner. Time with Patient: Less than 30
[2017-12-03 15:42] VITALS: PULSE 88
[2017-12-03 15:49] VITALS: RESP 20
--- NOTE | 2017-12-03 18:48 | DS ---
DISCHARGE SUMMARY FINAL DIAGNOSES: 1. Acute chronic obstructive pulmonary disease exacerbation in an ex-smoker. 2. Moderate protein calorie malnutrition from decreased oral intake. 3. Bilateral nephrolithiasis, asymptomatic. 4. Essential hypertension. 5. Hyperlipidemia. 6. Primary osteoarthritis, multiple joints bilateral. 7. Chronic hypoxic respiratory failure from underlying chronic obstructive pulmonary disease. 8. Secondary pulmonary hypertension secondary to chronic obstructive pulmonary disease. 9. Moderate to severe tricuspid regurgitation, non-rheumatic. 10.Mild cognitive impairment. HISTORY: The patient yet again presented with COPD exacerbation. No evidence of infection. Doing better after a burst of steroids and nebulized bronchodilators. The patient has advanced lung disease. Today care was discussed with the patient and son at the bedside, did suggest that if things were not too bad, just given extra dose of nebulizer at home and see if can tide over episode. PHYSICAL EXAM: Lungs decreased breath sounds. Patient is able to answer simple questions. DISCHARGE MEDICATIONS: 1. Imdur ER 30 mg p.o. daily. 2. Metoprolol tartrate 25 mg p.o. b.i.d. 3. Zantac 150 mg p.o. b.i.d. 4. Norvasc 2.5 mg p.o. daily. 5. DuoNeb q.i.d. 6. Mucinex 600 mg p.o. b.i.d. 7. naproxen 250 mg p.o. b.i.d. 8. Tylenol 3 one tablet every 8 p.r.n. 9. Perforomist 20 mcg inhalation b.i.d. 10.Zocor 20 mg at bedtime. 11.Pulmicort 1 mg nebulizer b.i.d. 12.Home oxygen 3 L to continue. FOLLOWUP: 1. Follow up with Dr. Collins in 1 week. 2. Follow up with Dr. Spivey in 3 days. Discussion and discharge planning were more than 35 minutes. MMODL / IJN: [id number] /
[2017-12-04] MEDS ORDERED: FAMOTIDINE 20 MG TAB PO SCH (09:00)
== END 2017-12-03 16:05 | disposition home health service (06) | DRG 189 ==
LOC: EC 08:39 → 5MS5E 10:52
PROVIDERS: ADMIT Hospitalist; ATTEND Hospitalist
DX: J96.21 Acute and chronic respiratory failure with hypoxia (principal); J84.9 Interstitial pulmonary disease, unspecified; E44.0 Moderate protein-calorie malnutrition; I27.29 Other secondary pulmonary hypertension; J44.1 Chronic obstructive pulmonary disease with (acute) exacerbation; J98.11 Atelectasis; Z68.1 Body mass index [BMI] 19.9 or less, adult; I35.8 Other nonrheumatic aortic valve disorders; I36.1 Nonrheumatic tricuspid (valve) insufficiency; E78.5 Hyperlipidemia, unspecified; G31.84 Mild cognitive impairment of uncertain or unknown etiology; I10 Essential (primary) hypertension; I37.1 Nonrheumatic pulmonary valve insufficiency; K21.9 Gastro-esophageal reflux disease without esophagitis; M15.9 Polyosteoarthritis, unspecified; N20.0 Calculus of kidney; N39.3 Stress incontinence (female) (male); R00.0 Tachycardia, unspecified; Z79.899 Other long term (current) drug therapy; Z99.81 Dependence on supplemental oxygen; Z88.1 Allergy status to other antibiotic agents; Z88.8 Allergy status to other drugs, medicaments and biological substances; Z87.891 Personal history of nicotine dependence; Z87.01 Personal history of pneumonia (recurrent); Z87.440 Personal history of urinary (tract) infections; Z82.49 Family history of ischemic heart disease and other diseases of the circulatory system
CPT/HCPCS: 36415; 71045; 71046; 80048; 80053; 81003; 82550; 82553; 83605; 83735; 83880; 84484; 85025; 85610; 85730; 87040; 87086; 87502; 93005; 93306; 94640; 99291

== ENCOUNTER 2018-05-06 14:03 | Inpatient (IN) | payer MEDICARE, BC ==
[2018-05-06] MEDS ORDERED: ACETAMINOPHEN TAB 500 MG TAB PO STA (15:15)
[2018-05-06] MEDS ORDERED: cefTRIAXone IN SWFI 1,000 MG/10 ML SYRINGE IVP STA (15:17)
[2018-05-06 15:21] LABS: Appearance,Urine Turbid (Clear); Bacteria,Urine Rare /hpf; Bilirubin,Urine Negative (Negative); Blood,Urine Moderate (Negative); Color,Urine Light Red; Glucose,Urine (UA) Negative (Negative); Ketones,Urine Negative (Negative); Leukocyte Esterase,Urine Large (Negative); Mucus,Urine Rare /hpf; Nitrite,Urine Negative (Negative); PH, Urine 6.5 (5.0-8.0); Protein,Urine 2+ (Negative); RBC,Urine 153 /hpf (0-5); Specific Gravity,Urine 1.018 (1.001-1.035); WBC,Urine >182 /hpf (0-5)
[2018-05-06] MEDS: SODIUM CHLORIDE 0.9% 500 ML IV SCH ×2 (15:31→15:32)
[2018-05-06] MEDS: SODIUM CHLORIDE 0.9% 1,000 ML IV SCH (15:31)
[2018-05-06 15:46] LABS: Basophils # (A) 0.1 k/uL (0-0.2); Basophils % (A) 1 %; Eosinophils # (A) 0.2 k/uL (0-0.7); Eosinophils % (A) 3 %; HGB 14.6 gm/dL (11.4-16.0); Lymphocytes # (A) 1.8 k/uL (1.0-4.8); Lymphocytes % (A) 24 %; MCH 30.7 pg (25.0-35.0); MCHC 32.4 g/dL (31.0-37.0); MCV 94.7 fL (80.0-100.0); Mean Platelet Volume 7.2; Monocytes # (A) 0.5 k/uL (0-1.0); Monocytes % (A) 7 %; Neutrophils # (A) 4.8 k/uL (1.3-7.7); Neutrophils % (A) 63 %; Platelet Count 179 k/uL (150-450); RBC 4.75 m/uL (3.80-5.40); RDW 14.2 % (11.5-15.5); WBC 7.5 k/uL (3.8-10.6)
--- NOTE | 2018-05-06 15:47 | ED ---
Female Urogenital HPI - General Chief complaint: Urogenital Stated complaint: abnormal labs sent by ME Time Seen by Provider: 05/06/18 15:02 Source: patient, family, RN notes reviewed, old records reviewed Mode of arrival: ambulatory Limitations: no limitations - History of Present Illness Initial comments: 88-year-old female with increased dysuria 2 days after being started on Macrobid by [employer]. She was seen again today and has had more confusion. Concern for sepsis so was brought in for further evaluation. No fevers. She does have a history of COPD is on 2 L of oxygen at all times. Denies any worsening chest pain shortness breath. Does report some suprapubic pain.Patient denies any recent fever, chills, shortness of breath, chest pain, back pain, abdominal pain, nausea vomiting, numbness or tingling, dysuria or hematuria, constipation or diarrhea, headaches or visual changes, or any other current symptoms - Related Data Home Medications Medication Instructions Recorded Confirmed Isosorbide Mononitrate ER [Imdur] 30 mg PO DAILY 10/29/14 05/06/18 Metoprolol Tartrate 25 mg PO BID 10/29/14 05/06/18 Ranitidine HCl 150 mg PO BID 10/29/14 05/06/18 Acetaminophen-Codeine 300-30mg 1 tab PO Q8H PRN 11/24/17 05/06/18 [Tylenol w/codeine #3] Ipratropium-Albuterol Nebulize 3 ml INHALATION RT-QID PRN 05/06/18 05/06/18 [Duoneb 0.5 mg-3 mg/3 ml Soln] Multivitamins, Thera [Multivitamin 1 tab PO DAILY 05/06/18 05/06/18 (formulary)] Previous Rx's Medication Instructions Recorded Budesonide [Pulmicort] 1 mg INHALATION RT-BID #60 nebu 11/26/17 Allergies Allergy/AdvReac Type Severity Reaction Status Date / Time ciprofloxacin [From Cipro] Allergy Unknown Verified 05/06/18 15:32 Childhood steroids AdvReac Unknown Uncoded 05/06/18 14:36 Review of Systems ROS Statement: Those systems with pertinent positive or pertinent negative responses have been documented in the HPI. ROS Other: All systems not noted in ROS Statement are negative. Past Medical History Past Medical History: COPD, GERD/Reflux, Hyperlipidemia, Hypertension, Osteoarthritis (OA), Pneumonia, Respiratory Disorder Additional Past Medical History / Comment(s): Pt recently admitted on 11/24/17 with L upper lobe pneumonia. Other hx: Protein calorie malnutrition, chronic respiratory failure with home O2 at 3L/NC, bronchitis, arthritis multiple joints, UTIs, bilateral nephrolithiasis. History of Any Multi-Drug Resistant Organisms: None Reported Past Surgical History: Appendectomy, Cholecystectomy, Tubal Ligation Additional Past Surgical History / Comment(s): EGD/colonoscopy, bilateral cataract removal. Past Anesthesia/Blood Transfusion Reactions: No Reported Reaction Past Psychological History: No Psychological Hx Reported Smoking Status: Former smoker Past Alcohol Use History: None Reported Past Drug Use History: None Reported - Past Family History Mother Family Medical History: Asthma, Congestive Heart Failure (CHF) Father Family Medical History: Diabetes Mellitus General Exam - General Exam Comments Initial Comments: 80-year-old female. Patient Patient is alert and oriented to place and time. Patient has no acute distress. Wearing 2 L of oxygen. Limitations: no limitations General appearance: alert, in no apparent distress Head exam: Present: atraumatic, normocephalic, normal inspection Eye exam: Present: normal appearance, PERRL, EOMI. Absent: scleral icterus, conjunctival injection, periorbital swelling ENT exam: Present: normal exam, mucous membranes moist Neck exam: Present: normal inspection. Absent: tenderness, meningismus, lymphadenopathy Respiratory exam: Present: normal lung sounds bilaterally. Absent: respiratory distress, wheezes, rales, rhonchi, stridor Cardiovascular Exam: Present: regular rate, normal rhythm, normal heart sounds. Absent: systolic murmur, diastolic murmur, rubs, gallop, clicks GI/Abdominal exam: Present: soft, tenderness (Suprapubic tenderness.), normal bowel sounds. Absent: distended, guarding, rebound, rigid Extremities exam: Present: normal inspection, full ROM, normal capillary refill. Absent: tenderness, pedal edema, joint swelling, calf tenderness Back exam: Present: normal inspection Neurological exam: Present: alert, oriented X3, CN II-XII intact Psychiatric exam: Present: normal affect, normal mood Skin exam: Present: warm, dry, intact, normal color. Absent: rash Course Vital Signs 05/06/18 05/06/18 14:33 15:50 Temperature 97.9 F Pulse Rate 73 73 Respiratory 20 18 Rate Blood Pressure 123/79 171/73 O2 Sat by Pulse 95 98 Oximetry Medical Decision Making - Medical Decision Making 88-year-old female with 3 doses of Macrobid for urinary tract infection presents today with worsening confusion and concern for continued infection. Given the suprapubic pain. Urinalysis is positive for infection red blood cells and white blood cells noted. Urine culture completed. Patient was started on Rocephin blood cultures obtained. Patient's kidney function mild dehydration. We'll do computed tomography scan and pelvis without contrast to rule out kidney stones. This we pending at time of admission. Patient will be admitted at this time for fluid resuscitation. She is given 1 g of Rocephin emergency department. Discussed case with KIET Petit. - Lab Data Result diagrams: 05/06/18 15:25 05/06/18 15:25 Lab Results 05/06/18 05/06/18 05/06/18 Range/Units 15:07 15:25 15:25 WBC 7.5 (3.8-10.6) k/uL RBC 4.75 (3.80-5.40) m/uL Hgb 14.6 (11.4-16.0) gm/dL Hct 45.0 (34.0-46.0) % MCV 94.7 (80.0-100.0) fL MCH 30.7 (25.0-35.0) pg MCHC 32.4 (31.0-37.0) g/dL RDW 14.2 (11.5-15.5) % Plt Count 179 (150-450) k/uL Neutrophils % 63 % Lymphocytes % 24 % Monocytes % 7 % Eosinophils % 3 % Basophils % 1 % Neutrophils # 4.8 (1.3-7.7) k/uL Lymphocytes # 1.8 (1.0-4.8) k/uL Monocytes # 0.5 (0-1.0) k/uL Eosinophils # 0.2 (0-0.7) k/uL Basophils # 0.1 (0-0.2) k/uL PT (9.0-12.0) sec INR (<1.2) APTT (22.0-30.0) sec Sodium 142 (137-145) mmol/L Potassium 4.0 (3.5-5.1) mmol/L Chloride 102 (98-107) mmol/L Carbon Dioxide 28 (22-30) mmol/L Anion Gap 12 mmol/L BUN 25 H (7-17) mg/dL Creatinine 0.80 (0.52-1.04) mg/dL Est GFR (CKD-EPI)AfAm 76 (>60 ml/min/1.73 sqM) Est GFR (CKD-EPI)NonAf 66 (>60 ml/min/1.73 sqM) Glucose 127 H (74-99) mg/dL Plasma Lactic Acid Jayant (0.7-2.0) mmol/L Calcium 10.1 (8.4-10.2) mg/dL Total Bilirubin 0.6 (0.2-1.3) mg/dL AST 23 (14-36) U/L ALT 20 (9-52) U/L Alkaline Phosphatase 67 (38-126) U/L Total Protein 7.2 (6.3-8.2) g/dL Albumin 4.2 (3.5-5.0) g/dL Urine Color Light Red Urine Appearance Turbid H (Clear) Urine pH 6.5 (5.0-8.0) Ur Specific [place] 1.018 (1.001-1.035) Urine Protein 2+ H (Negative) Urine Glucose (UA) Negative (Negative) Urine Ketones Negative (Negative) Urine Blood Moderate H (Negative) Urine Nitrite Negative (Negative) Urine Bilirubin Negative (Negative) Urine Urobilinogen 4.0 (<2.0) mg/dL Ur Leukocyte Esterase Large H (Negative) Urine RBC 153 H (0-5) /hpf Urine WBC >182 H (0-5) /hpf Urine WBC Clumps Many H (None) /hpf Urine Bacteria Rare H (None) /hpf Urine Mucus Rare H (None) /hpf 05/06/18 05/06/18 Range/Units 15:25 15:25 WBC (3.8-10.6) k/uL RBC (3.80-5.40) m/uL Hgb (11.4-16.0) gm/dL Hct (34.0-46.0) % MCV (80.0-100.0) fL MCH (25.0-35.0) pg MCHC (31.0-37.0) g/dL RDW (11.5-15.5) % Plt Count (150-450) k/uL Neutrophils % % Lymphocytes % % Monocytes % % Eosinophils % % Basophils % % Neutrophils # (1.3-7.7) k/uL Lymphocytes # (1.0-4.8) k/uL Monocytes # (0-1.0) k/uL Eosinophils # (0-0.7) k/uL Basophils # (0-0.2) k/uL PT 11.5 (9.0-12.0) sec INR 1.2 H (<1.2) APTT 24.0 (22.0-30.0) sec Sodium (137-145) mmol/L Potassium (3.5-5.1) mmol/L Chloride (98-107) mmol/L Carbon Dioxide (22-30) mmol/L Anion Gap mmol/L BUN (7-17) mg/dL Creatinine (0.52-1.04) mg/dL Est GFR (CKD-EPI)AfAm (>60 ml/min/1.73 sqM) Est GFR (CKD-EPI)NonAf (>60 ml/min/1.73 sqM) Glucose (74-99) mg/dL Plasma Lactic Acid Jayant 1.3 (0.7-2.0) mmol/L Calcium (8.4-10.2) mg/dL Total Bilirubin (0.2-1.3) mg/dL AST (14-36) U/L ALT (9-52) U/L Alkaline Phosphatase (38-126) U/L Total Protein (6.3-8.2) g/dL Albumin (3.5-5.0) g/dL Urine Color Urine Appearance (Clear) Urine pH (5.0-8.0) Ur Specific [place] (1.001-1.035) Urine Protein (Negative) Urine Glucose (UA) (Negative) Urine Ketones (Negative) Urine Blood (Negative) Urine Nitrite (Negative) Urine Bilirubin (Negative) Urine Urobilinogen (<2.0) mg/dL Ur Leukocyte Esterase (Negative) Urine RBC (0-5) /hpf Urine WBC (0-5) /hpf Urine WBC Clumps (None) /hpf Urine Bacteria (None) /hpf Urine Mucus (None) /hpf - Radiology Data Radiology results: report reviewed Nonspecific abdomen. Disposition Clinical Impression: UTI (urinary tract infection), Sepsis Disposition: ADMITTED IP TO THIS HOSP Condition: Stable Is patient prescribed a controlled substance at d/c from ED?: No When asked, does pt state using other controlled substances?: No If prescribed controlled substance>3 days was MAPS reviewed?: No If opioid is for acute pain is fill amount 7 days or less?: No If Rx opioid, was Start Talking consent form obtained?: No Referrals: Estuardo Spivey DO [Primary Care Provider] - 1-2 days Time of Disposition: 16:47
[2018-05-06 15:56] LABS: Albumin 4.2 g/dL (3.5-5.0); Calcium 10.1 mg/dL (8.4-10.2); Total Bilirubin 0.6 mg/dL (0.2-1.3); Total Protein 7.2 g/dL (6.3-8.2)
[2018-05-06 16:04] LABS: INR 1.2 (<1.2); Prothrombin Time 11.5 sec (9.0-12.0)
--- NOTE | 2018-05-06 16:06 | XR ---
EXAMINATION TYPE: XR KUB DATE OF EXAM: 05/06/2018 COMPARISON: NONE INDICATION: Pain TECHNIQUE: Single view abdomen upright view FINDINGS: Nonspecific bowel gas present. No free air is present. No differential air-fluid levels are present. Psoas margins are normal. No organomegaly is present. IMPRESSION: 1. Nonspecific abdomen.
[2018-05-06] MEDS ORDERED: MORPHINE SULFATE 2 MG/ML SYRINGE IV PRN (17:33)
[2018-05-06] MEDS ORDERED: IBUPROFEN 400 MG TAB PO PRN (17:33)
[2018-05-06] MEDS ORDERED: KETOROLAC 30 MG/ML 1 ML VIAL IVP PRN (17:33)
[2018-05-06] MEDS ORDERED: NALOXONE 0.4 MG/ML 1 ML VIAL IV PRN (17:33)
[2018-05-06] MEDS ORDERED: ONDANSETRON 4 MG/2 ML VIAL IVP PRN (17:33)
[2018-05-06] MEDS ORDERED: ACETAMINOPHEN TAB 325 MG TAB PO PRN (17:33)
--- NOTE | 2018-05-06 18:11 | CT ---
EXAMINATION TYPE: CT abdomen pelvis wo con DATE OF EXAM: 05/06/2018 COMPARISON: 08/25/2017 HISTORY: Possible UTI, frequent urination. CT DLP: 533 mGycm Automated exposure control for dose reduction was used. TECHNIQUE: Helical acquisition of images was performed from the lung bases through the pelvis. FINDINGS: There are numerous subpleural nodular densities in the lung bases. This is more on the right side. Th ere is no pleural effusion. Heart appears enlarged. Abdominal aorta is atheromatous. Liver shows no focal defect. Spleen appears normal. There is no pancreatic mass. Bile ducts are not d ilated. Gallbladder is absent. 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 There is no adrenal mass. There are bilateral multiple renal calculi that measure up to 8 mm. The ure ters do not appear dilated. There are multiple phleboliths in the pelvis. Bladder distends smoothly. Uterus is somewhat retroverted. There are small calcified uterine fibroids. I see no intestinal wall thickening. There are no dilated loops. There is no sign of a bowel obstruction. There is no ascites. There is no sign of free air. There is slight fullness of the left and right renal pelvis. There are some spondylotic changes in the lumbar spine. There is no compression fracture. Disc spaces are fair ly normal. Appendix is not seen. There is no sign of appendicitis. IMPRESSION: THERE IS CHRONIC PATCHY NODULAR DENSITY IN THE LUNG BASES SIMILAR TO OLD EXAM. THERE IS CLEARING OF A COALESCENT 4 CM INFILTRATE AT THE RIGHT POSTERIOR LUNG BASE COMPARED TO OLD EXAM. STABLE ABDOMINAL AORTIC ANEURYSM. MULTIPLE RENAL CALCULI. THERE IS MILD BILATERAL HYDRONEPHROSIS THAT IS NEW COMPARED TO OLD EXAM. URET ERS ARE NOT OPTIMALLY EVALUATED WITHOUT CONTRAST. THE POSSIBILITY OF DISTAL URETERAL OBSTRUCTION IS N OT EXCLUDED. IF THERE IS INDICATION TO EXCLUDE RENAL OBSTRUCTION THEN A LIMITED CT SCAN WITH DELAYED IMAGES AND A SMALL AMOUNT OF INTRAVENOUS CONTRAST WOULD BE HELPFUL TO EVALUATE THE URETERS.
[2018-05-06] MEDS: IPRATROPIUM-ALBUTEROL 3 ML NEB INHALATION PRN (19:06)
[2018-05-06] MEDS: BUDESONIDE 1 MG/2 ML NEBU INHALATION SCH (19:07)
[2018-05-06] MEDS ORDERED: ALPRAZolam 0.25 MG TAB PO PRN (20:57)
[2018-05-06] MEDS ORDERED: FAMOTIDINE 20 MG TAB PO SCH (21:00)
[2018-05-06] MEDS: METOPROLOL TARTRATE 25 MG TAB PO SCH (21:19)
[2018-05-06] MEDS: HEPARIN SODIUM,PORCINE 5,000 UNIT/ML 1 ML VIAL SQ SCH (21:33)
--- NOTE | 2018-05-06 22:14 | HP ---
HISTORY AND PHYSICAL CHIEF COMPLAINTS: Dysuria and UTI with failure of outpatient treatment. HISTORY OF PRESENT ILLNESS: This 88-year-old woman with a past medical history of multiple medical problems, including GERD, COPD, hypertension, hyperlipidemia, history of pneumonia, being followed by Dr. Spivey in the outpatient setting, had a UTI. The patient had been started on Macrobid by [employer]. The patient had abdominal discomfort as well as dysuria and some leakage, and the patient was sent to [facility] Emergency Room and was admitted for further evaluation and treatment. The patient is complaining of mostly suprapubic pain. The white count was normal and UA showed multiple abnormalities. The patient is admitted for further evaluation and treatment. There is no history of any fever, rigor or chills. No history of headache, loss of consciousness, seizures. PAST MEDICAL HISTORY: 1. History of COPD. 2. GERD. 3. Hypertension. 4. Hyperlipidemia. 5. History of DJD. 6. History of pneumonia. MEDICATIONS PRIOR TO ADMISSION: 1. Ranitidine 150 mg p.o. b.i.d. 2. Multivitamins 1 p.o. daily. 3. Metoprolol 25 mg b.i.d. 4. Imdur 30 mg daily. 5. DuoNeb 3 mL q.i.d. p.r.n. 6. Pulmicort 1 mg b.i.d. 7. Tylenol #3 one q.8 p.r.n. ALLERGIES: 1. CIPRO. 2. STEROIDS. FAMILY HISTORY: History of asthma, CHF. SOCIAL HISTORY: Previous history of smoking. No current smoking or alcohol intake. REVIEW OF SYSTEMS: ENT: No diminished hearing. Diminished vision. CARDIOVASCULAR SYSTEM: No angina, palpitations. RESPIRATORY SYSTEM: As mentioned earlier. GI: As mentioned earlier. : As mentioned earlier. NERVOUS SYSTEM: No numbness, weakness. ALLERGY/IMMUNOLOGY: No asthma, hayfever. MUSCULOSKELETAL: As mentioned earlier. HEMATOLOGY/ONCOLOGY: No history of anemia. ENDOCRINE: No history of diabetes, hypothyroidism. CONSTITUTIONAL: As mentioned earlier. DERMATOLOGY: Negative. RHEUMATOLOGY: Negative. PSYCHIATRY: As mentioned earlier. PHYSICAL EXAMINATION: Patient is alert, oriented x3. The pulse is 78, blood pressure 166/80, respirations 16, temperature 97.1, pulse ox 93% on 2 L. HEENT: Conjunctivae normal. Oral mucosa moist. NECK: No jugular venous distention. No carotid bruit. No lymph node enlargement. CARDIOVASCULAR SYSTEM: S1, S2 muffled. No S3. No S4. RESPIRATORY SYSTEM: Breath sounds diminished at the bases. No rhonchi. No crackles. ABDOMEN: Soft, non-tender. No mass palpable. LEGS: No edema. No swelling. NERVOUS SYSTEM: Higher functions as mentioned earlier. Moves all 4 limbs. No focal motor or sensory deficit. LYMPHATICS: No lymph node palpable in neck, axillae or groin. SKIN: No ulcer, rash, bleeding. LABS AT THIS TIME: CBC within normal limits. BUN is 25, glucose 127. UA noted. ASSESSMENT: 1. Urinary tract infection with failed outpatient treatment. 2. Chronic obstructive pulmonary disease. 3. Gastroesophageal reflux disease. 4. Hypertension. 5. Hyperlipidemia. 6. History of degenerative joint disease. 7. History of pneumonia. 8. Chronic hypoxic respiratory failure, on home oxygen at 2 L. 9. Appendectomy. 10.FULL CODE. RECOMMENDATIONS AND DISCUSSION: In this 88-year-old woman who presented with multiple complex medical issues, we will monitor the patient closely, continue the current medication, continue symptomatic treatment. Otherwise I would recommend broad-spectrum IV antibiotics. Urine culture. Symptomatic treatment also will be provided. DVT prophylaxis. Prognosis is guarded because of multiple complex medical issues. Home medication reconciliation has been done. Further recommendations to follow. A copy of this dictation is being forwarded to Dr. Spivey, who is the primary physician. MMROXANN / ELIAZAR: [id number] /
[2018-05-07] MEDS: IPRATROPIUM-ALBUTEROL 3 ML NEB INHALATION PRN ×5 (04:40→19:09)
[2018-05-07] MEDS: SODIUM CHLORIDE 0.9% 1,000 ML IV SCH ×2 (04:53→10:20)
[2018-05-07] MEDS: BUDESONIDE 1 MG/2 ML NEBU INHALATION SCH ×2 (08:12→19:08)
[2018-05-07 08:50] LABS: Basophils # (A) 0.1 k/uL (0-0.2); Basophils % (A) 1 %; Eosinophils # (A) 0.3 k/uL (0-0.7); Eosinophils % (A) 5 %; HGB 12.4 gm/dL (11.4-16.0); Lymphocytes # (A) 1.2 k/uL (1.0-4.8); Lymphocytes % (A) 20 %; MCH 30.7 pg (25.0-35.0); MCHC 32.5 g/dL (31.0-37.0); MCV 94.5 fL (80.0-100.0); Mean Platelet Volume 7.5; Monocytes # (A) 0.6 k/uL (0-1.0); Monocytes % (A) 9 %; Neutrophils # (A) 3.9 k/uL (1.3-7.7); Neutrophils % (A) 63 %; Platelet Count 144 k/uL (150-450); RBC 4.02 m/uL (3.80-5.40); RDW 13.8 % (11.5-15.5); WBC 6.2 k/uL (3.8-10.6)
[2018-05-07] MEDS: cefTRIAXone IN SWFI 1,000 MG/10 ML SYRINGE IVP SCH (08:57)
[2018-05-07] MEDS: ISOSORBIDE MONONITRATE ER 30 MG TAB.ER.24H PO SCH (08:57)
[2018-05-07] MEDS: HEPARIN SODIUM,PORCINE 5,000 UNIT/ML 1 ML VIAL SQ SCH ×2 (08:57→20:43)
[2018-05-07] MEDS: METOPROLOL TARTRATE 25 MG TAB PO SCH ×2 (08:57→20:43)
[2018-05-07] MEDS: PANTOPRAZOLE 40 MG/10 ML VIAL IV SCH (08:58)
[2018-05-07 09:03] LABS: Calcium 8.6 mg/dL (8.4-10.2); Potassium 3.5 mmol/L (3.5-5.1)
[2018-05-07] MEDS: Acetaminophen-Codeine 300-30mg TAB PO PRN (10:18)
[2018-05-07] MEDS: MULTIVITAMINS, THERA 1 EACH TAB PO SCH (12:08)
[2018-05-07 13:41] VITALS: BMI 16.1
--- NOTE | 2018-05-07 20:42 | PN ---
PROGRESS NOTE DATE OF SERVICE: 05/07/2018. INTERVAL HISTORY: This 88-year-old woman who was admitted with UTI with failed outpatient treatment has been closely monitored. Patient is on antibiotics. Cultures are negative at this time. No chest pain. No palpitations. No fever. PHYSICAL EXAM: Alert and oriented times three. Pulse 70. Blood pressure 130/70, respiration 16, temperature 98.4, pulse ox 94% on 2 L. HEENT is conjunctivae normal. Oral mucosa moist. Neck is no jugular venous distention. No carotid bruit. No lymph node enlargement. Cardiovascular system: S1, S2 muffled. Respiration: Respiratory motion at the bases. No rhonchi. No crackles. ABDOMEN: Soft, nontender. Legs are no edema. No swelling. Central nervous system: No focal deficits. LABS: WBC 6.2, hemoglobin 12.4 and glucose 121. ASSESSMENT: 1. Acute urinary tract infection present on admission with failure of outpatient treatment. 2. Chronic obstructive pulmonary disease. 3. Gastroesophageal reflux disease. 4. Hypertension. 5. Hyperlipidemia. 6. History of degenerative joint disease. 7. History of pneumonia. 8. Chronic hypoxic respiratory failure on home O2 2 L. 9. Appendectomy. 10.FULL CODE. RECOMMENDATIONS AND DISCUSSION: Recommend to continue current medications, management and symptomatic treatment. Continue with IV antibiotics. Otherwise follow the cultures. Guarded prognosis because of multiple complex medical issues. See orders for details. Further recommendations to follow. MMODL / IJN: [id number] /
[2018-05-08] MEDS: SODIUM CHLORIDE 0.9% 1,000 ML IV SCH ×2 (02:20→06:06)
[2018-05-08] MEDS: Acetaminophen-Codeine 300-30mg TAB PO PRN (03:29)
[2018-05-08] MEDS: BUDESONIDE 1 MG/2 ML NEBU INHALATION SCH ×2 (07:36→19:45)
[2018-05-08] MEDS: IPRATROPIUM-ALBUTEROL 3 ML NEB INHALATION PRN ×2 (07:36→19:45)
[2018-05-08] MEDS: METOPROLOL TARTRATE 25 MG TAB PO SCH ×2 (08:39→22:15)
[2018-05-08] MEDS: cefTRIAXone IN SWFI 1,000 MG/10 ML SYRINGE IVP SCH (08:39)
[2018-05-08] MEDS: PANTOPRAZOLE 40 MG/10 ML VIAL IV SCH (08:39)
[2018-05-08] MEDS: HEPARIN SODIUM,PORCINE 5,000 UNIT/ML 1 ML VIAL SQ SCH ×2 (08:39→21:43)
[2018-05-08] MEDS: ISOSORBIDE MONONITRATE ER 30 MG TAB.ER.24H PO SCH (08:39)
[2018-05-08] MEDS: MULTIVITAMINS, THERA 1 EACH TAB PO SCH (08:40)
[2018-05-08 09:36] LABS: Basophils # (A) 0.1 k/uL (0-0.2); Basophils % (A) 1 %; Eosinophils # (A) 0.3 k/uL (0-0.7); Eosinophils % (A) 5 %; HCT 38.5 % (34.0-46.0); HGB 12.3 gm/dL (11.4-16.0); Lymphocytes # (A) 1.3 k/uL (1.0-4.8); Lymphocytes % (A) 22 %; MCH 29.9 pg (25.0-35.0); MCHC 31.8 g/dL (31.0-37.0); MCV 93.9 fL (80.0-100.0); Mean Platelet Volume 7.8; Monocytes # (A) 0.6 k/uL (0-1.0); Monocytes % (A) 10 %; Neutrophils # (A) 3.6 k/uL (1.3-7.7); Neutrophils % (A) 60 %; Platelet Count 149 k/uL (150-450); RBC 4.11 m/uL (3.80-5.40); RDW 14.2 % (11.5-15.5); WBC 5.9 k/uL (3.8-10.6)
[2018-05-08 09:48] LABS: Anion Gap 9 mmol/L; Blood Urea Nitrogen 13 mg/dL (7-17); Calcium 8.6 mg/dL (8.4-10.2); Carbon Dioxide 28 mmol/L (22-30); Chloride 107 mmol/L (98-107); Glucose 137 mg/dL (74-99); Potassium 3.2 mmol/L (3.5-5.1); Sodium 144 mmol/L (137-145)
--- NOTE | 2018-05-08 10:04 | P.GSCN ---
History of Present Illness Consult date: 05/08/18 Reason for Consult: Recurrent UTI Requesting physician: Jamal Prieto History of present illness: The patient is an 88-year-old white female with a fairly unremarkable urologic history. She denies any prior history of kidney stones. She has been treated for in frequent UTIs. However, for the past couple of months she has experienced intermittently increased urinary frequency, associated with hesitancy and a prolonged urinary stream. She reports occasional urgency but denies incontinence. She reports occasional mild dysuria. Review of Systems - Constitutional Denies chills, Denies fever - Gastrointestinal Denies nausea, Denies vomiting - Genitourinary Genitourinary: Denies flank pain, Denies hematuria, Denies urge incontinence Past Medical History Past Medical History: COPD, GERD/Reflux, Hyperlipidemia, Hypertension, Osteoarthritis (OA), Pneumonia, Respiratory Disorder Additional Past Medical History / Comment(s): Pt recently admitted on 11/24/17 with L upper lobe pneumonia. Other hx:previously charted pt had hypertension and hyperlipidemai-pt not aware of this. chronic respiratory failure with home O2 at 2-3L/NC, bronchitis, arthritis multiple joints, UTIs, bilateral nephrolithiasis."forgetfull" History of Any Multi-Drug Resistant Organisms: None Reported Past Surgical History: Appendectomy, Cholecystectomy, Tubal Ligation Additional Past Surgical History / Comment(s): EGD/colonoscopy, bilateral cataract removal. Past Anesthesia/Blood Transfusion Reactions: No Reported Reaction Smoking Status: Former smoker - Past Family History Mother Family Medical History: Asthma, Congestive Heart Failure (CHF) Father Family Medical History: Diabetes Mellitus Medications and Allergies Home Medications Medication Instructions Recorded Confirmed Type Isosorbide Mononitrate ER [Imdur] 30 mg PO DAILY 10/29/14 05/06/18 History Metoprolol Tartrate 25 mg PO BID 10/29/14 05/06/18 History Ranitidine HCl 150 mg PO BID 10/29/14 05/06/18 History Acetaminophen-Codeine 300-30mg 1 tab PO Q8H PRN 11/24/17 05/06/18 History [Tylenol w/codeine #3] Budesonide [Pulmicort] 1 mg INHALATION RT-BID #60 nebu 11/26/17 05/06/18 Rx Ipratropium-Albuterol Nebulize 3 ml INHALATION RT-QID PRN 05/06/18 05/06/18 History [Duoneb 0.5 mg-3 mg/3 ml Soln] Multivitamins, Thera [Multivitamin 1 tab PO DAILY 05/06/18 05/06/18 History (formulary)] Allergies Allergy/AdvReac Type Severity Reaction Status Date / Time ciprofloxacin [From Cipro] Allergy Unknown Verified 05/06/18 15:32 Childhood steroids AdvReac Unknown Uncoded 05/06/18 14:36 Surgical - Exam Vital Signs Temp Pulse Resp BP Pulse Ox 97.9 F 73 20 123/79 95 05/06/18 14:33 05/06/18 14:33 05/06/18 14:33 05/06/18 14:33 05/06/18 14:33 - General well developed, well nourished, no distress - Respiratory normal respiratory effort - Abdomen Abdomen: soft, non tender, no guarding, no rigid, no rebound - Genitourinary normal external genitalia, normal perineum, other (Normal bimanual examination. Excellent bladder support. No pelvic masses.) - Psychiatric oriented to time, oriented to person, oriented to place, speech is normal, memory intact Results - Labs 05/08/18 09:16 05/07/18 08:25 Abnormal Lab Results - Last 24 Hours (Table) 05/08/18 Range/Units 09:16 Plt Count 149 L (150-450) k/uL Microbiology - Last 24 Hours (Table) 05/06/18 15:29 Urine Culture - Final Urine,Clean Catch 05/06/18 15:25 Blood Culture - Preliminary Blood No Growth after 24 hours - Imaging CT scan - abdomen: report reviewed, image reviewed Assessment and Plan (1) Urinary tract infection Current Visit: Yes Status: Acute Code(s): N39.0 - URINARY TRACT INFECTION, SITE NOT SPECIFIED SNOMED Code(s): 10649107 (2) Calculus of kidney Current Visit: Yes Status: Acute Code(s): N20.0 - CALCULUS OF KIDNEY SNOMED Code(s): 07042496 (3) Incomplete bladder emptying Current Visit: Yes Status: Acute Code(s): R33.9 - RETENTION OF URINE, UNSPECIFIED SNOMED Code(s): 728055899 Plan: The patient has been treated for recurrent UTIs, and is admitted because she had failed outpatient therapy. Her urine culture was negative. The computed tomography scan shows a 9 mm left lower pole renal calculus, 3 right lower pole renal calculi (largest 5 mm), and bladder distention. Indeed, postvoid residuals have been 400-500 mL. She was straight catheterized overnight and feels much better. Urinalysis at the time of admission showed evidence of hematuria, which may be due to the renal calculi. However, intravesical pathology has not been excluded. In view of this, arrangements will be made for her to undergo outpatient cystoscopy. I had a lengthy discussion with the patient regarding her incomplete bladder emptying. She hopes to avoid the use of an indwelling Grant catheter. I suggested that she may benefit from intermittent self-catheterization, which she is agreeable to but I am concerned whether or not she'll be physically able to do so. I do not intend to initiate that at this time, though it may be required in the future. Please notify me if I can be of any further assistance during this hospitalization. Time with Patient: Greater than 30
[2018-05-08] MEDS ORDERED: POTASSIUM CHLORIDE 10 MEQ in WATER FOR INJECTION 1 100ML.BAG IVPB STA (11:21)
--- NOTE | 2018-05-08 19:13 | PN ---
PROGRESS NOTE DATE OF SERVICE: 05/08/2018 This 88-year-old woman with a past history of acute acute UTI with failed outpatient treatment. The cultures are negative so far. No chest pain. No palpitations. No fever. PHYSICAL EXAM: Alert and oriented times three. Pulse 76, blood pressure 113/88, respiration 20, temperature 98.7, pulse ox 94% on room air. HEENT: Conjunctivae normal. Oral mucosa moist. Neck is no jugular venous distention. No carotid bruit. No lymph node enlargement. Cardiovascular systems: S1, S2 muffled. Respirations: Breath sounds diminished in the bases. A few scattered rhonchi. No crackles. ABDOMEN: Soft, nontender. Legs are no edema, no swelling. CENTRAL NERVOUS SYSTEM: No focal deficits. LABS: WBC 5.9, hemoglobin 12.3, sodium 142, potassium 3.2. ASSESSMENT: 1. Acute urinary tract infection present on admission with failure of outpatient treatment. 2. Chronic obstructive pulmonary disease. 3. Urinary outlet obstruction. 4. History of gastroesophageal reflux disease. 5. Hypertension. 6. Hyperkalemia. 7. Hyperlipidemia. 8. History of degenerative joint disease. 9. History of pneumonia. 10.History of chronic hypoxic respiratory failure on home O2 2 L. 11.History of appendectomy. 12.FULL CODE. RECOMMENDATIONS AND DISCUSSION: Recommend to continue current medications, management and symptomatic treatment. Otherwise, at this time, I recommend continue with . Urology input appreciated. Outpatient cystoscopy has been planned by Dr. Stone. Intermittent self catheterization also suggested. Further recommendations to follow. We will also recommend Case Management to follow on above-mentioned items. Otherwise forensic social worker to follow on the above-mentioned items. Otherwise, prognosis guarded because of multiple complex medical issues. See orders for details. MMODL / IJN: [id number] / MTDD
[2018-05-08 23:05] VITALS: RESP 16; TEMP 97.6
[2018-05-09 07:08] VITALS: BP 133/69
[2018-05-09] MEDS: BUDESONIDE 1 MG/2 ML NEBU INHALATION SCH (08:25)
[2018-05-09] MEDS: IPRATROPIUM-ALBUTEROL 3 ML NEB INHALATION PRN ×2 (08:25→11:59)
[2018-05-09] MEDS: HEPARIN SODIUM,PORCINE 5,000 UNIT/ML 1 ML VIAL SQ SCH (09:21)
[2018-05-09] MEDS: METOPROLOL TARTRATE 25 MG TAB PO SCH (09:21)
[2018-05-09] MEDS: cefTRIAXone IN SWFI 1,000 MG/10 ML SYRINGE IVP SCH (09:21)
[2018-05-09] MEDS: ISOSORBIDE MONONITRATE ER 30 MG TAB.ER.24H PO SCH (09:21)
[2018-05-09] MEDS: PANTOPRAZOLE 40 MG/10 ML VIAL IV SCH (09:21)
[2018-05-09 10:37] LABS: Basophils # (A) 0.1 k/uL (0-0.2); Basophils % (A) 1 %; Eosinophils # (A) 0.3 k/uL (0-0.7); Eosinophils % (A) 4 %; HCT 41.4 % (34.0-46.0); HGB 13.2 gm/dL (11.4-16.0); Lymphocytes # (A) 1.4 k/uL (1.0-4.8); Lymphocytes % (A) 19 %; MCH 30.4 pg (25.0-35.0); MCHC 31.9 g/dL (31.0-37.0); MCV 95.4 fL (80.0-100.0); Mean Platelet Volume 7.4; Monocytes # (A) 0.5 k/uL (0-1.0); Monocytes % (A) 7 %; Neutrophils # (A) 4.8 k/uL (1.3-7.7); Neutrophils % (A) 67 %; Platelet Count 161 k/uL (150-450); RBC 4.34 m/uL (3.80-5.40); WBC 7.2 k/uL (3.8-10.6)
[2018-05-09 10:46] LABS: Anion Gap 7 mmol/L; Blood Urea Nitrogen 19 mg/dL (7-17); Calcium 9.5 mg/dL (8.4-10.2); Carbon Dioxide 29 mmol/L (22-30); Chloride 106 mmol/L (98-107); Glucose 141 mg/dL (74-99); Potassium 3.9 mmol/L (3.5-5.1); Sodium 142 mmol/L (137-145)
[2018-05-09 12:10] VITALS: PULSE 80
[2018-05-09] MEDS: MULTIVITAMINS, THERA 1 EACH TAB PO SCH (12:38)
--- NOTE | 2018-05-09 13:34 | CDI ---
Last Revision, October 2017 Documentation Clarification Form Date: 05/10/2018 1:19:00 PM From: Roxie LoeraCORRIE, CCDS Admit Date: 05/06/2018 5:33:00 PM Patient Name: Mechelle Gu I Visit Number: [id number] Discharge Date: 05/09/2018 ATTENTION: The Clinical Documentation Specialists (CDI) and [facility] Coding Staff appreciate your assistance in clarifying documentation. Please respond to the clarification below the line at the bottom and electronically sign. The CDI & [facility] Coding staff will review the response and follow-up if needed. Please note: Queries are made part of the Legal Health Record. If you have any questions, please contact the author of this message via ITS. Dr. Jamal Prieto: Protein Calorie Malnutrition is documented in the ED note as a history, patient' s admitting BMI is 16.1, patient is 5.6 feet tall, 88 yo female. 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 History of pneumonia & frequent UTIs. GERD, Hyperlipidemia , OA. Clinical Indicators: Presented with suprapubic pain & dysuria, abnormal labs. Labs: Total protein (7.2), Albumin (4.2). Postivie UA, urine culture negative. Current BMI: 16.1 Treatment: Oral nutrition supplement TID w/meals (Ensure Enlive), Bladder scan, Blood Culture, IV fluids, IV Rocephin, IV Toradol, IV Ms, IV Narcan, Albuterol INH, O2 4Lnc. In your professional opinion, can you please clarify if these findings signify one of the following conditions? Mild Protein-Calorie Malnutrition Moderate Protein-Calorie Malnutrition Severe Protein-Calorie Malnutrition Other condition, please specify Unable to determine Please continue to document in your progress notes and discharge summary in order to capture severity of illness and risk of mortality. Include clinical findings that support your diagnosis. Mild Protein-Calorie Malnutrition MTDD
--- NOTE | 2018-05-09 21:11 | DS ---
DISCHARGE SUMMARY FINAL DIAGNOSES: 1. Acute urinary tract infection present on admission with failure of outpatient treatment caused by negative cultures. 2. Chronic obstructive pulmonary disease. 3. Urinary outlet obstruction. 4. History of gastroesophageal reflux disease. 5. Hypertension. 6. Hypokalemia. 7. Hyperlipidemia. 8. History of degenerative joint disease. 9. History of pneumonia. 10.History of chronic hypoxic respiratory failure on home O2 2 L. 11.History of appendectomy. 12.FULL CODE. DISCHARGE DISPOSITION: The patient is being discharged in stable condition with guarded prognosis. HISTORY OF PRESENT ILLNESS: This 88-year-old woman with a past medical history of multiple medical problems, admitted with acute UTI. The cultures are negative. Treated with antibiotics. Patient improved significantly. Dr. Stone saw the patient and recommended outpatient follow up. PHYSICAL EXAMINATION: On exam, vital signs stable. Cardiovascular: S1, S2. Abdomen soft. Central nervous system: No focal deficits. DISCHARGE ADVICE AND MEDICATIONS: 1. Discharge diet is cardiac diet. 2. Activity limited until followup. 3. Follow up with Dr. Spivey in 2-3 days. 4. Follow up with Dr. Stone as recommended. 5. Home care is being arranged. MEDICATIONS ARE: 1. Tylenol #3 q.8h p.r.n. 2. Pulmicort 1 mg b.i.d. 3. Ceftin 500 mg p.o. b.i.d. for 5 days. 4. DuoNeb q.i.d. and p.r.n. 5. Imdur ER 30 mg p.o. daily. 6. Metoprolol 25 mg p.o. b.i.d. 7. Multivitamins 1 p.o. daily. 8. Ranitidine 150 mg p.o. b.i.d. Once again, the patient is being discharged in stable condition with guarded prognosis. MMODL / IJN: [id number] /
--- NOTE | 2018-05-16 10:13 | CDI ---
Last Revision, October 2017 Documentation Clarification Form Date: 05/16/18 From: Ketty Bola Julianna Davis, Clam Sorter Hours-8:30 am & 5 pm [id number] Admit Date: 05/06/2018 5:33:00 PM Patient Name: Mechelle Gu I Visit Number: [id number] Discharge Date: 05/09/18 ATTENTION: The Clinical Documentation Specialists (CDI) and [facility] Coding Staff appreciate your assistance in clarifying documentation. Please respond to the clarification below the line at the bottom and electronically sign. The CDI & [facility] Coding staff will review the response and follow-up if needed. Please note: Queries are made part of the Legal Health Record. If you have any questions, please contact the author of this message via ITS. Dr. Jamal Prieto Conflicting documentation has been found in the medical record. The ED note documents sepsis. DS documents UTI. History/Risk Factors: recurrent UTIs, calculus of kidney Clinical Indicators: WBC 7.5, neutrophils 63, lactic acid 1.3, T 97.9, P 73, R 20, BP 123/79, O2 sats 95 Treatment: IV Rocephin In your opinion what is the most clinically appropriate diagnosis for this patient? Sepsis ruled in Sepsis ruled out Other explanation of clinical findings Unable to determine (no explanation for clinical findings) Please continue to document in your progress notes and discharge summary in order to capture severity of illness and risk of mortality. Include clinical findings that support your diagnosis. Sepsis ruled out MTDD
== END 2018-05-09 13:18 | disposition home health service (06) | DRG 690 ==
LOC: EC 14:03 → 4MS4W 17:33
PROVIDERS: ADMIT Hospitalist; ATTEND Hospitalist
DX: N39.0 Urinary tract infection, site not specified (principal); J96.11 Chronic respiratory failure with hypoxia; E44.1 Mild protein-calorie malnutrition; Z68.1 Body mass index [BMI] 19.9 or less, adult; E86.0 Dehydration; J44.9 Chronic obstructive pulmonary disease, unspecified; N20.0 Calculus of kidney; E87.6 Hypokalemia; M19.91 Primary osteoarthritis, unspecified site; I10 Essential (primary) hypertension; K21.9 Gastro-esophageal reflux disease without esophagitis; E78.5 Hyperlipidemia, unspecified; Z99.81 Dependence on supplemental oxygen; Z79.51 Long term (current) use of inhaled steroids; Z79.899 Other long term (current) drug therapy; Z87.01 Personal history of pneumonia (recurrent); Z87.442 Personal history of urinary calculi; Z87.440 Personal history of urinary (tract) infections; Z90.49 Acquired absence of other specified parts of digestive tract; Z87.891 Personal history of nicotine dependence; Z98.51 Tubal ligation status; Z98.42 Cataract extraction status, left eye; Z98.41 Cataract extraction status, right eye; Z88.1 Allergy status to other antibiotic agents; Z88.8 Allergy status to other drugs, medicaments and biological substances; Z83.3 Family history of diabetes mellitus; Z82.5 Family history of asthma and other chronic lower respiratory diseases; Z82.49 Family history of ischemic heart disease and other diseases of the circulatory system; N13.9 Obstructive and reflux uropathy, unspecified
CPT/HCPCS: 36415; 74018; 74176; 80048; 80053; 81001; 83605; 85025; 85610; 85730; 87040; 87086; 93005; 94640; 94760; 96361; 96374; 99285